=== PATIENT | female | born 1960 | race Caucasian/White ===

== ENCOUNTER 2023-10-07 17:36 | Emergency (ER) | payer MEDICARE, SELFPAY ==
[2023-10-07 17:36] VITALS: BP 169/84; PULSE 98; RESP 20; TEMP 37.1; O2SAT 97; BMI 23.3
--- NOTE | 2023-10-07 17:48 | PC.NURSE ---
DR FIGUEROA AT BEDSIDE
--- NOTE | 2023-10-07 17:54 | ED_ITS ---
Discharge Plan Disposition Patient Disposition: Home, Self-Care Prescriptions Prescriptions: No Action gabapentin 100 mg capsule 100 mg PO TID Qty: 90 2RF Referrals Follow up/Referrals: Declan Chang MD [Physician] - See instructions Activity Restrictions/Add. Instructions Additional Instructions/Restrictions: I spoke with Dr. Chang about your case today we recommend that you stop your Eliquis for at least 48 hours until you have your packing removed and you are advised to restart after this. Please call Dr. Chang's office tomorrow and make an appointment to be seen on Saturday for possible packaging removal. Dr. Chang is expecting to see you on Saturday. Return with any significant worsening of your bleeding. Clinical Impressions Clinical Impression: Perforated nasal septum, Acute anterior epistaxis, Anticoagulated Instructions Patient Instructions: DI for Nosebleed Discharge ED Provider: Rahel Lopez General Adult HPI General Chief complaint: Epistaxis Stated complaint: nose bleed Time Seen by Provider: 10/07/23 17:38 Mode of Arrival: EMS Source of Information: Patient and EMS Limitations: No Limitations Description of Symptoms (Recalled from ER Triage Doc. by RN): patient presents to ED via EMS with a nose bleed. Patient reports this is her third nosebleed today. EMS was called eariler for patient's second nosebleed and got it stopped. Patient is on eliquis. History of Present Illness HPI narrative: Patient is a 63-year-old female who is a [facility] resident presents today with bilateral epistaxis. States she is on Eliquis because I had a pacemaker that was placed. No old records but I presume that she had atrial fibrillation. She states has been compliant with her anticoagulation. Patient also states that she had surgery years past on her septum for a deviated septum denies any history of any chronic perforation or communication of bilateral naris. Has been spitting up some blood no bleeding elsewhere or other concerns. Does not feel lightheaded or any other symptoms. Related Data Previous Rx's Medication Instructions Recorded gabapentin 100 mg capsule 100 mg PO TID #90 caps 02/11/23 Allergies Allergy/AdvReac Type Severity Reaction Status Date / Time methadone Allergy Verified 10/07/23 17:59 morphine Allergy Verified 10/07/23 17:59 Sulfa (Sulfonamide Allergy Verified 10/07/23 17:59 Antibiotics) [facility] Disclaimer: The information contained in this section may have been updated after the patient was seen, as this information can be updated by other users. Social History Smoking Status: Never smoker alcohol intake: never current occupational status: other Travel in the last 8 weeks: None ROS Obtained: Yes All systems reviewed & no additional complaints except as documented Physical Exam General General appearance: alert and in no apparent distress ENT ENT exam: Present other (Septum is anatomically absent and bilateral nares are communicating with 1 another there is a significant amount of blood in bilateral naris no obvious source of the hemorrhage there is some blood down the posterior oropharynx but nothing significant) Respiratory Respiratory exam: Present normal lung sounds bilaterally Cardiovascular Cardiovascular exam: Present regular rate and normal rhythm Neurological Exam Neurological exam: Present alert and oriented X3 Medical Decision Making Schuyler Inquiry Pt receiving controlled substance: No Vital Signs: 10/07/23 17:36 Temperature 98.8 F Temperature Source Axillary Pulse Rate [Right Radial] 98 H Respiratory Rate 20 Blood Pressure [Right Arm] 169/84 H Blood Pressure Mean [Right Arm] 112 Blood Pressure Source [Right Arm] Automatic Cuff Blood Pressure Position [Right Arm] Sitting 02 Sat by Pulse Oximetry 97 Oxygen Delivery Method Room Air Orders (Tests/Meds): ED MEDICATIONS Discontinued Medications Generic Name Dose Route Start Last Admin Trade Name Freq PRN Reason Stop Dose Admin Tranexamic Acid 1,000 mg/ 260 mls @ 32.5 mls/hr 10/07/23 17:57 10/07/23 18:00 Sodium Chloride IV 10/07/23 17:58 32.5 mls/hr ONCE ONE Administration Medical Decision Narrative: Patient is a 63-year-old female with anatomically absent septum with significant bleeding in bilateral anterior naris. Given the fact that she does not have a septum for tamponade purposes we will have to place bilateral packing. Packing was placed anterior nares after soaking and TXA. 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 Reassessment 6:30 PM bilateral packing are soaked in blood but bleeding seems to have significantly slowed down. No active bleeding around the packing itself. No ongoing bleeding down the posterior oropharynx she has not had to spit up blood. I may give her 30 more minutes on reassessment. I was able to speak with Dr. Chang with ENT and he advised that we stop her Eliquis for 48 hours and he will see her in clinic on Saturday for trial of packing removal. I will reassess in 30 minutes and see if she is still hemostatic. Reassessment 7:10 PM bleeding has stopped patient stable she will stop her Eliquis and will follow-up with Dr. Chang on Saturday and return with any worsening bleeding. Procedures Epistaxis Control Time Out Performed: Yes Nostril: bilateral Direct Inspection: yes and anterior source identified Clots Removed by: blowing nose Cautery Used: none Device Inserted: hemostatic balloon (bilaterally ) Patient Tolerated Procedure: well Critical Care Critical Care Time Critical Care Time: No
--- NOTE | 2023-10-07 17:56 | PC.NURSE ---
Rhino rockets inserted bilaterally dipped in TXA by .
[2023-10-07] MEDS: TRANEXAMIC ACID 1,000 MG in 0.9 % SODIUM CHLORIDE 250 ML 32.5 MG IV (18:00)
--- NOTE | 2023-10-07 18:03 | PC.NURSE ---
[facility]ed [facility] for ENT consult. 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
[2023-10-07 19:19] VITALS: BP 140/76; PULSE 74; RESP 20; TEMP 36.7; O2SAT 98
--- NOTE | 2023-10-07 19:23 | PC.NURSE ---
pt is being discharged from ER and a resident form [facility], BLACKSMITH HAMMER OPERATOR called [facility] however no one answered the phone and BLACKSMITH HAMMER OPERATOR called juan malone. juan malone personnel stated they will call [facility] and let them know patient is ready to go and needs a ride
--- NOTE | 2023-10-07 19:40 | PC.NURSE ---
juan malone is sending someone to [facility] patient
== END 2023-10-07 19:59 | disposition home or self-care (01) ==
PROVIDERS: Emergency Provider Student in an Organized Health Care Education/Training Program; PCP Nurse Practitioner Acute Care
DX: R04.0 Epistaxis (principal); J34.89 Other specified disorders of nose and nasal sinuses; Z79.01 Long term (current) use of anticoagulants
CPT/HCPCS: 30903; 96374; 99284

== ENCOUNTER 2023-10-08 10:02 | Emergency (ER) | payer MEDICARE, SELFPAY ==
[2023-10-08] VITALS (7 sets, daily range): BP systolic 117–161; BP diastolic 64–84; PULSE 69–95; RESP 16–18; TEMP 36.6; O2SAT 95–99; BMI 23.3
--- NOTE | 2023-10-08 10:00 | PC.NURSE ---
Dr. Schwartz at bedside
--- NOTE | 2023-10-08 10:04 | PC.NURSE ---
DR CAMACHO SPEAKING WITH JOSE [facility]ON [place] [facility] NURSE PRACTITIONER AT ENT
--- NOTE | 2023-10-08 10:05 | PC.NURSE ---
Dr. Schwartz s/w ENT- [facility] JOSE
[2023-10-08] MEDS: ONDANSETRON 4MG ODT 4 MG SL (10:10)
--- NOTE | 2023-10-08 10:26 | ED_ITS ---
Discharge Plan Disposition Patient Disposition: Home, Self-Care Condition: Good Prescriptions Prescriptions: No Action gabapentin 100 mg capsule 100 mg PO TID Qty: 90 2RF atorvastatin 40 mg tablet 40 mg PO DAILY acetaminophen [Tylenol] 325 mg Tablet 650 mg PO QID PRN (Reason: pain or fever) levothyroxine 75 mcg tablet 75 mcg PO DAILY amlodipine 10 mg tablet 10 mg PO DAILY omeprazole 20 mg capsule,delayed release(DR/EC) 20 mg PO DAILY albuterol sulfate 90 mcg/actuation HFA aerosol inhaler 2 puff INHALATION Q4HP PRN (Reason: Shortness Of Breath Or Wheezing) duloxetine 20 mg capsule,delayed release(DR/EC) 20 mg PO DAILY Eliquis 5 mg tablet 5 mg PO DAILY melatonin 3 mg Capsule 6 mg PO HS PRN (Reason: Sleep) Referrals Follow up/Referrals: Provider,Referral, MD [Primary Care Provider] - See instructions Activity Restrictions/Add. Instructions Additional Instructions/Restrictions: You were evaluated in the emergency department today. Please keep your ENT follow-up that scheduled tomorrow. Return to the emergency department for new or worsening symptoms. Use the Afrin as needed for nosebleeding. Do not blow your nose. Clinical Impressions Clinical Impression: Perforated nasal septum, Acute anterior epistaxis Instructions Patient Instructions: What to Do When Your Child Has a Nosebleed, DI for Noseb leed Discharge ED Provider: Amberly Schwartz General Adult HPI General Chief complaint: Epistaxis Stated complaint: Epistaxis Time Seen by Provider: 10/08/23 10:04 Mode of Arrival: EMS Source of Information: Patient Limitations: No Limitations Description of Symptoms (Recalled from ER Triage Doc. by RN): Patient reports nose bleed. Was seen in this ER yesterday for the same thing and was discharged with Rhino Rockets in place. States that it did stop bleeding but began bleeding again this morning. History of Present Illness HPI narrative: This patient is a 63-year-old female with a history of atrial fibrillation on Eliquis, hypertension, hyperlipidemia, hypothyroidism, and GERD presenting to the emergency department for evaluation with concern for nosebleed. Patient has a history of an anatomically absent nasal septum. She was evaluated here in the emergency department yesterday on medical record review and was found to have acute anterior epistaxis, for which bilateral Rhino Rocket's were placed. Hemostasis was achieved, and the patient was discharged home. She notes that this morning, the bleeding started again. Patient arrives by EMS from [facility], and EMS noted the patient was stable en route. She was supposed to be holding her Eliquis at this time. Patient reports that she last took yesterday morning. Related Data Home Medications Medication Instructions Recorded Confirmed acetaminophen 325 mg tablet 650 mg PO QID PRN pain or fever 10/08/23 10/08/23 (Tylenol) albuterol sulfate 90 mcg/actuation 2 puff inhalation Q4HP PRN 10/08/23 10/08/23 aerosol inhaler Shortness Of Breath Or Wheezing amlodipine 10 mg tablet 10 mg PO DAILY 10/08/23 10/08/23 apixaban 5 mg tablet (Eliquis) 5 mg PO DAILY 10/08/23 10/08/23 atorvastatin 40 mg tablet 40 mg PO DAILY 10/08/23 10/08/23 duloxetine 20 mg capsule,delayed 20 mg PO DAILY 10/08/23 10/08/23 release levothyroxine 75 mcg tablet 75 mcg PO DAILY 10/08/23 10/08/23 melatonin 3 mg capsule 6 mg PO HS PRN Sleep 10/08/23 10/08/23 omeprazole 20 mg capsule,delayed 20 mg PO DAILY 10/08/23 10/08/23 release Previous Rx's Medication Instructions Recorded gabapentin 100 mg capsule 100 mg PO TID #90 caps 02/11/23 Allergies Allergy/AdvReac Type Severity Reaction Status Date / Time methadone Allergy Verified 10/07/23 17:59 morphine Allergy Verified 10/07/23 17:59 Sulfa (Sulfonamide Allergy Verified 10/07/23 17:59 Antibiotics) [facility] Disclaimer: The information contained in this section may have been updated after the patient was seen, as this information can be updated by other users. Social History Smoking Status: Unknown if ever smoked alcohol intake: never current occupational status: other Travel in the last 8 weeks: None ROS Obtained: Yes All systems reviewed & no additional complaints except as documented Physical Exam General General appearance: alert and in no apparent distress Head Head exam: atraumatic and normocephalic Eye Eye exam: Present normal appearance, PERRL and EOMI ENT ENT exam: Present normal oropharynx, mucous membranes moist, normal external ear exam and other (bilateral rhino rockets in place. Small amount of blood oozing down posterior oropharynx) Neck Neck exam: Present normal inspection, full ROM and trachea midline; Absent tenderness Chest Chest inspection: Present normal inspection and symmetric chest wall rise; Absent tenderness Respiratory Respiratory exam: Present normal lung sounds bilaterally; Absent respiratory distress, wheezes, stridor or accessory muscle use Cardiovascular Cardiovascular exam: Present regular rate and normal rhythm Abdominal Exam Abdominal exam: Present soft; Absent distention, tenderness or guarding Extremities Exam Extremities exam: Present normal inspection, full ROM and normal capillary refill; Absent tenderness or edema Back Exam Back exam: Present normal inspection and full ROM; Absent tenderness Neurological Exam Neurological exam: Present alert, oriented X3, CN II-XII intact and normal gait; Absent motor sensory deficit Psychiatric Psychiatric exam: Present normal affect and normal mood Skin Skin exam: Present warm and dry Medical Decision Making Medical Records Medical records reviewed: Yes I reviewed the patient's medical records. Schuyler Inquiry Pt receiving controlled substance: No Vital Signs: 10/08/23 10:02 10/08/23 10:31 10/08/23 11:01 Temperature 97.9 F Temperature Source Oral Pulse Rate 70 70 Pulse Rate [Radial] 95 H Respiratory Rate 16 Blood Pressure 161/81 H 147/80 H Blood Pressure [Right Arm] 157/84 H Blood Pressure Mean Blood Pressure Mean [Right Arm] 108 Blood Pressure Source [Right Arm] Automatic Cuff Blood Pressure Position [Right Arm] Sitting 02 Sat by Pulse Oximetry 98 95 95 Oxygen Delivery Method Room Air Room Air 10/08/23 11:31 10/08/23 12:01 10/08/23 12:31 Temperature Temperature Source Pulse Rate 70 71 Pulse Rate [Radial] Respiratory Rate Blood Pressure 128/64 124/66 117/64 Blood Pressure [Right Arm] Blood Pressure Mean 85 89 Blood Pressure Mean [Right Arm] Blood Pressure Source [Right Arm] Blood Pressure Position [Right Arm] 02 Sat by Pulse Oximetry 97 96 Oxygen Delivery Method Room Air 10/08/23 12:54 Temperature 98 F Temperature Source Oral Pulse Rate 69 Pulse Rate [Radial] Respiratory Rate 18 Blood Pressure 117/64 Blood Pressure [Right Arm] Blood Pressure Mean Blood Pressure Mean [Right Arm] Blood Pressure Source [Right Arm] Blood Pressure Position [Right Arm] 02 Sat by Pulse Oximetry Oxygen Delivery Method Room Air Lab Data Lab results reviewed: Yes I reviewed the patient's lab results. Orders (Tests/Meds): ED MEDICATIONS Discontinued Medications Generic Name Dose Route Start Last Admin Trade Name Flor PRN Reason Stop Dose Admin Acetaminophen 1,000 mg 10/08/23 10:25 10/08/23 10:36 Acetaminophen 500mg Tab PO 10/08/23 10:26 1,000 mg ONCE ONE Administration Miscellaneous 1 each 10/08/23 10:45 10/08/23 10:50 Miscellaneous Topical TP 10/08/23 10:46 1 each ONCE ONE Administration Ondansetron HCl 4 mg 10/08/23 10:07 10/08/23 10:10 Ondansetron 4mg Odt SL 10/08/23 10:08 4 mg ONCE ONE Administration Oxymetazoline HCl 15 ml 10/08/23 10:24 10/08/23 10:36 Oxymetazoline Nasal Butner 0.05% 15ml NS 10/08/23 10:25 15 ml ONCE ONE Administration Medical Decision Narrative: In summary, this patient is a 63-year-old female presenting to the Emergency Department for evaluation of epistaxis. Differential diagnoses considered include but are not limited to anterior nosebleed, posterior nosebleed. Ruling out the most morbid conditions drove assessment. It should be noted patient's history includes atrial fibrillation on Eliquis which may or may not be at goal therapy. This complicates all aspects of care by increasing patient's risk for morbidity. I reviewed patient's past medical records and noted evaluation yesterday for similar issue with nasal packing placed and discharged home as per HPI. On exam, the patient is in no acute distress. She has a very small amount of blood draining down the back of her throat, which is causing her to have some mild hemoptysis. Vitals are reassuring. Upon arrival, I called and had an interactive discussion with KEN in ENT clinic who advised we should remove the Rhino Rocket's, administer TXA nebulizer treatment, and see if we can achieve hemostasis. If not, they advised that they would come down and assessed the patient. Rhino Rocket's were removed without difficulty. Patient tolerated this well. No large amount of bleeding upon removal. TXA neb was then administered. Patient was given oral Tylenol and Zofran for symptomatic improvement. Patient's Rhino Rocket's were removed and she was given TXA neb. After this, she had no recurrence of bleeding. She was observed in the emergency department for over an hour with no recurrence of bleeding. ENT came down and evaluated her in the ED and after interactive discussion with Dr. Chang, he advised that he felt she could continue with plan for follow-up outpatient tomorrow. He advised continue to hold Eliquis. Patient was given instructions for this as well as Afrin to take home. Patient was discharged with strict return precautions and instructions for close follow-up. Critical Care Critical Care Time Critical Care Time: No
[2023-10-08] MEDS: ACETAMINOPHEN 500MG TAB 1000 MG PO (10:36)
[2023-10-08] MEDS: OXYMETAZOLINE NASAL SPRAY 0.05% 15ML 15 ML NS (10:36)
[2023-10-08] MEDS: [UNRECOGNIZED DRUG - OTHER] 1 EACH TP (10:50)
--- NOTE | 2023-10-08 11:10 | PC.NURSE ---
Rounded on patient, Warm blanket provided to patient at this time.
--- NOTE | 2023-10-08 12:35 | PC.NURSE ---
ENT- Dr. Chang at bedside
--- NOTE | 2023-10-08 12:38 | PC.NURSE ---
Dr. Chang s/w Dr. Schwartz
== END 2023-10-08 13:01 | disposition home or self-care (01) ==
PROVIDERS: Emergency Provider Emergency Medicine
DX: R04.0 Epistaxis (principal); J34.89 Other specified disorders of nose and nasal sinuses; I48.0 Paroxysmal atrial fibrillation; I10 Essential (primary) hypertension; E03.9 Hypothyroidism, unspecified; E78.5 Hyperlipidemia, unspecified; K21.9 Gastro-esophageal reflux disease without esophagitis; Z79.01 Long term (current) use of anticoagulants
CPT/HCPCS: 99283

== ENCOUNTER 2023-10-10 14:56 | Emergency (ER) | payer MEDICARE, SELFPAY ==
[2023-10-10] VITALS (8 sets, daily range): BP systolic 130–155; BP diastolic 65–74; PULSE 70–91; RESP 16–20; TEMP 36.8–36.9; O2SAT 93–100; BMI 29.0
[2023-10-10] MEDS: OXYMETAZOLINE NASAL SPRAY 0.05% 15ML 4 ML NS (15:16)
[2023-10-10] MEDS: TRANEXAMIC ACID 1,000 MG/10 ML VIAL 1000 MG TP ×2 (15:17→17:08)
--- NOTE | 2023-10-10 15:30 | HMH.EDGENADL ---
Discharge Plan Disposition Patient Disposition: Home, Self-Care Prescriptions Prescriptions: New cephalexin 500 mg capsule 1,000 mg PO BID 5 Days Qty: 20 0RF No Action cefdinir 300 mg capsule 300 mg PO BID 7 Days Qty: 14 0RF Saline Nasal Mist 0.65 % aerosol,spray 2 spray intranasal QID Qty: 44 0RF gabapentin 100 mg capsule 100 mg PO TID Qty: 90 2RF atorvastatin 40 mg tablet 40 mg PO DAILY acetaminophen [Tylenol] 325 mg Tablet 650 mg PO QID PRN (Reason: pain or fever) levothyroxine 75 mcg tablet 75 mcg PO DAILY amlodipine 10 mg tablet 10 mg PO DAILY omeprazole 20 mg capsule,delayed release(DR/EC) 20 mg PO DAILY albuterol sulfate 90 mcg/actuation HFA aerosol inhaler 2 puff INHALATION Q4HP PRN (Reason: Shortness Of Breath Or Wheezing) duloxetine 20 mg capsule,delayed release(DR/EC) 20 mg PO DAILY Eliquis 5 mg tablet 5 mg PO DAILY melatonin 3 mg Capsule 6 mg PO HS PRN (Reason: Sleep) Referrals Follow up/Referrals: Provider,Referral, MD [Referring] - See instructions Activity Restrictions/Add. Instructions Additional Instructions/Restrictions: Follow up with ENT on Saturday, 10/13 for further evaluation. Take Keflex until that time. Call your family doctor to establish care for this visit to the emergency department and schedule follow-up within 48 hours to ensure improvement. If you have any worsening of your condition or any other concerning signs or symptoms, return to the emergency department or your primary care doctor for further evaluation. Clinical Impressions Clinical Impression: Acute anterior epistaxis Instructions Patient Instructions: DI for Nosebleed Discharge ED Provider: Amberly Schwartz General Adult HPI General Chief complaint: Epistaxis Stated complaint: nose bleed Time Seen by Provider: 10/10/23 15:03 Mode of Arrival: EMS Source of Information: Patient and EMS Limitations: No Limitations Description of Symptoms (Recalled from ER Triage Doc. by RN): nose bleed History of Present Illness HPI narrative: Please note that above description of symptoms, in this electronic medical record under categorization of recalled from ER triage doctor by RN are reflective of an initial nursing assessment, however, is not reflective of my full history and physical exam that was personally taken and clarified. Consequentially, this preceding description of symptoms, which may include the patient's categorized chief complaint in the EMR, do not reflect my personal clinical impression, and the ultimate description of history of present illness and patient stated complaints should be deferred to this section of the note. Unless stated otherwise or congruent with this section of the note, additional signs, symptoms, or incongruence should be interpreted as inaccurate with my clinical impression. Related Data Home Medications Medication Instructions Recorded Confirmed acetaminophen 325 mg tablet 650 mg PO QID PRN pain or fever 10/08/23 10/09/23 (Tylenol) albuterol sulfate 90 mcg/actuation 2 puff inhalation Q4HP PRN 10/08/23 10/09/23 aerosol inhaler Shortness Of Breath Or Wheezing amlodipine 10 mg tablet 10 mg PO DAILY 10/08/23 10/09/23 apixaban 5 mg tablet (Eliquis) 5 mg PO DAILY 10/08/23 10/09/23 atorvastatin 40 mg tablet 40 mg PO DAILY 10/08/23 10/09/23 duloxetine 20 mg capsule,delayed 20 mg PO DAILY 10/08/23 10/09/23 release levothyroxine 75 mcg tablet 75 mcg PO DAILY 10/08/23 10/09/23 melatonin 3 mg capsule 6 mg PO HS PRN Sleep 10/08/23 10/09/23 omeprazole 20 mg capsule,delayed 20 mg PO DAILY 10/08/23 10/09/23 release Previous Rx's Medication Instructions Recorded gabapentin 100 mg capsule 100 mg PO TID #90 caps 02/11/23 cefdinir 300 mg capsule 300 mg PO BID 7 days #14 caps 10/09/23 sodium chloride 0.65 % nasal spray 2 spray intranasal QID #44 mL 10/09/23 aerosol (Saline Nasal Mist) cephalexin 500 mg capsule 1,000 mg (2 x 500 mg) PO BID 5 10/10/23 days #20 caps Allergies Allergy/AdvReac Type Severity Reaction Status Date / Time methadone Allergy Verified 10/09/23 11:07 morphine Allergy Verified 10/09/23 11:07 Sulfa (Sulfonamide Allergy Verified 10/09/23 11:07 Antibiotics) [facility] Disclaimer: The information contained in this section may have been updated after the patient was seen, as this information can be updated by other users. Social History Smoking Status: Current every day smoker alcohol intake: never current occupational status: other Travel in the last 8 weeks: None ROS Obtained: Yes All systems reviewed & no additional complaints except as documented Physical Exam General General appearance: alert and in no apparent distress Head Head exam: atraumatic and normocephalic Eye Eye exam: Present normal appearance, PERRL and EOMI ENT ENT exam: Present mucous membranes moist and other (Right-sided slow epistaxis, anterior. Small trickle down the back of oropharynx on the right side. Nasal septum with visible perforation) Neck Neck exam: Present normal inspection, full ROM and trachea midline Respiratory Respiratory exam: Present normal lung sounds bilaterally; Absent respiratory distress, wheezes, stridor, accessory muscle use or prolonged expiratory phase Cardiovascular Cardiovascular exam: Present normal rhythm Abdominal Exam Abdominal exam: Present soft; Absent distention, tenderness, guarding, rebound or rigidity Extremities Exam Extremities exam: Absent edema Neurological Exam Neurological exam: Present alert, oriented X3, CN II-XII intact and normal gait; Absent motor sensory deficit Skin Skin exam: Present warm and dry; Absent diaphoresis or erythema Medical Decision Making Medical Records Medical records reviewed: Yes I reviewed the patient's medical records. [place] Inquiry Pt receiving controlled substance: No [place] was queried for this patient: No Vital Signs: 10/10/23 14:56 10/10/23 14:58 10/10/23 15:45 Temperature 98.4 F Temperature Source Oral Pulse Rate 73 77 Pulse Rate [Right] 91 H Respiratory Rate 18 18 16 Blood Pressure 146/65 H 146/70 H Blood Pressure [Right Arm] 146/65 H Blood Pressure Mean 92 Blood Pressure Mean [Right Arm] 92 02 Sat by Pulse Oximetry 100 100 93 L Oxygen Delivery Method Room Air 10/10/23 16:15 10/10/23 16:24 10/10/23 16:30 Temperature Temperature Source Pulse Rate 70 72 78 Pulse Rate [Right] Respiratory Rate 16 18 18 Blood Pressure 139/72 134/74 130/72 Blood Pressure [Right Arm] Blood Pressure Mean 94 Blood Pressure Mean [Right Arm] 02 Sat by Pulse Oximetry 93 L 93 L 97 Oxygen Delivery Method Orders (Tests/Meds): ED MEDICATIONS Discontinued Medications Generic Name Dose Route Start Last Admin Trade Name Freq PRN Reason Stop Dose Admin Bacitracin 1 gm 10/10/23 17:04 10/10/23 17:08 Bacitracin Zinc Oint 30gm Tube TP 10/10/23 17:05 1 gm ONCE ONE Administration Miscellaneous 1 each 10/10/23 15:30 10/10/23 15:34 Miscellaneous Topical TP 10/10/23 15:31 1 each ONCE ONE Administration Oxymetazoline HCl 4 ml 10/10/23 15:06 10/10/23 15:16 Oxymetazoline Nasal Bellamy 0.05% 15ml NS 10/10/23 15:07 4 ml ONCE ONE Administration Tranexamic Acid 1,000 mg 10/10/23 15:06 10/10/23 15:17 Tranexamic Acid 1,000 Mg/10 Ml Vial TP 10/10/23 15:07 1,000 mg ONCE ONE Administration Tranexamic Acid 1,000 mg 10/10/23 17:03 10/10/23 17:08 Tranexamic Acid 1,000 Mg/10 Ml Vial TP 10/10/23 17:04 1,000 mg ONCE ONE Administration Medical Decision Narrative: 63-year-old female history of ischemic cardiomyopathy with pacemaker in place, Eliquis for presumed A-fib, hypertension, hypothyroidism, surgically absent anterior nasal septum presenting with epistaxis. Patient states that her nasal septum has been surgically absent since she had a deviated septum repaired years ago. Broke down over time. Started having nosebleed 4 days prior to this visit. Every day this week up until today. Emergency department on and , seen by ENT on the and presents today, 10/09 for further evaluation. States that the bleeding has not stopped. Had bilateral nasal packing in from the until the , removed by ED physician. Followed up on the with otolaryngology, they did not see any bleeding at the time. Patient presents today stating that it never actually stopped, as stated previously. No lightheadedness, shortness of breath, nausea or vomiting, chest pain, or any other concerning symptoms. Not currently taking her Eliquis. Patient states that it has continued to bleed, never actually fully stopped. History was obtained via conversation with patient and chart review. On arrival, patient hemodynamically stable, alert, oriented x4, appropriate, GCS 15, moving all extremities spontaneously, pupils equal and reactive to light. Full physical exam performed and significant for chronically ill-appearing woman in no acute distress. She does have bleeding in right nare as well as right-sided posterior oropharynx. Visible septal defect. Differential includes anterior epistaxis, digital trauma, surgical complication, medical noncompliance, among others. Patient was given oxymetazoline, TXA, nose clip for symptomatic management and correction of underlying abnormalities. Patient was placed in observation beginning at 3:20 PM in order to monitor for continued bleeding after topical medications and clamping and determine need for admission versus home-going. The patient was provided serial exams while awaiting results. On reevaluation 4 PM, patient still continuing to bleed, given another dose of topical oxymetazoline, topical TXA, clamping for 45-minute trial. Reevaluation 5 PM, patient still continuing to bleed, wiping her nose intermittently, I feel this is probably contributing. On nasal exam, patient bleeding from posterior aspect of use of our plexus on the right just superior to the nasal septal defect and now also bleeding on the left. Given nearly 2 hours of failure topical medications, nasal tampon packing bilaterally was placed. Bacitracin used for lubrication, nasal tampons were placed and saturated with TXA until complete occlusion. No continued bleeding thereafter. At this time, I feel patient is appropriate for discharge. Total observation time 3 hours. 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 Electronic leasing coordinator of the spoken language may permit errors. Although I have reviewed the note, some errors may still exist. Critical Care Critical Care Time Critical Care Time: No
[2023-10-10] MEDS: [UNRECOGNIZED DRUG - OTHER] 1 EACH TP (15:34)
[2023-10-10] MEDS: BACITRACIN ZINC OINT 30GM TUBE TP (17:08)
--- NOTE | 2023-10-10 18:13 | PC.NURSE ---
called [facility] to let them know pt is up for discharge
== END 2023-10-10 18:29 | disposition home or self-care (01) ==
PROVIDERS: Emergency Provider Emergency Medicine; PCP Nurse Practitioner Acute Care
DX: R04.0 Epistaxis (principal); I48.0 Paroxysmal atrial fibrillation; F17.210 Nicotine dependence, cigarettes, uncomplicated; E03.9 Hypothyroidism, unspecified; I10 Essential (primary) hypertension; Z79.01 Long term (current) use of anticoagulants; Z86.79 Personal history of other diseases of the circulatory system; Z95.0 Presence of cardiac pacemaker
CPT/HCPCS: 30903; 99283

== ENCOUNTER 2023-10-21 09:34 | Emergency (ER) | payer MEDICARE, SELFPAY ==
--- NOTE | 2023-10-21 09:40 | CT_ITS ---
FINAL REPORT TECHNIQUE: Thin section axial CT with IV contrast supplemented with multiplanar reconstruction under CT angiogram protocol. 3-D reconstructions were performed. This study was performed with techniques to keep radiation doses as low as reasonably achievable (ALARA). Individualized dose reduction techniques using automated exposure control or adjustment of mA and/or kV according to the patient''s size were employed. CLINICAL HISTORY: LLE weakness/numbness LKN yest evening stroke protocol FINDINGS: Exam is suboptimal due to contrast bolus timing with dense venous contrast which obscures some detail. The distal vertebral, basilar and distal internal carotid arteries have an unremarkable appearance. No aneurysm is seen. Major intracranial vessels are patent without significant stenosis. IMPRESSION: Unremarkable exam. Reviewed, Interpreted and Dictated by Cornelius Tatum III, MD Transcribed by Shayna Marino Authenticated and . [facility]
--- NOTE | 2023-10-21 09:40 | CT_ITS ---
FINAL REPORT CLINICAL HISTORY: LLE weakness/numbness LKN yest evening stroke protocol FINDINGS: Axial images of the head were obtained without contrast. Coronal reformatted images were also obtained.This study was performed with techniques to keep radiation doses as low as reasonably achievable (ALARA). Individualized dose reduction techniques using automated exposure control or adjustment of mA and/or kV according to the patient's size were employed. There are moderate, chronic ischemic/gliotic changes. There are multifocal areas of encephalomalacia, the largest seen in the right occipital lobe consistent with multifocal prior infarcts. There is no evidence of intracranial hemorrhage or mass. The ventricular size is within normal limits. There is no evidence of shift of the midline structures. No abnormal extra axial fluid collection is identified. No skull abnormality is seen on the bone window images. There is moderate mucosal thickening of multiple sinuses IMPRESSION: Chronic findings without acute intracranial abnormality. Reviewed, Interpreted and Dictated by Cornelius Tatum III, MD Transcribed by Shayna Marino Authenticated and . [facility]
--- NOTE | 2023-10-21 09:40 | CT_ITS ---
FINAL REPORT CLINICAL HISTORY: LLE weakness/numbness LKN yest evening FINDINGS: CTA NECK Thin section axial CT with contrast with multiplanar reconstruction NASCET criteria and technique was utilized during interpretation. Aortic arch: Arch shows no significant narrowing. Great vessel origins are widely patent . Right carotid: There is poor filling of the right posterior cerebral artery but with chronic infarct seen in the right [employer]ATL[employer] P[employer] territory, this is felt to be chronic. No significant stenosis is seen of the cervical common or internal carotid artery . Left carotid: No significant stenosis is seen of the cervical common or internal carotid artery . Vertebrals: Vertebral arteries are codominant. No significant stenosis is present . IMPRESSION: Unremarkable exam. Reviewed, Interpreted and Dictated by Cornelius Tatum III, MD Transcribed by Shayna Marino Authenticated and [facility]
--- NOTE | 2023-10-21 09:41 | XR_ITS ---
FINAL REPORT CLINICAL HISTORY: dyspnea FINDINGS: A single portable view of the chest was obtained. The heart size is normal. There is mild pulmonary vascular congestion. A right subclavian pacemaker is noted. There is no active pulmonary disease. The bony thorax is intact. IMPRESSION: Mild pulmonary vascular congestion. Reviewed, Interpreted and Dictated by Cornelius Tatum III, MD Transcribed by Zeynep Bower Authenticated and [facility]
--- NOTE | 2023-10-21 09:44 | PC.NURSE ---
blood work sent to lab in stroke alert bag for stat completion
[2023-10-21 09:47] VITALS: BP 166/92; PULSE 85; RESP 20; TEMP 36.8; O2SAT 100; BMI 24.2
--- NOTE | 2023-10-21 09:47 | PC.NURSE ---
pt to ct
--- NOTE | 2023-10-21 09:48 | ED_ITS ---
Discharge Plan Disposition Patient Disposition: Xfer Other Chief Complaint: Neuro Symptoms/Deficit Prescriptions Prescriptions: No Action cefdinir 300 mg capsule 300 mg PO BID 7 Days Qty: 14 0RF Saline Nasal Mist 0.65 % aerosol,spray 2 spray intranasal QID Qty: 44 0RF gabapentin 100 mg capsule 100 mg PO TID Qty: 90 2RF atorvastatin 40 mg tablet 40 mg PO DAILY acetaminophen [Tylenol] 325 mg Tablet 650 mg PO QID PRN (Reason: pain or fever) levothyroxine 75 mcg tablet 75 mcg PO DAILY amlodipine 10 mg tablet 10 mg PO DAILY omeprazole 20 mg capsule,delayed release(DR/EC) 20 mg PO DAILY albuterol sulfate 90 mcg/actuation HFA aerosol inhaler 2 puff INHALATION Q4HP PRN (Reason: Shortness Of Breath Or Wheezing) duloxetine 20 mg capsule,delayed release(DR/EC) 20 mg PO DAILY Eliquis 5 mg tablet 5 mg PO DAILY melatonin 3 mg Capsule 6 mg PO HS PRN (Reason: Sleep) cephalexin 500 mg capsule 1,000 mg PO BID 5 Days Qty: 20 0RF Referrals Follow up/Referrals: Provider,Referral, MD [Primary Care Provider] - See instructions Clinical Impressions Clinical Impression: Acute CVA (cerebrovascular accident), Left leg weakness Discharge ED Provider: Rahel Lopez General Adult HPI General Chief complaint: Neuro Symptoms/Deficit Stated complaint: weakness Time Seen by Provider: 10/21/23 09:40 History of Present Illness HPI narrative: Patient is a 63-year-old female presenting today with left lower extremity weakness. Last known normal yesterday evening. Of note the patient has been on Eliquis she has a history of ischemic cardiomyopathy she is status post BiV ICD [place] [address] Smallwood has atrial fibrillation and has been on Eliquis but she has had 4 ED visits in the last few weeks first being on 527 for epistaxis. She has a large septal defect and had nasal packing that was placed on multiple occasions she also saw our ear nose and throat doctor in clinic. Intermittently the bleeding had stopped that she has been off of her Eliquis since October 06. Most recently she was seen in our emergency department for recurrent bleeding was actually transferred [facility] had a 4-day hospitalization she was discharged on October 15 and she was advised to continue to hold her anticoagulation. Upon being discharged from [facility] on the fifth her anticoagulation was being held and she was advised to resume after following up with her primary care doctor. According to the patient she continues to not have taken any medications. Her bleeding has been controlled for many days at this point. Related Data Home Medications Medication Instructions Recorded Confirmed acetaminophen 325 mg tablet 650 mg PO QID PRN pain or fever 10/08/23 10/09/23 (Tylenol) albuterol sulfate 90 mcg/actuation 2 puff inhalation Q4HP PRN 10/08/23 10/09/23 aerosol inhaler Shortness Of Breath Or Wheezing amlodipine 10 mg tablet 10 mg PO DAILY 10/08/23 10/09/23 apixaban 5 mg tablet (Eliquis) 5 mg PO DAILY 10/08/23 10/09/23 atorvastatin 40 mg tablet 40 mg PO DAILY 10/08/23 10/09/23 duloxetine 20 mg capsule,delayed 20 mg PO DAILY 10/08/23 10/09/23 release levothyroxine 75 mcg tablet 75 mcg PO DAILY 10/08/23 10/09/23 melatonin 3 mg capsule 6 mg PO HS PRN Sleep 10/08/23 10/09/23 omeprazole 20 mg capsule,delayed 20 mg PO DAILY 10/08/23 10/09/23 release Previous Rx's Medication Instructions Recorded gabapentin 100 mg capsule 100 mg PO TID #90 caps 02/11/23 cefdinir 300 mg capsule 300 mg PO BID 7 days #14 caps 10/09/23 sodium chloride 0.65 % nasal spray 2 spray intranasal QID #44 mL 10/09/23 aerosol (Saline Nasal Mist) cephalexin 500 mg capsule 1,000 mg (2 x 500 mg) PO BID 5 10/10/23 days #20 caps Allergies Allergy/AdvReac Type Severity Reaction Status Date / Time methadone Allergy Verified 10/09/23 11:07 morphine Allergy Verified 10/09/23 11:07 Sulfa (Sulfonamide Allergy Verified 10/09/23 11:07 Antibiotics) [facility] Disclaimer: The information contained in this section may have been updated after the patient was seen, as this information can be updated by other users. Social History Smoking Status: Never smoker alcohol intake: never current occupational status: other Travel in the last 8 weeks: None ROS Obtained: Yes All systems reviewed & no additional complaints except as documented Physical Exam General General appearance: alert and in no apparent distress Head Head exam: atraumatic and normocephalic ENT ENT exam: Present other (Bilateral nares hemostatic no active bleeding) Respiratory Respiratory exam: Present normal lung sounds bilaterally Cardiovascular Cardiovascular exam: Present regular rate and normal rhythm Neurological Exam Neurological exam: Present alert, oriented X3, CN II-XII intact and motor sensory deficit (Patient has diminished strength in the left lower extremity proximally and distally 3/4 out of 5 also has diminished sensation left lower extremity NIH stroke scale of 3) Medical Decision Making [place] Inquiry Pt receiving controlled substance: No Vital Signs: 10/21/23 09:47 10/21/23 10:30 10/21/23 11:00 Temperature 98.2 F Temperature Source Oral Pulse Rate 77 68 Pulse Rate [Left Radial] 85 Respiratory Rate 20 16 Blood Pressure 137/81 150/103 H Blood Pressure [Right Arm] 166/92 H Blood Pressure Mean 106 Blood Pressure Mean [Right Arm] 116 02 Sat by Pulse Oximetry 100 100 92 L Oxygen Delivery Method Room Air Room Air Lab Data Lab results reviewed: Yes I reviewed the patient's lab results. Lab Results 10/21/23 08:45: WBC 8.6, RBC 3.63 L, Hgb 10.3 L, Hct 33.0 L, MCV 91.1, MCH 28.5, MCHC 31.3 L, RDW 15.4, Plt Count 266, MPV 7.9, Neut % (Auto) 68.6, Lymph % (Auto) 23.2, Edwards % (Auto) 5.8, Eos % (Auto) 1.8, Baso % (Auto) 0.6, Neut # (Auto) 5.9, Lymph # (Auto) 2.0, Edwards # (Auto) 0.5, Eos # (Auto) 0.2, Baso # (Auto) 0.1, PT 10.4, INR 0.96, APTT 26.0, Sodium 138, Potassium 4.1, Chloride 105, Carbon Dioxide 27, Anion Gap 10.1, BUN 15, Creatinine 1.00, Estimated Creat Clear 63, Estimated GFR 56 L, Est GFR ( Amer) 68, Glucose 106 H, Calcium 9.2, Total Bilirubin 0.2, AST 34, ALT 21, Alkaline Phosphatase 106, Troponin I < 0.01, Total Protein 7.0, Albumin 4.0, Globulin 3.0, Albumin/Globulin Ratio 1.3 10/21/23 08:45 10/21/23 08:45 Orders (Tests/Meds): ED MEDICATIONS Generic Name Dose Route Start Last Admin Trade Name Freq PRN Reason Stop Dose Admin Sodium Chloride 10 ml 10/21/23 09:57 10/21/23 10:07 Sodium Chloride 0.9% 10ml Syr (Rad Only) IV 11/20/23 09:56 10 ml NEEDED PRN Administration Maintain IV Site Sodium Chloride 10 ml 10/21/23 10:08 10/21/23 10:22 Sodium Chloride 0.9% 10ml Syr (Rad Only) IV 11/20/23 10:07 10 ml NEEDED PRN Administration Maintain IV Site Discontinued Medications Generic Name Dose Route Start Last Admin Trade Name Freq PRN Reason Stop Dose Admin Lactated Ringer's 1,000 mls @ 999 mls/hr 10/21/23 09:45 10/21/23 10:19 Lactated Ringer's 1000 Ml Bag IV 10/21/23 10:45 999 mls/hr .Q1H1M MYRIAM Administration Iopamidol 100 ml 10/21/23 09:57 10/21/23 10:07 Iopamidol-370 (76%);100ml Bottle IV 10/21/23 09:58 100 ml ONCE ONE Administration Iopamidol 10 ml 10/21/23 09:57 10/21/23 10:07 Iopamidol-200 (41%);10ml Vial IV 10/21/23 09:58 10 ml ONCE ONE Administration Iopamidol 100 ml 10/21/23 10:08 10/21/23 10:22 Iopamidol-370 (76%);100ml Bottle IV 10/21/23 10:09 100 ml ONCE ONE Administration Sodium Chloride 50 ml 10/21/23 10:08 10/21/23 10:22 0.9 % Sodium Chloride 50 Ml Vial IV 10/21/23 10:09 50 ml ONCE ONE Administration ORDERS Category Date Time Status CT angio head Stat Cat Scan 10/21/23 09:[address] angio neck Stat Cat Scan 10/21/23 09:[address] head/brain wo con Stat Cat Scan 10/21/23 09:40 Completed CXR --portable [XR chest portable] Stat Exams 10/21/23 09:41 Taken POCUS Point of Care (ER Only) Stat Exams 10/21/23 10:07 Completed CBC w/Auto Diff [Complete Blood Count Auto Diff] Stat Lab 10/21/23 08:45 Completed CMP [Comprehensive Metabolic Panel] Stat Lab 10/21/23 08:45 Completed PT/PTT Stat Lab 10/21/23 08:45 Completed Trop I [Troponin I] Stat Lab 10/21/23 08:45 Completed Medical Decision Narrative: 63-year-old with above history and physical most likely with an acute ischemic stroke after being off of her anticoagulants due to recent and ongoing epistaxis that she has been dealing with. She is currently hemostatic from an epistaxis standpoint. She is outside of any window at the moment for tPA. CT and CTA are being performed. Given her complexity and the difficult decision to restart anticoagulation with her recent history she will need to be managed where there is ENT coverage as well as stroke. After her CT scans were performed will reassess. Reassessment 11:[address] scan was performed initially treatment technician was having difficult time getting the systemic circulation to light up with contrast make me concerned about significant decrease in her ejection fraction or an LV thrombus bedside ultrasound was done without any significant abnormality regarding that see procedure note. No obvious hemorrhagic stroke no definitive LVO at the moment. I was able to speak with the stroke service at [facility]. Given the fact that she has had the recent significant bleeds and has been off her anticoagulation and restarting her anticoagulation possible hemorrhaging would be a concern and the fact that she needs stroke/inpatient neurology evaluation will need an MRI etc. she needed a higher level of care. Patient is agreeable to this plan. She was transferred to [facility] under the accepting attending Dr. Ronit Hernandez. Procedures Miscellaneous Procedure Procedure Performed: Limited cardiac ultrasound Indication: Stroke like symptoms Identified structures: The heart was visualized in the parasternal long axis, parastenal short axis, apical four chamber and subxyphiod views. The IVC was visualized in the short axis and long axis at its entry into the right atrium. Findings: LVEF not moderately or severely diminished no pericardial effusion bilateral atria are dilated without obvious thrombus in the atria or LV IVC less than 2 cm with normal respirophasic variation Impression: Unremarkable limited ultrasound of the heart Images were saved to permanent archive The study was technically adequate CPT: 89102-58 This study was performed by me, and I personally interpreted all images/videos. Based on my clinical judgement, these images were adequate and did not necessitate further imaging. Critical Care Critical Care Time Critical Care Time: Yes Attestation: On 10/21/23, the high probability of a clinically significant, sudden or life threatening deterioration of the following system(s) required my full and direct attention, intervention and personal management. The time I documented below is in addition to time spent performing reported procedures but includes the following listed in this critical care notation. Total Time Total Critical Care Time: 35
--- NOTE | 2023-10-21 09:57 | HMH.ITSTN ---
GFR completion/results were overrode for the use of contrast media by the Physician on a risk vs. benefit situation with this patient.
[2023-10-21 09:58] LABS: Basophils # 0.1 K/mm3 (0-0.2); Basophils % 0.6 % (0.1-2.0); Eosinophils # 0.2 K/mm3 (0.0-0.4); Eosinophils % 1.8 % (0.1-12.0); Hemoglobin 10.3 g/dL (12.2-16.2); Lymphocytes % 23.2 % (10-50); Mean Corpuscular HGB Conc 31.3 g/dL (31.8-35.4); Mean Corpuscular Hemoglobin 28.5 pg (27.0-31.2); Mean Corpuscular Volume 91.1 fl (81-99); Mean Platelet Volume 7.9 fl (7.4-10.4); Monocytes # 0.5 K/mm3 (0.1-1.0); Monocytes % 5.8 % (1.7-9.3); Neutrophils # 5.9 K/mm3 (1.8-7.8); Neutrophils % 68.6 % (37.0-80.0); Platelet Count 266 K/mm3 (142-424); Red Blood Count 3.63 M/mm3 (4.20-5.40); Red Cell Distribution Width 15.4 % (11.5-17.5); White Blood Count 8.6 K/mm3 (4.8-10.8)
[2023-10-21 10:05] LABS: Chloride 105 mmol/L (98-107); INR 0.96 (0.9-1.1); Potassium 4.1 mmoL/L (3.5-5.1); Prothrombin Time 10.4 seconds (10.1-12.5); Sodium 138 mmol/L (136-145)
[2023-10-21 10:07] LABS: Blood Urea Nitrogen 15 mg/dl (7-17); Creatinine Clearance Estimated 63 mL/min (50-200); Estimated Glomerular Filt Rate 56 ml/min (>60); GFR (African American) 68 ML/MIN (>60)
[2023-10-21] MEDS: IOPAMIDOL-200 (41%);10ML VIAL 10 ML IV (10:07)
[2023-10-21] MEDS: SODIUM CHLORIDE 0.9% 10ML SYR (RAD ONLY) 10 ML IV ×2 (10:07→10:22)
[2023-10-21] MEDS: IOPAMIDOL-370 (76%);100ML BOTTLE 100 ML IV ×2 (10:07→10:22)
[2023-10-21 10:08] LABS: Alanine Aminotransferase 21 U/L (12-78); Albumin/Globulin Ratio 1.3 (1.1-1.8); Alkaline Phosphatase 106 U/L (38-126); Anion Gap 10.1 mEq/L (5-15); Aspartate Amino Transferase 34 U/L (14-36); Bilirubin,Total 0.2 mg/dl (0.2-1.3); Carbon Dioxide 27 mmol/L (22.0-30.0)
[2023-10-21 10:09] LABS: Calcium 9.2 mg/dl (8.4-10.2); Glucose 106 mg/dl (74-100)
[2023-10-21] MEDS: LACTATED RINGERS 1000ML 1,000 ML 999 ML IV (10:19)
[2023-10-21] MEDS: 0.9 % SODIUM CHLORIDE 50 ML VIAL IV (10:22)
[2023-10-21 10:23] LABS: Troponin I < 0.01 ng/ml (0.00-0.034)
[2023-10-21 10:30] VITALS: BP 137/81; PULSE 77; O2SAT 100
--- NOTE | 2023-10-21 10:59 | ECG_ITS ---
APPROVED REPORT Exam: Resting ECG HR:72 bpm ECG Measurements Heart Rate 72 AXES QRSd 126 QRS 228 QT 429 T 63 QTc 453 Conclusion ELECTRONIC VENTRICULAR PACEMAKER ABNORMAL RHYTHM ECG UNCONFIRMED REPORT Electronically signed by : Maycol Lopez, 10/21/2023 15:20:03
[2023-10-21 11:00] VITALS: BP 150/103; PULSE 68; RESP 16; O2SAT 92
--- NOTE | 2023-10-21 11:09 | PC.NURSE ---
called [facility] per Dr Lopez to speak with the health coordinator about ths pt. while on the line [facility] stroke spoke with Dr Lopez
--- NOTE | 2023-10-21 11:15 | PC.NURSE ---
Fred accepted Dr Hernandez
[2023-10-21 11:31] VITALS: BP 127/80; PULSE 71; O2SAT 92
--- NOTE | 2023-10-21 11:45 | PC.NURSE ---
attempted to call report to [facility]. states they will call back
--- NOTE | 2023-10-21 11:47 | PC.NURSE ---
[facility] NOTIFIED OF TRANSFER TO [facility]
[2023-10-21 12:15] VITALS: BP 147/85; PULSE 70; RESP 18; TEMP 36.6; O2SAT 98
== END 2023-10-21 12:24 | disposition other institution (70) ==
PROVIDERS: Emergency Provider Student in an Organized Health Care Education/Training Program
DX: I63.9 Cerebral infarction, unspecified (principal); M62.81 Muscle weakness (generalized); I48.0 Paroxysmal atrial fibrillation; Z79.01 Long term (current) use of anticoagulants; I10 Essential (primary) hypertension; R29.703 NIHSS score 3
CPT/HCPCS: 70450; 70496; 70498; 71045; 80053; 84484; 85025; 85610; 85730; 93005; 96360; 99291; J7120; Q9966; Q9967

== ENCOUNTER 2023-12-04 10:15 | Outpatient (CLI) | payer MEDICARE, SELFPAY ==
--- NOTE | 2023-12-04 10:27 | ECG_ITS ---
APPROVED REPORT Exam: Resting ECG HR:84 bpm ECG Measurements Heart Rate 84 AXES QRSd 130 QRS -64 QT 418 T 121 QTc 459 Conclusion ELECTRONIC VENTRICULAR PACEMAKER ABNORMAL RHYTHM ECG UNCONFIRMED REPORT Electronically signed by : Janak Carney MD 12/04/2023 15:59:09
== END 2023-12-04 23:59 | disposition home or self-care (01) ==
LOC: RT 10:16
PROVIDERS: PCP Family Medicine; Visit Provider Family Medicine
DX: I48.91 Unspecified atrial fibrillation (principal); Z79.899 Other long term (current) drug therapy
CPT/HCPCS: 93005

== ENCOUNTER 2024-04-01 14:19 | Outpatient (CLI) | payer MEDICARE, MEDICAID, SELFPAY ==
--- NOTE | 2024-04-01 14:23 | CT_ITS ---
FINAL REPORT TECHNIQUE: Thin section axial images were obtained from the lung apices to the upper abdomen by computed tomography. Reformatted images were obtained and reviewed. This study was performed with techniques to keep radiation doses al low as reasonably achievable (ALARA). Individualized dose reduction techniques using automated exposure control or adjustment of mA and/or kV according to the patient's size were employed. CLINICAL HISTORY: lung cancer screening current smoker for 3 years 8 cigarettes per day COMPARISON: None FINDINGS: CHEST CT LOW DOSE 64-year-old female, current smoker, 2-pack-year history. CTDI vol (mGy): 2.9 DLP (mGy-cm): 94.03 There is an implanted right upper chest wall pacemaker which causes streak artifact in the lung apices. There is no axillary adenopathy. There is no mediastinal or hilar mass or adenopathy. The heart is normal in size. There is no pericardial or pleural effusion. A moderate-sized hiatal hernia is present. Lung window images demonstrate no suspicious infiltrate or nodule. Limited images of the upper abdomen demonstrate a prior cholecystectomy. IMPRESSION: Lung-RADS category 1. Recommend 12 month follow up low dose chest CT. Reviewed, Interpreted and Dictated by Seven Sol MD Transcribed by Guerita Bradshaw Authenticated and [facility]
--- NOTE | 2024-04-01 14:27 | CA_ITS ---
APPROVED REPORT EXAM: Comprehensive 2D, Doppler, and color-flow Echocardiogram Data Deliverables Manager: DOMINIC Coleman, RVS Ht: 5 ft 6 in Wt: 225lbs BSA: 2.10 BP: 138/84 mmHg Indications: Pacer, Afib, Wheelchair bound, jail resident Echo Enhancing Agent Comments: Technically limited exam due to body habitus. 2D Dimensions Left Atrium 5.29 cm F: 2.7 - 3.8 LA Volume 193.90 mL LA Volume Index 92.33 mL/m2 (M/F) 16-34 M-Mode Dimensions RVDd 2.74 cm (0.9-2.6) LA Diam 5.74 cm (1.9-4.0) LVDd 4.44 cm (3.5-5.7) LVDs 3.22 cm (3.5-5.7) IVSd 1.21 cm (0.6-1.1) PWd 1.33 cm (0.6-1.1) EF (Teich) 51.00% EPSs 0.85 cm FS 25.80% EDV (Teich) 84.90 mL TAPSE 1.23 (<1.7) ESV (Teich) 41.60 mL LV Diastology E Decel Time 143 (160-240 msec) E/A Ratio 8.78 MED A' 5.20 cm/s LAT A' 3.60 cm/s Aortic Valve BON Index 0.53 cm2/m2 AoV Peak Gato. 117.0 (50-130 cm/s) AO Peak GR. 5.50 mmHg AO Mean GR. 2.70 (<5 mmHg) AO VTI 20.9 (18-25 cm) BON (VTI) 1.14 (2.5-4.5 cm2) Mitral Valve MV A Velocity 10.0 (40-130 cm/s) E/A Ratio 8.78 Pulmonary Valve PV Peak Velocity 73.0 (50-150 cm/s) Tricuspid Valve TR P. Velocity 243.00 cm/s RAP Estimate 10.00 mmHg RVSP 33.60 mmHg Left Ventricle The left ventricle is normal size. The left ventricular systolic function is normal. The left ventricular ejection fraction is within the normal range. There is increased LV wall thickness. There is normal LV segmental wall motion. Diastolic function is indeterminate. LVEF is 55%. Right Ventricle Right ventricle is moderately dilated. Right ventricle is mildly hypokinetic. There is a device lead in the right ventricle. Atria The left atrium is severely dilated. The right atrium is severely dilated. There is no Doppler evidence of interatrial shunt. Aortic Valve The aortic valve is mildly thickened. Trace aortic regurgitation. There is no aortic valvular stenosis. Mitral Valve The mitral valve leaflets are mildly thickened. No evidence of mitral valve stenosis. Trace mitral regurgitation. Tricuspid Valve Tricuspid valve is grossly normal in structure and function. Moderate tricuspid regurgitation. RVSP is 20-25 mmHg. Pulmonic Valve The pulmonary valve is normal in structure. Mild pulmonic regurgitation. Great Vessels The aortic root is normal in size. The ascending aorta is not well-visualized. IVC is normal in size and collapses >50% with inspiration. Pericardium Trivial, posterior pericardial effusion is present. The largest pocket measures 0.3 cm in diastole. No echo indications of tamponade. Other Information Study Quality: Fair Conclusion Normal LV systolic function. Moderate RV dilation with mild reduction in RV function. Moderate TR. Mild PI. Trivial, posterior pericardial effusion is present. The largest pocket measures 0.3 cm in diastole. No echo indications of tamponade. Electronically signed by : Madalyn Meléndez MD 04/12/2024 22:35:19
== END 2024-04-01 23:59 | disposition home or self-care (01) ==
LOC: RAD 14:21
PROVIDERS: PCP Family Medicine; Visit Provider Nurse Practitioner Family
DX: R94.31 Abnormal electrocardiogram [ECG] [EKG] (principal); Z72.0 Tobacco use; I48.20 Chronic atrial fibrillation, unspecified
CPT/HCPCS: 71271; 93306

== ENCOUNTER 2024-06-04 13:15 | Outpatient (CLI) | payer MEDICARE, MEDICAID, SELFPAY | END 2024-06-04 23:59 | disposition home or self-care (01) | PROVIDERS: PCP Nurse Practitioner Family; Visit Provider Nurse Practitioner Family | DX: Z12.31 Encounter for screening mammogram for malignant neoplasm of breast (principal) ==

== ENCOUNTER 2024-09-03 09:52 | Day surgery (SDC) | payer MEDICARE, MEDICAID, SELFPAY ==
[2024-08-31 10:57] VITALS: BMI 22.6
[2024-09-03 10:30] VITALS: BMI 22.6
[2024-09-03 10:31] VITALS: BP 145/91; PULSE 84; RESP 17; TEMP 36.9; O2SAT 94
[2024-09-03] MEDS: LIDOCAINE 1% 20ML MDV 20 ML (12:30)
[2024-09-03 12:55] VITALS: BP 115/71; PULSE 68; RESP 16; TEMP 36.7; O2SAT 97
--- NOTE | 2024-09-03 13:04 | EXP.OP.NOTE ---
Date of procedure: 09/03/24 Pre-op Diagnosis:: Left upper extremity skin neoplasm (2 cm) Post-op Diagnosis:: Same Procedure performed:: Excision of left upper extremity skin neoplasm (2 cm) Surgeon:: Shlomo Galindo MD Anesthesia: local Estimated blood loss (mL): 5 Operative findings:: Lesion excised in toto Operative note:: After informed consent was obtained the patient was taken to the procedure room. Her left upper arm was prepped and draped in a sterile fashion. After infiltration with local anesthetic an elliptical incision was made around the lesion. The lesion was sharply excised into the deep subcutaneous tissue. The lesion was marked for margin with nylon suture (short proximal/long lateral). The lesion was then excised in toto and passed off for pathologic evaluation. Thermal cautery was utilized to achieve hemostasis. Skin was reapproximated with interrupted 4-0 nylon in a mattress fashion. Dressings were applied and the patient was discharged home in stable condition. Condition: stable Disposition: no change Specimens:: Left upper extremity skin neoplasm Complications:: No immediate
[2024-09-03 13:30] VITALS: BP 124/71; PULSE 69; RESP 16; TEMP 36.7; O2SAT 99
== END 2024-09-03 13:30 | disposition home or self-care (01) ==
PROVIDERS: PCP Family Medicine; Visit Provider Surgery
PROC: (CPT 11602; principal; 2024-09-03 11:15)
DX: D03.62 Melanoma in situ of left upper limb, including shoulder
CPT/HCPCS: 11602

== ENCOUNTER 2024-10-02 07:13 | Day surgery (SDC) | payer MEDICARE, MEDICAID, SELFPAY ==
[2024-10-01 14:28] VITALS: BMI 35.6
[2024-10-02 07:30] VITALS: BP 155/96; PULSE 86; RESP 16; TEMP 36.2; O2SAT 98
--- NOTE | 2024-10-02 08:29 | EXP.OP.NOTE ---
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 Her upper left arm was prepped and draped in sterile fashion. After infiltration local anesthetic an elliptical incision was made around the lesion. The lesion was dissected with a combination of sharp dissection and electrocautery into the deep subcutaneous tissue. A 1 cm margin was obtained. The lesion was excised in toto and passed off for pathologic evaluation. Electrocautery was utilized to achieve hemostasis. Skin was reapproximated with interrupted 4-0 nylon. Dressings were applied and the patient was discharged home in stable condition. Condition: stable Disposition: no change Specimens:: Re-excision left upper extremity melanoma in situ Complications:: No immediate
[2024-10-02] MEDS: LIDOCAINE 1% 20ML MDV 20 ML ×2 (08:40)
[2024-10-02 09:25] VITALS: BP 131/84; PULSE 68; RESP 18; TEMP 36.2; O2SAT 99
== END 2024-10-02 09:43 | disposition home or self-care (01) ==
PROVIDERS: PCP Family Medicine; Visit Provider Surgery
DX: D03.61 Melanoma in situ of right upper limb, including shoulder (principal); I10 Essential (primary) hypertension; G81.14 Spastic hemiplegia affecting left nondominant side; E03.9 Hypothyroidism, unspecified; E78.5 Hyperlipidemia, unspecified; F17.210 Nicotine dependence, cigarettes, uncomplicated; Z88.2 Allergy status to sulfonamides; Z88.5 Allergy status to narcotic agent; Z88.8 Allergy status to other drugs, medicaments and biological substances; Z79.899 Other long term (current) drug therapy; Z79.82 Long term (current) use of aspirin; Z79.890 Hormone replacement therapy; Z95.0 Presence of cardiac pacemaker; Z96.652 Presence of left artificial knee joint; Z90.49 Acquired absence of other specified parts of digestive tract; Z59.00 Homelessness unspecified
CPT/HCPCS: 11601; 88305; 88341; 88342

== ENCOUNTER 2024-10-09 08:04 | Outpatient (CLI) | payer MEDICARE, MEDICAID, SELFPAY ==
[2024-10-09 09:51] LABS: Thyroid Stimulating Hormone 6.79 uIU/mL (0.465-4.68)
[2024-10-09 09:54] LABS: Free T4 (Free Thyroxine) 1.04 ng/dl (0.78-2.19)
== END 2024-10-09 23:59 | disposition home or self-care (01) ==
PROVIDERS: PCP Family Medicine; Visit Provider Nurse Practitioner Family
DX: E03.9 Hypothyroidism, unspecified (principal)
CPT/HCPCS: 36415; 84439; 84443

== ENCOUNTER 2024-10-10 15:08 | Outpatient (CLI) | payer MEDICARE, MEDICAID, SELFPAY ==
[2024-10-10 15:28] LABS: Microscopic, Urine URINE MICROSCOPIC (MICROSCOPIC)
[2024-10-10 15:34] LABS: Appearance,Urine SL CLOUDY (Clear); Bilirubin,Urine Negative (Negative); Blood, Urine Negative (Negative); Color,Urine YELLOW (Yellow); Glucose,Urine (UA) Negative (Negative); Ketones,Urine Negative (Negative); Leukocyte Esterase,Urine 2+ (Negative); Nitrate,Urine POSITIVE (Negative); Protein,Urine Negative (Negative); Urobilinogen,Urine 0.2 EU/dl (0.2)
[2024-10-10 15:37] LABS: Basophils % 0.4 % (0.1-2.0); Eosinophils # 0.2 Kmm3 (0.0-0.4); Eosinophils % 3.2 % (0.1-12.0); Hematocrit 42.4 % (37.0-47.0); Hemoglobin 13.5 g/dL (12.2-16.2); Immature Granulocytes # 0.02 10^3uL; Immature Granulocytes % 0.3 %; Lymphocytes # 2.2 K/mm3 (0.7-4.5); Lymphocytes % 31.3 % (10-50); Mean Corpuscular HGB Conc 31.8 g/dL (31.8-35.4); Mean Platelet Volume 10.6 fl (7.4-10.4); Monocytes # 0.6 K/mm3 (0.1-1.0); Monocytes % 8.8 % (1.7-9.3); Neutrophils # 3.9 K/mm3 (1.8-7.8); Nucleated Red Blood Cells # 0 10^3/uL; Nucleated Red Blood Cells % 0 %; Platelet Count 131 K/mm3 (142-424); Red Blood Count 4.66 M/mm3 (4.20-5.40); Red Cell Distribution Width 14.2 % (11.5-17.5); White Blood Count 6.9 K/mm3 (4.8-10.8)
[2024-10-10 15:41] LABS: Bacteria,Urine 3+ /lpf; WBC,Urine 20-50 #/hpf (0-3)
[2024-10-10 15:46] LABS: Albumin Level 3.2 g/dl (3.5-5.0); Chloride 110 mmol/L (98-107); Potassium 4.2 mmoL/L (3.5-5.1); Sodium 143 mmol/L (136-145)
[2024-10-10 15:49] LABS: Alanine Aminotransferase 17 U/L (12-78); Albumin/Globulin Ratio 1.3 (1.1-1.8); Alkaline Phosphatase 101 U/L (38-126); Anion Gap 7.2 mEq/L (5-15); Aspartate Amino Transferase 22 U/L (14-36); Bilirubin,Total 0.5 mg/dl (0.2-1.3); Blood Urea Nitrogen 25 mg/dl (7-17); Carbon Dioxide 30 mmol/L (22.0-30.0); Estimated Glomerular Filt Rate 63 ml/min (>60); GFR (African American) 77 ML/MIN (>60); Globulin 2.5 g/dL (1.3-3.2); Total Protein,Serum 5.7 g/dl (6.3-8.2)
[2024-10-10 15:50] LABS: Glucose 88 mg/dl (74-100)
== END 2024-10-10 23:59 | disposition home or self-care (01) ==
LOC: LAB.DROPOF 15:12
PROVIDERS: PCP Family Medicine; Visit Provider Family Medicine
DX: R53.1 Weakness (principal); R53.83 Other fatigue
CPT/HCPCS: 80053; 81001; 85025; 87086; 87088; 87186

== ENCOUNTER 2024-11-20 06:57 | Outpatient (CLI) | payer MEDICARE, MEDICAID, SELFPAY ==
--- OUTSIDE RECORDS SUMMARY | 2024-11-20 06:59 | XMS_ITS | Clinical Summary ---
Author Organization [facility] Address [address] [place] [address] Phone Care Team Providers Care Roaster Helper Name Role Phone Lyudmila Castro MD Primary Care Physician [phone] Conditions or Problems Problem Name Problem Code Onset Date Status Entry Date Provider Comment Standard Description Annotate Atrial Fibrillatio n I48.91 (ICD-10-CM) 05/26 Active 05/28 Bri Hunt APRN Unspecified atrial fibrillation Tobacco abuse 61325438 (SNOMED CT) 08/13 Active 05/28 Bri Hunt APRN Tobacco dependence syndrome GERD (gastroesop hageal reflux disease) 280250752 (SNOMED CT) 09/17 Active 05/28 Bri Hunt APRN Gastroesophage al reflux disease Hyperlipide rosalia 50842559 (SNOMED CT) 09/05 Active Bri Hunt APRN Hyperlipidemia Insomnia 130005115 (SNOMED CT) Active 05/27 Bri Hunt APRN Insomnia Fibromyalgi a 87620053 (SNOMED CT) 01/01 Active Bri Hunt APRN Fibromyositis Obstructive sleep apnea 35971817 (SNOMED CT) 01/08 Active 05/28 Bri Hunt APRN Obstructive sleep apnea syndrome Leukemia, in remission 77354767 (SNOMED CT) 05/31 Active 05/28 Bri Hunt APRN Leukemia in remission Thrombocyto penia 407791011 (SNOMED CT) 11/25 Active 05/28 Bri Hunt PC MAINTENANCE TECHNICIAN Thrombocytopen ic disorder Patent foramen ovale 313519611 (SNOMED CT) 11/27 Active 05/28 Bri Hunt PC MAINTENANCE TECHNICIAN Patent foramen ovale Panic disorder without agoraphobia 18991706 (SNOMED CT) 12/16 Active 05/28 Bri Hunt PC MAINTENANCE TECHNICIAN Panic disorder without agoraphobia Recurrent right pleural effusion 95739407 (SNOMED CT) 01/03 Active 05/28 Bri Hunt PC MAINTENANCE TECHNICIAN Pleural effusion Biventricul ar cardiac pacemaker present [id number] 105 (SNOMED CT) 01/07 Active 05/28 Bri Hunt PC MAINTENANCE TECHNICIAN Biventricular cardiac pacemaker present Hypothyroid ism 59315869 (SNOMED CT) 01/22 Active 05/27 Bri Hunt PC MAINTENANCE TECHNICIAN Hypothyroidism Complete heart block 00463062 (SNOMED CT) 01/10 Active 05/28 Bri Hunt PC MAINTENANCE TECHNICIAN Complete atrioventricul ar block Dilated cardiomyopa thy 040574637 (SNOMED CT) 01/10 Active 05/28 Bri Hunt PC MAINTENANCE TECHNICIAN Dilated cardiomyopathy CAD (coronary artery disease) 40216395 (SNOMED CT) 01/14 Active 05/28 Bri Hunt PC MAINTENANCE TECHNICIAN Coronary arterioscleros is Systolic heart failure, acute on chronic 408535258 (SNOMED CT) 10/14 Active 05/28 Bri Hunt PC MAINTENANCE TECHNICIAN Acute on chronic systolic heart failure Chronic obstructive pulmonary disease 000671110 (SNOMED CT) Active 05/28 Bri Hunt PC MAINTENANCE TECHNICIAN Severe chronic obstructive pulmonary disease Left acute thrombosis of subclavian vein 571196094 (SNOMED CT) 08/18 Active 05/28 Bri Hunt PC MAINTENANCE TECHNICIAN Thrombosis of subclavian vein Hypertensiv e urgency 071905652 (SNOMED CT) 08/18 Active 05/28 Bri Hunt PC MAINTENANCE TECHNICIAN Hypertensive urgency Permanent atrial fibrillatio n 799094016 (SNOMED CT) 09/18 Active 05/28 Bri Hunt APRN Permanent atrial fibrillation Chronic back pain 696697804 (SNOMED CT) 09/19 Active 05/28 Bri Hunt PC MAINTENANCE TECHNICIAN Chronic back pain Tricuspid regurgitati on, severe 030161757 (SNOMED CT) 09/20 Active 05/28 Bri Hunt PC MAINTENANCE TECHNICIAN Tricuspid valve regurgitation LV dysfunction 411772263 (SNOMED CT) 09/19 Active 05/28 Bri Hunt PC MAINTENANCE TECHNICIAN Left ventricular cardiac dysfunction History of ACUTE MYELOID LEUKEMIA IN REMISSION 81179687 (SNOMED CT) 05/18 Inactive 05/18 Bri Hunt APRN Acute myeloid leukemia in remission Problem excluded fro m report: DEPRESSION 42915372 (SNOMED CT) Resolved Bri Hunt APRN Depressive disorder GERD 724938200 (SNOMED CT) Resolved Bri Hunt APRN Gastroesophage al reflux disease ALLERGY, ENVIRONMENT AL 959772148 (SNOMED CT) Resolved Bri Hunt APRN Environmental allergy ASTHMA 152595268 (SNOMED CT) Resolved Bri Hunt PC MAINTENANCE TECHNICIAN Asthma KNEE PAIN LEFT 16568358 (SNOMED CT) Resolved Bri Hunt APRN Knee pain Hypothyroid ism 13710374 (SNOMED CT) 05/26 Inactive 05/27 Bri Hunt PC MAINTENANCE TECHNICIAN Hypothyroidism Insomnia 178552507 (SNOMED CT) 05/26 Inactive 05/27 Bri Hunt PC MAINTENANCE TECHNICIAN Insomnia Body mass index (BMI) 25.0-25.9; adult Z68.25 (ICD-10-CM) 05/26 Active 05/26 Bri Hunt APRN Body mass index [BMI] 25.0-25.9, adult Body mass index (BMI) 26.0-26.9; adult Z68.26 (ICD-10-CM) 05/19 Correction 05/19 Bri Hunt APRN Body mass index [BMI] 26.0-26.9, adult Preoperativ e examination 579378816 (SNOMED CT) 05/26 Inactive 05/26 Bri Hunt APRN Special examination - general Body mass index (BMI) 26.0-26.9; adult Z68.26 (ICD-10-CM) 05/19 Removed 05/19 Bri Hunt APRN Body mass index [BMI] 26.0-26.9, adult BRONCHITIS ACUTE 89525573 (SNOMED CT) 06/26 Inactive 06/26 Lyudmila Castro MD Acute bronchitis BRUISE 933500703 (SNOMED CT) Resolved Lyudmila Castro MD Contusion BRUISE 454456115 (SNOMED CT) Removed Lyudmila Castro MD Contusion KNEE PAIN LEFT 77237820 (SNOMED CT) Removed Lyudmila Castro MD Knee pain HYPERTENSIO N 10066634 (SNOMED CT) Active Lyudmila Castro MD Hypertensive disorder BRONCHITIS ACUTE 92801488 (SNOMED CT) 05/19 Resolved 05/19 Lyudmila Castro MD Acute bronchitis EDEMA 127764234 (SNOMED CT) Resolved Lyudmila Castro MD Edema History of ACUTE MYELOID LEUKEMIA IN REMISSION 85530733 (SNOMED CT) 05/18 Removed 05/18 Yumiko Gaston MD Acute myeloid leukemia in remission BRONCHITIS ACUTE 12959112 (SNOMED CT) 05/19 Removed 05/19 Yumiko [place] MD Acute bronchitis ASTHMA 743314477 (SNOMED CT) Removed Kimberley Block RMA Asthma DYSLIPIDEMI A 459681762 (SNOMED CT) Inactive Kimberley Block RMA Dyslipidemia EDEMA 985683610 (SNOMED CT) Removed Kimberley Block RMA Edema ALLERGY, ENVIRONMENT AL 209951301 (SNOMED CT) Removed Kimberley Block RMA Environmental allergy GERD 676243084 (SNOMED CT) Removed Kimberley Block RMA Gastroesophage al reflux disease FIBROMYALGI A 39323472 (SNOMED CT) Inactive Kimberley Block RMA Fibromyositis DEPRESSION 78093264 (SNOMED CT) Removed Kimberley Block RMA Depressive disorder Medications Medication Instructions Start Date Stop Date Generic Name [facility] Provider ATORVASTATIN CALCIUM 40 MG TABS TAKE 1 TABLET BY MOUTH AT BEDTIME ATORVASTATIN CALCIUM [id number] Bri Hunt APRN CARVEDILOL 12.5 MG TABS TAKE 1 TABLET BY MOUTH 2 TIMES A DAY CARVEDILOL 53668942580 Bri Hunt APRN ELIQUIS 5 MG TABS TAKE 1 TABLET BY MOUTH TWICE A DAY APIXABAN 84573848395 Bri Hunt APRN ASPIR-LOW 81 MG ORAL TABLET DELAYED RELEASE TAKE 1 TABLET BY MOUTH 1 TIME A DAY ASPIRIN 02936170746 Bri Hunt APRN MELOXICAM 15 MG TABS TAKE 1 TABLET BY MOUTH ONCE A DAY MELOXICAM 10191805485 Bri Hunt APRN SPIRONOLACTONE 25 MG TABS TAKE 1 TABLET BY MOUTH 1 TIME A DAY SPIRONOLACTONE 26952140214 Bri Hunt APRN TRAMADOL HCL 50 MG TABS TAKE EVERY 8 HOURS NEEDED TRAMADOL HCL 72086722041 Bri Hunt APRN LEVOTHYROXINE SODIUM 50 MCG TABS TAKE 1 TABLET BY MOUTH ONCE A DAY LEVOTHYROXINE SODIUM 81654629895 Bri Hunt APRN ADVAIR DISKUS 250-50 MCG/DOSE INHALATION AEROSOL POWDER BREATH ACTIVATED 1 INH BID 05/26 FLUTICASONE-SALM ETEROL 32313443672 Bri Hunt APRN FUROSEMIDE 40 MG TABS TAKE 1 TABLET BY MOUTH 1 TIME A DAY FUROSEMIDE 88679248343 Bri Hunt PC MAINTENANCE TECHNICIAN CYMBALTA 60 MG CPEP 1 PO BID 05/26 DULOXETINE HCL 62023567922 Bri Guerrerosalma GARCIA PROVENTIL HFA AEROSOL SOLUTION 2 PUFFS Q4H PRN 05/26 ALBUTEROL SULFATE AERS 79309528870 Bri Gilbert GARCIA PRILOSEC 20 MG ORAL CAPSULE DELAYED RELEASE 2 PO QD 05/26 OMEPRAZOLE 02985734206 Bri Gilbert COVINGTONN ZITHROMAX 250 MG TABS 2po day1 1pox4d 05/26 AZITHROMYCIN 15927854809 Bri Gilbert GARCIA TRAZODONE HCL 100 MG TABS TAKE 2 TABLET BY MOUTH EVERY NIGHT AT BEDTIME 05/26 TRAZODONE HCL 45912796973 Bri Gilbert GARCIA LORATADINE 10 MG TABS TAKE 1 TABLET BY MOUTH 1 TIME A DAY 05/26 LORATADINE 97795277297 Bri Guerrerosalma GARCIA MELATONIN 3 MG TABS TAKE 1-3 TABLETS EACH NIGHT AT BEDTIME NEEDED FOR SLEEP MELATONIN 73960873145 Bri Guerrerosalma COVINGTONN MUCINEX D 60-600 MG [id number] 1po bib 05/26 PSEUDOEPHEDRINE- GUAIFENESIN 20266555562 Bri Guerrerosalma GARCIA MUCINEX 600 MG [id number] TAKE 1 TABLET BY MOUTH 2 TIMES A DAY 05/26 GUAIFENESIN 73318402781 Bri Gilbert GARCIA BENGAY COLD THERAPY 5 % EXTERNAL GEL APPLY TOPICALLY TO KNEE BID 05/26 MENTHOL (TOPICAL ANALGESIC) 94034167672 Bri Gilbert GARCIA LISINOPRIL 20 MG TABS TAKE 1 TABLET BY MOUTH 1 TIME A DAY LISINOPRIL 80000925201 Bri Gilbert GARCIA POTASSIUM CHLORIDE ER 10 MEQ CR-TABS TAKE 1 BY MOUTH ONCE EVERY DAY 05/26 POTASSIUM CHLORIDE 12561086200 Bri Hunt APRN PERMETHRIN LICE TREATMENT 1 % EXTERNAL LOTION APPLY TO SCALP AND RINSE AFTER 8-12 MINUTES. COMB OUT NITS. REPEAT IN 1 WEEK NEEDED. PERMETHRIN 51204959399 Pamella Miranda MD AZITHROMYCIN 500 MG TABS take 1 tablet by mouth daily for 5 days 07/01 AZITHROMYCIN 86213496515 Lyudmila Castro MD POTASSIUM CHLORIDE ER 10 MEQ CR-TABS TAKE 1 BY MOUTH ONCE EVERY DAY POTASSIUM CHLORIDE 20169769528 Lyudmila Castro MD LISINOPRIL 10 MG TABS TAKE 1 TABLET BY MOUTH 1 TIME A DAY LISINOPRIL 69618796972 Lyudmila Castro MD BENGAY COLD THERAPY 5 % EXTERNAL GEL APPLY TOPICALLY TO KNEE BID MENTHOL (TOPICAL ANALGESIC) 63276634392 Lyudmila Castro MD MUCINEX 600 MG [id number]-RSH TAKE 1 TABLET BY MOUTH 2 TIMES A DAY GUAIFENESIN 55348615372 Yumiko Gaston MD LORATADINE 10 MG TABS TAKE 1 TABLET BY MOUTH 1 TIME A DAY LORATADINE 66579446494 Yumiko G[place] MD LYRICA 75 MG CAPS TAKE 1 CAPSULE 3 TIMES A DAY 05/18 PREGABALIN 68230741371 Yumiko Gaston MD TRAZODONE HCL 100 MG TABS TAKE 2 TABLET BY MOUTH EVERY NIGHT AT BEDTIME TRAZODONE HCL 05125928788 Lyudmila Castro MD TRAZODONE HCL 100 MG TABS 1 PO QHS 05/18 TRAZODONE HCL 86283618705 Yumiko G[place] MD CYMBALTA 60 MG CPEP 1 PO BID DULOXETINE HCL 15927587144 Yumiko G[place] MD LASIX 80 MG TABS 1po qdPRN FUROSEMIDE 55823981137 Yumiko G[place] MD ADVAIR DISKUS 250-50 MCG/DOSE INHALATION AEROSOL POWDER BREATH ACTIVATED 1 INH BID FLUTICASONE-SALM ETEROL 25670747688 Yumiko G[place] MD PRILOSEC 20 MG ORAL CAPSULE DELAYED RELEASE 2 PO QD OMEPRAZOLE 99610005962 Lyudmila Castro MD LYRICA 75 MG CAPS TAKE 1 CAPSULE 3 TIMES A DAY PREGABALIN 43469244480 Yumiko G[place] MD PRILOSEC 20 MG ORAL CAPSULE DELAYED RELEASE 2 PO QD OMEPRAZOLE 24943711811 Yumiko Gaston MD ZOCOR TABLET 05/19 SIMVASTATIN TABS 55327978780 Yumiko G[place] MD LASIX 80 MG TABS 1po qd FUROSEMIDE 75186686720 Yumiko Gaston MD MUCINEX D 60-600 MG [id number] 1po bib PSEUDOEPHEDRINE- GUAIFENESIN 43308469636 Yumiko G[place] MD ZITHROMAX 250 MG TABS 2po day1 1pox4d AZITHROMYCIN 16109275312 Yumiko G[place] MD PRILOSEC 20 MG ORAL CAPSULE DELAYED RELEASE 1 PO QD OMEPRAZOLE 13027017233 Yumiko G[place] MD ZOCOR TABLET SIMVASTATIN TABS 14716327252 Kimberley WAYA PROVENTIL HFA AEROSOL SOLUTION 2 PUFFS Q4H PRN ALBUTEROL SULFATE AERS 92319381867 Yumiko G[place] MD ADVAIR DISKUS 250-50 MCG/DOSE INHALATION AEROSOL POWDER BREATH ACTIVATED 1 INH BID FLUTICASONE-SALM ETEROL 45174385035 Kimberley Block A LASIX 80 MG TABS TID FUROSEMIDE 44304087581 Kimberley WAYA CYMBALTA 60 MG CPEP 1 PO BID DULOXETINE HCL 70214158206 Yumiko G[place] MD TRAZODONE HCL 100 MG TABS 1 PO QHS TRAZODONE HCL 15153816897 Yumiko G[place] MD LYRICA 75 MG CAPS 1 PO TID PREGABALIN 77911130441 Kimberley JOHNSON Medications Administered No information available. Allergies, Adverse Reactions, Alerts Allergy Name Reaction Description Start Date Severity Statu s Provider DILAUDID ITCHING Mild Active Bri marsh PC MAINTENANCE TECHNICIAN METHODONE Critical Active Kimberley Andresrisuzy RMA MORPHINE Critical Active Kimberley Andresrieck RMA SULFA Critical Active Kimberley Andresrieck RMA Results Date Name Value Unit Range Flag Description Lab Report: CBC (INCLUDES DI FF/PLT), COMPREHENSIVE METABOLIC PANEL W/eGF ... SGPT (ALT) 14 U/L 6-40 N Alanine aminotransferase [Enzymatic activity/volume] in Serum or Plasma SGOT (AST) 17 U/L 10-35 N Aspartate aminotransferase [Enzymatic activity/volume] in Serum or Plasma ALK PHOS 90 U/L 33-115 N Alkaline phosphatase [Enzymatic activity/volume] in Blood BILI TOTAL 0.2 mg/dL 0.2-1.2 N Bilirubin. total [Mass/volume] in Serum or Plasma A/G RATIO 1.5 (calc) 1.0-2.1 N Albumin/ Globulin [Mass Ratio] in Serum or Plasma GLOBULIN TOT 2.7 G/DL (CALC) g/dL 2.2-3.9 N Globulin [Mass/volume] in Serum ALBUMIN EOP 4.1 g/dL 3.6-5.1 N Albumin [Mass/volume] in Serum or Plasma by Electrophoresis PROTEIN, TOT 6.8 g/dL 6.2-8.3 N Protein [Mass/volume] in Serum or Plasma Lab Report: BASIC METABOLIC PANEL, CBC (INCLUDES DIFF/PLT), PROTHROMBIN ... BASO % MANU 0.4 % N basophils as percent of blood leukocytes, manual count EOS % MANU 1.9 % N eosinophil s as percent of blood leukocytes, manual count MONOCYTE % 8.3 % N Monocytes/ 100 leukocytes in Blood by Automated count LYMPH% P BLD 41.7 % N lymphocy krissy as percent of blood leukocytes PMN % 47.7 % N Neutrophils/1 00 leukocytes in Blood by Automated count ABS BASOS 30 {Cells}/ uL 0-200 N Basophils [#/volume] in Blood ABS EOS 144 {Cells}/ uL 15-500 N Eosinophils [#/volume] in Blood ABS MONOS 631 {Cells}/ uL 200-950 N Monocytes [#/volume] in Blood ABSLYMPHCT 3169 {Cells}/ uL 850-3900 N Lymphocytes [#/volume] in Blood ABS NEUTROPH 3625 CELLS/UL 10*3/uL 6560-7161 N Neutrophils [#/volume] in Blood PLATELETK/UL 151 THOUSAND/UL 10*3/uL 140-400 N platelet count RDW 17.0 % 11.0-15.0 H Erythrocyte distribution width [Ratio] by Automated count OL-MCHC 32.4 g/dL 32.0-36.0 N mean corpus cular hemoglobin concentration, rbc MCH 27.0 pg 27.0-33.0 N MCH [Entiti c mass] by Automated count MCV 83.4 fL 80.0-100. 0 N MCV [Entitic volume] by Automated count HCT 38.6 % 35.0-45.0 N Hematocrit [Volume Fraction] of Blood by Automated count HGB 12.5 g/dL 11.7-15.5 N Hemoglobin [Mass/volume] in Blood RBC M/UL 4.63 MILLION/UL 10*6/uL 3.80-5.10 N red blood count WBC CT BLOOD 7.6 10*3/uL 3.8-10.8 N leukocy te count, blood CALCIUM 8.8 mg/dL 8.6-10.4 N Calcium [Moles/volume] in Serum or Plasma CO2 28 mmol/L 21-33 N Carbon dioxid e, total [Moles/volume] in Venous blood CHLORIDE BLD 105 mmol/L 98-110 N chloride , blood POTASSIUM 3.6 mmol/L 3.5-5.3 N Potassium [Moles/volume] in Serum or Plasma SODIUM 141 mmol/L 135-146 N Sodium [Moles/volume] in Serum or Plasma BUN/CREAT NOT APPLICABLE (calc) 6-22 Urea nitrogen/Creatinine [Mass Ratio] in Serum or Plasma EGFR 86 mL/min/1 .73m2 >OR = 60 N Glomerular filtration rate/1.73 sq M.predicted [Volume Rate/Area] in Serum, Plasma or Blood by Creatinine-based formula (MDRD) CREATININE 0.80 mg/dL 0.50-1.05 N Creatini ne [Mass/volume] in Serum or Plasma BUN 13 mg/dL 7-25 N Urea nitrogen [Mass/volume] in Serum or Plasma BG RANDOM 95 mg/dL 65-99 N Glucose [Mass/volume] in Blood Append: Acute Adult INR 0.8 INR in Platel et poor plasma by Coagulation assay PT PATIENT 10.4 s Prothrombi n time (PT) Plan of Care Type Date Detail Referral Pain Management Referral [facility], [address] [place], [address] Referral Hematology Oncol ogy Referral Oncology Hematology Care Gomez Lee M.D. [facility], [address] [place] [address] [address], [place], [address] Pending order CBC with diff Pending order BMP Pending order Protime INR Pending order CBC with diff (O utside Lab) Pending order CMP (Outside Lab ) Pending order TSH reflex to fr ee T-4 (Outside Lab) Procedures Code Procedure Name Date Entry Date [facility] 6399 T1 CBC with diff [facility] 35387 T1 CMP [facility] 496 T1 HGBA1c [facility] 12019 T1 Lipid Panel [facility] 37219 T1 TSH reflex to free T4 202 05/13/13 CPT-3077F Most recent systolic blood pressure >=140 mm Hg CPT-3079F Most recent diastoli c blood pressure 80-89 mm Hg [id number] Medication Reconciliation CPT-3077F Most recent systolic blood pressure >=140 mm Hg CPT-3078F Most recent diastoli c blood pressure <80 mm Hg [id number] Medication Reconciliation 6399 [facility] Test # CBC with diff 6 [id number] [facility] Test # BMP 6 [id number] [facility] Test # Protime INR HEM ON CARE Hematology Oncology Referral Oncology Hematology Care [facility] Refe rral [facility] CPT-01242 CBC with diff (Outside Lab) CPT-72687 CMP (Outside Lab) CPT-31459 TSH reflex to free T-4 (Outside Lab) 2010 Vital Signs Date Name Value Unit Description BMI (Body Mass Index) 25.43 kg/m2 Bod y Mass Index (Ratio) Body Temperature 97.2 [degF] temperat ure E&M Body Temperature 36.22 Sariah temperat ure in centigrade E&M BP Diastolic 94 mm[Hg] blood pressu re, diastolic BP Diastolic 88 mm[Hg] blood pressu re, diastolic, second observation BP Systolic 154 mm[Hg] blood pressur e, systolic, second observation BP Systolic 163 mm[Hg] blood pressur e, systolic BSA (Body Surface Area) 1.82 b darrius surface area Heart Rate 84 /min pulse rate 10 Heart Rate 84 pulse rate #2 Heart Rate 86 /min pulse rate Height 66 [in_us] height E&M Height 167.64 cm height in cent imeters E&M Weight Measured 71.36 kg weight in kilograms E&M Weight Measured 157.0 [lb_av] weight E& M Weight Measured 157.0 [lb_av] weight E& M Immunizations No information available. Advance Directives No information available.
[2024-11-20 08:26] LABS: Free T4 (Free Thyroxine) 1.38 ng/dl (0.78-2.19)
[2024-11-20 08:40] LABS: Thyroid Stimulating Hormone 4.55 uIU/mL (0.465-4.68)
== END 2024-11-20 23:59 | disposition home or self-care (01) ==
PROVIDERS: PCP Nurse Practitioner Family; Visit Provider Nurse Practitioner Family
DX: E07.9 Disorder of thyroid, unspecified (principal)
CPT/HCPCS: 36415; 84439; 84443

== ENCOUNTER 2024-12-16 07:04 | Outpatient (CLI) | payer MEDICARE, MEDICAID, SELFPAY ==
[2024-12-16 08:10] LABS: Cholesterol 130 mg/dl (140-200); HDL Cholesterol 40 mg/dl (40-60); Triglycerides 90 mg/dl (30-150)
[2024-12-16 08:57] LABS: Hepatitis C Ab Qual. W/ RFX REACTIVE (Negative)
== END 2024-12-16 23:59 | disposition home or self-care (01) ==
PROVIDERS: PCP Nurse Practitioner Family; Visit Provider Nurse Practitioner Family
DX: E78.5 Hyperlipidemia, unspecified (principal); Z11.59 Encounter for screening for other viral diseases; Z11.4 Encounter for screening for human immunodeficiency virus [HIV]
CPT/HCPCS: 36415; 80061; 86803; 87389; 87522

== ENCOUNTER 2025-01-23 15:53 | Emergency (ER) | payer MEDICARE, MEDICAID, SELFPAY ==
[2025-01-23] VITALS (8 sets, daily range): BP systolic 101–167; BP diastolic 78–132; PULSE 56–67; RESP 12–17; TEMP 36.9–37.1; O2SAT 94–98; BMI 36.8
--- NOTE | 2025-01-23 15:48 | CT_ITS ---
PROCEDURE INFORMATION: Exam: CT Head Without Contrast Exam date and time: 01/23/2025 4:00 PM Age: 65 years old Clinical indication: Stroke-like symptoms; Altered mental status/memory loss; Additional info: Possible stroke TECHNIQUE: Imaging protocol: Computed tomography of the head without contrast. Radiation optimization: All CT scans at this facility use at least one of these dose optimization techniques: automated exposure control; mA and/or kV adjustment per patient size (includes targeted exams where dose is matched to clinical indication); or iterative reconstruction. Other technique: STROKE PROTOCOL was implemented. COMPARISON: CT ANGIO HEAD 10/21/2023 9:56 AM FINDINGS: Limitations: Motion artifact does severely limit the sensitivity of this examination. The study was repeated as series 6 Brain: There are multiple areas of encephalomalacia involving the right occipital lobe and extending superiorly to involve the parasagittal frontal and parietal lobes typical of a watershed infarct. These changes are stable in the occipital lobe but now much more extensive extending into the watershed region superiorly. There is also less extensive parasagittal encephalomalacia of the high left frontal lobe and the watershed region of the left parieto-occipital junction. The left-sided changes are stable from 10/21/2023. There is no evidence of intracranial hemorrhage. Cerebral ventricles: No ventriculomegaly. Paranasal sinuses: Visualized sinuses are unremarkable. No fluid levels. Mastoid air cells: Visualized mastoid air cells are well aerated. Teeth: The patient is edentulous. Bones: Unremarkable. No acute fracture. Soft tissues: Unremarkable. Vasculature: The vasculature demonstrates diffuse moderate atherosclerotic calcification. IMPRESSION: 1. There are multiple areas of encephalomalacia involving the right occipital lobe and extending superiorly to involve the parasagittal frontal and parietal lobes typical of a watershed infarct. These changes are stable in the occipital lobe but now much more extensive extending into the watershed region superiorly. 2. There is also less extensive parasagittal encephalomalacia of the high left frontal lobe and the watershed region of the left parieto-occipital junction. The left-sided changes are stable from 10/21/2023. 3. There is no evidence of intracranial hemorrhage. ASSESSMENT: ASPECTS ([place] Stroke Program Early CT Score) is 10.
--- NOTE | 2025-01-23 15:48 | CT_ITS ---
PROCEDURE INFORMATION: Exam: CTA Neck With Contrast Exam date and time: 01/23/2025 4:03 PM Age: 65 years old Clinical indication: Stroke-like symptoms; Left facial droop; Lt upper extremity and lt lower extremity weakness; Additional info: Possible stroke TECHNIQUE: Imaging protocol: Computed tomographic angiography of the neck with contrast. Exam focused on the cervical segments of the vasculature. 3D rendering (Not supervised by radiologist): MIP and/or 3D reconstructed images were created by the technologist. Radiation optimization: All CT scans at this facility use at least one of these dose optimization techniques: automated exposure control; mA and/or kV adjustment per patient size (includes targeted exams where dose is matched to clinical indication); or iterative reconstruction. Contrast material: ISOUVE 370; Contrast volume: 80 ml; Contrast route: INTRAVENOUS (IV); COMPARISON: CT ANGIO NECK 10/21/2023 9:56 AM FINDINGS: Limitations: Due to the timing issues noted, there is limited opacification of the neck vessels. Tubes, catheters and devices: A pacemaker device is present with generator in the right upper chest, and its leads are in appropriate position. Right common carotid artery: No stenosis. No dissection or occlusion. Right internal carotid artery: No stenosis of the extracranial segment. No dissection or occlusion. Right external carotid artery: No occlusion or stenosis of the origin. Left common carotid artery: No stenosis. No dissection or occlusion. Left internal carotid artery: There is mild calcification of the left internal carotid origin with less than 50% compromise of the lumen. Left external carotid artery: No occlusion or stenosis of the origin. Right vertebral artery: No stenosis. No dissection or occlusion. Left vertebral artery: No stenosis. No dissection or occlusion. Veins: Extensive collateral vascular distribution is seen in the upper chest and neck extending superiorly to the base of the skull. This usually reflects occlusion or high-grade stenosis of the venous system which was injected but it is not clear which side was chosen here. The presumed stenosis affects the timing of the exam and the quality of the bolus and contrast is predominantly seen in the pulmonary circuit. Extensive venous reflux is seen surrounding the vertebral arteries and the possibility a pathology is not readily assessed. There appear to be codominant vessels of the foramen magnum. Soft tissues: Normal. No significant soft tissue swelling. Bones/joints: See Veins finding. Lungs: The visualized portions of the lung apices are normal. Other findings: There is no obvious calcification or stenosis of the right carotid system. IMPRESSION: 1. Extensive collateral vascular distribution is seen in the upper chest and neck extending superiorly to the base of the skull. This usually reflects occlusion or high-grade stenosis of the venous system which was injected but it is not clear which side was chosen here. The presumed stenosis affects the timing of the exam and the quality of the bolus and contrast is predominantly seen in the pulmonary circuit. 2. Due to the timing issues noted, there is limited opacification of the neck vessels. 3. There is no obvious calcification or stenosis of the right carotid system. 4. There is mild calcification of the left internal carotid origin with less than 50% compromise of the lumen. 5. Extensive venous reflux is seen surrounding the vertebral arteries and the possibility a pathology is not readily assessed. There appear to be codominant vessels of the foramen magnum. REFERENCES: NASCET CRITERIA. The degree of stenosis in the cervical segment of the internal carotid artery is based on NASCET criteria. Normal is no stenosis. Mild is less than 50% stenosis. Moderate is 50-69% stenosis. Severe is 70% to 99% stenosis. Total occlusion is no detectable patent lumen.
--- NOTE | 2025-01-23 15:48 | ECG_ITS ---
APPROVED REPORT Exam: Resting ECG HR:65 bpm ECG Measurements Heart Rate 65 AXES QRSd 125 QRS -63 QT 457 T 123 QTc 468 Conclusion ELECTRONIC VENTRICULAR PACEMAKER ABNORMAL RHYTHM ECG No STEMI Electronically signed by : VIANEY HALL, 01/24/2025 00:54:27
--- NOTE | 2025-01-23 15:48 | CT_ITS ---
PROCEDURE INFORMATION: Exam: CTA Head With Contrast, Arteriography Exam date and time: 01/23/2025 4:03 PM Age: 65 years old Clinical indication: Stroke-like symptoms; Left facial droop; Lt upper extremity and lt lower extremity weakness; Additional info: Possible stroke TECHNIQUE: Imaging protocol: Computed tomographic angiography of the head with contrast. Exam focused on the arteries. 3D rendering (Not supervised by radiologist): MIP and/or 3D reconstructed images were created by the technologist. Radiation optimization: All CT scans at this facility use at least one of these dose optimization techniques: automated exposure control; mA and/or kV adjustment per patient size (includes targeted exams where dose is matched to clinical indication); or iterative reconstruction. Contrast material: ISOVUE 370; Contrast volume: 80 ml; Contrast route: INTRAVENOUS (IV); COMPARISON: CT ANGIO HEAD 10/21/2023 9:56 AM FINDINGS: Limitations: Due to obstruction of venous inflow to the chest, there is delay of the contrast bolus through the heart with poor opacification of the arterial system. ANTERIOR CIRCULATION: Right internal carotid artery: Intracranial segment is patent with no significant stenosis. No aneurysm. Right middle cerebral artery: No occlusion or significant stenosis. No aneurysm. Right anterior cerebral artery: No occlusion or significant stenosis. No aneurysm. Left internal carotid artery: Intracranial segment is patent with no significant stenosis. No aneurysm. Left middle cerebral artery: No occlusion or significant stenosis. No aneurysm. Left anterior cerebral artery: No occlusion or significant stenosis. No aneurysm. POSTERIOR CIRCULATION: Right vertebral artery: No occlusion or significant stenosis. No aneurysm. Left vertebral artery: No occlusion or significant stenosis. No aneurysm. Basilar artery: No occlusion or significant stenosis. No aneurysm. Right posterior cerebral artery: No occlusion or significant stenosis. No aneurysm. Left posterior cerebral artery: No occlusion or significant stenosis. No aneurysm. Brain: There is no evidence of intracranial large vessel stenosis or occlusion. Cerebral ventricles: No ventriculomegaly. Bones/joints: Unremarkable. No acute fracture. Soft tissues: Unremarkable. IMPRESSION: 1. Due to obstruction of venous inflow to the chest, there is delay of the contrast bolus through the heart with poor opacification of the arterial system. 2. There is no evidence of intracranial large vessel stenosis or occlusion.
[2025-01-23] MEDS: 0.9 % SODIUM CHLORIDE 50 ML VIAL IV (16:07)
[2025-01-23] MEDS: SODIUM CHLORIDE 0.9% 10ML SYR (RAD ONLY) 10 ML IV (16:08)
[2025-01-23] MEDS: IOPAMIDOL-370 (76%);100ML BOTTLE 80 ML IV (16:08)
--- OUTSIDE RECORDS SUMMARY | 2025-01-23 16:17 | XMS_ITS | Clinical Summary ---
Author Organization [facility] Address [address] [place] [address] Care Team Providers Care Purchaser Name Role Phone Provider, No Known Primary Care Provider Unavail able Allergies Active Allergy Reactions Criticality Noted Date Comments Methadone Itching 10/21/2023 Morphine Itching 10/21/2023 Sulfa Antibiotics Itching,Rash Low 10/21/2023 Medications albuterol sulfate HFA 108 (90 Base) MCG/ACT inhaler Inhale 2 puffs Every 4 (Four) Hours As Needed for Wheezing. Active DULoxetine (CYMBALTA) 20 MG capsule Take 1 capsule by mouth Daily. Active gabapentin (NEURONTIN) 100 MG capsule Take 1 capsule by mouth 3 (Three) Times a Day. Active levothyroxine (SYNTHROID, LEVOTHROID) 75 MCG tablet Take 1 tablet by mouth Daily. Active omeprazole (priLOSEC) 20 MG capsule Take 1 capsule by mouth Daily. Active aspirin 81 MG chewable tablet Chew 1 tablet Daily. 4 Active apixaban (ELIQUIS) 2.5 MG tablet tabletIndications :Atrial Fibrillation - requiring full anticoagulation,R ecent epistaxis so we will start half dose Take 1 tablet by mouth Every 12 (Twelve) Hours. Indications: Atrial Fibrillation, Recent epistaxis so we will start half dose 4 Active atorvastatin (LIPITOR) 80 MG tablet Take 1 tablet by mouth Every Night. Active metoprolol tartrate (LOPRESSOR) 25 MG tablet Take 0.5 tablets by mouth Every 12 (Twelve) Hours. Active amLODIPine (NORVASC) 5 MG tablet Take 1 tablet by mouth Daily. Active Active Problems Problem Noted Date Diagnosed Date Fibromyalgia 10/21/2023 Pacemaker 10/21/2023 Primary hypertension 10/21/2023 Tobacco use 10/21/2023 Ischemic cardiomyopathy 10/21/2023 Resolved Problems Problem Noted Date Diagnosed Date Resolved Date Stroke 10/22/2023 10/25/2023 Left-sided weakness 10/21/2023 10/25/19 24 Social History Tobacco Use Types Packs/Day Years Used Date Smoking Tobacco: Every Day Cigarettes 0.5 4.7 Started: 2020 Smokeless Tobacco: Never Tobacco Cessation:Ready to Q uit: Yes; Counseling Given: Yes Alcohol Use Standard Drinks/Week Comments Never 0 (1 standard drink = 0.6 oz pur e alcohol) AUDIT-C Answer Date Recorded Q1: How often do you have a drink containing alcohol? Never 10/21/2023 Q2: How many drinks containi ng alcohol do you have on a typical day when you are drinking? Patient does not drink Q3: How often do you have si x or more drinks on one occasion? Never 10/21/2023 Abuse Screen Answer Date Recorded Feels Unsafe at Home or Work/School no 10/21/2023 Feels Threatened by Someone no 10/11 Does Anyone Try to Keep You From Having Contact with Others or Doing Things Outside Your Home? no 10/21/2023 Physical Signs of Abuse Present no 10/21/2023 Housing Stability Answer Date Recorded Current Living Arrangements assisted living faci lity 10/21/2023 Potentially Unsafe Housing Conditions Not on vandana e 10/21/2023 Family and Community Support Answer Oliver e Recorded Help with Day-to-Day Activities Not on file 02/17/2023 Lonely or Isolated Not on file 02/17/2023 Employment Answer Date Recorded Do you want help finding or keeping work or a leatha b? Not on file 02/17/2023 Disabilities Answer Date Recorded Difficulty Concentrating, Remembering or Making Decisions no 10/21/2023 Difficulty Managing Errands Independently no 10/21/2023 Education Answer Date Recorded Help with school or training? Not on file Preferred Language Uzbek 10/22/2023 Comments Unknown Sex and Gender Information Value Date Recorded Sex Assigned at Not on file Legal Sex Female 11:00 AM EDT Gender Identity Not on file Sexual Orientation Not on file Last Filed Vital Signs Vital Sign Reading Time Taken Comments Blood Pressure 114/86 10/25/2023 11:04 AM EDT Pulse 73 10/25/2023 3:00 PM EDT Temperature 36.8 C (98.3 F) 10/25/2023 11:04 AM EDT Respiratory Rate 16 10/25/2023 11:04 AM EDT Oxygen Saturation 97% 10/25/2023 3:00 PM EDT Inhaled Oxygen Concentration - - Weight 86 kg (189 lb 9.5 oz) 10/22/2023 12:17 PM EDT Height 167 cm (5' 5.75 ) 10/22/2023 12:17 PM EDT Body Mass Index 30.84 10/22/2023 12:17 PM EDT Plan of Treatment Health Maintenance Due Date Last Done Comments Annual Gynecologic Pelvic an d Breast Exam 1962 MAMMOGRAM 2002 COLOGUARD 2007 COLON CANCER SCREENING 5 YEA R SIGMOIDOSCOPY 2007 COLONOSCOPY 2007 [address] CANCER SCREENING 2007 CT COLONOGRAPHY 2007 FECAL OCCULT BLOOD TEST 2007 FIT Testing (1 year) 2007 ZOSTER VACCINE (1 of 2) 01/14/2012 TDAP/TD VACCINES (3 - Td or Tdap) 08/27/2022 013, 01/02/2010 ANNUAL WELLNESS VISIT 11/21/2023 11/20/2022 COVID-19 Vaccine (2 - 2024-2 6 season) 2025 04/25/2023 INFLUENZA VACCINE 02/10/2025 04/11/2023, , 01/15/2018, Additional history exists Pneumococcal Vaccine 50+ (3 of 3 - PCV20 or PCV21) 12/05/2026 12/05/2021, 01/04/2017, 02/24/2014, Additional history exists HEPATITIS C SCREENING Completed 10/14/2023 , 10/12/2023, 10/12/2023, Additional history exists Insurance [facility] HMO Advance Directives * No CPR (Do Not Attempt to Resuscitate) (Latest Code Status on File) Date Activated Date Inactivated Comments 10/21/2023 3:04 PM 10/25/2023 4:43 PM Question Answer Comments Code Status (Patient has no pulse and is not breathing): No CPR (Do Not Attempt to Resuscitate) Medical Interventions (Patie nt has pulse or is breathing): Limited Support Medical Intervention Limits: No intubation (DNI) Level Of Support Discussed With: Patient Care Teams Purchaser Relationship Specialty Start Date End Date Provider, No Known [facility] [place] [address] PCP - General 10/21/23
[2025-01-23 16:24] LABS: POC Glucose,Bedside 118 gm/dL (70-110)
[2025-01-23 16:37] LABS: Microscopic, Urine URINE MICROSCOPIC (MICROSCOPIC)
[2025-01-23 16:39] LABS: Hematocrit 46.2 % (37.0-47.0); Hemoglobin 14.6 g/dL (12.2-16.2); Immature Granulocytes % 0.9 %; Mean Corpuscular HGB Conc 31.6 g/dL (31.8-35.4); Mean Corpuscular Hemoglobin 28.6 pg (27.0-31.2); Mean Corpuscular Volume 90.4 fl (81-99); Nucleated Red Blood Cells % 0 %; Platelet Count 191 K/mm3 (142-424); Red Blood Count 5.11 M/mm3 (4.20-5.40); Red Cell Distribution Width-SD 45.8 fL; White Blood Count 10.4 K/mm3 (4.8-10.8)
[2025-01-23 16:40] LABS: Bilirubin,Urine Negative (Negative); Color,Urine YELLOW (Yellow); Glucose,Urine (UA) Negative (Negative); Ketones,Urine Negative (Negative); Leukocyte Esterase,Urine 1+ (Negative); PH,Urine 7.0 (5.0-8.5); Protein,Urine Negative (Negative); Specific Gravity, Urine <= 1.005 (1.005-1.030); Urobilinogen,Urine 0.2 EU/dl (0.2)
[2025-01-23 16:42] LABS: Albumin Level 4.4 g/dl (3.5-5.0); Chloride 102 mmol/L (98-107); Potassium 4.2 mmoL/L (3.5-5.1); Sodium 140 mmol/L (136-145)
[2025-01-23 16:45] LABS: Alanine Aminotransferase 25 U/L (12-78); Albumin/Globulin Ratio 1.4 (1.1-1.8); Alkaline Phosphatase 102 U/L (38-126); Anion Gap 19.2 mEq/L (5-15); Aspartate Amino Transferase 40 U/L (14-36); Bilirubin,Total 1.0 mg/dl (0.2-1.3); Blood Urea Nitrogen 18 mg/dl (7-17); Calcium 9.6 mg/dl (8.4-10.2); Carbon Dioxide 23 mmol/L (22.0-30.0); Cholesterol 148 mg/dl (140-200); Creatinine Clearance Estimated 89 mL/min (50-200); Creatinine,Serum 0.90 mg/dl (0.52-1.04); Estimated Glomerular Filt Rate 63 ml/min (>60); GFR (African American) 77 ML/MIN (>60); Globulin 3.2 g/dL (1.3-3.2); Glucose 106 mg/dl (74-100); Total Protein,Serum 7.6 g/dl (6.3-8.2); Triglycerides 106 mg/dl (30-150)
--- NOTE | 2025-01-23 16:45 | PC.NURSE ---
[facility] called about possible pt transfer for stroke care.
[2025-01-23 16:46] LABS: HDL Cholesterol 41 mg/dl (40-60)
[2025-01-23 16:47] LABS: Activated Partial Thrombo Time 26.5 seconds (22.8-30.6); INR 1.03 (0.9-1.1); Prothrombin Time 11.4 seconds (10.1-12.5)
--- NOTE | 2025-01-23 16:47 | PC.NURSE ---
md on phone with stroke navigator at [facility]
--- NOTE | 2025-01-23 16:51 | PC.NURSE ---
i spoke with senthil about pts scan, information relayed to provider
[2025-01-23 17:06] LABS: Barbiturates Screen,Urine Negative ng/ml (<200)
[2025-01-23 17:07] LABS: Benzodiazepines Screen,Urine Negative ng/ml (<200)
[2025-01-23 17:09] LABS: Methadone Screen,Urine Negative ng/ml (<300); Opiate Screen,Urine Negative ng/ml (<300)
[2025-01-23 17:10] LABS: Phencyclidine Screen,Urine Negative ng/ml (<25)
[2025-01-23 17:10] LABS: Bacteria,Urine Trace /lpf
--- NOTE | 2025-01-23 17:16 | PC.NURSE ---
called for a weather check
[2025-01-23 17:34] LABS: Troponin I < 0.01 ng/ml (0.00-0.034)
--- NOTE | 2025-01-23 17:34 | HMH.EDGENADL ---
Discharge Plan Disposition Patient Disposition: Xfer Other Condition: Good Prescriptions Prescriptions: No Action apixaban 2.5 mg tablet 2.5 mg PO BID atorvastatin 80 mg tablet 80 mg PO HS amlodipine 2.5 mg tablet 2.5 mg PO DAILY aspirin 81 mg tablet,chewable 81 mg PO DAILY ondansetron HCl 4 mg tablet 4 mg PO Q6H PRN (Reason: Nausea And Vomiting) escitalopram oxalate 10 mg tablet 10 mg PO DAILY duloxetine 30 mg capsule,delayed release(DR/EC) 30 mg PO BID baclofen 5 mg tablet 5 mg PO TID Qty: 90 3RF metoprolol tartrate 25 mg tablet 12.5 mg PO BID acetaminophen 500 mg capsule 500 mg PO Q6H PRN (Reason: Mild Pain (Scale Score 1-4)) Senna Plus 8.6-50 mg capsule 1 tab-cap PO DAILY PRN (Reason: Constipation) ferrous sulfate 325 mg (65 mg iron) tablet 325 mg PO DAILY Qty: 90 3RF levothyroxine [Synthroid] 88 mcg tablet 88 mcg PO QAM Qty: 90 3RF gabapentin 400 mg tablet 400 mg PO TID Qty: 90 3RF omeprazole 20 mg Capsule,Delayed Release(Dr/Ec) 20 mg PO DAILY Referrals Follow up/Referrals: Provider,Referral, MD [Primary Care Provider, Medical] - See instructions Clinical Impressions Clinical Impression: Acute left-sided weakness, Weakness on left side of face, Dysarthria, Urinary tract infection Stand Alone Forms Stand Alone Forms: Transfer Record - ED Print Language Print Language: Nepalese Discharge ED Provider: Timothy Dominguez Adult HPI General Chief complaint: Neuro Symptoms/Deficit Stated complaint: stroke alert Time Seen by Provider: 01/23/25 15:55 Mode of Arrival: EMS Source of Information: EMS Description of Symptoms (Recalled from ER Triage Doc. by RN): ems states they [facility] jail for a patient with altered mental status. staff reported left sided facial droop and left sided arm/leg weakness. last known well approx. 1 hour ago History of Present Illness HPI narrative: This is a 65-year-old female patient, with past medical history of hypertension, hyperlipidemia, atrial fibrillation, ventricular pacemaker, ischemic heart disease, and prior stroke with residual left-sided weakness, who is presenting to the emergency department today for evaluation of strokelike symptoms. I have discussed this case directly with the patient's nurse at her jail facility who provided collateral history. She tells me the patient has complete paralysis of her left lower extremity at baseline. 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 She states that she was checking on the patient this afternoon at 3:30 PM and during the conversation the patient began experiencing flexor posturing of the left upper extremity and wrist with marked left-sided facial droop and dysarthria. There was no tonic-clonic shaking during this episode, no alteration of consciousness, the patient was able to follow commands. She had no eye deviation. Her last known normal time was 3:30 PM this afternoon. Records also tells me that the patient did receive her Eliquis and aspirin this morning. Related Data Home Medications ?Medication ?Instructions ?Recorded ?Confirmed apixaban 2.5 mg tablet 2.5 mg PO BID 11/27/23 01/20/25 amlodipine 2.5 mg tablet 2.5 mg PO DAILY 03/16/24 01/20/25 aspirin 81 mg chewable tablet 81 mg PO DAILY 03/16/24 01/20/25 atorvastatin 80 mg tablet 80 mg PO HS 03/16/24 01/20/25 escitalopram oxalate 10 mg tablet 10 mg PO DAILY 03/16/24 01/20/25 ondansetron HCl 4 mg tablet 4 mg PO Q6H PRN Nausea And Vomiting 03/16/24 01/20/25 metoprolol tartrate 25 mg tablet 12.5 mg PO BID 05/19/24 01/20/25 acetaminophen 500 mg capsule 500 mg PO Q6H PRN Mild Pain (Scale 07/28/24 01/20/25 Score 1-4) sennosides 8.6 mg-docusate sodium 1 tab-cap PO DAILY PRN Constipation 07/28/24 01/20/25 50 mg capsule (Senna Plus) omeprazole 20 mg capsule,delayed 20 mg PO DAILY 09/03/24 01/20/25 release duloxetine 30 mg capsule,delayed 30 mg PO BID 12/15/24 01/20/25 release Previous Rx's ?Medication ?Instructions ?Recorded ferrous sulfate 325 mg (65 mg 325 mg PO DAILY #90 tabs 11/26/23 iron) tablet baclofen 5 mg tablet 5 mg PO TID #90 tabs 04/15/24 levothyroxine 88 mcg tablet 88 mcg PO QAM #90 tabs 10/09/24 (Synthroid) gabapentin 400 mg tablet 400 mg PO TID #90 tabs 01/22/25 Allergies Allergy/AdvReac Type Severity Reaction Status Date / Time methadone Allergy Mild Hives Verified 01/20/25 08:49 morphine Allergy Mild Hives Verified 01/20/25 08:49 Sulfa (Sulfonamide Allergy Mild Hives Verified 01/20/25 08:49 Antibiotics) [facility] Disclaimer: The information contained in this section may have been updated after the patient was seen, as this information can be updated by other users. Medical History (Updated 01/23/25 @ 20:20 by Timothy Dominguez DO) Melanoma in situ of left upper extremity Acute anterior epistaxis Melanoma in situ Left spastic hemiparesis History of CVA (cerebrovascular accident) Hypertension Anticoagulated Gastroesophageal reflux Hyperlipidemia Anemia Tobacco use Hypothyroid Fibromyalgia Atrial fibrillation Pacemaker Left leg weakness Left-sided weakness Surgical History (Updated 01/20/25 @ 21:03 by Janak Ramirez MD) H/O melanoma excision History of left knee replacement History of cholecystectomy Family History Other No significant family history Social History (Updated 01/20/25 @ 20:58 by Janak Ramirez MD) Smoking Status: Former smoker alcohol intake: never current occupational status: unemployed, disabled and other Travel in the last 8 weeks?: None household members: none housing: jail marital status: number of children: 2 Other Medical History Have you received the Pneumonia Vaccine: Yes (08/17/24) ROS Obtained: Yes Systems reviewed as appropriate & no additional complaints except as documented Physical Exam General General appearance: other (See MDM) Respiratory Respiratory exam: Present other (See MDM) Cardiovascular Cardiovascular exam: Present other (See MDM) Neurological Exam Neurological exam: Present other (See MDM) Medical Decision Making Medical Records Medical records reviewed: Yes I reviewed the patient's medical records. Screening: Per USPSTF and CDC recommendations, given the prevalence of disease in our region, it is our hospital?s policy to screen for HIV and viral Hepatitis for all patients aged 18 and over and those with ongoing risk factors. Schuyler Inquiry Pt receiving controlled substance: No Schuyler was queried for this patient: No Vital Signs: 01/23/25 16:03 01/23/25 16:30 01/23/25 17:00 Temperature 98.8 F Temperature Source Oral Pulse Rate 64 65 Pulse Rate [Right Radial] 65 Respiratory Rate 17 Blood Pressure 141/88 H 158/92 H Blood Pressure [Right Arm] 149/92 H Blood Pressure Mean 107 114 Blood Pressure Mean [Right Arm] 111 Blood Pressure Source Blood Pressure Source [Right Arm] Automatic Cuff Blood Pressure Position Blood Pressure Position [Right Arm] Supine 02 Sat by Pulse Oximetry 96 94 L 97 Oxygen Delivery Method Room Air Oxygen Flow Rate (LPM) 01/23/25 17:30 01/23/25 18:00 01/23/25 18:19 Temperature Temperature Source Pulse Rate 64 65 67 Pulse Rate [Right Radial] Respiratory Rate Blood Pressure 167/91 H 150/132 H 101/78 L Blood Pressure [Right Arm] Blood Pressure Mean 116 Blood Pressure Mean [Right Arm] Blood Pressure Source Blood Pressure Source [Right Arm] Blood Pressure Position Blood Pressure Position [Right Arm] 02 Sat by Pulse Oximetry 97 96 96 Oxygen Delivery Method Nasal Cannula Nasal Cannula Oxygen Flow Rate (LPM) 4 4 01/23/25 18:31 01/23/25 20:06 Temperature 98.5 F Temperature Source Oral Pulse Rate 56 L 65 Pulse Rate [Right Radial] Respiratory Rate 12 Blood Pressure 159/99 H 162/102 H Blood Pressure [Right Arm] Blood Pressure Mean Blood Pressure Mean [Right Arm] Blood Pressure Source Automatic Cuff Blood Pressure Source [Right Arm] Blood Pressure Position Supine Blood Pressure Position [Right Arm] 02 Sat by Pulse Oximetry 96 Oxygen Delivery Method Nasal Cannula Room Air Oxygen Flow Rate (LPM) 4 Lab Data Lab Results 01/23/25 15:48: Urine Opiates Screen Negative, Urine Methadone Screen Negative, Ur Barbituates Screen Negative, Ur Phencyclidine Scrn Negative, Ur Amphetamines Screen Negative, U Benzodiazepines Scrn Negative, Urine Cocaine Screen Negative, U Marijuana (THC) Screen Negative 01/23/25 15:54: WBC 10.4, RBC 5.11, Hgb 14.6, Hct 46.2, MCV 90.4, MCH 28.6, MCHC 31.6 L, RDW 13.7, Plt Count 191, MPV 10.8 H, Neut % (Auto) 58.9, Lymph % (Auto) 31.7, [place] % (Auto) 6.7, Eos % (Auto) 1.4, Baso % (Auto) 0.4, Neut # (Auto) 6.1, Lymph # (Auto) 3.3, [place] # (Auto) 0.7, Eos # (Auto) 0.2, Baso # (Auto) 0.0, PT 11.4, INR 1.03, APTT 26.5, Sodium 140, Potassium 4.2, Chloride 102, Carbon Dioxide 23, Anion Gap 19.2 H, BUN 18 H, Creatinine 0.90, Estimated Creat Clear 89, Estimated GFR 63, Est GFR ( Amer) 77, Glucose 106 H, Calcium 9.6, Total Bilirubin 1.0, AST 40 H, ALT 25, Alkaline Phosphatase 102, Troponin I < 0.01, Total Protein 7.6 D, Albumin 4.4, Globulin 3.2, Albumin/Globulin Ratio 1.4, Triglycerides 106, Cholesterol 148, LDL Cholesterol Direct 65.91 L, VLDL Cholesterol 21, HDL Cholesterol 41, Cholesterol/HDL Ratio 3.6 H, Plasma/Serum Alcohol < 10 01/23/25 16:12: POC Glucose 118 H 01/23/25 16:27: Urine Color Yellow, Urine Appearance Clear, Urine pH 7.0, Ur Specific [place] <= 1.005, Urine Protein Negative, Urine Glucose (UA) Negative, Urine Ketones Negative, Urine Blood 1+ A, Urine Nitrate Negative, Urine Bilirubin Negative, Urine Urobilinogen 0.2, Ur Leukocyte Esterase 1+ A, Urine RBC None, Urine WBC 10-20, Ur Squamous Epith Cells 3-5, Urine Bacteria Trace 01/23/25 16:54: HCV Ab TETO w/Rflx PCR Qn Reactive, HIV Ag/Ab Combo Qual Negative 01/23/25 15:54 01/23/25 15:54 Orders (Tests/Meds): ED MEDICATIONS Generic Name Dose Route Start Last Admin Trade Name Freq PRN Reason Stop Dose Admin Ceftriaxone Sodium 2 gm/ 100 mls @ 200 mls/hr 01/23/25 19:30 01/23/25 20:15 Sodium Chloride IV 02/02/25 19:29 Infused Q24H MYRIAM Infusion Sodium Chloride 10 ml 01/23/25 15:48 Sodium Chloride 0.9% 10ml Flush Syringe IV 02/22/25 15:47 NEEDED PRN Maintain IV Site Sodium Chloride 10 ml 01/23/25 16:06 01/23/25 16:08 Sodium Chloride 0.9% 10ml Syr (Rad Only) IV 02/22/25 16:05 10 ml NEEDED PRN Administration Maintain IV Site Discontinued Medications Generic Name Dose Route Start Last Admin Trade Name Flor PRN Reason Stop Dose Admin Acetaminophen 1,000 mg 01/23/25 18:30 01/23/25 18:37 Acetaminophen 1,000mg/100ml Vial IV 01/23/25 18:31 1,000 mg ONCE ONE Administration Iopamidol 80 ml 01/23/25 16:06 01/23/25 16:08 Iopamidol-370 (76%);100ml Bottle IV 01/23/25 16:07 80 ml ONCE ONE Administration Sodium Chloride 50 ml 01/23/25 16:06 01/23/25 16:07 0.9 % Sodium Chloride 50 Ml Vial IV 01/23/25 16:07 50 ml ONCE ONE Administration ORDERS Category Date Time Status CT angio head Stat Cat Scan 01/23/25 15:[address] angio neck Stat Cat Scan 01/23/25 15:[address] head/brain wo con Stat Cat Scan 01/23/25 15:48 Completed Activated Partial Thrombo Time Stat Lab 01/23/25 15:54 Completed Complete Blood Count Auto Diff Stat Lab 01/23/25 15:54 Completed Comprehensive Metabolic Panel Stat Lab 01/23/25 15:54 Completed Drug Screen,Urine Stat Lab 01/23/25 15:48 Completed Ethyl Alcohol Stat Lab 01/23/25 15:54 Completed HCV RNA PCR, Quant Stat Lab 01/23/25 16:54 Received HIV Combo Stat Lab 01/23/25 16:54 Completed Hepatitis C Ab Qual. W/ RFX Stat Lab 01/23/25 16:54 Completed Lipid Panel Stat Lab 01/23/25 15:54 Completed POC Glucose,Bedside Routine Lab 01/23/25 16:12 Completed Prothrombin Time INR Stat Lab 01/23/25 15:54 Completed Troponin I Q3H Lab 01/23/25 19:30 Received Troponin I Q3H Lab 01/23/25 22:00 Ordered Troponin I Stat Lab 01/23/25 15:54 Completed Urinalysis and Microscopic Stat Lab 01/23/25 16:27 Completed Urine Culture Stat Micro 01/23/25 16:27 Received ECG Request Stat Y 01/23/25 15:48 Ordered ECG Data Tracing #1: I reviewed this ECG and interpreted as documented below: EKG personally interpreted by me demonstrates ventricular paced rhythm at 65 bpm, left axis, wide QRS, no QTc prolongation. No ST elevation. no overt signs of ischemia. Medical Decision Narrative: In summary, this is a 65-year-old female patient who is presenting to the emergency room today as a stroke code after experiencing sudden onset left-sided facial drooping, dysarthria, and flexor posturing of the left upper extremity. 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 The patient is currently anticoagulated on Eliquis and takes a daily baby aspirin. On initial evaluation the patient she was resting comfortably and was in no acute distress and was nontoxic in appearance. She has hemodynamically stable and saturating well on room air. The patient is on the month and the year. She does know her name and her age. She has paralysis of the left lower extremity with no resistance against gravity. Her left upper extremity also does not resist gravity. She has an obvious left-sided facial droop with complete paralysis of the left lower hemiface. The upper face is not involved. She has dysarthria but is able to form complete sentences. The NIH at this time is 12. Differential diagnosis includes ischemic stroke, large vascular occlusion, intracranial hemorrhage, stroke recrudescence, urinary tract infection, ACS/HI, among others. Workup was initiated with hematologic labs as well as a stroke protocol CT scan with CT of the head without contrast and CTA of the head and neck. EKG personally interpreted by me demonstrates no ischemic changes. Please see interpretation above. Labs personally interpreted by me demonstrates no actionable abnormality. Troponin is less than 0.01. No leukocytosis. No anemia. No electrolyte derangement or evidence of acute kidney injury. Urinalysis does show 10-20 white cells with leukocyte esterase present. There is trace bacteria. I do feel this is consistent with urinary tract infection so we have treated with 2 g Rocephin CTA of the head and neck as well as CT head without contrast was interpreted by radiology and demonstrates chronic infarcts with no acute changes. There is significant motion artifact on the CTA of the head that limits the overall interpretation. I did discuss this case directly with the stroke navigator at [facility] who requested that we transfer the patient to [facility] for further workup and management. Dr. Kothari will be accepting physician at that facility. Patient transferred in stable condition. Critical Care Critical Care Time Critical Care Time: No
[2025-01-23 17:52] LABS: Amphetamine/Metha Screen,Urine Negative ng/ml (<1000)
--- NOTE | 2025-01-23 17:56 | PC.NURSE ---
[facility] just called and asked if we could fax a face sheet over to them.
--- NOTE | 2025-01-23 18:33 | PC.NURSE ---
Called jessie for an update on her transfer and they are cleaning a bed for her and will call back with her room number.
[2025-01-23] MEDS: ACETAMINOPHEN 1,000MG/100ML VIAL 1000 MG IV (18:37)
[2025-01-23 19:21] LABS: Hepatitis C Ab Qual. W/ RFX REACTIVE (Negative)
--- NOTE | 2025-01-23 19:38 | PC.NURSE ---
Spoke to Hattie at [facility] on bed assignment.
--- NOTE | 2025-01-23 19:47 | PC.NURSE ---
Report given to JANIS Edwards at [facility]
[2025-01-23 20:41] LABS: Troponin I < 0.01 ng/ml (0.00-0.034)
--- NOTE | 2025-01-29 09:09 | PC.NURSE ---
Urine culture results faxed to [facility]
== END 2025-01-23 20:20 | disposition other institution (70) ==
PROVIDERS: Emergency Provider Student in an Organized Health Care Education/Training Program
DX: R53.1 Weakness (principal); R29.810 Facial weakness; R47.1 Dysarthria and anarthria; N39.0 Urinary tract infection, site not specified; I10 Essential (primary) hypertension; E78.5 Hyperlipidemia, unspecified; I48.91 Unspecified atrial fibrillation
CPT/HCPCS: 70450; 70496; 70498; 80053; 80061; 80307; 80320; 81001; 82962; 84484; 85025; 85610; 85730; 86803; 87086; 87088; 87186; 87389; 87522; 93005; 96365; 96367; 99285; J0131; J0696; Q9967

== ENCOUNTER 2025-03-17 11:44 | Outpatient (CLI) | payer MEDICARE, MEDICAID, SELFPAY ==
--- OUTSIDE RECORDS SUMMARY | 2025-01-23 20:40 | XMS_ITS | Encounter Summary ---
Author Organization [facility] Address [address] [place] [address] Care Team Providers Care Sole Conditioner Name Role Phone Provider, No Known Primary Care Provider Unavail able Reason for Referral * Consultation (Routine) - Pending Review Specialty Diagnoses / Procedures Referred By Amanda knox Referred To Contact Neurology Diagnoses H/O: CVA (cerebrovascular accident) Procedures LA OFFICE/OUTPATIENT NEW MODERATE MDM 45 MINUTES Alma Rodriguez APRN [address] [facility] [address] [place] [address] Phone: tel: fax: Joan Vick APRN 17[address] [facility] [address] [address] Phone: tel: fax: Referral ID Status Reason Start Date Expiration Date Visits Requested Visits Authorized [id number] Pending Review Specialty Services Required 01/26/2025 04/27/2026 1 1 Scheduling Instructions 8-12 weeks * Invasive Procedures (Routine) - Pending Review Specialty Diagnoses / Procedures Referred By Contjimi t Referred To Contact Procedures EP/CRM Study Sarkis Manning MD [address] [place] [address] Phone: tel: fax: Referral ID Status Reason Start Date Expiration Date V isits Requested Visits Authorized [id number] Pending Review 01/25/2025 04/26/2026 1 1 Reason for Visit * Auth/Cert Specialty Diagnoses / Procedures Referred By Amanda t Referred To Contact Diagnoses Other CVA Referral ID Status Reason Start Date Expiration Date Visits Re quested Visits Authorized [id number] 1 1 Encounter Details Date Type Department Care Team (Late st Contact Info) Description 01/23/2025 9:40 PM EDT - 01/27/2025 2:45 PM EDT Hospital Encounter [facility] 3F [address] [place] [id number] Pam Kothari MD [address] [facility] [address] [place] [address] Akash Tan DO [address] [facility] [address] [place] [address] Cognitive communication deficit (Primary Dx); Dysphagia, unspecified type; H/O: CVA (cerebrovascular accident) Discharge Disposition: [facility] (DC - External) Social History Tobacco Use Types Packs/Day Years Used Date Smoking Tobacco: Former Cigarettes 0.5 4.8 S tarted: 2020 Smokeless Tobacco: Never Tobacco Cessation:Counseling Given: Not Answered Alcohol Use Standard Drinks/Week Comments Never 0 (1 standard drink = 0.6 oz pur e alcohol) [facility] Utilities Answer Date Recorded In the past 12 months has [employer], oil, or water [employer] threatened to shut off services in your home? No 01/25/2025 AUDIT-C Answer Date Recorded Q1: How often do you have a drink containing alcohol? Never 01/23/2025 Q2: How many drinks containi ng alcohol do you have on a typical day when you are drinking? Patient does not drink Q3: How often do you have si x or more drinks on one occasion? Never 01/23/2025 Exercise Vital Sign Answer Date Recorde d On average, how many days pe r week do you engage in moderate to strenuous exercise (like a brisk walk)? 0 days 01/25/2025 On average, how many minutes do you engage in exercise at this level? 0 min 01/25/2025 Hunger Vital Sign Answer Date Recorded Within the past 12 months, y ou worried that your food would run out before you got the money to buy more. Never true 01/26/20 25 Within the past 12 months, t he food you bought just didn't last and you didn't have money to get more. Never true 01/25/2025 PRAPARE - Transportation Answer Date Re corded In the past 12 months, has l ack of transportation kept you from medical appointments or from getting medications? No 01/11 In the past 12 months, has l ack of transportation kept you from meetings, work, or from getting things needed for daily living? No 01/25/2025 Abuse Screen Answer Date Recorded Feels Unsafe at Home or Work/School no 01/23/2025 Feels Threatened by Someone no 01/11 Does Anyone Try to Keep You From Having Contact with Others or Doing Things Outside Your Home? no 01/23/2025 Physical Signs of Abuse Present no 01/23/2025 Housing Stability Answer Date Recorded Current Living Arrangements assisted living faci lity 01/25/2025 Potentially Unsafe Housing Conditions none 01/25/2025 Family and Community Support Answer Oliver e Recorded If for any reason you need h elp with day-to-day activities such as bathing, preparing meals, shopping, managing finances, etc., do you get the help you need? I get all the help I need 01/25/2025 Lonely or Isolated Not on file 01/25/2025 Employment Answer Date Recorded Do you want help finding or keeping work or a job? I do not need or want help 01/25/2025 Disabilities Answer Date Recorded Difficulty Concentrating, Remembering or Making Decisions yes 01/23/2025 Difficulty Managing Errands Independently yes 01/23/2025 Education Answer Date Recorded Do you want help with school or training? For example, starting or completing job training or getting a high school diploma, GED or equivalent Yes 01/25/2025 Preferred Language Micronesian 01/25/2025 Comments Unknown Sex and Gender Information Value Date Recorded Sex Assigned at Not on file Legal Sex Female 11:00 AM EDT Gender Identity Not on file Sexual Orientation Not on file documented as of this encounter Last Filed Vital Signs Vital Sign Reading Time Taken Comments Blood Pressure 138/82 01/27/2025 10:59 AM EDT Pulse 55 01/27/2025 10:59 AM EDT Temperature 36.7 C (98.1 F) 01/27/2025 10:59 AM EDT Respiratory Rate 18 01/27/2025 10:59 AM EDT Oxygen Saturation 97% 01/27/2025 10:59 AM EDT Inhaled Oxygen Concentration - - Weight 86 kg (189 lb 9.5 oz) 01/24/2025 10:12 AM EDT Height 167 cm (5' 5.75 ) 01/24/2025 10:12 AM EDT Body Mass Index 30.84 01/24/2025 10:12 AM EDT documented in this encounter Functional Status * Question Answer Date of Assessment Author 1. Wish to be (Past 1 Month) No 3:24 AM EDT Oanh Torre RN 2. Non-Specific Active Suici cha Thoughts (Past 1 Month) No 01/24/2025 3:24 AM EDT Ronit Torre RN * Calculated C-SSRS Risk Score (Lifetime/Recent) Answer Date of Assessment Author No Risk Indicated 01/24/2025 3:24 AM EDT Oanh Amaya RN * [place] Suicide Severity Rating Scale (Screener/Recent Self-Report) Question Answer Date of Assessment Author 6. Suicidal Behavior (Lifetime) No 3:24 AM EDT Oanh Torre RN documented as of this encounter Discharge Summaries * Amberly Wallace RN - 01/27/2025 12:09 PM EDT Images from the original note were not included. Rimma Ridley (65 y.o. Female) Amberly ESCALANTE [phone] Date of 1960 Social Security Number [id number] [place] [address] Latter-Day Unknown Marital Status Admission Date 01/23/2025 Admission Type Urgent Admitting Provider Pam Kothari MD Attending Provider Pam Kothari MD Department, Room/Bed [facility] 3F, S322/1 Discharge Date Discharge Disposition Home or Self Care Discharge Destination Attending Provider: Pam Kothari MD Allergies: Methadone, Morphine, Sulfa Antibiotics Isolation: None Infection: None Code Status: No CPR Ht: 167 cm (65.75 ) Wt: 86 kg (189 lb 9.5 oz) Admission Cmt: None Principal Problem: Aphasia [R47.01] Active Insurance as of 01/23/2025 Primary Coverage Payor Plan Insurance Group Employer/Plan Group MEDICARE MEDICARE A & B Payor Plan Address Payor Plan Phone Number Payor Plan Fax Number Effective Dates [address] 11/10/2001 - None Entered [facility] [address] Subscriber Name Subscriber Date Member ID RIMMA RIDLEY 1960 [id number] Secondary Coverage Payor Plan Insurance Group Employer/Plan Group HUMANA MEDICARE REPLACEMENT HUMANA MEDICARE ADVANTAGE [facility] HMO [id number] Payor Plan Address Payor Plan Phone Number Payor Plan Fax Number Effective Dates [address] [address] 10/12/2023 - 01/26/2025 [facility] [phone] Subscriber Name Subscriber Date Member ID RIMMA RIDLEY 1960 [id number] Tertiary Coverage Payor Plan Insurance Group Employer/Plan Group [place] Payor Plan Address Payor Plan Phone Number Payor Plan Fax Number Effective Dates [address] 01/23/2025 - None Entered [facility] [address] Subscriber Name Subscriber Date Member ID RIMMA RIDLEY 1960 [id number] Emergency Contacts 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.) Home Phone Work Phone Mobile Phone Tara Ferrari (Sister) [phone] -- [phone] David Georges (Son) [phone] -- -- Discharge Summary Shanika Olson PA-C at 01/27/25 0944 [facility] Medicine Services DISCHARGE SUMMARY Patient Name: Rimma Ridley : 1960 Date of Admission: 01/23/2025 9:40 PM Date of Discharge: 01/27/2025 Primary Care Physician: Provider, No Known Consults Date and Time Order Name Status Description 01/25/2025 12:54 PM Inpatient Cardiology Consult Completed 01/23/2025 9:40 PM Inpatient Cardiology Consult Completed Hospital Course Active Hospital Problems Diagnosis POA Aphasia [R47.01] Yes H/O: CVA (cerebrovascular accident) [Z86.73] Not Applicable Pacemaker [Z95.0] Yes Primary hypertension [I10] Yes Resolved Hospital Problems No resolved problems to display. Hospital Course: Rimma Ridley is a 65 y.o. 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 Weakness resolved on arrival here, favored to be TIA v FND. Unable to obtain MRI 2/2 patient's pacemaker on back-up battery. 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 Manning in 3 months for device check LUE weakness + aphasia/dysarthria, resolved on arrival. Suspected TIA v FND H/o CVA w residual LLE paralysis + LUE weakness (10/2023) - Discharged from stroke admission in 10/2023 on ASA and Eliquis 2.5mg BID (dose reduced 2/2 epistaxis) - CT head reassuring. MRI unable to be performed due to PPM battery near depletion. Generator was replaced this admission however stroke neurology opted to defer MRI as patient is already on maximum therapy and MRI would not change treatment - Eliquis dose increased to 5mg BID this admission - monitor for epistaxis. 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 Plan to return to LTC at [place] Day of Discharge HPI: In bed. Tells me she is shitty and when I asked her why, she said her butt hurts. Discussed need for wound check in 7-10 days and device interrogation. Review of Systems Gen- No fevers, chills CV- No chest pain, palpitations Resp- No cough, dyspnea GI- No N/V/D, abd pain Vital Signs: Temp: [98 ??F (36.7 ??C)-98.7 ??F (37.1 ??C)] 98 ??F (36.7 ??C) Heart Rate: [55-73] 55 Resp: [18-25] 18 BP: (116-203)/(63-99) 125/63 Physical Exam: Constitutional: No acute distress, awake, alert and conversant. Laying in bed, eating breakfast HENT: NCAT, mucous membranes moist Respiratory: Clear to auscultation bilaterally, normal respiratory effort Cardiovascular: RRR Gastrointestinal: Positive bowel sounds, soft, nontender, nondistended Musculoskeletal: No bilateral ankle edema Psychiatric: Appropriate affect, cooperative with exam Neurologic: Formal orientation questions deferred, chronic left-sided weakness, speech clear and appropriate Pertinent and/or Most Recent Results LAB RESULTS: Lab 01/25/25182201/24/25 0100 WBC 12.07* 15.93* HEMOGLOBIN 14.3 15.4 HEMATOCRIT 44.6 49.5* PLATELETS 150 159 MCV 89.9 91.0 PROTIME -- 15.0 Lab 01/25/25 1823 01/24/25 0727 01/24/25 0100 SODIUM 136 -- 137 POTASSIUM 3.9 -- 4.4 CHLORIDE 99 -- 101 CO2 24.4 -- 21.5* ANION GAP 12.6 -- 14.5 BUN 17.4 -- 19.8 CREATININE 0.95 -- 0.94 EGFR 67.5 -- 68.3 GLUCOSE 109* -- 137* CALCIUM 8.8 -- 9.0 HEMOGLOBIN A1C -- 6.20* -- Lab 01/24/25 0100 TOTAL PROTEIN 7.1 ALBUMIN 3.9 GLOBULIN 3.2 ALT (SGPT) 20 AST (SGOT) 31 BILIRUBIN 0.5 ALK PHOS 116 Lab 01/24/25 0100 PROTIME 15.0 INR 1.11 Lab 01/24/25 0727 CHOLESTEROL 138 LDL CHOL 81 HDL CHOL 43 TRIGLYCERIDES 69 Brief Urine Lab Results None Microbiology Results (last 10 days) No results found for the last 240 hours. EP/CRM Study Result Date: 01/26/2025 FINAL IMPRESSIONS: Successful Bi-Ventricular Permanent Pacemaker generator removal. Successful insertion of a new Bi-Ventricular Permanent Pacemaker generator. RECOMMENDATION(S): The patient will be monitored on telemetry. If stable, the patient will be discharged home later today. Sarkis Manning MD Cardiac Manager [employer]ostatistics [facility] 01/26/25 18:[address] Head Without Contrast Result Date: 01/24/2025 CT HEAD WO CONTRAST Date of Exam: 01/24/2025 6:09 PM EDT Indication: Stroke evluation. Comparison: Outside CT head 01/23/2025 Technique: Axial CT images were obtained of the head without contrast administration. Automated exposure control and iterative construction methods were used. Findings: There is no evidence of acute territorial infarction. There is no acute intracranial hemorrhage. There areno extra-axial collections. Ventricles and CSF spaces are symmetric. No mass effect nor hydrocephalus. Brain parenchyma appears unchanged with advanced white matter hypoattenuation and previous rightanterior cerebral and posterior cerebral artery territory infarctions. Correlate with history. Paranasal sinuses and mastoid air cells are adequately aerated. Osseous structures and orbits appear intact. Impression: No significant interval change. Electronically Signed: Hugo Finnegan MD 01/24/2025 7:39 PM EDT Workstation ID: [id number] Dx[address] Outside Head Result Date: 01/23/2025 This procedure was auto-finalized with no dictation required. CT Outside Head Result Date: 01/23/2025 This procedure was auto-finalized with no dictation required. Results for orders placed during the hospital encounter of 10/21/23 Duplex Carotid Ultrasound CAR 10/23/2023 6:37 PM Interpretation Summary Right internal carotid artery demonstrates a less than 50% stenosis. Left internal carotid artery demonstrates a less than 50% stenosis. Antegrade flow in the vertebral arteries bilaterally. Results for orders placed during the hospital encounter of 01/23/25 Adult Transthoracic Echo Complete W/ Cont if Necessary Per Protocol (With Agitated Saline) 01/24/2025 10:35 AM Interpretation Summary Left ventricular systolic function is normal. Calculated left ventricular EF = 62.6% Left ventricular ejection fraction appears to be 61 - 65%. Left ventricular wall thickness is consistent with mild concentric hypertrophy. Left ventricular diastolic function was indeterminate. The right ventricular cavity is mildly dilated. The left atrial cavity is moderately dilated. Left atrial volume is moderately increased. The right atrial cavity is moderately dilated. Moderate to severe tricuspid valve regurgitation is present. Estimated right ventricular systolic pressure from tricuspid regurgitation is moderately elevated (45-55 mmHg). Calculated right ventricular systolic pressure from tricuspid regurgitation is 48 mmHg. Discharge Details Discharge Medications Changes to Medications Instructions Start Date acetaminophen 500 MG tablet Commonly known as: TYLENOL What changed: when to take this reasons to take this 500 mg, Oral, Every 4 Hours PRN apixaban 5 MG tablet tablet Commonly known as: ELIQUIS What changed: medication strength how much to take 5 mg, Oral, Every 12 Hours Scheduled gabapentin 400 MG capsule Commonly known as: NEURONTIN What changed: medication strength 400 mg, Oral, 3 Times Daily levothyroxine 75 MCG tablet Commonly known as: SYNTHROID, LEVOTHROID What changed: how much to take when to take this 75 mcg, Oral, Daily omeprazole 20 MG capsule Commonly known as: priLOSEC What changed: when to take this 20 mg, Oral, Every Morning Before Breakfast Continue These Medications Instructions Start Date amLODIPine 5 MG tablet Commonly known as: NORVASC 2.5 mg, Oral, Daily aspirin 81 MG chewable tablet 81 mg, Oral, Daily atorvastatin 80 MG tablet Commonly known as: LIPITOR 80 mg, Oral, Nightly Baclofen 5 MG tablet Commonly known as: LIORESAL 5 mg, 3 Times Daily DULoxetine 30 MG capsule Commonly known as: CYMBALTA 30 mg, 2 Times Daily escitalopram 10 MG tablet Commonly known as: LEXAPRO 10 mg, Every Morning ferrous sulfate 325 (65 FE) MG tablet 325 mg, Daily With Breakfast metoprolol tartrate 25 MG tablet Commonly known as: LOPRESSOR 12.5 mg, Oral, Every 12 Hours Scheduled ondansetron 4 MG tablet Commonly known as: ZOFRAN 4 mg, Every 6 Hours PRN Allergies Allergen Reactions Methadone Itching Morphine Itching Sulfa Antibiotics Itching and Rash Discharge Disposition:Home or Self Care Diet: Diet Instructions Diet: Regular/House Diet, Cardiac Diets; Healthy Heart (2-3 Na+); Regular (IDDSI 7); Thin (IDDSI 0) Discharge Diet: Regular/House Diet Cardiac Diets Cardiac Diet: Healthy Heart (2-3 Na+) Texture: Regular (IDDSI 7) Fluid Consistency: Thin (IDDSI 0) Activity: Activity Instructions Activity as Tolerated Up WIth Assist Additional Activity Instructions: DR. MANNING DEVICE GENERATOR CHANGE Pressure Dressing from device site will be removed the morning after procedure or prior to discharge if the patient goes home the same day. Patient will have an Aquacel dressing underneath. Typically, no steri-strips or glue is used. The Aquacel Dressing will be removed at the wound check appointment in 7-10 days. Please do not lift more than 10 pounds or raise the affected arm above the shoulder for 2 weeks after the device was implanted (this does not apply to subcutaneous ICDs). Avoid activities that involve heavy lifting or rough contact that could result in blows to your implant site. This allows the incision time to heal. You may shower the day after your procedure. Do not apply creams, lotions or powders to the incision. Please avoid allowing a bra strap or suspenders to lay over the incision until it is completely healed. No baths, hot tubs or swimming for 4 weeks. Call your doctor if you have any swelling, redness or discharge around your incision, notice anything unusual or unexpected or you develop a fever that does not go away in two to three days. Call your doctor if you hear any beeping sounds/vibratory alerts from your device as this indicates your device needs to be checked immediately. You will be scheduled for a 7-10 day wound check appointment and a 3 month follow up to check your device. Carry your medical screener ID card with you at all times. Please call our office at with any questions about the device or incision. CODE STATUS: Code Status and Medical Interventions: No CPR (Do Not Attempt to Resuscitate); Limited Support; No intubation (DNI); per prior Ordered at: 01/24/25 4865 Code Status (Patient has no pulse and is not breathing): No CPR (Do Not Attempt to Resuscitate) Medical Interventions (Patient has pulse or is breathing): Limited Support Medical Intervention Limits: No intubation (DNI) Comments: per prior Future Appointments Date Time Provider Department Center 04/16/2025 1:30 PM Joan Vick APRN [facility] Additional Instructions for the Follow-ups that You Need to Schedule Ambulatory Referral to Neurology As directed 8-12 weeks Discharge Follow-up with Specified Provider: EP Dr. Manning. Needs wound check in 7- 10 days and follow up in 3 months for device interrogation As directed To: EP Dr. Manning. Needs wound check in 7-10 days and follow up in 3 months for device interrogation Shanika Olson PA-C 01/27/25 Time Spent on Discharge: I spent 35 minutes on this discharge activity which included: [id number] with the patient, reviewing the data in the system, coordination of the care with the nursing staff as well as consultants, documentation, and entering orders. [id number] * Shanika Olson PA-C - 01/27/2025 9:44 AM EDT Images from the original note were not included. [facility] Medicine Services DISCHARGE SUMMARY Patient Name: Rimma Ridley : 1960 Date of Admission: 01/23/2025 9:40 PM Date of Discharge: 01/27/2025 Primary Care Physician: Provider, No Known Consults Date and Time Order Name Status Description 01/25/2025 12:54 PM Inpatient Cardiology Consult Completed 01/23/2025 9:40 PM Inpatient Cardiology Consult Completed Hospital Course Active Hospital Problems Diagnosis POA Aphasia [R47.01] Yes H/O: CVA (cerebrovascular accident) [Z86.73] Not Applicable Pacemaker [Z95.0] Yes Primary hypertension [I10] Yes Resolved Hospital Problems No resolved problems to display. Hospital Course: Rimma Ridley is a 65 y.o. 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 Weakness resolved on arrival here, favored to be TIA v FND. Unable to obtain MRI 2/2 patient's pacemaker on back-up battery. 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 Manning in 3 months for device check LUE weakness + aphasia/dysarthria, resolved on arrival. Suspected TIA v FND H/o CVA w residual LLE paralysis + LUE weakness (10/2023) - Discharged from stroke admission in 10/2023 on ASA and Eliquis 2.5mg BID (dose reduced 2/2 epistaxis) - CT head reassuring. MRI unable to be performed due to PPM battery near depletion. Generator was replaced this admission however stroke neurology opted to defer MRI as patient is already on maximum therapy and MRI would not change treatment - Eliquis dose increased to 5mg BID this admission - monitor for epistaxis. 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 Plan to return to LTC at [place] Day of Discharge HPI: In bed. Tells me she is shitty and when I asked her why, she said her butt hurts. Discussed need for wound check in 7-10 days and device interrogation. Review of Systems Gen- No fevers, chills CV- No chest pain, palpitations Resp- No cough, dyspnea GI- No N/V/D, abd pain Vital Signs: Temp: [98 ??F (36.7 ??C)-98.7 ??F (37.1 ??C)] 98 ??F (36.7 ??C) Heart Rate: [55-73] 55 Resp: [18-25] 18 BP: (116-203)/(63-99) 125/63 Physical Exam: Constitutional: No acute distress, awake, alert and conversant. Laying in bed, eating breakfast HENT: NCAT, mucous membranes moist Respiratory: Clear to auscultation bilaterally, normal respiratory effort Cardiovascular: RRR Gastrointestinal: Positive bowel sounds, soft, nontender, nondistended Musculoskeletal: No bilateral ankle edema Psychiatric: Appropriate affect, cooperative with exam Neurologic: Formal orientation questions deferred, chronic left-sided weakness, speech clear and appropriate Pertinent and/or Most Recent Results LAB RESULTS: Lab 01/25/25182201/24/2599 WBC 12.07* 15.93* HEMOGLOBIN 14.3 15.4 HEMATOCRIT 44.6 49.5* PLATELETS 150 159 MCV 89.9 91.0 PROTIME -- 15.0 Lab 01/25/25182201/24/2572601/24/25 010 SODIUM 136 -- 137 POTASSIUM 3.9 -- 4.4 CHLORIDE 99 -- 101 CO2 24.4 -- 21.5* ANION GAP 12.6 -- 14.5 BUN 17.4 -- 19.8 CREATININE 0.95 -- 0.94 EGFR 67.5 -- 68.3 GLUCOSE 109* -- 137* CALCIUM 8.8 -- 9.0 HEMOGLOBIN A1C -- 6.20* -- Lab 01/24/25 010 TOTAL PROTEIN 7.1 ALBUMIN 3.9 GLOBULIN 3.2 ALT (SGPT) 20 AST (SGOT) 31 BILIRUBIN 0.5 ALK PHOS 116 Lab 01/24/250 PROTIME 15.0 INR 1.11 Lab 01/24/25726 CHOLESTEROL 138 LDL CHOL 81 HDL CHOL 43 TRIGLYCERIDES 69 Brief Urine Lab Results None Microbiology Results (last 10 days) No results found for the last 240 hours. EP/CRM Study Result Date: 01/26/2025 FINAL IMPRESSIONS: Successful Bi-Ventricular Permanent Pacemaker generator removal. Successful insertion of a new Bi-Ventricular Permanent Pacemaker generator. RECOMMENDATION(S): The patient will be monitored on telemetry. If stable, the patient will be discharged home later today. Sarkis Manning MD Cardiac Manager Biostatistics [facility] 01/26/25 18:[address] Head Without Contrast Result Date: 01/24/2025 CT HEAD WO CONTRAST Date of Exam: 01/24/2025 6:09 PM EDT Indication: Stroke evluation. Comparison: Outside CT head 01/23/2025 Technique: Axial CT images were obtained of the head without contrast administration. Automated exposure control and iterative construction methods were used. Findings: There is no evidence of acute territorial infarction. There is no acute intracranial hemorrhage. There areno extra-axial collections. Ventricles and CSF spaces are symmetric. No mass effect nor hydrocephalus. Brain parenchyma appears unchanged with advanced white matter hypoattenuation and previous rightanterior cerebral and posterior cerebral artery territory infarctions. Correlate with history. Paranasal sinuses and mastoid air cells are adequately aerated. Osseous structures and orbits appear intact. Impression: No significant interval change. Electronically Signed: Hugo Finnegan MD 01/24/2025 7:39 PM EDT Workstation ID: [id number] DxDesc CT Outside Head Result Date: 01/23/2025 This procedure was auto-finalized with no dictation required. CT Outside Head Result Date: 01/23/2025 This procedure was auto-finalized with no dictation required. Results for orders placed during the hospital encounter of 10/21/23 Duplex Carotid Ultrasound CAR 10/23/2023 6:37 PM Interpretation Summary Right internal carotid artery demonstrates a less than 50% stenosis. Left internal carotid artery demonstrates a less than 50% stenosis. Antegrade flow in the vertebral arteries bilaterally. Results for orders placed during the hospital encounter of 01/23/25 Adult Transthoracic Echo Complete W/ Cont if Necessary Per Protocol (With Agitated Saline) 01/24/2025 10:35 AM Interpretation Summary Left ventricular systolic function is normal. Calculated left ventricular EF = 62.6% Left ventricular ejection fraction appears to be 61 - 65%. Left ventricular wall thickness is consistent with mild concentric hypertrophy. Left ventricular diastolic function was indeterminate. The right ventricular cavity is mildly dilated. The left atrial cavity is moderately dilated. Left atrial volume is moderately increased. The right atrial cavity is moderately dilated. Moderate to severe tricuspid valve regurgitation is present. Estimated right ventricular systolic pressure from tricuspid regurgitation is moderately elevated (45-55 mmHg). Calculated right ventricular systolic pressure from tricuspid regurgitation is 48 mmHg. Discharge Details Discharge Medications Changes to Medications Instructions Start Date acetaminophen 500 MG tablet Commonly known as: TYLENOL What changed: when to take this reasons to take this 500 mg, Oral, Every 4 Hours PRN apixaban 5 MG tablet tablet Commonly known as: ELIQUIS What changed: medication strength how much to take 5 mg, Oral, Every 12 Hours Scheduled gabapentin 400 MG capsule Commonly known as: NEURONTIN What changed: medication strength 400 mg, Oral, 3 Times Daily levothyroxine 75 MCG tablet Commonly known as: SYNTHROID, LEVOTHROID What changed: how much to take when to take this 75 mcg, Oral, Daily omeprazole 20 MG capsule Commonly known as: priLOSEC What changed: when to take this 20 mg, Oral, Every Morning Before Breakfast Continue These Medications Instructions Start Date amLODIPine 5 MG tablet Commonly known as: NORVASC 2.5 mg, Oral, Daily aspirin 81 MG chewable tablet 81 mg, Oral, Daily atorvastatin 80 MG tablet Commonly known as: LIPITOR 80 mg, Oral, Nightly Baclofen 5 MG tablet Commonly known as: LIORESAL 5 mg, 3 Times Daily DULoxetine 30 MG capsule Commonly known as: CYMBALTA 30 mg, 2 Times Daily escitalopram 10 MG tablet Commonly known as: LEXAPRO 10 mg, Every Morning ferrous sulfate 325 (65 FE) MG tablet 325 mg, Daily With Breakfast metoprolol tartrate 25 MG tablet Commonly known as: LOPRESSOR 12.5 mg, Oral, Every 12 Hours Scheduled ondansetron 4 MG tablet Commonly known as: ZOFRAN 4 mg, Every 6 Hours PRN Allergies Allergen Reactions Methadone Itching Morphine Itching Sulfa Antibiotics Itching and Rash Discharge Disposition:Home or Self Care Diet: Diet Instructions Diet: Regular/House Diet, Cardiac Diets; Healthy Heart (2-3 Na+); Regular (IDDSI 7); Thin (IDDSI 0) Discharge Diet: Regular/House Diet Cardiac Diets Cardiac Diet: Healthy Heart (2-3 Na+) Texture: Regular (IDDSI 7) Fluid Consistency: Thin (IDDSI 0) Activity: Activity Instructions Activity as Tolerated Up WIth Assist Additional Activity Instructions: DR. MANNING DEVICE GENERATOR CHANGE Pressure Dressing from device site will be removed the morning after procedure or prior to discharge if the patient goes home the same day. Patient will have an Aquacel dressing underneath. Typically, no steri-strips or glue is used. The Aquacel Dressing will be removed at the wound check appointment in 7-10 days. Please do not lift more than 10 pounds or raise the affected arm above the shoulder for 2 weeks after the device was implanted (this does not apply to subcutaneous ICDs). Avoid activities that involve heavy lifting or rough contact that could result in blows to your implant site. This allows the incision time to heal. You may shower the day after your procedure. Do not apply creams, lotions or powders to the incision. Please avoid allowing a bra strap or suspenders to lay over the incision until it is completely healed. No baths, hot tubs or swimming for 4 weeks. Call your doctor if you have any swelling, redness or discharge around your incision, notice anything unusual or unexpected or you develop a fever that does not go away in two to three days. Call your doctor if you hear any beeping sounds/vibratory alerts from your device as this indicates your device needs to be checked immediately. You will be scheduled for a 7-10 day wound check appointment and a 3 month follow up to check your device. Carry your medical screener ID card with you at all times. Please call our office at with any questions about the device or incision. CODE STATUS: Code Status and Medical Interventions: No CPR (Do Not Attempt to Resuscitate); Limited Support; No intubation (DNI); per prior Ordered at: 01/24/25 0753 Code Status (Patient has no pulse and is not breathing): No CPR (Do Not Attempt to Resuscitate) Medical Interventions (Patient has pulse or is breathing): Limited Support Medical Intervention Limits: No intubation (DNI) Comments: per prior Future Appointments Date Time Provider Department Center 04/16/2025 1:30 PM Joan Vick APRN [facility] Additional Instructions for the Follow-ups that You Need to Schedule Ambulatory Referral to Neurology As directed 8-12 weeks Discharge Follow-up with Specified Provider: MARIELY Manning. Needs wound check in 7- 10 days and follow up in 3 months for device interrogation As directed To: MARIELY Manning. Needs wound check in 7-10 days and follow up in 3 months for device interrogation Shanika Olson PA-C 01/27/25 Time Spent on Discharge: I spent 35 minutes on this discharge activity which included: [id number] with the patient, reviewing the data in the system, coordination of the care with the nursing staff as well as consultants, documentation, and entering orders. Cosigned by Pam Kothari MD at 01/27/2025 6:14 PM EDT Associated attestation - Pam Kothari MD - 01/27/2025 6:14 PM EDT All neurologic symptoms had resolved on admission here. Step up in eliquis therapy as outlined here Incidental finding of pacemaker on back-up battery. This was luckily able to be fixed with generator change while here I was available to answer questions as needed by this APC on this date * Amberly Wallace RN - 01/26/2025 1:46 PM EDT Images from the original note were not included. Rimma Ridley (65 y.o. Female) Amberly ESCALANTE [phone] Date of 1960 Social Security Number [id number] [place], [place] [id number] L[employer] Unknown Marital Status Admission Date 01/23/2025 Admission Type Urgent Admitting Provider Pam Kothari MD Attending Provider Pam Kothari MD Department, Room/Bed [address], S[address]/1 Discharge Date Discharge Disposition Discharge Destination Attending Provider: Pam Kothari MD Allergies: Methadone, Morphine, Sulfa Antibiotics Isolation: None Infection: None Code Status: No CPR Ht: 167 cm (65.75 ) Wt: 86 kg (189 lb 9.5 oz) Admission Cmt: None Principal Problem: Aphasia [R47.01] Active Insurance as of 01/23/2025 Primary Coverage Payor Plan Insurance Group Employer/Plan Group MEDICARE MEDICARE A & B Payor Plan Address Payor Plan Phone Number Payor Plan Fax Number Effective Dates [address] 11/10/2001 - None Entered [facility] [id number] Subscriber Name Subscriber Date Member ID RIMMA RIDLEY 1960 [id number] Secondary Coverage Payor Plan Insurance Group Employer/[place] Payor Plan Address Payor Plan Phone Number Payor Plan Fax Number Effective Dates [address] 01/23/2025 - None Entered [facility] [address] Subscriber Name Subscriber Date Member ID RIMMA RIDLEY 1960 [id number] Emergency Contacts 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.) Home Phone Work Phone Mobile Phone Tara Ferrari (Sister) [phone] -- [phone] José ManuelDavid (Son) [phone] -- -- Current Facility-Administered Medications Medication Dose Route Frequency Provider Last Rate Last Admin albuterol (PROVENTIL) nebulizer solution 0.083% 2.5 mg/3mL 2.5 mg Nebulization Q6H PRN Pam Kothari MD aluminum-magnesium hydroxide-simethicone (MAALOX MAX) 400-400-40 MG/5ML suspension 15 mL 15 mL [id number] PRN Pam Kothari MD [Held by provider] amLODIPine (NORVASC) tablet 2.5 mg 2.5 mg Oral Daily Akash Tan DO [Held by provider] apixaban (ELIQUIS) tablet 5 mg 5 mg Oral Q12H Akash Tan DO 5 mg at 01/25/25 0952 aspirin chewable tablet 81 mg 81 mg Oral Daily Akash Tan DO 81 mg at 01/26/25 0940 Or aspirin suppository 300 mg 300 mg Rectal Daily Akash Tan DO atorvastatin (LIPITOR) tablet 40 mg 40 mg Oral Nightly Akash Tan DO 40 mg at 01/25/25 2101 baclofen (LIORESAL) tablet 5 mg 5 mg Oral TID Akash Tan DO 5 mg at 01/26/25 0940 ceFAZolin 2000 mg IVPB in 100 mL NS (MBP) 2,000 mg Intravenous Once Chioma Noble APRN DULoxetine (CYMBALTA) DR capsule 30 mg 30 mg Oral Q12H Pam Kothari MD 30 mg at 01/26/25 0940 escitalopram (LEXAPRO) tablet 10 mg 10 mg Oral Daily Aksah Tan DO 10 mg at 01/26/25 0940 gabapentin (NEURONTIN) capsule 200 mg 200 mg Oral TID Pam Kothari MD 200 mg at 01/26/25 0940 HYDROcodone-acetaminophen (NORCO) 5-325 MG per tablet 1 tablet 1 tablet Oral Q6H PRN Akash Tan DO 1 tablet at 01/25/25 2101 levothyroxine (SYNTHROID, LEVOTHROID) tablet 88 mcg 88 mcg Oral Daily Akash Tan DO 88 mcg at 01/26/25 0940 Lidocaine 4 % 1 patch 1 patch Transdermal Q24H Pam Kothari MD 1 patch at 01/26/25 0940 [Held by provider] metoprolol tartrate (LOPRESSOR) tablet 12.5 mg 12.5 mg Oral Q12H Danielle Tan DO ondansetron ODT (ZOFRAN-ODT) disintegrating tablet 4 mg 4 mg Translingual Q6H PRN Pam Kothari MD4 mg at 01/24/25 0041 pantoprazole (PROTONIX) EC tablet 40 mg 40 mg Oral Q AM Akash Tan DO 40 mg at 01/25/25 0517 sodium chloride 0.9 % flush 10 mL 10 mL Intravenous Q12H Akash Tan DO 10 mL at 941 sodium chloride 0.9 % flush 10 mL 10 mL Intravenous PRN Akash Tan DO sodium chloride 0.9 % infusion 40 mL 40 mL Intravenous PRN Akash Tan DO Physician Progress Notes (most recent note) Chioma Noble APRN at 01/26/25 1034 For MDT BiV permanent pacemaker generator change today. Procedure, risks, and alternatives have been discussed with the patient and she/family is agreeable to proceed. Patient is not able to sign herconsent. Verbal consent taken from her son over the phone. 2 g Ancef ordered for surgical prophylaxis. Further recommendations to follow. Electronically signed by Chioma Noble APRN, 01/26/25, 10:35 AM EDT. 1035 Consult Notes (most recent note) Chioma Noble APRN at 01/25/25 1422 Consult Orders 1. Inpatient Cardiology Consult [[id number]] ordered by Pam Kothari MD at 01/25/25 1254 Attestation signed by Sarkis Manning MD at 01/25/25 1722 I have reviewed this documentation and agree. [facility] ELECTROPHYSIOLOGY CARDIOLOGY CONSULTATION NOTE Rimma Ridley [id number] 1960 LOS: 2 days Patient Care Team: Provider, No Known as PCP - General Reason for Consultation: Device JASMIN Problem list: Patient Active Problem List Diagnosis Date Noted *Aphasia 01/23/2025 H/O: CVA (cerebrovascular accident) 01/23/2025 Fibromyalgia 10/21/2023 Pacemaker 10/21/2023 Primary hypertension 10/21/2023 Tobacco use 10/21/2023 Ischemic cardiomyopathy 10/21/2023 History of Present Illness: Rimma Ridley is a 65 y.o. female past medical history listed above presented [facility] with complaints of aphasia. Cardiology was consulted for MRI clearance. During clearance device was found to be JASMIN. EP cardiology has been consulted for generator change. Patient has a Medtronic BiV pacemaker. Device to [facility] on 09/03/2024. Cardiac risk factors: hypertension. Allergies Allergen Reactions Methadone Itching Morphine Itching Sulfa Antibiotics Itching and Rash History reviewed. No pertinent past medical history. History reviewed. No pertinent surgical history. Social History Socioeconomic History Marital status: Tobacco Use Smoking status: Former Current packs/day: 0.50 Average packs/day: 0.5 packs/day for 4.7 years (2.4 ttl pk-yrs) Types: Cigarettes Start date: 2020 Smokeless tobacco: Never Vaping Use Vaping status: Never Used Substance and Sexual Activity Alcohol use: Never Drug use: Not Currently Types: Amphetamines Sexual activity: Defer History reviewed. No pertinent family history. Medications Prior to Admission Medication Sig Dispense Refill Last Dose/Taking acetaminophen (TYLENOL) 500 MG tablet Take 1 tablet by mouth Every 6 (Six) Hours As Needed for MildPain, Headache or Fever. Past Week amLODIPine (NORVASC) 5 MG tablet Take 1 tablet by mouth Daily. (Patient taking differently: Take 0.5 tablets by mouth Daily.) Past Week apixaban (ELIQUIS) 2.5 MG tablet tablet Take 1 tablet by mouth Every 12 (Twelve) Hours. Indications: Atrial Fibrillation, Recent epistaxis so we will start half dose Past Week aspirin 81 MG chewable tablet Chew 1 tablet Daily. Past Week Morning atorvastatin (LIPITOR) 80 MG tablet Take 1 tablet by mouth Every Night. Past Week Bedtime Baclofen (LIORESAL) 5 MG tablet Take 1 tablet by mouth 3 (Three) Times a Day. Past Week DULoxetine (CYMBALTA) 30 MG capsule Take 1 capsule by mouth 2 (Two) Times a Day. Past Week escitalopram (LEXAPRO) 10 MG tablet Take 1 tablet by mouth Every Morning. Past Week Morning ferrous sulfate 325 (65 FE) MG tablet Take 1 tablet by mouth Daily With Breakfast. Past Week gabapentin (NEURONTIN) 100 MG capsule Take 1 capsule by mouth 3 (Three) Times a Day. (Patient taking differently: Take 4 capsules by mouth 3 (Three) Times a Day.) Past Week levothyroxine (SYNTHROID, LEVOTHROID) 75 MCG tablet Take 1 tablet by mouth Daily. (Patient taking differently: Take 1 tablet by mouth Every Morning.) Past Week metoprolol tartrate (LOPRESSOR) 25 MG tablet Take 0.5 tablets by mouth Every 12 (Twelve) Hours. Past Week omeprazole (priLOSEC) 20 MG capsule Take 1 capsule by mouth Daily. Past Week ondansetron (ZOFRAN) 4 MG tablet Take 1 tablet by mouth Every 6 (Six) Hours As Needed for Nausea orVomiting. Past Month Scheduled Meds:[Held by provider] amLODIPine, 2.5 mg, Oral, Daily [Held by provider] apixaban, 5 mg, Oral, Q12H aspirin, 81 mg, Oral, Daily Or aspirin, 300 mg, Rectal, Daily atorvastatin, 40 mg, Oral, Nightly baclofen, 5 mg, Oral, TID DULoxetine, 20 mg, Oral, Daily escitalopram, 10 mg, Oral, Daily gabapentin, 100 mg, Oral, TID levothyroxine, 88 mcg, Oral, Daily Lidocaine, 1 patch, Transdermal, Q24H [Held by provider] metoprolol tartrate, 12.5 mg, Oral, Q12H pantoprazole, 40 mg, Oral, Q AM sodium chloride, 10 mL, Intravenous, Q12H Continuous Infusions: PRN Meds:. albuterol aluminum-magnesium hydroxide-simethicone HYDROcodone-acetaminophen HYDROmorphone ondansetron ODT sodium chloride sodium chloride Review of Systems All systems have been reviewed and are negative with the exception of those mentioned in the HPI and problem list above. Objective: Objective Physical Exam BP (!) 157/101 (BP Location: Right arm, Patient Position: Lying) Pulse 55 Temp 98.1 ??F (36.7 ??C) (Oral) Resp 18 Ht 167 cm (65.75 ) Wt 86 kg (189 lb 9.5 oz) SpO2 94% BMI 30.84 kg/m?? 01/24/25 1012 Weight: 86 kg (189 lb 9.5 oz) Body mass index is 30.84 kg/m??. Intake/Output Summary (Last 24 hours) at 01/25/2025 1422 Last data filed at 01/25/2025 0500 Gross per 24 hour Intake -- Output 650 ml Net -650 ml Physical Exam General Appearance: Alert, cooperative, no distress, appears stated age Neck: Supple, symmetrical, trachea midline, no carotid bruit or JVD Lungs: Clear to auscultation bilaterally, respirations unlabored Heart: Regular rate and rhythm, S1, S2 normal, no murmur, rub or gallop Extremities: No edema, normal range of motion Pulses: 2+ and symmetric Skin: Skin color, texture, turgor normal, no rashes or lesions Neurologic: Normal Cardiographics EKG: paced ECHO: Results for orders placed during the hospital encounter of 01/23/25 Adult Transthoracic Echo Complete W/ Cont if Necessary Per Protocol (With Agitated Saline) 01/24/2025 10:35 AM Interpretation Summary Left ventricular systolic function is normal. Calculated left ventricular EF = 62.6% Left ventricular ejection fraction appears to be 61 - 65%. Left ventricular wall thickness is consistent with mild concentric hypertrophy. Left ventricular diastolic function was indeterminate. The right ventricular cavity is mildly dilated. The left atrial cavity is moderately dilated. Left atrial volume is moderately increased. The right atrial cavity is moderately dilated. Moderate to severe tricuspid valve regurgitation is present. Estimated right ventricular systolic pressure from tricuspid regurgitation is moderately elevated (45-55 mmHg). Calculated right ventricular systolic pressure from tricuspid regurgitation is 48 mmHg. Imaging Chest x-ray: CT Head Without Contrast Result Date: 01/24/2025 Impression: No significant interval change. Electronically Signed: Hugo Finnegan MD 01/24/2025 7:39 PM EDT Workstation ID: [id number] DxDesc Lab Review Results from last 7 days Lab Units 01/24/25 0100 SODIUM mmol/L 137 POTASSIUM mmol/L 4.4 CHLORIDE mmol/L 101 CO2 mmol/L 21.5* BUN mg/dL 19.8 CREATININE mg/dL 0.94 GLUCOSE mg/dL 137* CALCIUM mg/dL 9.0 Results from last 7 days Lab Units 01/24/25 0100 WBC 10*3/mm3 15.93* HEMOGLOBIN g/dL 15.4 HEMATOCRIT % 49.5* PLATELETS 10*3/mm3 159 Results from last 7 days Lab Units 01/24/25 0727 CHOLESTEROL mg/dL 138 TRIGLYCERIDES mg/dL 69 HDL CHOL mg/dL 43 LDL CHOL mg/dL 81 Results from last 7 days Lab Units 01/24/25 0727 HEMOGLOBIN A1C % 6.20* Aphasia Pacemaker Primary hypertension H/O: CVA (cerebrovascular accident) Assessment: Complete heart block s/p MDT BiV pacemaker Upgraded to BIV pacemaker 2017 after AVN ablation At [facility] 09/03/2024 Chronic AF s/p AVN ablation Plan: Plan for MDT BiV PPM GEN change tomorrow with Dr. Manning. Hold Eliquis N.p.o. after midnight Ancef 2g for surgical prophylaxis We will continue to follow. Electronically signed by Chioma Noble APRN, 01/25/25, 2:22 PM EDT. Please note that portions of this note were dictated utilizing Dragon dictation. 5512 Physical Therapy Notes (most recent note) Carmella Joseph PT at 01/24/25 1505 Version 1 of 1 Patient Name: Rimma Ridley : 1960 Today's Date: 01/24/2025 Admit Date: 01/23/2025 Visit Dx: ICD-10-CM ICD-9-CM 1. Cognitive communication deficit R41.841 799.52 2. Dysphagia, unspecified type R13.10 787.20 Patient Active Problem List Diagnosis Fibromyalgia Pacemaker Primary hypertension Tobacco use Ischemic cardiomyopathy Aphasia H/O: CVA (cerebrovascular accident) History reviewed. No pertinent past medical history. History reviewed. No pertinent surgical history. General Information Row Name 01/24/25 1544 Physical Therapy Time and Intention Document Type evaluation -CD Mode of Treatment physical therapy -CD Row Name 01/24/25 1544 General Information Patient Profile Reviewed yes -CD Prior Level of Function max assist:;bed mobility;w/c or scooter;transfer;dependent:;ADL's;min assist:;feeding PER NSG, PT WAS MAX ASSIST OF 2 AT [facility] FOR UP TO W/C AND DEPENDENT WITH ADL'S. NEED TO CLARIFY PLOF FURTHER WELL IF SEVERE L HIP/LBP IS BASELINE. -CD Existing Precautions/Restrictions fall L SIDED WEAKNESS, LE>UE. LLE CONTRACTURE, HIP PAIN. -CD Barriers to Rehab medically complex;previous functional deficit;cognitive status;contractures -CD Row Name 01/24/25 1544 Living Environment Current Living Arrangements extended care facility -CD People in Home facility resident -CD Row Name 01/24/25 1544 Cognition Orientation Status (Cognition) oriented to;person;time;verbal cues/prompts needed for orientation;place [facility]. -CD Row Name 01/24/25 1544 Safety Issues/Impairments Affecting Functional Mobility Safety Issues Affecting Function (Mobility) insight into deficits/self- awareness;awareness of need for assistance;positioning of assistive device;safety precaution awareness;safety precautions follow- through/compliance;sequencing abilities;ability to follow commands;problem- solving -CD Impairments Affecting Function (Mobility) balance;cognition;endurance/activity tolerance;motor control;motor planning;muscle tone abnormal;pain;postural/trunk control;range of motion (ROM);sensation/sensory awareness;strength -CD Cognitive Impairments, Mobility Safety/Performance insight into deficits/self- awareness;safety precaution awareness;safety precaution follow- through;sequencing abilities;problem-solving/reasoning;awareness, need for assistance -CD Comment, Safety Issues/Impairments (Mobility) PT LIMITED PRIMARILY BY L HIP/LOWBACK. PT HAVING DIFFICULTY TIME ISOLATING LOCATION OF PAIN, BUT CRIES OUT WITH ROM OF L LE AND WHEN ROLLING IN BED. -CD User Story (r) = Recorded By, (t) = Taken By, (c) = Cosigned By Initials Name Provider Type Carmella Lawton, PT Physical Therapist Mobility Row Name 01/24/25 9272 Bed Mobility Bed Mobility rolling left;rolling right;sidelying-sit;sit-supine -CD Rolling Left [place] (Bed Mobility) maximum assist (25% patient effort);2 person assist -CD Rolling Right [place] (Bed Mobility) maximum assist (25% patient effort);2 person assist -CD Sit-Supine [place] (Bed Mobility) dependent (less than 25% patient effort);2 person assist -CD Sidelying-Sit [place] (Bed Mobility) maximum assist (25% patient effort);2 person assist -CD Comment, (Bed Mobility) BED MOBILITY ELICITS L HIP/LOWBACK PAIN. PT ABLE TO ASSIST WITH ROLLING VIABED RAILS WITH CUES. -CD Row Name 01/24/25 8418 Transfers Comment, (Transfers) DEFERRED. PT GIVING INCONSISTENT INFORMATION RE: TRANSFERS AT [facility]. INITALLY STATED STAFF USED A LIFT SYSTEM THEN SAID SHE PIVOTED WITH ASSIST OF 2. PT UNABLE TO MAINTAIN STATIC SITTING BALANCE AT EOB. -CD Row Name 01/24/25 8419 Gait/Stairs (Locomotion) [place] Level (Gait) other (see comments) -CD Patient was able to Ambulate no, other medical factors prevent ambulation -CD Reason Patient was unable to Ambulate Non-Ambulatory at Baseline PER CHART IS W/C BOUND SINCE CVA. -CD User Story (r) = Recorded By, (t) = Taken By, (c) = Cosigned By Initials Name Provider Type Carmella Lawton PT Physical Therapist Obj/Interventions Row Name 01/24/25 7498 Range of Motion Comprehensive General Range of Motion lower extremity range of motion deficits identified -CD Comment, General Range of Motion L LE PROM LIMITED APPROX 50%. PAIN ELICITED AT L HIP. UNABLE TO FULLY EXTEND L KNEE. R LE WFL;'S -CD Row Name 01/24/25 8063 Strength Comprehensive (MMT) Comment, General Manual Muscle Testing (MMT) Assessment L LE GROSSLY 0/5. R LE GROSSLY 3/5. ABLE TOPERFORM BRIEF SLR ON R. -CD Row Name 01/24/25 9902 Motor Skills Motor Skills coordination;functional endurance;muscle tone -CD Coordination gross motor deficit;left;lower extremity;severe impairment -CD Functional Endurance O2 SATS STABLE ON RA. -CD Muscle Tone left;lower extremity(s);hypertonia -CD Row Name 01/24/25 155 Balance Balance Interventions sitting;supported;static;dynamic;weight shifting activity -CD Comment, Balance PT DEMONSTRATED HEAVY POSTERIOR AND L LEAN, SITTING EOB. UNABLE TO MAINTAIN MIDLINE ORIENTATION. C/O L HIP PAIN. WORKED ON ANTERIOR ROCKING AND MIDLINE ORIENTATION. -CD Row Name 01/24/25 155 Sensory Assessment (Somatosensory) Sensory Assessment (Somatosensory) left LE -CD Left LE Sensory Assessment light touch awareness;impaired -CD User Story (r) = Recorded By, (t) = Taken By, (c) = Cosigned By Initials Name Provider Type CD Carmella Joseph, PT Physical Therapist Goals/Plan Row Name 01/24/25 160 Bed Mobility Goal 1 (PT) Activity/Assistive Device (Bed Mobility Goal 1, PT) sit to supine/supine to sit -CD Whitley Level/Cues Needed (Bed Mobility Goal 1, PT) moderate assist (50-74% patient effort) -CD Time Frame (Bed Mobility Goal 1, PT) short term goal (STG);1 week -CD Row Name 01/24/25 160 Transfer Goal 1 (PT) Activity/Assistive Device (Transfer Goal 1, PT) [id number] -CD Whitley Level/Cues Needed (Transfer Goal 1, PT) maximum assist (25-49% patient effort) -CD Time Frame (Transfer Goal 1, PT) termite exterminator goal (LTG);2 weeks -CD Row Name 01/24/25 160 Therapy Assessment/Plan (PT) Planned Therapy Interventions (PT) balance training;bed mobility training;transfer training;postural re-education;ROM (range of motion);strengthening -CD User Story (r) = Recorded By, (t) = Taken By, (c) = Cosigned By Initials Name Provider Type CD Carmella Joseph, PT Physical Therapist Clinical Impression Row Name 01/24/25 1558 Pain Pretreatment Pain Rating 10/10 -CD Posttreatment Pain Rating 9/10 -CD Pain Location hip;back -CD Pain Side/Orientation left -CD Pain Management Interventions exercise or physical activity utilized;positioning techniques utilized;movement retraining implemented -CD Response to Pain Interventions activity participation with decreased pain -CD Row Name 01/24/25 8041 Plan of Care Review Plan of Care Reviewed With patient -CD Outcome Evaluation PT PRESENTS WITH EVOLVING SYMPTOMS TO INCLUDE IMPAIRED BALANCE, GENERALIZED WEAKNESS L >R, L HIP/LOWBACK PAIN, INCREASED TONE L LE AND DECLINE IN FUNCTIONAL MOBILITY. PER CHART,PT IS W/C BOUND. PT IS LIMITED PRIMARILY BY L HIP/LOWBACK. PT HAVING DIFFICULTY ISOLATING LOCATION OF PAIN, BUT CRIES OUT WITH ROM OF L LE AND WHEN ROLLING IN BED. CURRENTLY PT REQUIRES MAX ASSIST OF2 FOR FOR BED MOBILITY AND IS UNABLE TO MAINTAIN STATIC SITTING BALANCE WITHOUT MAX ASSIST OF 2. NEED TO CONFIRM PLOF AT [facility]. RECOMMEND LIFT SYSTEM FOR UP TO CHAIR NEXT SESSION. CONSIDER D/C P.T. IF DETERMINED PT IS DEPENDENT VIA LIFT SYSTEM AT FACILITY. -CD Row Name 01/24/25 3032 Therapy Assessment/Plan (PT) Patient/Family Therapy Goals Statement (PT) DID NOT STATE. -CD Rehab Potential (PT) limited -CD Criteria for Skilled Interventions Met (PT) yes;skilled treatment is necessary;other (see comments)TBD FURTHER. -CD Therapy Frequency (PT) daily -CD Row Name 01/24/25 9646 Vital Signs Pre Systolic BP Rehab 148 -CD Pre Treatment Diastolic BP 83 -CD Post Systolic BP Rehab 125 -CD Post Treatment Diastolic BP 80 -CD Posttreatment Heart Rate (beats/min) 65 -CD Pre SpO2 (%) 95 -CD O2 Delivery Pre Treatment nasal cannula -CD Intra SpO2 (%) 96 -CD O2 Delivery Intra Treatment nasal cannula -CD Post SpO2 (%) 96 -CD O2 Delivery Post Treatment nasal cannula -CD Pre Patient Position Supine -CD Intra Patient Position Sitting -CD Post Patient Position Supine -CD User Story (r) = Recorded By, (t) = Taken By, (c) = Cosigned By Initials Name Provider Type CD Carmella Joseph, PT Physical Therapist Outcome Measures Row Name 01/24/25 6186 How much help from another person do you currently need... Turning from your back to your side while in flat bed without using bedrails? 2 -CD Moving from lying on back to sitting on the side of a flat bed without bedrails? 2 -CD Moving to and from a bed to a chair (including a wheelchair)? 1 -CD Standing up from a chair using your arms (e.g., wheelchair, bedside chair)? 1 -CD Climbing 3-5 steps with a railing? 1 -CD To walk in hospital room? 1 -CD AM-PAC 6 Clicks Score (PT) 8 -CD Row Name 01/24/25 1604 Modified Mobile Scale Modified Mobile Scale 5 - Severe disability. Bedridden, incontinent, and requiring constant nursingcare and attention. -CD Row Name 01/24/25 1604 Functional Assessment Outcome Measure Options Modified Mobile - User Story (r) = Recorded By, (t) = Taken By, (c) = Cosigned By Initials Name Provider Type CD Carmella Joseph PT Physical Therapist Physical Therapy Education Title: PT OT CREATIVE DEVELOPER Therapies (In Progress) Topic: Physical Therapy (Done) Point: Mobility training (Done) Learning Progress Summary Patient Acceptance, E, VU,NR by CD at 01/24/2025 1604 Comment: BENEFITS OF OOB ACTIVITY, SAFETY WITH MOBILITY, PROGRESSION OF POC, D/C PLANNING, Point: Home exercise program (Done) Learning Progress Summary Patient Acceptance, E, VU,NR by CD at 01/24/2025 1604 Comment: BENEFITS OF OOB ACTIVITY, SAFETY WITH MOBILITY, PROGRESSION OF POC, D/C PLANNING, Point: Body mechanics (Done) Learning Progress Summary Patient Acceptance, E, VU,NR by CD at 01/24/2025 1604 Comment: BENEFITS OF OOB ACTIVITY, SAFETY WITH MOBILITY, PROGRESSION OF POC, D/C PLANNING, Point: Precautions (Done) Learning Progress Summary Patient Acceptance, E, VU,NR by CD at 01/24/2025 1604 Comment: BENEFITS OF OOB ACTIVITY, SAFETY WITH MOBILITY, PROGRESSION OF POC, D/C PLANNING, User Story Initials Effective Dates Name Provider Type Discipline CD 06/15/22 - Carmella Joseph PT Physical Therapist PT PT Recommendation and Plan Recommended discharge disposition is based on the functional assessment performed by PT/OT/Speech therapy (as applicable) and may not reflect the medical necessity determined by your provider or services covered by an individual patient's insurance plan or patient resource. Planned Therapy Interventions (PT): balance training, bed mobility training, transfer training, postural re-education, ROM (range of motion), strengthening Therapy Frequency (PT): daily Outcome Evaluation: PT PRESENTS WITH EVOLVING SYMPTOMS TO INCLUDE IMPAIRED BALANCE, GENERALIZED WEAKNESS L >R, L HIP/LOWBACK PAIN, INCREASED TONE L LE AND DECLINE IN FUNCTIONAL MOBILITY. PER CHART, PT IS W/C BOUND. PT IS LIMITED PRIMARILY BY L HIP/LOWBACK. PT HAVING DIFFICULTY ISOLATING LOCATIONOF PAIN, BUT CRIES OUT WITH ROM OF L LE AND WHEN ROLLING IN BED. CURRENTLY PT REQUIRES MAX ASSIST OF 2 FOR FOR BED MOBILITY AND IS UNABLE TO MAINTAIN STATIC SITTING BALANCE WITHOUT MAX ASSIST OF 2. NEED TO CONFIRM PLOF AT ECF. RECOMMEND LIFT SYSTEM FOR UP TO CHAIR NEXT SESSION. CONSIDER D/C P.T. IFDETERMINED PT IS DEPENDENT VIA LIFT SYSTEM AT FACILITY. Time Calculation: PT Evaluation Complexity History, PT Evaluation Complexity: 3 or more personal factors and/or comorbidities Examination of Body Systems (PT Eval Complexity): total of 4 or more elements Clinical Presentation (PT Evaluation Complexity): evolving Clinical Decision Making (PT Evaluation Complexity): moderate complexity Overall Complexity (PT Evaluation Complexity): moderate complexity PT Charges Row Name 01/24/25 1607 Time Calculation Start Time 1505 -CD PT Received On 01/24/25 -CD PT Goal Re-Cert Due Date 02/03/25 -CD Time Calculation- PT Total Timed Code Minutes- PT 11 minute(s) -CD Timed Charges 33630 - PT Therapeutic Activity Minutes 11 -CD Untimed Charges PT Eval/Re-eval Minutes 60 -CD Total Minutes Timed Charges Total Minutes 11 -CD Untimed Charges Total Minutes 60 -CD Total Minutes 71 -CD User Story (r) = Recorded By, (t) = Taken By, (c) = Cosigned By Initials Name Provider Type CD Carmella Joseph, PT Physical Therapist Therapy Charges for Today Code Description Service Date Service Provider Modifiers Qty [id number] PT THERAPEUTIC ACT EA 15 MIN 01/24/2025 Carmella Joseph, PT GP 1 [id number] HC PT EVAL MOD COMPLEXITY 4 01/24/2025 Carmella Joseph, PT GP 1 PT G-Codes Outcome Measure Options: Modified Mobile AM-PAC 6 Clicks Score (PT): 8 Modified Mobile Scale: 5 - Severe disability. Bedridden, incontinent, and requiring constant nursing care and attention. PT Discharge Summary Anticipated Discharge Disposition (PT): extended care facility Carmella Joseph, [place] 01/24/2025 1608 Occupational Therapy Notes (most recent note) Talia Delgado, OT at 01/25/25 1011 Acute Care - Occupational Therapy Discharge [facility] Patient Name: Rimma Ridley : 1960 Today's Date: 01/25/2025 Admit Date: 01/23/2025 Visit Dx: ICD-10-CM ICD-9-CM 1. Cognitive communication deficit R41.841 799.52 2. Dysphagia, unspecified type R13.10 787.20 Patient Active Problem List Diagnosis Fibromyalgia Pacemaker Primary hypertension Tobacco use Ischemic cardiomyopathy Aphasia H/O: CVA (cerebrovascular accident) History reviewed. No pertinent past medical history. History reviewed. No pertinent surgical history. General Information Row Name 01/25/25 1123 OT Time and Intention Document Type discharge evaluation/summary - Mode of Treatment occupational therapy - Row Name 01/25/25 112 General Information Patient Profile Reviewed yes - Prior Level of Function max assist:;bed mobility;w/c or scooter;transfer;min assist:;feeding;grooming Pt. reports she uses a lift at baseline to W/C - Existing Precautions/Restrictions fall;other (see comments) L sided weakness, L LE contractures, Blind L eye - Barriers to Rehab medically complex;previous functional deficit;cognitive status;contractures - Row Name 01/25/25 1123 Living Environment Current Living Arrangements extended care facility - People in Home facility resident - Row Name 01/25/25 1123 Home Main Entrance Number of Stairs, Main Entrance none - Row Name 01/25/25 1123 Stairs Within Home, Primary Number of Stairs, Within Home, Primary none - Row Name 01/25/25 1123 Cognition Orientation Status (Cognition) oriented to;person;time;other (see comments);place;verbal cues/prompts needed for orientation Pt. able to state correct year, did not know the current month. Aware she is in hospital, did not know which. - Row Name 01/25/25 1123 Safety Issues/Impairments Affecting Functional Mobility Safety Issues Affecting Function (Mobility) awareness of need for assistance;insight into deficits/self-awareness;judgment;positioning of assistive device;problem-solving;safety precaution awareness;safety precautions follow-through/compliance;sequencing abilities - Impairments Affecting Function (Mobility) balance;cognition;coordination;endurance/activity tolerance;motor control;motor planning;muscle tone abnormal;postural/trunk control;range of motion (ROM);str ength;visual/perceptual;pain - Cognitive Impairments, Mobility Safety/Performance awareness, need for assistance;insight into defic its/self-awareness;judgment;problem-solving/reasoning;safety precaution awareness;safety precautionfollow-through;sequencing abilities - User Story (r) = Recorded By, (t) = Taken By, (c) = Cosigned By Initials Name Provider Type Talia Delgado, OT Occupational Therapist Mobility/ADL's Row Name 01/25/25 1131 Bed Mobility Bed Mobility rolling left;rolling right;scooting/bridging;supine-sit;sit-supine - Rolling Left Whitley (Bed Mobility) verbal cues;moderate assist (50% patient effort);2 person assist - Rolling Right Whitley (Bed Mobility) moderate assist (50% patient effort);2 person assist;verbal cues - Scooting/Bridging Whitley (Bed Mobility) maximum assist (25% patient effort);2 person assist;verbal cues - Supine-Sit Whitley (Bed Mobility) verbal cues;maximum assist (25% patient effort);2 person assist - Assistive Device (Bed Mobility) bed rails;head of bed elevated;repositioning sheet - Comment, (Bed Mobility) Pt. able to assist with bed rails. Completed rolling L and R to fix linen. Denied dizziness sitting EOB. Demonstrates posterior lean, improved with time and cues. - Row Name 01/25/25 1131 Transfers Transfers bed-chair transfer - Comment, (Transfers) Deferred, Recliner in room broken. Notified RN and requested recliner be replaced. - Row Name 01/25/25 1131 Activities of Daily Living BADL Assessment/Intervention grooming;lower body dressing - Row Name 01/25/25 1131 Grooming Assessment/Training Whitley Level (Grooming) wash face, hands;minimum assist (75% patient effort) - Position (Grooming) edge of bed sitting - Row Name 01/25/25 1131 Lower Body Dressing Assessment/Training Whitley Level (Lower Body Dressing) don;socks;dependent (less than 25% patient effort) - Position (Lower Body Dressing) sitting up in bed - User Story (r) = Recorded By, (t) = Taken By, (c) = Cosigned By Initials Name Provider Type Talia Wang OT Occupational Therapist Obj/Interventions Row Name 01/25/25 1133 Sensory Assessment (Somatosensory) Sensory Assessment (Somatosensory) unable/difficult to assess Giving inconsistent answers - Row Name 01/25/25 1133 Vision Assessment/Intervention Visual Impairment/Limitations legally blind L eye - Row Name 01/25/25 1133 Range of Motion Comprehensive Comment, General Range of Motion Difficult to assess, PROM WFL - Row Name 01/25/25 1133 Strength Comprehensive (MMT) Comment, General Manual Muscle Testing (MMT) Assessment R UE 3/5, L UE grossly 2/5 -[facility] Name 01/25/25 1133 Motor Skills Motor Skills functional endurance - Functional Endurance Impaired activity tolerance -[facility] Name 01/25/25 1133 Balance Balance Assessment sitting static balance;sitting dynamic balance - Static Sitting Balance verbal cues;minimal assist;2-person assist - Dynamic Sitting Balance verbal cues;maximum assist;2-person assist - Position, Sitting Balance sitting edge of bed;supported - Balance Interventions sitting;supported;static;dynamic;occupation based/functional task;weight shifting activity - Comment, Balance Pt. demonstrates left posterior lean sitting EOB. Improved with cues and assist toorient to midline. Initially Max A x 2 and improved to Min A x 2 - User Story (r) = Recorded By, (t) = Taken By, (c) = Cosigned By Initials Name Provider Type Talia Delgado OT Occupational Therapist Goals/Plan No documentation. Clinical Impression Row Name 01/25/25 1139 Pain Assessment Pretreatment Pain Rating 9/10 - Posttreatment Pain Rating 7/10 - Pain Location hip - Pain Side/Orientation right - Pain Management Interventions activity modification encouraged;positioning techniques utilized - Response to Pain Interventions activity participation with decreased pain - Row Name 01/25/25 1139 Plan of Care Review Plan of Care Reviewed With patient - Progress no change - Outcome Evaluation Pt. presents at baseline with ADLs and functional mobility. No further skilled OT services warranted at this time. Recommend return to LTC at discharge. - Row Name 01/25/25 1139 Therapy Assessment/Plan (OT) Therapy Frequency (OT) evaluation only - Row Name 01/25/25 1139 Therapy Plan Review/Discharge Plan (OT) Anticipated Discharge Disposition (OT) [facility] - Row Name 01/25/25 1139 Vital Signs Pre Systolic BP Rehab 166 -LC Pre Treatment Diastolic BP 104 -LC Post Systolic BP Rehab 157 -LC Post Treatment Diastolic BP 101 -LC Pre Patient Position Supine -LC Post Patient Position Supine - Row Name 01/25/25 1139 Positioning and Restraints Pre-Treatment Position in bed -LC Post Treatment Position bed -LC In Bed notified nsg;call light within reach;encouraged to call for assist;exit alarm on;fowlers;side lying left;SCD pump applied;heels elevated - User Story (r) = Recorded By, (t) = Taken By, (c) = Cosigned By Initials Name Provider Type Talia Wang OT Occupational Therapist Outcome Measures Row Name 01/25/25 1141 How much help from another is currently needed... Putting on and taking off regular lower body clothing? 1 - Bathing (including washing, rinsing, and drying) 1 - Toileting (which includes using toilet bed howe or urinal) 1 - Putting on and taking off regular upper body clothing 2 - Taking care of personal grooming (such as brushing teeth) 3 -LC Eating meals 3 - AM-PAC 6 Clicks Score (OT) 11 - Row Name 01/25/25 1141 Functional Assessment Outcome Measure Options AM-PAC 6 Clicks Daily Activity (OT) - User Story (r) = Recorded By, (t) = Taken By, (c) = Cosigned By Initials Name Provider Type Talia Wang OT Occupational Therapist Occupational Therapy Education Title: PT OT CREATIVE DEVELOPER Therapies (In Progress) Topic: Occupational Therapy (In Progress) Point: ADL training (In Progress) Learning Progress Summary Patient Acceptance, E, NR by at 01/25/2025 1011 Point: Precautions (In Progress) Learning Progress Summary Patient Acceptance, E, NR by at 01/25/2025 1011 Point: Body mechanics (In Progress) Learning Progress Summary Patient Acceptance, E, NR by at 01/25/2025 1011 User Story Initials Effective Dates Name Provider Type [facility] 10/26/20 - Talia Delgado OT Occupational Therapist OT OT Recommendation and Plan Recommended discharge disposition is based on the functional assessment performed by PT/OT/Speech therapy (as applicable) and may not reflect the medical necessity determined by your provider or services covered by an individual patient's insurance plan or patient resource. Therapy Frequency (OT): evaluation only Plan of Care Review Plan of Care Reviewed With: patient Progress: no change Outcome Evaluation: Pt. presents at baseline with ADLs and functional mobility. No further skilled OT services warranted at this time. Recommend return to LTC at discharge. Plan of Care Reviewed With: patient Outcome Evaluation: Pt. presents at baseline with ADLs and functional mobility. No further skilled OT services warranted at this time. Recommend return to LTC at discharge. Time Calculation: Evaluation Complexity (OT) Review Occupational Profile/Medical/Therapy History Complexity: brief/low complexity Assessment, Occupational Performance/Identification of Deficit Complexity: 1-3 performance deficits Clinical Decision Making Complexity (OT): problem focused assessment/low complexity Overall Complexity of Evaluation (OT): low complexity Time Calculation- OT Row Name 01/25/25 1143 Time Calculation- OT OT Start Time 1011 -LC OT Received On 01/25/25 - Untimed Charges OT Eval/Re-eval Minutes 61 -LC Total Minutes Untimed Charges Total Minutes 61 -LC Total Minutes 61 -LC User Story (r) = Recorded By, (t) = Taken By, (c) = Cosigned By Initials Name Provider Type Talia Delgado OT Occupational Therapist Therapy Charges for Today Code Description Service Date Service Provider Modifiers Qty [id number] -OT EVAL LOW COMPLEXITY 5 01/25/2025 Talia Delgado OT 1 [id number] OT THER SUPP EA 15 MIN 01/25/2025 Talia Delgado OT GO 3 OT Discharge Summary Anticipated Discharge Disposition (OT): extended care facility Reason for Discharge: At baseline function Discharge Destination: Extended care facility - LTC Talia Delgado OT 01/25/2025 1144 * Talia Delgado OT - 01/25/2025 10:11 AM EDT Images from the original note were not included. Acute Care - Occupational Therapy Discharge [facility] Patient Name: Rimma Ridley : 1960 Today's Date: 01/25/2025 Admit Date: 01/23/2025 Visit Dx: ICD-10-CM ICD-9-CM 1. Cognitive communication deficit R41.841 799.52 2. Dysphagia, unspecified type R13.10 787.20 Patient Active Problem List Diagnosis Fibromyalgia Pacemaker Primary hypertension Tobacco use Ischemic cardiomyopathy Aphasia H/O: CVA (cerebrovascular accident) History reviewed. No pertinent past medical history. History reviewed. No pertinent surgical history. General Information Row Name 01/25/25 1123 OT Time and Intention Document Type discharge evaluation/summary - Mode of Treatment occupational therapy - Row Name 01/25/25 [facility] General Information Patient Profile Reviewed yes - Prior Level of Function max assist:;bed mobility;w/c or scooter;transfer;min assist:;feeding;grooming Pt. reports she uses a lift at baseline to W/C - Existing Precautions/Restrictions fall;other (see comments) L sided weakness, L LE contractures, Blind L eye - Barriers to Rehab medically complex;previous functional deficit;cognitive status;contractures - Row Name 01/25/25 1123 Living Environment Current Living Arrangements extended care facility - People in Home facility resident - Row Name 01/25/25 1123 Home Main Entrance Number of Stairs, Main Entrance none - Row Name 01/25/25 1123 Stairs Within Home, Primary Number of Stairs, Within Home, Primary none - Row Name 01/25/25 1123 Cognition Orientation Status (Cognition) oriented to;person;time;other (see comments);place;verbal cues/prompts needed for orientation Pt. able to state correct year, did not know the current month. Aware she is in hospital, did not know which. - Row Name 01/25/25 1123 Safety Issues/Impairments Affecting Functional Mobility Safety Issues Affecting Function (Mobility) awareness of need for assistance;insight into deficits/self-awareness;judgment;positioning of assistive device;problem-solving;safety precaution awareness;safety precautions follow-through/compliance;sequencing abilities - Impairments Affecting Function (Mobility) balance;cognition;coordination;endurance/activity tolerance;motor control;motor planning;muscle tone abnormal;postural/trunk control;range of motion (ROM);str ength;visual/perceptual;pain - Cognitive Impairments, Mobility Safety/Performance awareness, need for assistance;insight into defic its/self-awareness;judgment;problem-solving/reasoning;safety precaution awareness;safety precautionfollow-through;sequencing abilities - User Story (r) = Recorded By, (t) = Taken By, (c) = Cosigned By Initials Name Provider Type Talia Delgado OT Occupational Therapist Mobility/ADL's Row Name 01/25/25 1131 Bed Mobility Bed Mobility rolling left;rolling right;scooting/bridging;supine-sit;sit-supine - Rolling Left Whitley (Bed Mobility) verbal cues;moderate assist (50% patient effort);2 person assist - Rolling Right Whitley (Bed Mobility) moderate assist (50% patient effort);2 person assist;verbal cues - Scooting/Bridging Whitley (Bed Mobility) maximum assist (25% patient effort);2 person assist;verbal cues - Supine-Sit Whitley (Bed Mobility) verbal cues;maximum assist (25% patient effort);2 person assist - Assistive Device (Bed Mobility) bed rails;head of bed elevated;repositioning sheet - Comment, (Bed Mobility) Pt. able to assist with bed rails. Completed rolling L and R to fix linen. Denied dizziness sitting EOB. Demonstrates posterior lean, improved with time and cues. - Row Name 01/25/25 1131 Transfers Transfers bed-chair transfer - Comment, (Transfers) Deferred, Recliner in room broken. Notified RN and requested recliner be replaced. - Row Name 01/25/25 1131 Activities of Daily Living BADL Assessment/Intervention grooming;lower body dressing - Row Name 01/25/25 1131 Grooming Assessment/Training Whitley Level (Grooming) wash face, hands;minimum assist (75% patient effort) - Position (Grooming) edge of bed sitting - Row Name 01/25/25 1131 Lower Body Dressing Assessment/Training Whitley Level (Lower Body Dressing) don;socks;dependent (less than 25% patient effort) - Position (Lower Body Dressing) sitting up in bed - User Story (r) = Recorded By, (t) = Taken By, (c) = Cosigned By Initials Name Provider Type Talia Delgado OT Occupational Therapist Obj/Interventions Row Name 01/25/25 113 Sensory Assessment (Somatosensory) Sensory Assessment (Somatosensory) unable/difficult to assess Giving inconsistent answers -[facility] Name 01/25/25 113 Vision Assessment/Intervention Visual Impairment/Limitations legally blind L eye -[facility] Name 01/25/25 113 Range of Motion Comprehensive Comment, General Range of Motion Difficult to assess, PROM WFL -[facility] Name 01/25/25 113 Strength Comprehensive (MMT) Comment, General Manual Muscle Testing (MMT) Assessment R UE 3/5, L UE grossly 2/5 -[facility] Name 01/25/25 113 Motor Skills Motor Skills functional endurance - Functional Endurance Impaired activity tolerance -[facility] Name 01/25/25 113 Balance Balance Assessment sitting static balance;sitting dynamic balance - Static Sitting Balance verbal cues;minimal assist;2-person assist - Dynamic Sitting Balance verbal cues;maximum assist;2-person assist - Position, Sitting Balance sitting edge of bed;supported - Balance Interventions sitting;supported;static;dynamic;occupation based/functional task;weight shifting activity - Comment, Balance Pt. demonstrates left posterior lean sitting EOB. Improved with cues and assist toorient to midline. Initially Max A x 2 and improved to Min A x 2 - User Story (r) = Recorded By, (t) = Taken By, (c) = Cosigned By Initials Name Provider Type Talia Delgado OT Occupational Therapist Goals/Plan No documentation. Clinical Impression [facility] 01/25/25 1139 Pain Assessment Pretreatment Pain Rating 9/10 - Posttreatment Pain Rating 7/10 - Pain Location hip - Pain Side/Orientation right - Pain Management Interventions activity modification encouraged;positioning techniques utilized - Response to Pain Interventions activity participation with decreased pain - Row Name 01/25/25 113 Plan of Care Review Plan of Care Reviewed With patient - Progress no change - Outcome Evaluation Pt. presents at baseline with ADLs and functional mobility. No further skilled OT services warranted at this time. Recommend return to LTC at discharge. - Row Name 01/25/25 1139 Therapy Assessment/Plan (OT) Therapy Frequency (OT) evaluation only - Row Name 01/25/25 1139 Therapy Plan Review/Discharge Plan (OT) Anticipated Discharge Disposition (OT) [facility] - Row Name 01/25/25 1139 Vital Signs Pre Systolic BP Rehab 166 -LC Pre Treatment Diastolic BP 104 -LC Post Systolic BP Rehab 157 -LC Post Treatment Diastolic BP 101 -LC Pre Patient Position Supine -LC Post Patient Position Supine - Row Name 01/25/25 1139 Positioning and Restraints Pre-Treatment Position in bed - Post Treatment Position bed -LC In Bed notified nsg;call light within reach;encouraged to call for assist;exit alarm on;fowlers;side lying left;SCD pump applied;heels elevated - User Story (r) = Recorded By, (t) = Taken By, (c) = Cosigned By Initials Name Provider Type Talia Delgado OT Occupational Therapist Outcome Measures Row Name 01/25/25 1141 How much help from another is currently needed... Putting on and taking off regular lower body clothing? 1 - Bathing (including washing, rinsing, and drying) 1 - Toileting (which includes using toilet bed howe or urinal) 1 - Putting on and taking off regular upper body clothing 2 - Taking care of personal grooming (such as brushing teeth) 3 - Eating meals 3 - AM-PAC 6 Clicks Score (OT) 11 - Row Name 01/25/25 1141 Functional Assessment Outcome Measure Options AM-PAC 6 Clicks Daily Activity (OT) - User Story (r) = Recorded By, (t) = Taken By, (c) = Cosigned By Initials Name Provider Type Talia Delgado OT Occupational Therapist Occupational Therapy Education Title: PT OT CREATIVE DEVELOPER Therapies (In Progress) Topic: Occupational Therapy (In Progress) Point: ADL training (In Progress) Learning Progress Summary Patient Acceptance, E, NR by at 01/25/2025 1011 Point: Precautions (In Progress) Learning Progress Summary Patient Acceptance, E, NR by at 01/25/2025 1011 Point: Body mechanics (In Progress) Learning Progress Summary Patient Acceptance, E, NR by at 01/25/2025 1011 User Story Initials Effective Dates Name Provider Type [facility] 10/26/20 - Talia Delgado OT Occupational Therapist OT OT Recommendation and Plan Recommended discharge disposition is based on the functional assessment performed by PT/OT/Speech therapy (as applicable) and may not reflect the medical necessity determined by your provider or services covered by an individual patient's insurance plan or patient resource. Therapy Frequency (OT): evaluation only Plan of Care Review Plan of Care Reviewed With: patient Progress: no change Outcome Evaluation: Pt. presents at baseline with ADLs and functional mobility. No further skilled OT services warranted at this time. Recommend return to LTC at discharge. Plan of Care Reviewed With: patient Outcome Evaluation: Pt. presents at baseline with ADLs and functional mobility. No further skilled OT services warranted at this time. Recommend return to LTC at discharge. Time Calculation: Evaluation Complexity (OT) Review Occupational Profile/Medical/Therapy History Complexity: brief/low complexity Assessment, Occupational Performance/Identification of Deficit Complexity: 1-3 performance deficits Clinical Decision Making Complexity (OT): problem focused assessment/low complexity Overall Complexity of Evaluation (OT): low complexity Time Calculation- OT Row Name 01/25/25 1143 Time Calculation- OT OT Start Time 1011 -LC OT Received On 01/25/25 -LC Untimed Charges OT Eval/Re-eval Minutes 61 -LC Total Minutes Untimed Charges Total Minutes 61 -LC Total Minutes 61 -LC User Story (r) = Recorded By, (t) = Taken By, (c) = Cosigned By Initials Name Provider Type LC Talia Delgado OT Occupational Therapist Therapy Charges for Today Code Description Service Date Service Provider Modifiers Qty [id number] -OT EVAL LOW COMPLEXITY 5 01/25/2025 Talia Delgado OT 1 [id number] OT THER SUPP EA 15 MIN 01/25/2025 Talia Delgado OT GO 3 OT Discharge Summary Anticipated Discharge Disposition (OT): extended care facility Reason for Discharge: At baseline function Discharge Destination: Extended care facility - LTC Talia Delgado OT 01/25/2025 documented in this encounter Discharge Instructions * Discharge Instructions* Alma Rodriguez APRN - 01/26/2025 12:27 PM EDT -Continue the following medications: Aspirin 81mg daily, Atorvastatin 40mg nightly, and Eliquis 5mgtwice daily -Monitor blood pressure; goal <130/80 -Increase physical activity as tolerated; goal exercise 30 minutes/day 3-5 times weekly if able -Call 911 for stroke symptoms (unilateral weakness, unilateral numbness, vision loss/double vision,speech difficulty, trouble walking, sudden severe headache or headache with nausea/vomiting/confusion/or decreased level of consciousness) -Schedule follow-up with your primary care physician * Discharge Instr - Activity* Kandice Laguna RN - 01/26/2025 8:[address] MANNING DEVICE GENERATOR CHANGE Pressure Dressing from device site will be removed the morning after procedure or prior to discharge if the patient goes home the same day. Patient will have an Aquacel dressing underneath. Typically, no steri-strips or glue is used. The Aquacel Dressing will be removed at the wound check appointment in 7-10 days. Please do not lift more than 10 pounds or raise the affected arm above the shoulder for 2 weeks after the device was implanted (this does not apply to subcutaneous ICDs). Avoid activities that involve heavy lifting or rough contact that could result in blows to your implant site. This allows the incision time to heal. You may shower the day after your procedure. Do not apply creams, lotions or powders to the incision. Please avoid allowing a bra strap or suspenders to lay over the incision until it is completely healed. No baths, hot tubs or swimming for 4 weeks. Call your doctor if you have any swelling, redness or discharge around your incision, notice anything unusual or unexpected or you develop a fever that does not go away in two to three days. Call your doctor if you hear any beeping sounds/vibratory alerts from your device as this indicates your device needs to be checked immediately. You will be scheduled for a 7-10 day wound check appointment and a 3 month follow up to check your device. Carry your medical screener ID card with you at all times. Please call our office at with any questions about the device or incision. documented in this encounter Medications at Time of Discharge acetaminophen (TYLENOL) 500 MG tablet Take 1 tablet by mouth Every 4 (Four) Hours As Needed for Mild Pain, Headache, Fever or Moderate Pain. 5 amLODIPine (NORVASC) 5 MG tablet Take 0.5 tablets by mouth Daily. 5 apixaban (ELIQUIS) 5 MG tablet tabletIndications:At ria Fibrillation - requiring full anticoagulation Take 1 tablet by mouth Every 12 (Twelve) Hours. Indications: Atrial Fibrillation 5 aspirin 81 MG chewable tablet Chew 1 tablet Daily. 4 atorvastatin (LIPITOR) 80 MG tablet Take 1 tablet by mouth Every Night. 4 Baclofen (LIORESAL) 5 MG tablet Take 1 tablet by mouth 3 (Three) Times a Day. DULoxetine (CYMBALTA) 30 MG capsule Take 1 capsule by mouth 2 (Two) Times a Day. escitalopram (LEXAPRO) 10 MG tablet Take 1 tablet by mouth Every Morning. ferrous sulfate 325 (65 FE) MG tablet Take 1 tablet by mouth Daily With Breakfast. gabapentin (NEURONTIN) 400 MG capsuleIndications:H /O: CVA (cerebrovascular accident) Take 1 capsule by mouth 3 (Three) Times a Day. 9 capsule 5 levothyroxine (SYNTHROID, LEVOTHROID) 75 MCG tablet Take 1 tablet by mouth Daily. 5 metoprolol tartrate (LOPRESSOR) 25 MG tablet Take 0.5 tablets by mouth Every 12 (Twelve) Hours. 4 omeprazole (priLOSEC) 20 MG capsule Take 1 capsule by mouth Every Morning Before Breakfast. 5 ondansetron (ZOFRAN) 4 MG tablet Take 1 tablet by mouth Every 6 (Six) Hours As Needed for Nausea or Vomiting. documented as of this encounter Progress Notes * Chioma Noble APRN - 01/27/2025 7:33 AM EDT [facility] PROGRESS NOTE Rimma Ridley [id number] 1960 LOS: 4 days . Date of Admission: 01/23/2025 Date of Service: 09/17/25 Primary Care Physician: Provider, No Known Chief Complaint: Device JASMIN Problem List: Aphasia Pacemaker Primary hypertension H/O: CVA (cerebrovascular accident) Subjective Patient has no complaints this morning. Device site covered with Aquacel dressing. Clean dry and intact. ROS All systems have been reviewed and are negative with the exception of those mentioned in the HPI and problem list above. Objective Vital Sign Min/Max for last 24 hours Temp Min: 98 ??F (36.7 ??C) Max: 98.7 ??F (37.1 ??C) BP Min: 116/76 Max: 203/93 Pulse Min: 55 Max: 73 Resp Min: 18 Max: 25 SpO2 Min: 93 % Max: 100 % No data recorded No data recorded Physical Exam: GENERAL: Alert, cooperative, in no acute distress. HEENT: Normocephalic, no jugular venous distention HEART: Regular rhythm, normal rate, and no murmurs, gallops, or rubs. LUNGS: Clear to auscultation bilaterally. No wheezing, rales or rhonchi. RA NEUROLOGIC: No focal abnormalities involving strength or sensation are noted. EXTREMITIES: No clubbing, cyanosis, or edema noted. Results: Results from last 7 days Lab Units 01/25/25 1823 01/24/25 0100 WBC 10*3/mm3 12.07* 15.93* HEMOGLOBIN g/dL 14.3 15.4 HEMATOCRIT % 44.6 49.5* PLATELETS 10*3/mm3 150 159 Results from last 7 days Lab Units 01/25/25 1823 01/24/25 0100 SODIUM mmol/L 136 137 POTASSIUM mmol/L 3.9 4.4 CHLORIDE mmol/L 99 101 CO2 mmol/L 24.4 21.5* BUN mg/dL 17.4 19.8 CREATININE mg/dL 0.95 0.94 GLUCOSE mg/dL 109* 137* Lab Results Component Value Date CHOL 138 01/24/2025 TRIG 69 01/24/2025 HDL 43 01/24/2025 LDL 81 01/24/2025 AST 31 01/24/2025 ALT 20 01/24/2025 Results from last 7 days Lab Units 01/24/25 0727 HEMOGLOBIN A1C % 6.20* Results from last 7 days Lab Units 01/24/25 0727 CHOLESTEROL mg/dL 138 TRIGLYCERIDES mg/dL 69 HDL CHOL mg/dL 43 LDL CHOL mg/dL 81 Results from last 7 days Lab Units 01/24/25 0100 PROTIME Seconds 15.0 INR 1.11 Intake/Output Summary (Last 24 hours) at 01/27/2025 0734 Last data filed at 01/26/2025 1843 Gross per 24 hour Intake 400 ml Output 350 ml Net 50 ml EKG/TELE: pace Radiology Data: No radiology results for the last day Results for orders placed during the hospital encounter of 01/23/25 Adult Transthoracic Echo Complete W/ Cont if Necessary Per Protocol (With Agitated Saline) 01/24/2025 10:35 AM Interpretation Summary Left ventricular systolic function is normal. Calculated left ventricular EF = 62.6% Left ventricular ejection fraction appears to be 61 - 65%. Left ventricular wall thickness is consistent with mild concentric hypertrophy. Left ventricular diastolic function was indeterminate. The right ventricular cavity is mildly dilated. The left atrial cavity is moderately dilated. Left atrial volume is moderately increased. The right atrial cavity is moderately dilated. Moderate to severe tricuspid valve regurgitation is present. Estimated right ventricular systolic pressure from tricuspid regurgitation is moderately elevated (45-55 mmHg). Calculated right ventricular systolic pressure from tricuspid regurgitation is 48 mmHg. Current Medications: amLODIPine, 2.5 mg, Oral, Daily [Held by provider] apixaban, 5 mg, Oral, Q12H aspirin, 81 mg, Oral, Daily Or aspirin, 300 mg, Rectal, Daily atorvastatin, 40 mg, Oral, Nightly baclofen, 5 mg, Oral, TID ceFAZolin, 2,000 mg, Intravenous, Once DULoxetine, 30 mg, Oral, Q12H escitalopram, 10 mg, Oral, Daily gabapentin, 400 mg, Oral, TID levothyroxine, 75 mcg, Oral, Q AM Lidocaine, 1 patch, Transdermal, Q24H metoprolol tartrate, 12.5 mg, Oral, Q12H pantoprazole, 40 mg, Oral, Q AM sodium chloride, 10 mL, Intravenous, Q12H sodium chloride, 10 mL, Intravenous, Q12H Assessment and Plan: Complete heart block s/p MDT BiV pacemaker Upgraded to BIV pacemaker 2016 after AVN ablation At [facility] 09/03/2024 Chronic AF s/p AVN ablation Anticoagulated with eliquis -s/p MDT BiV gen change -Device/arm restrictions discussed with patient -Okay to resume eliquis today. -Wound check in 7-10 days. Keep aquacel dressing in place until appt. -Follow up with Dr. Manning in 3 months with MDT device check -Okay to discharge from EP Cardiology standpoint when medically ready. Electronically signed by Chioma Noble APRN, 01/27/25, 7:34 AM EDT. Please note that portions of this note were dictated utilizing Dragon dictation. Cosigned by Sarkis Manning MD at 01/27/2025 6:55 PM EDT Associated attestation - Sarkis Manning MD - 01/27/2025 6:55 PM EDT I have reviewed this documentation and agree. * Shanika Olson PA-C - 01/26/2025 3:08 PM EDT Images from the original note were not included. [facility] PROGRESS NOTE Patient Name: Rimma Ridley : 1960 Date of Admission: 01/23/2025 Primary Care Physician: Provider, No Known Subjective CC: stroke rule out HPI: In bed. Says her butt hurts. Per RN, requiring frequent repositioning. No other complaints. Stroke team deferring MRI Objective Vital Signs: Temp: [98.2 ??F (36.8 ??C)-99 ??F (37.2 ??C)] 98.7 ??F (37.1 ??C) Heart Rate: [55] 55 Resp: [18] 18 BP: (126-159)/(72-99) 153/99 Flow (L/min) (Oxygen Therapy): [2] 2 Physical Exam: Constitutional: No acute distress, awake, alert and conversant. Laying in bed. HENT: NCAT, mucous membranes moist Respiratory: Clear to auscultation bilaterally, normal respiratory effort Cardiovascular: RRR Gastrointestinal: Positive bowel sounds, soft, nontender, nondistended Musculoskeletal: No bilateral ankle edema Psychiatric: Appropriate affect, cooperative with exam Neurologic: Formal orientation questions deferred, moves all extremities spontaneously without focal deficits, speech clear and appropriate Results Reviewed: LAB RESULTS: Lab 01/25/253 01/24/25 010 WBC 12.07* 15.93* HEMOGLOBIN 14.3 15.4 HEMATOCRIT 44.6 49.5* PLATELETS 150 159 MCV 89.9 91.0 PROTIME -- 15.0 Lab 01/25/25 1823 01/24/25 0727 01/24/25 0100 SODIUM 136 -- 137 POTASSIUM 3.9 -- 4.4 CHLORIDE 99 -- 101 CO2 24.4 -- 21.5* ANION GAP 12.6 -- 14.5 BUN 17.4 -- 19.8 CREATININE 0.95 -- 0.94 EGFR 67.5 -- 68.3 GLUCOSE 109* -- 137* CALCIUM 8.8 -- 9.0 HEMOGLOBIN A1C -- 6.20* -- Lab 01/24/25 010 TOTAL PROTEIN 7.1 ALBUMIN 3.9 GLOBULIN 3.2 ALT (SGPT) 20 AST (SGOT) 31 BILIRUBIN 0.5 ALK PHOS 116 Lab 01/24/2599 PROTIME 15.0 INR 1.11 Lab 01/24/25726 CHOLESTEROL 138 LDL CHOL 81 HDL CHOL 43 TRIGLYCERIDES 69 Brief Urine Lab Results None Microbiology Results Abnormal None CT Head Without Contrast Result Date: 01/24/2025 CT HEAD WO CONTRAST Date of Exam: 01/24/2025 6:09 PM EDT Indication: Stroke evluation. Comparison: Outside CT head 01/23/2025 Technique: Axial CT images were obtained of the head without contrast administration. Automated exposure control and iterative construction methods were used. Findings: There is no evidence of acute territorial infarction. There is no acute intracranial hemorrhage. There areno extra-axial collections. Ventricles and CSF spaces are symmetric. No mass effect nor hydrocephalus. Brain parenchyma appears unchanged with advanced white matter hypoattenuation and previous rightanterior cerebral and posterior cerebral artery territory infarctions. Correlate with history. Paranasal sinuses and mastoid air cells are adequately aerated. Osseous structures and orbits appear intact. Impression: Impression: No significant interval change. Electronically Signed: Hugo Finnegan MD 01/24/2025 7:39 PM EDT Workstation ID: [id number] [facility] Results for orders placed during the hospital encounter of 01/23/25 Adult Transthoracic Echo Complete W/ Cont if Necessary Per Protocol (With Agitated Saline) 01/24/2025 10:35 AM Interpretation Summary Left ventricular systolic function is normal. Calculated left ventricular EF = 62.6% Left ventricular ejection fraction appears to be 61 - 65%. Left ventricular wall thickness is consistent with mild concentric hypertrophy. Left ventricular diastolic function was indeterminate. The right ventricular cavity is mildly dilated. The left atrial cavity is moderately dilated. Left atrial volume is moderately increased. The right atrial cavity is moderately dilated. Moderate to severe tricuspid valve regurgitation is present. Estimated right ventricular systolic pressure from tricuspid regurgitation is moderately elevated (45-55 mmHg). Calculated right ventricular systolic pressure from tricuspid regurgitation is 48 mmHg. I have personally reviewed the therapy plans: [x] PT/OT/ ST Therapy Plans Current medications: Scheduled Meds:[Held by provider] amLODIPine, 2.5 mg, Oral, Daily [Held by provider] apixaban, 5 mg, Oral, Q12H aspirin, 81 mg, Oral, Daily Or aspirin, 300 mg, Rectal, Daily atorvastatin, 40 mg, Oral, Nightly baclofen, 5 mg, Oral, TID ceFAZolin, 2,000 mg, Intravenous, Once DULoxetine, 30 mg, Oral, Q12H escitalopram, 10 mg, Oral, Daily gabapentin, 200 mg, Oral, TID levothyroxine, 88 mcg, Oral, Daily Lidocaine, 1 patch, Transdermal, Q24H [Held by provider] metoprolol tartrate, 12.5 mg, Oral, Q12H pantoprazole, 40 mg, Oral, Q AM sodium chloride, 10 mL, Intravenous, Q12H Continuous Infusions: PRN Meds:. albuterol aluminum-magnesium hydroxide-simethicone HYDROcodone-acetaminophen ondansetron ODT sodium chloride sodium chloride Assessment & Plan Assessment & Plan Active Hospital Problems Diagnosis POA Aphasia [R47.01] Yes H/O: CVA (cerebrovascular accident) [Z86.73] Not Applicable Pacemaker [Z95.0] Yes Primary hypertension [I10] Yes Resolved Hospital Problems No resolved problems to display. Brief Hospital Course to date: Rimma Ridley is a 65 y.o. 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 Weakness resolved on arrival here, favored to be TIA v FND. Unable to obtain MRI 2/2 patient's pacemaker on back-up battery. Consulted cardiology for generator change while inpatient given this Pacemaker battery near depleted Complete heart block s/p MDT BiV pacemaker -holding eliquis, generator change today Dr Ben BESS weakness + aphasia/dysarthria, resolved on arrival. Suspected TIA v FND H/o CVA w residual LLE paralysis + LUE weakness -discharged 10/2023 on aspirin + eliquis 2.5 mg (reduced dose 2/2 epistaxis) -eliquis increased to 5 mg BID and started on aspirin per neurology stroke -MRI unable to be performed 2/2 battery near depletion above. Stroke neurology has opted to defer MRI as patient is already on maximum dose therapy with ASA / Eliquis and MRI would not change treatment HTN - amlodipine / metoprolol on hold - restart in AM Severe debility - chronically in wheelchair, in LTC CHF w recovered EF 2/2 ICM - appears euvolemic currently Chronic back pain, continue Duloxetine. Can increase Gabapentin back to home dose of 400mg TID - pharmacy has reconciled home med red Expected Discharge Location and Transportation: return to LTC Expected Discharge Expected Discharge Date: 01/27/2025; Expected Discharge Time: VTE Prophylaxis:Pharmacologic & mechanical VTE prophylaxis orders are present. AM-PAC 6 Clicks Score (PT): 8 (01/26/25 0800) CODE STATUS: Code Status and Medical Interventions: No CPR (Do Not Attempt to Resuscitate); Limited Support; No intubation (DNI); per prior Ordered at: 01/24/25 0753 Code Status (Patient has no pulse and is not breathing): No CPR (Do Not Attempt to Resuscitate) Medical Interventions (Patient has pulse or is breathing): Limited Support Medical Intervention Limits: No intubation (DNI) Comments: per prior Shanika Olson PA-C 01/26/25 Cosigned by Pam Kothari MD at 01/26/2025 5:09 PM EDT Associated attestation - Pam Kothari MD - 01/26/2025 5:09 PM EDT I was available to answer questions as needed by this APC on this date I coordinated d/w stroke team on this date - no MRI needed given no change in management * Chioma Noble APRN - 01/26/2025 10:34 AM EDT For MDT BiV permanent pacemaker generator change today. Procedure, risks, and alternatives have been discussed with the patient and she/family is agreeable to proceed. Patient is not able to sign herconsent. Verbal consent taken from her son over the phone. 2 g Ancef ordered for surgical prophylaxis. Further recommendations to follow. Electronically signed by Chioma Noble APRN, 01/26/25, 10:35 AM EDT. Cosigned by Sarkis Manning MD at 01/26/2025 3:38 PM EDT Associated attestation - Sarkis Manning MD - 01/26/2025 3:38 PM EDT I have reviewed this documentation and agree. * Alma Rodriguez APRN - 01/26/2025 9:09 AM EDT Stroke Progress Note Chief Complaint: transient aphasia and worsening of left side residual weakness Subjective Subjective Subjective: Patient examined this morning laying in bed in no apparent distress. No acute events reported overnight. No family at bedside. Complains of chronic back pain. During clearance PPM was found to be JASMIN, EP cardiology was consulted for generator change with Dr. Manning which she will undergo today. She tells me she has some left eye vision loss and left-sided weakness at baseline. She would randomly yell Chris and Terry in conversation. When asked why she was yelling for those people she states that Chris is her and Terry is supposed to be helping her. No further questions or concerns. Review of Systems Constitutional: Negative for diaphoresis and fever. HENT: Negative for nosebleeds and trouble swallowing. Eyes: Negative for photophobia and visual disturbance. Respiratory: Negative for shortness of breath. Cardiovascular: Negative for chest pain. Gastrointestinal: Negative for nausea and vomiting. Musculoskeletal: Positive for back pain and gait problem. Neurological: Positive for weakness and numbness. Negative for dizziness and headaches. Psychiatric/Behavioral: Positive for confusion. Objective Objective Temp: [98.1 ??F (36.7 ??C)-99 ??F (37.2 ??C)] 98.2 ??F (36.8 ??C) Heart Rate: [55] 55 Resp: [18] 18 BP: (126-178)/(72-101) 159/79 Neurological Exam Mental Status Arousable to verbal stimuli and arousable to tactile stimuli. Oriented only to person, place and situation. no dysarthria present. Mixed aphasia present. Fund of knowledge is abnormal. Cranial Nerves CN II: Left homonymous hemianopsia. CN III, IV, : Extraocular movements intact bilaterally. Normal lids and orbits bilaterally. Pupils equal round and reactive to light bilaterally. CN V: Right: Facial sensation is normal. Left: Facial sensation is normal on the left. CN VII: Right: There is no facial weakness. Left: There is central facial weakness. Motor Normal muscle bulk throughout. No fasciculations present. Normal muscle tone. Tremor RUE. 4/5 RUE and RLE 2/5 LLE 3/5 LUE Motor exam is variable with effort dependence. She is reliably able to maintain her bilateral upperextremities against gravity for at least some time. She momentarily lifts each leg against gravity.. Sensory Light touch abnormality: Decreased sensation to touch to left lower extremity. Coordination Right: Exzneq-is-kora normal.Left: Pfpfok-du-cgkc abnormality: No dysmetria out of proportion to strength however patient was unable to complete left finger-nose.Somewhat effort dependent versus confusion instructions. Gait Not observed, patient utilizes wheelchair at baseline. Physical Exam Constitutional: General: She is not in acute distress. HENT: Head: Normocephalic and atraumatic. Mouth/Throat: Pharynx: Oropharynx is clear. Eyes: General: Lids are normal. Extraocular Movements: Extraocular movements intact. Pupils: Pupils are equal, round, and reactive to light. Cardiovascular: Rate and Rhythm: Normal rate. Pulmonary: Effort: No respiratory distress. Musculoskeletal: General: No signs of injury. Right lower leg: No edema. Left lower leg: No edema. Skin: General: Skin is warm. Findings: No bruising. Neurological: Mental Status: She is disoriented. Cranial Nerves: No dysarthria. Sensory: Sensory deficit present. Motor: Weakness present. Results Review: I reviewed the patient's new clinical results. CT Head Without Contrast Result Date: 01/24/2025 Impression: No significant interval change. Electronically Signed: Hugo Finnegan MD 01/24/2025 7:39 PM EDT Workstation ID: [id number] DxDesc Results for orders placed during the hospital encounter of 01/23/25 Adult Transthoracic Echo Complete W/ Cont if Necessary Per Protocol (With Agitated Saline) 01/24/2025 10:35 AM Interpretation Summary Left ventricular systolic function is normal. Calculated left ventricular EF = 62.6% Left ventricular ejection fraction appears to be 61 - 65%. Left ventricular wall thickness is consistent with mild concentric hypertrophy. Left ventricular diastolic function was indeterminate. The right ventricular cavity is mildly dilated. The left atrial cavity is moderately dilated. Left atrial volume is moderately increased. The right atrial cavity is moderately dilated. Moderate to severe tricuspid valve regurgitation is present. Estimated right ventricular systolic pressure from tricuspid regurgitation is moderately elevated (45-55 mmHg). Calculated right ventricular systolic pressure from tricuspid regurgitation is 48 mmHg. WBC Date Value Ref Range Status 01/25/2025 12.07 (H) 3.40 - 10.80 10*3/mm3 Final RBC Date Value Ref Range Status 01/25/2025 4.96 3.77 - 5.28 10*6/mm3 Final Hemoglobin Date Value Ref Range Status 01/25/2025 14.3 12.0 - 15.9 g/dL Final Hematocrit Date Value Ref Range Status 01/25/2025 44.6 34.0 - 46.6 % Final MCV Date Value Ref Range Status 01/25/2025 89.9 79.0 - 97.0 fL Final MCH Date Value Ref Range Status 01/25/2025 28.8 26.6 - 33.0 pg Final MCHC Date Value Ref Range Status 01/25/2025 32.1 31.5 - 35.7 g/dL Final RDW Date Value Ref Range Status 01/25/2025 13.7 12.3 - 15.4 % Final RDW-SD Date Value Ref Range Status 01/25/2025 45.1 37.0 - 54.0 fl Final MPV Date Value Ref Range Status 01/25/2025 10.2 6.0 - 12.0 fL Final Platelets Date Value Ref Range Status 01/25/2025 150 140 - 450 10*3/mm3 Final Lab Results Component Value Date GLUCOSE 109 (H) 01/25/2025 BUN 17.4 01/25/2025 CREATININE 0.95 01/25/2025 NA 136 01/25/2025 K 3.9 01/25/2025 CL 99 01/25/2025 CALCIUM 8.8 01/25/2025 PROTEINTOT 7.1 01/24/2025 ALBUMIN 3.9 01/24/2025 ALT 20 01/24/2025 AST 31 01/24/2025 ALKPHOS 116 01/24/2025 BILITOT 0.5 01/24/2025 GLOB 3.2 01/24/2025 AGRATIO 1.2 01/24/2025 BCR 18.3 01/25/2025 ANIONGAP 12.6 01/25/2025 EGFR 67.5 01/25/2025 Lab 01/24/25 0727 HEMOGLOBIN A1C 6.20* Lipid Panel 01/24/2025 07:27 Lipid Panel Total Cholesterol 138 Triglycerides 69 HDL Cholesterol 43 VLDL Cholesterol 14 LDL Cholesterol 81 LDL/HDL Ratio 1.89 - 01/23/[address] head without evidence of acute abnormality. CTA head and neck also less than optimal, however no obvious LVO or severe stenoses. - Transthoracic echocardiogram with LVEF equal 62.6%, left atrial cavity moderately dilated. Negative bubble study on 10/22/2023. -Repeat CT from 01/24/2025 appears unchanged, no acute intracranial abnormality, evidence of previous anterior cerebral and posterior cerebral artery territory infarctions Assessment/Plan Assessment/Plan: 65-year-old female with PMH of HTN, CHF, complete heart block (PPM in 2017), A- fib (on Eliquis), fibromyalgia, hypothyroidism and chronic back pain. Patient has chronic right hemispheric strokes withresidual left lower extremity paralysis and moderate left upper extremity weakness. On 01/23/25 staff at her SNF reported that she had a flexure response in her left upper extremity followed by complete left upper extremity paralysis, aphasia, dysarthria, and facial droop. NIHSS 14 on admission. Patient is not a candidate for IV thrombolytic therapy due to consistent Eliquis use. Patient is nota candidate for endovascular therapy due to no LVO noted on OSH CT scans. #Transient left-sided FD and Dysarthria # History of right occipital stroke #Atrial fibrillation, on anticoagulation -Possible TIA vs FND with effort dependent exam. Cannot rule out post stroke recrudescence. Recommendations: - Unable to obtain MRI brain 2/2 PPM battery near depletion, discussed with Dr. Carranza, no need to complete MRI after PPM battery change as patient has had two CT Head exams with no acute intracranial findings and is maximally medically managed on Eliquis and Aspirin. - Eliquis held per EP cardiology for pacemaker generator change, continue Eliquis 5 mg twice daily when okay with EP cardiology - Continue aspirin 81 mg daily - PT/OT/CREATIVE DEVELOPER continued evaluation and recommending extended-care facility at discharge -Follow up in the stroke clinic in 8-12 weeks (added to ADT) # Hypertension - May normalize blood pressure with goal less than 130/80 - Avoid hypotension and ensure adequate hydration - Further management per primary medical team # Hyperlipidemia -LDL equal 81 on 01/24/2025, goal less than 70 - Continue atorvastatin 40 mg nightly Discussed the importance of medication compliance Aspirin 81mg daily, Atorvastatin 40mg nightly, and Eliquis 5mg twice daily and lifestyle modifications adequate control of blood pressure, adequate control of cholesterol (goal LDL <70), adequate control of glucose (<140, A1c goal <7), increased physical activity, and implementation of healthy diet to help reduce the risk of future cerebrovascular events. Also discussed the signs symptoms that would warrant the patient return back to the emergency department including unilateral weakness, unilateral numbness, visual disturbances, lossof balance, speech difficulties, and/or a sudden severe headache. Patient verbalized understanding. Stroke neurology stroke will sign off. Plan of care discussed with patient, hospitalist, and Dr. Carranza (vascular neurologist). Please call with any additional questions or concerns Alma Rodriguez APRN Neuro Stroke 01/26/25 12:24 EDT * Pam Kothari MD - 01/25/2025 5:06 PM EDT Images from the original note were not included. [facility] Medicine Services PROGRESS NOTE Patient Name: Rimma Ridley : 1960 Date of Admission: 01/23/2025 Primary Care Physician: Provider, No Known Subjective Subjective CC: stroke rule out HPI: Patient reports tailbone pain. When I word this back to her clarifies no - my butt! Reports chest pain to nurse in afternoon - I arrive bedside promptly and she is eating her lunch tray. I ask about chest pain and then she reports a little burning but continues to eat This chest pain resolved on nurse reasssment as I circled back w her Objective Objective Vital Signs: Temp: [98.1 ??F (36.7 ??C)-98.4 ??F (36.9 ??C)] 98.4 ??F (36.9 ??C) Heart Rate: [18-65] 55 Resp: [16-18] 18 BP: (157-180)/(75-104) 178/77 Flow (L/min) (Oxygen Therapy): [2-3] 2 Physical Exam: Constitutional: No acute distress, awake, alert female sitting up in bed. Well appearing Respiratory: Clear to auscultation bilaterally, respiratory effort normal Cardiovascular: RRR, no murmurs, rubs, or gallops Gastrointestinal: Soft, nontender, nondistended Musculoskeletal: Muscle tone within normal limits, no joint effusions appreciated Psychiatric: Somewhat affect, cooperative Neurologic: Alert and oriented, speech clear and appropriate in simple conversation Skin: No rashes Results Reviewed: LAB RESULTS: Lab 01/24/25 0100 WBC 15.93* HEMOGLOBIN 15.4 HEMATOCRIT 49.5* PLATELETS 159 MCV 91.0 PROTIME 15.0 Lab 01/24/25 0727 01/24/25 0100 SODIUM -- 137 POTASSIUM -- 4.4 CHLORIDE -- 101 CO2 -- 21.5* ANION GAP -- 14.5 BUN -- 19.8 CREATININE -- 0.94 EGFR -- 68.3 GLUCOSE -- 137* CALCIUM -- 9.0 HEMOGLOBIN A1C 6.20* -- Lab 01/24/25 010 TOTAL PROTEIN 7.1 ALBUMIN 3.9 GLOBULIN 3.2 ALT (SGPT) 20 AST (SGOT) 31 BILIRUBIN 0.5 ALK PHOS 116 Lab 01/24/25 010 PROTIME 15.0 INR 1.11 Lab 01/24/25726 CHOLESTEROL 138 LDL CHOL 81 HDL CHOL 43 TRIGLYCERIDES 69 Brief Urine Lab Results None Microbiology Results Abnormal None CT Head Without Contrast Result Date: 01/24/2025 CT HEAD WO CONTRAST Date of Exam: 01/24/2025 6:09 PM EDT Indication: Stroke evluation. Comparison: Outside CT head 01/23/2025 Technique: Axial CT images were obtained of the head without contrast administration. Automated exposure control and iterative construction methods were used. Findings: There is no evidence of acute territorial infarction. There is no acute intracranial hemorrhage. There areno extra-axial collections. Ventricles and CSF spaces are symmetric. No mass effect nor hydrocephalus. Brain parenchyma appears unchanged with advanced white matter hypoattenuation and previous rightanterior cerebral and posterior cerebral artery territory infarctions. Correlate with history. Paranasal sinuses and mastoid air cells are adequately aerated. Osseous structures and orbits appear intact. Impression: Impression: No significant interval change. Electronically Signed: Hugo Finnegan MD 01/24/2025 7:39 PM EDT Workstation ID: [id number] DxDesc CT Outside Head Result Date: 01/23/2025 This procedure was auto-finalized with no dictation required. CT Outside Head Result Date: 01/23/2025 This procedure was auto-finalized with no dictation required. Results for orders placed during the hospital encounter of 01/23/25 Adult Transthoracic Echo Complete W/ Cont if Necessary Per Protocol (With Agitated Saline) 01/24/2025 10:35 AM Interpretation Summary Left ventricular systolic function is normal. Calculated left ventricular EF = 62.6% Left ventricular ejection fraction appears to be 61 - 65%. Left ventricular wall thickness is consistent with mild concentric hypertrophy. Left ventricular diastolic function was indeterminate. The right ventricular cavity is mildly dilated. The left atrial cavity is moderately dilated. Left atrial volume is moderately increased. The right atrial cavity is moderately dilated. Moderate to severe tricuspid valve regurgitation is present. Estimated right ventricular systolic pressure from tricuspid regurgitation is moderately elevated (45-55 mmHg). Calculated right ventricular systolic pressure from tricuspid regurgitation is 48 mmHg. I have personally reviewed the therapy plans: [] PT/OT/ ST Therapy Plans Current medications: Scheduled Meds:[Held by provider] amLODIPine, 2.5 mg, Oral, Daily [Held by provider] apixaban, 5 mg, Oral, Q12H aspirin, 81 mg, Oral, Daily Or aspirin, 300 mg, Rectal, Daily atorvastatin, 40 mg, Oral, Nightly baclofen, 5 mg, Oral, TID [START ON 01/26/2025] ceFAZolin, 2,000 mg, Intravenous, Once DULoxetine, 30 mg, Oral, Q12H escitalopram, 10 mg, Oral, Daily gabapentin, 200 mg, Oral, TID levothyroxine, 88 mcg, Oral, Daily Lidocaine, 1 patch, Transdermal, Q24H [Held by provider] metoprolol tartrate, 12.5 mg, Oral, Q12H pantoprazole, 40 mg, Oral, Q AM sodium chloride, 10 mL, Intravenous, Q12H Continuous Infusions: PRN Meds:. albuterol aluminum-magnesium hydroxide-simethicone HYDROcodone-acetaminophen ondansetron ODT sodium chloride sodium chloride Assessment & Plan Assessment & Plan Active Hospital Problems Diagnosis POA Aphasia [R47.01] Yes H/O: CVA (cerebrovascular accident) [Z86.73] Not Applicable Pacemaker [Z95.0] Yes Primary hypertension [I10] Yes Resolved Hospital Problems No resolved problems to display. Brief Hospital Course to date: Rimma Ridley is a 65 y.o. 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 Weakness resolved on arrival here, favored to be TIA v FND. Unable to obtain MRI 2/2 patient's pacemaker on back-up battery. Consulted cardiology for generator change while inpatient given this Pacemaker battery near depleted Complete heart block s/p MDT BiV pacemaker -hold eliquis, NPO @ 12 for generator change tmrw w Dr Ben BESS weakness + aphasia/dysarthria, resolved on arrival. Suspected TIA v FND H/o CVA w residual LLE paralysis + LUE weakness -discharged 10/2023 on aspirin + eliquis 2.5 mg (reduced dose 2/2 epistaxis) -eliquis 5 mg BID + aspirin per neurology stroke -MRI unable to be performed 2/2 battery near depletion above. Pursue after generator exchange per neurology-stroke team HTN - amlodipine Severe debility - chronically in wheelchair, in LTC CHF w recovered EF 2/2 ICM - appears euvolemic currently Chronic back pain - follow up gabapentin dose tmrw *Follow-up home med rec concerns tmrw (gabapentin) Expected Discharge Location and Transportation: LTC Expected Discharge 01/27 (Discharge date is tentative pending patient's medical condition and is subject to change) Expected Discharge Date: 01/27/2025; Expected Discharge Time: VTE Prophylaxis: Pharmacologic & mechanical VTE prophylaxis orders are present. AM-PAC 6 Clicks Score (PT): 8 (01/24/25 2200) CODE STATUS: Code Status and Medical Interventions: No CPR (Do Not Attempt to Resuscitate); Limited Support; No intubation (DNI); per prior Ordered at: 01/24/25 0753 Code Status (Patient has no pulse and is not breathing): No CPR (Do Not Attempt to Resuscitate) Medical Interventions (Patient has pulse or is breathing): Limited Support Medical Intervention Limits: No intubation (DNI) Comments: per prior Pam Kothari MD 01/25/25 * Jasper Faust PA-C - 01/25/2025 9:17 AM EDT Stroke Progress Note Chief Complaint: transient aphasia and worsening of left side residual weakness Subjective Subjective Subjective: Patient examined this morning laying in bed in no apparent distress. No acute events reported overnight. Patient reported to me that she feels similar to baseline level prior to this admission, however she also has some confusion. For example she did miss her age upon questioning. Stated that she was unable to complete finger-nose testing because she could not see her nose and she was observed attempting to cut gravy with a knife while eating. Discussed with patient ongoing stroke workup including plan for MRI today with pacemaker clearance. Patient was agreeable to ongoing workup. She is looking forward to returning to her living facility. No additional questions or concerns. Review of Systems Constitutional: Negative for diaphoresis and fever. HENT: Negative for nosebleeds and trouble swallowing. Eyes: Negative for photophobia and visual disturbance. Respiratory: Negative for shortness of breath. Cardiovascular: Negative for chest pain. Gastrointestinal: Negative for nausea and vomiting. Musculoskeletal: Positive for back pain and gait problem. Neurological: Positive for weakness and numbness. Negative for dizziness and headaches. Psychiatric/Behavioral: Positive for confusion. Objective Objective Temp: [98 ??F (36.7 ??C)-98.3 ??F (36.8 ??C)] 98.2 ??F (36.8 ??C) Heart Rate: [18-65] 18 Resp: [16-18] 18 BP: (148-180)/(75-104) 166/104 Neurological Exam Mental Status Alert, arousable to verbal stimuli and arousable to tactile stimuli. Oriented only to person. no dysarthria present. Mixed aphasia present. Fund of knowledge is abnormal. Cranial Nerves CN II: Visual guillen full to confrontation. CN III, IV, : Extraocular movements intact bilaterally. Normal lids and orbits bilaterally. Pupils equal round and reactive to light bilaterally. CN V: Right: Facial sensation is normal. Left: Facial sensation is normal on the left. CN VII: Right: There is no facial weakness. Left: There is central facial weakness. Motor Normal muscle bulk throughout. No fasciculations present. Normal muscle tone. 4/5 RUE and RLE 2/5 LLE 3/5 LUE Motor exam is variable with effort dependence. She is reliably able to maintain her bilateral upperextremities against gravity for at least some time. She momentarily lifts each leg against gravity.. Sensory Light touch abnormality: Decreased sensation to touch to left lower extremity. Coordination Right: Nngfkz-mg-fxri normal.Left: Vtcvnq-oa-riac abnormality: No dysmetria out of proportion to strength however patient was unable to complete left finger-nose.Somewhat effort dependent versus confusion instructions. Gait Not observed, patient utilizes wheelchair at baseline. Physical Exam Constitutional: General: She is not in acute distress. HENT: Head: Normocephalic and atraumatic. Mouth/Throat: Pharynx: Oropharynx is clear. Eyes: General: Lids are normal. Extraocular Movements: Extraocular movements intact. Pupils: Pupils are equal, round, and reactive to light. Cardiovascular: Rate and Rhythm: Normal rate. Pulmonary: Effort: No respiratory distress. Musculoskeletal: General: No signs of injury. Right lower leg: No edema. Left lower leg: No edema. Skin: General: Skin is warm. Findings: No bruising. Neurological: Mental Status: She is alert. She is disoriented. Cranial Nerves: No dysarthria. Sensory: Sensory deficit present. Motor: Weakness present. Results Review: I reviewed the patient's new clinical results. CT Head Without Contrast Result Date: 01/24/2025 Impression: No significant interval change. Electronically Signed: Hugo Finnegan MD 01/24/2025 7:39 PM EDT Workstation ID: [id number] DxDesc Results for orders placed during the hospital encounter of 01/23/25 Adult Transthoracic Echo Complete W/ Cont if Necessary Per Protocol (With Agitated Saline) 01/24/2025 10:35 AM Interpretation Summary Left ventricular systolic function is normal. Calculated left ventricular EF = 62.6% Left ventricular ejection fraction appears to be 61 - 65%. Left ventricular wall thickness is consistent with mild concentric hypertrophy. Left ventricular diastolic function was indeterminate. The right ventricular cavity is mildly dilated. The left atrial cavity is moderately dilated. Left atrial volume is moderately increased. The right atrial cavity is moderately dilated. Moderate to severe tricuspid valve regurgitation is present. Estimated right ventricular systolic pressure from tricuspid regurgitation is moderately elevated (45-55 mmHg). Calculated right ventricular systolic pressure from tricuspid regurgitation is 48 mmHg. WBC Date Value Ref Range Status 01/24/2025 15.93 (H) 3.40 - 10.80 10*3/mm3 Final RBC Date Value Ref Range Status 01/24/2025 5.44 (H) 3.77 - 5.28 10*6/mm3 Final Hemoglobin Date Value Ref Range Status 01/24/2025 15.4 12.0 - 15.9 g/dL Final Hematocrit Date Value Ref Range Status 01/24/2025 49.5 (H) 34.0 - 46.6 % Final MCV Date Value Ref Range Status 01/24/2025 91.0 79.0 - 97.0 fL Final MCH Date Value Ref Range Status 01/24/2025 28.3 26.6 - 33.0 pg Final MCHC Date Value Ref Range Status 01/24/2025 31.1 (L) 31.5 - 35.7 g/dL Final RDW Date Value Ref Range Status 01/24/2025 13.8 12.3 - 15.4 % Final RDW-SD Date Value Ref Range Status 01/24/2025 46.3 37.0 - 54.0 fl Final MPV Date Value Ref Range Status 01/24/2025 9.9 6.0 - 12.0 fL Final Platelets Date Value Ref Range Status 01/24/2025 159 140 - 450 10*3/mm3 Final Lab Results Component Value Date GLUCOSE 137 (H) 01/24/2025 BUN 19.8 01/24/2025 CREATININE 0.94 01/24/2025 NA 137 01/24/2025 K 4.4 01/24/2025 CL 101 01/24/2025 CALCIUM 9.0 01/24/2025 PROTEINTOT 7.1 01/24/2025 ALBUMIN 3.9 01/24/2025 ALT 20 01/24/2025 AST 31 01/24/2025 ALKPHOS 116 01/24/2025 BILITOT 0.5 01/24/2025 GLOB 3.2 01/24/2025 AGRATIO 1.2 01/24/2025 BCR 21.1 01/24/2025 ANIONGAP 14.5 01/24/2025 EGFR 68.3 01/24/2025 Lab 01/24/25 0727 HEMOGLOBIN A1C 6.20* Lipid Panel 01/24/2025 07:27 Lipid Panel Total Cholesterol 138 Triglycerides 69 HDL Cholesterol 43 VLDL Cholesterol 14 LDL Cholesterol 81 LDL/HDL Ratio 1.89 Assessment/Plan Assessment/Plan: 65-year-old female with PMH of HTN, CHF (PPM in 2017), A-fib (on Eliquis), fibromyalgia, hypothyroidism and chronic back pain. Patient has chronic right hemispheric strokes with residual left lower extremity paralysis and moderate left upper extremity weakness. On 01/23/25 staff at her SNF reportedthat she had a flexure response in her left upper extremity followed by complete left upper extremity paralysis, aphasia, dysarthria, and facial droop. NIHSS 14 on admission. Patient is not a candidate for IV thrombolytic therapy due to consistent Eliquis use. Patient is not a candidate for endovascular therapy due to no LVO noted on OSH CT scans. #Transient left-sided weakness # History of right occipital stroke #Atrial fibrillation, on anticoagulation -Possible TIA/AIS versus FND with effort dependent exam. Cannot rule out post stroke recrudescence. - CT head without evidence of acute abnormality. CTA head and neck also less than optimal, however no obvious LVO or severe stenoses. - Transthoracic echocardiogram with LVEF equal 62.6%, left atrial cavity moderately dilated. Negative bubble study on 10/22/2023. Recommendations: - MRI brain pending (will require cardiology PPM clearance) - Continue Eliquis 5 mg twice daily (repeat CT head without evidence of acute abnormality) - Continue aspirin 81 mg daily - PT/OT/CREATIVE DEVELOPER continued evaluation and recommending extended-care facility at discharge - Neurology stroke will follow pending MRI results # Hypertension - May normalize blood pressure with goal less than 130/80 - Avoid hypotension and ensure adequate hydration - Further management per primary medical team # Hyperlipidemia -LDL equal 81 on 01/24/2025, goal less than 70 - Continue atorvastatin 40 mg nightly Neurology stroke will continue to follow. Plan of care discussed with patient, nursing staff, and Dr. Pradhan. Please call with any additional questions or concerns Jasper Faust PA-C 01/25/25 09:17 EDT Cosigned by Jhonny Pradhan MD at 01/25/2025 12:08 PM EDT Associated attestation - Jhonny Pradhan MD - 01/25/2025 12:08 PM EDT I have reviewed this documentation and agree. Jhonny Pradhan MD Vascular Neurologist [facility] * Jhonny Pradhan MD - 01/24/2025 9:59 AM EDT Stroke Progress Note Chief Complaint: Left facial droop, left-sided weakness Subjective Subjective Subjective: The patient is lying down in the bed in NAD. Patient reports that she is unable to remember most of what happened yesterday. She remembers having breakfast yesterday morning and states she does not remember anything else until she was in the ambulance. She does not feel like she had any deficits when she arrived at the hospital. She states that she is sore from sitting in the bed. She reports that she lives in [place] and does not know why she is in [place]. No other acute complains at this time Objective Temp: [97.7 ??F (36.5 ??C)-98 ??F (36.7 ??C)] 98 ??F (36.7 ??C) Heart Rate: [65] 65 Resp: [18-20] 18 BP: (145-181)/(96-103) 145/96 Objective GEN: lying in bed; in NAD NEURO: Mental Status: Awake and alert. Oriented to self and year but not place. No evidence of aphasia CN 2-12: II - PERRLA, left hemianopia present III, IV, - EOMI V - Facial sensation intact VII - Brow raise and smile symmetrical VIII - Auditory acuity intact XII - Tongue protrudes midline Motor: Motor exam is variable with effort dependence. She is reliably able to maintain her bilateral upperextremities against gravity for at least some time. She momentarily lifts each leg against gravity. Sensory: intact light touch throughout Coordination: no ataxia with rhkhdu-or-svcg testing ReFlex exam gait deferred Results Review: I reviewed the patient's new clinical results. WBC Date Value Ref Range Status 01/24/2025 15.93 (H) 3.40 - 10.80 10*3/mm3 Final RBC Date Value Ref Range Status 01/24/2025 5.44 (H) 3.77 - 5.28 10*6/mm3 Final Hemoglobin Date Value Ref Range Status 01/24/2025 15.4 12.0 - 15.9 g/dL Final Hematocrit Date Value Ref Range Status 01/24/2025 49.5 (H) 34.0 - 46.6 % Final MCV Date Value Ref Range Status 01/24/2025 91.0 79.0 - 97.0 fL Final MCH Date Value Ref Range Status 01/24/2025 28.3 26.6 - 33.0 pg Final MCHC Date Value Ref Range Status 01/24/2025 31.1 (L) 31.5 - 35.7 g/dL Final RDW Date Value Ref Range Status 01/24/2025 13.8 12.3 - 15.4 % Final RDW-SD Date Value Ref Range Status 01/24/2025 46.3 37.0 - 54.0 fl Final MPV Date Value Ref Range Status 01/24/2025 9.9 6.0 - 12.0 fL Final Platelets Date Value Ref Range Status 01/24/2025 159 140 - 450 10*3/mm3 Final Lab Results Component Value Date GLUCOSE 137 (H) 01/24/2025 BUN 19.8 01/24/2025 CREATININE 0.94 01/24/2025 NA 137 01/24/2025 K 4.4 01/24/2025 CL 101 01/24/2025 CALCIUM 9.0 01/24/2025 PROTEINTOT 7.1 01/24/2025 ALBUMIN 3.9 01/24/2025 ALT 20 01/24/2025 AST 31 01/24/2025 ALKPHOS 116 01/24/2025 BILITOT 0.5 01/24/2025 GLOB 3.2 01/24/2025 AGRATIO 1.2 01/24/2025 BCR 21.1 01/24/2025 ANIONGAP 14.5 01/24/2025 EGFR 68.3 01/24/2025 No radiology results for the last day Results for orders placed during the hospital encounter of 10/21/23 Adult Transthoracic Echo Complete W/ Cont if Necessary Per Protocol (With Agitated Saline) 10/22/2023 5:28 PM Interpretation Summary Left ventricular systolic function is normal. Left ventricular ejection fraction appears to be 61 -65%. The left ventricular cavity is mildly dilated. Left ventricular wall thickness is consistent with mild to moderate concentric hypertrophy. The right ventricular cavity is dilated. Left atrial volume is severely increased. Saline test results are negative. The right atrial cavity is severely dilated. Moderate to severe tricuspid valve regurgitation is present. Assessment/Plan Assessment: #Transient left-sided weakness # History of right occipital stroke #CHF #Atrial fibrillation, on anticoagulation 65-year-old female with PMH of HTN, CHF (PPM in 2017), A-fib (on Eliquis), fibromyalgia, hypothyroidism and chronic back pain. Patient has chronic right hemispheric strokes with residual left lower extremity paralysis and moderate left upper extremity weakness. At approximately 1530 on day of presentation staff at her SNF reported that she had a flexure response in her left upper extremity followed by complete left upper extremity paralysis, aphasia, dysarthria, and facial droop. EMS was notified and patient was brought to [facility] ED. NIHSS was deemed as a 12 for the ED physician. Patient will be transferred to [facility] from [facility] for higher level care and further stroke workup. Patient reports she woke up with presenting symptoms at 8 AM this morning. Patientis not a candidate for IV thrombolytic therapy due to consistent Eliquis use. Patient is not a candidate for endovascular therapy due to no LVO noted on OSH CT scans. LDL 81. A1c pending. Imaging personally reviewed. CT head Motion degraded. CTA head and neck also less than optimal, however no obvious LVO or severe stenoses. MRI still pending. Patient's exam today is inconsistent and effort dependent. She has some intermittent and erratic, tremor-like movements in the bilateral upper extremities that do not appear neurologic. Will need MRI to evaluate for possible stroke, especially given her vascular risk factors and history of stroke. MRI is delayed due to placement of pacemaker. Will obtain repeat CT head, and if thereis no evidence of large territory infarct, will plan to resume anticoagulation. Plan: - MRI brain - TTE -Repeat CT head now -if there is no large territory infarct okay to resume anticoagulation - Continue FOOD TECHNOLOGIST aspirin 81 mg daily - Continue FOOD TECHNOLOGIST atorvastatin 81 mg nightly - Okay to carefully resume home antihypertensive medications, avoiding hypotension -PT/OT/CREATIVE DEVELOPER Patient education for discharge: call 911 or present to emergency department with any stroke symptom, including unilateral face, arm, or leg weakness, numbness, or paresthesias, unilateral facial droop, speech deficits, dizziness with nausea, vomiting, nystagmus, and incoordination, visual deficits, or severe onset headache. Stroke will continue to follow. Please call for any further questions or concerns Jhonny Pradhan MD Vascular Neurologist [facility] * Akash Tan, - 01/24/2025 8:50 AM EDT Images from the original note were not included. [facility] PROGRESS NOTE Patient Name: Rimma Ridley : 1960 Date of Admission: 01/23/2025 Primary Care Physician: Provider, No Known Subjective Subjective CC: F/u aphasia HPI: Main complaint is that her butt hurts. Speech is doing better Objective Objective Vital Signs: Temp: [97.7 ??F (36.5 ??C)-98.3 ??F (36.8 ??C)] 98.3 ??F (36.8 ??C) Heart Rate: [64-65] 64 Resp: [18-20] 18 BP: (145-181)/(96-103) 145/96 Flow (L/min) (Oxygen Therapy): [3] 3 Physical Exam: Constitutional: Awake, alert, laying in bed in NAD Respiratory: Clear to auscultation bilaterally, respiratory effort normal Cardiovascular: RRR, palpable radial pulse Gastrointestinal: Positive bowel sounds, soft, nontender, nondistended Psychiatric: Appropriate affect, cooperative Neurologic: Speech is clear and fluent, LT UE + LE weakness Results Reviewed: LAB RESULTS: Lab 01/24/25 0100 WBC 15.93* HEMOGLOBIN 15.4 HEMATOCRIT 49.5* PLATELETS 159 MCV 91.0 PROTIME 15.0 Lab 01/24/25 0727 01/24/25 0100 SODIUM -- 137 POTASSIUM -- 4.4 CHLORIDE -- 101 CO2 -- 21.5* ANION GAP -- 14.5 BUN -- 19.8 CREATININE -- 0.94 EGFR -- 68.3 GLUCOSE -- 137* CALCIUM -- 9.0 HEMOGLOBIN A1C 6.20* -- Lab 01/24/25 0100 TOTAL PROTEIN 7.1 ALBUMIN 3.9 GLOBULIN 3.2 ALT (SGPT) 20 AST (SGOT) 31 BILIRUBIN 0.5 ALK PHOS 116 Lab 01/24/25 0100 PROTIME 15.0 INR 1.11 Lab 01/24/25 0727 CHOLESTEROL 138 LDL CHOL 81 HDL CHOL 43 TRIGLYCERIDES 69 Brief Urine Lab Results None Microbiology Results Abnormal None CT Outside Head Result Date: 01/23/2025 This procedure was auto-finalized with no dictation required. CT Outside Head Result Date: 01/23/2025 This procedure was auto-finalized with no dictation required. Results for orders placed during the hospital encounter of 01/23/25 Adult Transthoracic Echo Complete W/ Cont if Necessary Per Protocol (With Agitated Saline) 01/24/2025 10:35 AM Interpretation Summary Left ventricular systolic function is normal. Calculated left ventricular EF = 62.6% Left ventricular ejection fraction appears to be 61 - 65%. Left ventricular wall thickness is consistent with mild concentric hypertrophy. Left ventricular diastolic function was indeterminate. The right ventricular cavity is mildly dilated. The left atrial cavity is moderately dilated. Left atrial volume is moderately increased. The right atrial cavity is moderately dilated. Moderate to severe tricuspid valve regurgitation is present. Estimated right ventricular systolic pressure from tricuspid regurgitation is moderately elevated (45-55 mmHg). Calculated right ventricular systolic pressure from tricuspid regurgitation is 48 mmHg. I have personally reviewed the therapy plans: [] PT/OT/ ST Therapy Plans Current medications: Scheduled Meds:apixaban, 5 mg, Oral, Q12H aspirin, 81 mg, Oral, Daily Or aspirin, 300 mg, Rectal, Daily atorvastatin, 40 mg, Oral, Nightly Lidocaine, 1 patch, Transdermal, Q24H sodium chloride, 10 mL, Intravenous, Q12H Continuous Infusions:pharmacy consult - MTM, PRN Meds:. albuterol HYDROmorphone pharmacy consult - MTM ondansetron ODT sodium chloride sodium chloride Assessment & Plan Assessment & Plan Active Hospital Problems Diagnosis POA Aphasia [R47.01] Yes H/O: CVA (cerebrovascular accident) [Z86.73] Not Applicable Pacemaker [Z95.0] Yes Primary hypertension [I10] Yes Resolved Hospital Problems No resolved problems to display. Brief Hospital Course to date: Rimma Ridley is a 65 y.o. 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[facility]) to [facility] foreval of expressive aphasia, dysarthria, and facial droop and was transferred for stroke/neuro eval The following problems are new to me today Assessment/Plan Expressive aphasia w/ dysarthria and facial droop, improved Hx stroke w/ residual LT UE+LE weakness -ASA, statin, eliquis -PT/OT/CREATIVE DEVELOPER -syx significantly improved -MRI-pending (needs cards clearance of device) -TTE pending -stroke neuro to follow HTN - permissive HTN Afib - eliquis Chronic CHF w/ recovered EF - s/p ICD+PPM Chronic debility - WC bound, resides at LTC Chronic back pain Tobacco use Expected Discharge Location and Transportation: back to [facility] when cleared by neuro and CM VTE Prophylaxis: Pharmacologic & mechanical VTE prophylaxis orders are present. AM-PAC 6 Clicks Score (PT): 8 (01/24/25 0000) CODE STATUS: Code Status and Medical Interventions: No CPR (Do Not Attempt to Resuscitate); Limited Support; No intubation (DNI); per prior Ordered at: 01/24/25 0753 Code Status (Patient has no pulse and is not breathing): No CPR (Do Not Attempt to Resuscitate) Medical Interventions (Patient has pulse or is breathing): Limited Support Medical Intervention Limits: No intubation (DNI) Comments: per prior Akash Tan DO 01/24/25 documented in this encounter H&P Notes * Pam Kothari MD - 01/23/2025 9:44 PM EDT Images from the original note were not included. [facility] HISTORY AND PHYSICAL Patient Name: Rimma Ridley : 1960 Primary Care Physician: Provider, No Known Date of admission: 01/23/2025 Subjective Subjective Chief Complaint: aphasia HPI: Rimma Ridley is a 65 y.o. female w HTN, Afib w CVA (10/2023) w residual LLE paralysis + LUE weakness on reduced dose eliquis 2/2 recurr epistaxis, chronic back pain, severe debility (wheelchair bound) who presents from long- term care ([facility]) as transfer from [facility] for left upper extremity paralysis, aphasia/dysarthria, and facial droop. Patient reports waking up this morning with issues with her speech. She reports this was noticeableissue she was having. Still feels she is working hard to express herself. She can tell me her name and the date, but reports she is in [place] even with repeat prompting. Reports wheelchair bound at baseline. She has been in long- term care since her prior stroke here perher report. She reports she still smokes at facility. Reports tremor in right hand is new to her. 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 Currently only complaint is pain in my butt which she then clarifies to be her low back Personal History History reviewed. No pertinent past medical history. History reviewed. No pertinent surgical history. Family History: family history is not on file. Social History: reports that she has quit smoking. Her smoking use included cigarettes. She startedsmoking about 4 years ago. She has a 2.4 pack-year smoking history. She has never used smokeless tobacco. She reports that she does not currently use drugs after having used the following drugs: Amphetamines. She reports that she does not drink alcohol. Social History Social History Narrative Not on file Medications: Available home medication information reviewed. DULoxetine, acetaminophen, albuterol sulfate HFA, amLODIPine, apixaban, aspirin, atorvastatin, baclofen, escitalopram, ferrous sulfate, gabapentin, levothyroxine, metoprolol tartrate, omeprazole, ondansetron, and sennosides-docusate Allergies Allergen Reactions Methadone Itching Morphine Itching Sulfa Antibiotics Itching and Rash Objective Objective Vital Signs: Temp: [97.9 ??F (36.6 ??C)] 97.9 ??F (36.6 ??C) Heart Rate: [65] 65 Resp: [20] 20 BP: (181)/(99) 181/99 Flow (L/min) (Oxygen Therapy): [3] 3 Total (NIH Stroke Scale): 12 Physical Exam Constitutional: Awake, alert female sitting up in bed Neck: Supple, no thyromegaly, no lymphadenopathy, trachea midline Respiratory: Clear to auscultation bilaterally, nonlabored respirations (weaned to room air on my exam and appropriate) Cardiovascular: RRR, +soft systolic murmur Gastrointestinal: Positive bowel sounds, soft, nontender, nondistended Musculoskeletal: No bilateral ankle edema, no clubbing or cyanosis to extremities Psychiatric: Appropriate affect, cooperative Neurologic: Alert, oriented to self and date but not location even on prompting. Right hand tremor noticeable. Cannot lift LLE from bed, LUE with significant weakness. Mild right side weakness. Deferin depth exam to neurology. Speech is easily understandable including sentences Skin: No rashes Result Review: I have personally reviewed the results from the time of this admission to 01/24/2025 00:36 EDT and agree with these findings: [x] Laboratory list / accordion [] Microbiology [] Radiology [x] EKG/Telemetry [] Cardiology/Vascular [] Pathology [x] Old records [] Other: Most notable findings include: OSH records reviewed: poor timing CTA head/neck with no stenosis >50%. Extensive venous reflux of vertebral arteries of unclear significance CT head w multiple areas of encephalomalacia most prominental right occipital LAB RESULTS: Microbiology Results (last 10 days) No results found for the last [address] Outside Head Result Date: 01/23/2025 This procedure was auto-finalized with no dictation required. CT Outside Head Result Date: 01/23/2025 This procedure was auto-finalized with no dictation required. Results for orders placed during the hospital encounter of 10/21/23 Adult Transthoracic Echo Complete W/ Cont if Necessary Per Protocol (With Agitated Saline) 10/22/2023 5:28 PM Interpretation Summary Left ventricular systolic function is normal. Left ventricular ejection fraction appears to be 61 -65%. The left ventricular cavity is mildly dilated. Left ventricular wall thickness is consistent with mild to moderate concentric hypertrophy. The right ventricular cavity is dilated. Left atrial volume is severely increased. Saline test results are negative. The right atrial cavity is severely dilated. Moderate to severe tricuspid valve regurgitation is present. Assessment & Plan Assessment & Plan Aphasia Pacemaker Primary hypertension H/O: CVA (cerebrovascular accident) Rimma Ridley is a 65 y.o. female w HTN, Afib w CVA (10/2023) w residual LLE paralysis + LUE weakness on reduced dose eliquis 2/2 recurr epistaxis, ischemic cardiomyopathy s/p PPM + BiV ICD, chronic back pain, severe debility (wheelchair bound) who presents from long-term care ([facility]) as transfer from [facility] for left upper extremity paralysis, aphasia/dysarthria,and facial droop for stroke team evaluation LUE weakness + aphasia/dysarthria H/o CVA w residual LLE paralysis + LUE weakness -discharged 10/2023 on aspirin + eliquis 2.5 mg (reduced dose 2/2 epistaxis) -eliquis 5 mg BID + aspirin while undergoing work-up -MRI when cleared by cardiology/PPM (Saturday) -failed bedside swallow, NPO pending speech -SBP<220 goal HTN - hold for permissive HTN as above Severe debility - chronically in wheelchair, in LTC CHF w recovered EF 2/2 ICM - s/p ICD + PPM, appears euvolemic currently Chronic back pain BMI >35 (pending weight here) Tobacco use - reports ongoing use at facility, needs further counseling *Pharmacy consult for home med rec from [facility]. Currently only have list from OSH ED of unclear primary source. No fill history, etc. Will hold on home meds given this *Clarify CODE STATUS in AM. DNR/DNI in past. Patient refers me to sister but middle of the night. VTE Prophylaxis: Pharmacologic & mechanical VTE prophylaxis orders are present. CODE STATUS: Patient with mild confusion on my assessment to point I would not trust answer on thisquestion- reports her sister would help with decision making. Please follow-up in AM There are no questions and answers to display. Expected Discharge Expected discharge date/ time has not been documented. Pam Kothari MD 01/24/25 documented in this encounter Consult Notes * Chioma Noble, SURG RN - 01/25/2025 2:22 PM EDTAssociated Order(s): IP CONSULT TO CARDIOLOGY [facility] ELECTROPHYSIOLOGY CARDIOLOGY CONSULTATION NOTE Rimma Ridley [id number] 1960 LOS: 2 days Patient Care Team: Provider, No Known as PCP - General Reason for Consultation: Device JASMIN Problem list: Patient Active Problem List Diagnosis Date Noted *Aphasia 01/23/2025 H/O: CVA (cerebrovascular accident) 01/23/2025 Fibromyalgia 10/21/2023 Pacemaker 10/21/2023 Primary hypertension 10/21/2023 Tobacco use 10/21/2023 Ischemic cardiomyopathy 10/21/2023 History of Present Illness: Rimma Ridley is a 65 y.o. female past medical history listed above presented [facility] with complaints of aphasia. Cardiology was consulted for MRI clearance. During clearance device was found to be JASMIN. EP cardiology has been consulted for generator change. Patient has a Medtronic BiV pacemaker. Device to JASMIN on 09/03/2024. Cardiac risk factors: hypertension. Allergies Allergen Reactions Methadone Itching Morphine Itching Sulfa Antibiotics Itching and Rash History reviewed. No pertinent past medical history. History reviewed. No pertinent surgical history. Social History Socioeconomic History Marital status: Tobacco Use Smoking status: Former Current packs/day: 0.50 Average packs/day: 0.5 packs/day for 4.7 years (2.4 ttl pk-yrs) Types: Cigarettes Start date: 2020 Smokeless tobacco: Never Vaping Use Vaping status: Never Used Substance and Sexual Activity Alcohol use: Never Drug use: Not Currently Types: Amphetamines Sexual activity: Defer History reviewed. No pertinent family history. Medications Prior to Admission Medication Sig Dispense Refill Last Dose/Taking acetaminophen (TYLENOL) 500 MG tablet Take 1 tablet by mouth Every 6 (Six) Hours As Needed for MildPain, Headache or Fever. Past Week amLODIPine (NORVASC) 5 MG tablet Take 1 tablet by mouth Daily. (Patient taking differently: Take 0.5 tablets by mouth Daily.) Past Week apixaban (ELIQUIS) 2.5 MG tablet tablet Take 1 tablet by mouth Every 12 (Twelve) Hours. Indications: Atrial Fibrillation, Recent epistaxis so we will start half dose Past Week aspirin 81 MG chewable tablet Chew 1 tablet Daily. Past Week Morning atorvastatin (LIPITOR) 80 MG tablet Take 1 tablet by mouth Every Night. Past Week Bedtime Baclofen (LIORESAL) 5 MG tablet Take 1 tablet by mouth 3 (Three) Times a Day. Past Week DULoxetine (CYMBALTA) 30 MG capsule Take 1 capsule by mouth 2 (Two) Times a Day. Past Week escitalopram (LEXAPRO) 10 MG tablet Take 1 tablet by mouth Every Morning. Past Week Morning ferrous sulfate 325 (65 FE) MG tablet Take 1 tablet by mouth Daily With Breakfast. Past Week gabapentin (NEURONTIN) 100 MG capsule Take 1 capsule by mouth 3 (Three) Times a Day. (Patient taking differently: Take 4 capsules by mouth 3 (Three) Times a Day.) Past Week levothyroxine (SYNTHROID, LEVOTHROID) 75 MCG tablet Take 1 tablet by mouth Daily. (Patient taking differently: Take 1 tablet by mouth Every Morning.) Past Week metoprolol tartrate (LOPRESSOR) 25 MG tablet Take 0.5 tablets by mouth Every 12 (Twelve) Hours. Past Week omeprazole (priLOSEC) 20 MG capsule Take 1 capsule by mouth Daily. Past Week ondansetron (ZOFRAN) 4 MG tablet Take 1 tablet by mouth Every 6 (Six) Hours As Needed for Nausea orVomiting. Past Month Scheduled Meds:[Held by provider] amLODIPine, 2.5 mg, Oral, Daily [Held by provider] apixaban, 5 mg, Oral, Q12H aspirin, 81 mg, Oral, Daily Or aspirin, 300 mg, Rectal, Daily atorvastatin, 40 mg, Oral, Nightly baclofen, 5 mg, Oral, TID DULoxetine, 20 mg, Oral, Daily escitalopram, 10 mg, Oral, Daily gabapentin, 100 mg, Oral, TID levothyroxine, 88 mcg, Oral, Daily Lidocaine, 1 patch, Transdermal, Q24H [Held by provider] metoprolol tartrate, 12.5 mg, Oral, Q12H pantoprazole, 40 mg, Oral, Q AM sodium chloride, 10 mL, Intravenous, Q12H Continuous Infusions: PRN Meds:. albuterol aluminum-magnesium hydroxide-simethicone HYDROcodone-acetaminophen HYDROmorphone ondansetron ODT sodium chloride sodium chloride Review of Systems All systems have been reviewed and are negative with the exception of those mentioned in the HPI and problem list above. Objective: Physical Exam BP (!) 157/101 (BP Location: Right arm, Patient Position: Lying) Pulse 55 Temp 98.1 ??F (36.7 ??C) (Oral) Resp 18 Ht 167 cm (65.75 ) Wt 86 kg (189 lb 9.5 oz) SpO2 94% BMI 30.84 kg/m?? 01/24/25 1012 Weight: 86 kg (189 lb 9.5 oz) Body mass index is 30.84 kg/m??. Intake/Output Summary (Last 24 hours) at 01/25/2025 1422 Last data filed at 01/25/2025 0500 Gross per 24 hour Intake -- Output 650 ml Net -650 ml Physical Exam General Appearance: Alert, cooperative, no distress, appears stated age Neck: Supple, symmetrical, trachea midline, no carotid bruit or JVD Lungs: Clear to auscultation bilaterally, respirations unlabored Heart: Regular rate and rhythm, S1, S2 normal, no murmur, rub or gallop Extremities: No edema, normal range of motion Pulses: 2+ and symmetric Skin: Skin color, texture, turgor normal, no rashes or lesions Neurologic: Normal Cardiographics EKG: paced ECHO: Results for orders placed during the hospital encounter of 01/23/25 Adult Transthoracic Echo Complete W/ Cont if Necessary Per Protocol (With Agitated Saline) 01/24/2025 10:35 AM Interpretation Summary Left ventricular systolic function is normal. Calculated left ventricular EF = 62.6% Left ventricular ejection fraction appears to be 61 - 65%. Left ventricular wall thickness is consistent with mild concentric hypertrophy. Left ventricular diastolic function was indeterminate. The right ventricular cavity is mildly dilated. The left atrial cavity is moderately dilated. Left atrial volume is moderately increased. The right atrial cavity is moderately dilated. Moderate to severe tricuspid valve regurgitation is present. Estimated right ventricular systolic pressure from tricuspid regurgitation is moderately elevated (45-55 mmHg). Calculated right ventricular systolic pressure from tricuspid regurgitation is 48 mmHg. Imaging Chest x-ray: CT Head Without Contrast Result Date: 01/24/2025 Impression: No significant interval change. Electronically Signed: Hugo Finnegan MD 01/24/2025 7:39 PM EDT Workstation ID: [id number] DxDesc Lab Review Results from last 7 days Lab Units 01/24/25 0100 SODIUM mmol/L 137 POTASSIUM mmol/L 4.4 CHLORIDE mmol/L 101 CO2 mmol/L 21.5* BUN mg/dL 19.8 CREATININE mg/dL 0.94 GLUCOSE mg/dL 137* CALCIUM mg/dL 9.0 Results from last 7 days Lab Units 01/24/25 0100 WBC 10*3/mm3 15.93* HEMOGLOBIN g/dL 15.4 HEMATOCRIT % 49.5* PLATELETS 10*3/mm3 159 Results from last 7 days Lab Units 01/24/25 0727 CHOLESTEROL mg/dL 138 TRIGLYCERIDES mg/dL 69 HDL CHOL mg/dL 43 LDL CHOL mg/dL 81 Results from last 7 days Lab Units 01/24/25 0727 HEMOGLOBIN A1C % 6.20* Aphasia Pacemaker Primary hypertension H/O: CVA (cerebrovascular accident) Assessment: Complete heart block s/p MDT BiV pacemaker Upgraded to BIV pacemaker 2017 after AVN ablation At [facility] 09/03/2024 Chronic AF s/p AVN ablation Plan: Plan for MDT BiV PPM GEN change tomorrow with Dr. Manning. Hold Eliquis N.p.o. after midnight Ancef 2g for surgical prophylaxis We will continue to follow. Electronically signed by Chioma Noble APRN, 01/25/25, 2:22 PM EDT. Please note that portions of this note were dictated utilizing Dragon dictation. Cosigned by Sarkis Manning MD at 01/25/2025 5:22 PM EDT Associated attestation - Sarkis Manning MD - 01/25/2025 5:22 PM EDT I have reviewed this documentation and agree. * Gilma Bradshaw RN - 01/25/2025 8:31 AM EDTAssociated Order(s): IP CONSULT TO VAULT INSTALLER Chart review for museum educator consult. At the time of this review patient A1c is 6.2 , they have no noted history of diabetes and no home medications noted for treatment of diabetes. At this time we do not feel the patient would benefit from diabetes education. Thank you for this consult, should patient needs change please re consult us. * Maycol Vargas MD - 01/24/2025 9:35 AM EDTAssociated Order(s): IP CONSULT TO CARDIOLOGY Images from the original note were not included. [facility] Cardiology Consultation H&P Patient: Rimma Ridley 1960 @[email or web address]@ @[email or web address]@ [address] [place] [address] PCP: Provider, No Known Treatment Team: Attending Provider: Akash Tan DO Consulting Physician: Maycol Vargas MD Admitting Provider: Akash Tan DO 01/23/2025 DATE OF CONSULTATION: 01/24/2025 09:35 EDT IDENTIFICATION: A 65 y.o. female from [facility] REASON FOR CONSULTATION: [facility] PROBLEM LIST: CHF 2016 OSH MDT BI V ICD(Dr Coulter) 2019 OSH report of resolved LVEF 05/04 [facility] OSH nonobst AFIB 2014 OSH LA RFA 2014 OSH AVN ablation/pacer smoker Aphasia Pacemaker Primary hypertension H/O: CVA (cerebrovascular accident) History reviewed. No pertinent past medical history. History reviewed. No pertinent surgical history. Allergies Allergies Allergen Reactions Methadone Itching Morphine Itching Sulfa Antibiotics Itching and Rash Current Medications Current Facility-Administered Medications: albuterol (PROVENTIL) nebulizer solution 0.083% 2.5 mg/3mL, 2.5 mg, Nebulization, Q6H PRN, Pam Kothari MD apixaban (ELIQUIS) tablet 5 mg, 5 mg, Oral, Q12H, Claudia Aponte APRN aspirin chewable tablet 81 mg, 81 mg, Oral, Daily OR aspirin suppository 300 mg, 300 mg, Rectal, Daily, Claudia Aponte APRN atorvastatin (LIPITOR) tablet 40 mg, 40 mg, Oral, Nightly, Claudia Aponte APRN HYDROmorphone (DILAUDID) injection 0.5 mg, 0.5 mg, Intravenous, Q2H PRN, Akash Tan DO HYDROmorphone (DILAUDID) injection 0.5 mg, 0.5 mg, Intravenous, Once, Akash Tan DO Lidocaine 4 % 1 patch, 1 patch, Transdermal, Q24H, Pam Kothari MD, 1 patch at 01/24/25 0041 med rec consult, , Not Applicable, Continuous PRN, aPm Kothari MD ondansetron ODT (ZOFRAN-ODT) disintegrating tablet 4 mg, 4 mg, Translingual, Q6H PRN, Pam Kothari MD, 4 mg at 01/24/25 0041 sodium chloride 0.9 % flush 10 mL, 10 mL, Intravenous, Q12H, Claudia Aponte APRN sodium chloride 0.9 % flush 10 mL, 10 mL, Intravenous, PRN, Claudia Aponte APRN sodium chloride 0.9 % infusion 40 mL, 40 mL, Intravenous, PRN, Claudia Aponte APRN pharmacy consult - [place], History of Present Illness Rimma Ridley is a 65 y.o. year old female with a past medical history significant for HefPef/ chronic afib. Transferred to [facility] due to neurologic change. Pt states she came due to pain in her rear end and chest . ROS Review of Systems Cardiovascular: Positive for chest pain. Not reliable historian SOCIAL HX Social History Socioeconomic History Marital status: Tobacco Use Smoking status: Former Current packs/day: 0.50 Average packs/day: 0.5 packs/day for 4.7 years (2.4 ttl pk-yrs) Types: Cigarettes Start date: 2020 Smokeless tobacco: Never Vaping Use Vaping status: Never Used Substance and Sexual Activity Alcohol use: Never Drug use: Not Currently Types: Amphetamines Sexual activity: Defer FAMILY HX Not obtained OBJECTIVE: Vitals: 01/24/25 0300 01/24/25 0445 01/24/25 0500 01/24/25 0916 BP: (!) 169/103 145/96 BP Location: Right arm Right arm Patient Position: Lying Lying Pulse: 65 65 65 65 Resp: 18 18 Temp: 97.7 ??F (36.5 ??C) 98 ??F (36.7 ??C) TempSrc: Oral Oral SpO2: 97% 98% 95% I/O last 3 completed shifts: In: - Out: 500 [Urine:500] No intake/output data recorded. Intake & Output (last 3 days) 01/21 0701/22 0701/22 0701/23 0701/23 0701/24 0701/24 0701/25 07 Urine 500 Total Output 500 Net -500 Urine Unmeasured Occurrence 1 x PHYSICAL EXAMINATION: Constitutional: Appearance: Healthy appearance. Not in distress. Neck: Vascular: No JVR. JVD normal. Pulmonary: Effort: Pulmonary effort is normal. Breath sounds: Normal breath sounds. No wheezing. No rhonchi. No rales. Chest: Chest wall: Not tender to palpatation. Comments: ICD/CDI Cardiovascular: PMI at left midclavicular line. Normal rate. Regular rhythm. Normal S1. Normal S2. Murmurs: There is a systolic murmur. No gallop. No click. No rub. Pulses: Intact distal pulses. Edema: Peripheral edema absent. Abdominal: General: Bowel sounds are normal. Palpations: Abdomen is soft. Tenderness: There is no abdominal tenderness. Musculoskeletal: Normal range of motion. General: No tenderness. Skin: General: Skin is warm and dry. Neurological: General: No focal deficit present. Mental Status: Alert and oriented to person, place and time. Diagnostic Data: Lab Results (last 24 hours) Procedure Component Value Units Date/Time Lipid Panel [[id number]] Collected: 01/24/25726 Specimen: Blood Updated: 01/24/25899 Total Cholesterol 138 mg/dL Triglycerides 69 mg/dL HDL Cholesterol 43 mg/dL LDL Cholesterol 81 mg/dL VLDL Cholesterol 14 mg/dL LDL/HDL Ratio 1.89 Narrative: Cholesterol Reference Ranges (U.S. Department of Health and Human Services ATP III Classifications) Desirable <200 mg/dL Borderline High 200-239 mg/dL High Risk >240 mg/dL Triglyceride Reference Ranges (U.S. Department of Health and Human Services ATP III Classifications) Normal <150 mg/dL Borderline High 150-199 mg/dL High 200-499 mg/dL Very High >500 mg/dL HDL Reference Ranges (U.S. Department of Health and Human Services ATP III Classifications) Low <40 mg/dl (major risk factor for CHD) High >60 mg/dl ('negative' risk factor for CHD) LDL Reference Ranges (U.S. Department of Health and Human Services ATP III Classifications) Optimal <100 mg/dL Near Optimal 100-129 mg/dL Borderline High 130-159 mg/dL High 160-189 mg/dL Very High >189 mg/dL LDL is calculated using the NIH LDL-C calculation. Hemoglobin A1c [[id number]] Collected: 01/24/25726 Specimen: Blood Updated: 01/24/25 08 POC Glucose Q6H [[id number]] (Abnormal) Collected: 01/24/25613 Specimen: Blood Updated: 01/24/25615 Glucose 137 mg/dL Comment: Serial Number: [id number]: [id number] Protime-INR [[id number]] (Normal) Collected: 01/24/2599 Specimen: Blood Updated: 01/24/25 0157 Protime 15.0 Seconds INR 1.11 Comprehensive Metabolic Panel [[id number]] (Abnormal) Collected: 01/24/2599 Specimen: Blood Updated: 01/24/25 0144 Glucose 137 mg/dL BUN 19.8 mg/dL Creatinine 0.94 mg/dL Sodium 137 mmol/L Potassium 4.4 mmol/L Comment: Specimen hemolyzed. Result may be falsely elevated. Chloride 101 mmol/L CO2 21.5 mmol/L Calcium 9.0 mg/dL Total Protein 7.1 g/dL Albumin 3.9 g/dL ALT (SGPT) 20 U/L AST (SGOT) 31 U/L Alkaline Phosphatase 116 U/L Total Bilirubin 0.5 mg/dL Globulin 3.2 gm/dL Comment: Calculated Result A/G Ratio 1.2 g/dL BUN/Creatinine Ratio 21.1 Anion Gap 14.5 mmol/L eGFR 68.3 mL/min/1.73 Narrative: GFR Categories in Chronic Kidney Disease (CKD) GFR Category GFR (mL/min/1.73) Interpretation G1 90 or greater Normal or high (1) G2 60-89 Mild decrease (1) G3a 45-59 Mild to moderate decrease G3b 30-44 Moderate to severe decrease G4 15-29 Severe decrease G5 14 or less Kidney failure (1)In the absence of evidence of kidney disease, neither GFR category G1 or G2 fulfill the criteriafor CKD. eGFR calculation 2020 CKD-EPI creatinine equation, which does not include race as a factor CBC (No Diff) [[id number]] (Abnormal) Collected: 01/24/25 0100 Specimen: Blood Updated: 01/24/25 0118 WBC 15.93 10*3/mm3 RBC 5.44 10*6/mm3 Hemoglobin 15.4 g/dL Hematocrit 49.5 % MCV 91.0 fL MCH 28.3 pg MCHC 31.1 g/dL RDW 13.8 % RDW-SD 46.3 fl MPV 9.9 fL Platelets 159 10*3/mm3 POC Glucose Once [[id number]] (Abnormal) Collected: 01/23/252147 Specimen: Blood Updated: 01/23/252149 Glucose 150 mg/dL Comment: Serial Number: [id number]: [id number] ECG/EMG Results (last 24 hours) Procedure Component Value Units Date/Time ECG 12 Lead Stroke Evaluation [[id number]] Collected: 01/23/252241 Updated: 01/23/252242 QT Interval 502 ms QTC Interval 522 ms Narrative: Test Reason : Stroke Evaluation Blood Pressure : */* mmHG Vent. Rate : 65 BPM Atrial Rate : 78 BPM P-R Int : * ms QRS Dur : 142 ms QT Int : 502 ms P-R-T Axes : * -58 135 degrees QTcB Int : 522 ms Ventricular-paced rhythm Abnormal ECG No previous ECGs available Referred By: Confirmed By: Aphasia Pacemaker Primary hypertension H/O: CVA (cerebrovascular accident) ASSESSMENT/PLAN: HefPef w OSH reports of prior LV dysfunction that resolved post RX/BI V. Will fu echo when available. Chronic afib post AVN ablation /pacer w subsequent upgrade to BI V device. We will have MDT interrogate device tomorrow to delineate MRI compatibility Maycol Vargas MD 09:35 EDT 01/24/2025 * Anil Flaherty APRN - 01/23/2025 9:40 PM EDT Stroke Consult Note Patient Name: Rimma Ridley Age: 65 y.o. Sex: female : 1960 Primary Care Physician: Provider, No Known Referring Physician: OS ER physician TIME STROKE TEAM CALLED: 1630 EST ARRIVAL TO [facility] 2145 EST TIME PATIENT SEEN: 2150 EST Handedness: Right Race: White Chief Complaint/Reason for Consultation: LFD, left-sided weakness, speech difficulty HPI: Ms. Ridley is a 65-year-old female with PMH of HTN, CHF (PPM in 2017), A-fib (on Eliquis), fibromyalgia, hypothyroidism and chronic back pain. Patient has chronic right hemispheric strokes with residual left lower extremity paralysis and moderate left upper extremity weakness. Today at approximately 1530 staff at her SNF reported that she had a flexure response in her left upper extremity followed by complete left upper extremity paralysis, aphasia, dysarthria, and facial droop. EMS was notified and patient was brought to [facility] ED. NIHSS was deemed as a 12 for the ED physician. Patient will be transferred to [facility] from [facility] for higher level care and further stroke workup. Patient reports she woke up with presenting symptoms at 8 AM this morning. Initial NIH. Blood pressure. On exam patient is able to answer 1 question appropriately and followsone-step commands. Decrease sensitivity to left side of body. No headache, nausea, falls or recent trauma. Left facial droop with expressive/receptive aphasia and mild dysarthria noted during conversation. Strength right upper extremity 4/5. Strength left upper extremity 3/5. Strength right lower extremity 3/5. Strength left lower extremity 1/5. Current everyday smoker and no EtOH use. Takes prescribed medications routinely. Patient is wheelchair bound at baseline and requires Richard lift. Last Known Normal Date/Time: 01/23/2025 at 0800 EST Review of Systems Constitutional: Negative for fever. HENT: Negative for trouble swallowing and voice change. Eyes: Negative for visual disturbance. Respiratory: Negative for shortness of breath. Cardiovascular: Negative for chest pain. Gastrointestinal: Negative for abdominal pain and nausea. Musculoskeletal: Negative for gait problem. Neurological: Positive for tremors, facial asymmetry, speech difficulty, weakness and numbness. Negative for dizziness, light-headedness and headaches. Psychiatric/Behavioral: Positive for confusion. No past medical history on file. No past surgical history on file. No family history on file. Social History Socioeconomic History Marital status: Tobacco Use Smoking status: Every Day Current packs/day: 0.50 Average packs/day: 0.5 packs/day for 4.7 years (2.3 ttl pk-yrs) Types: Cigarettes Start date: 2020 Smokeless tobacco: Never Vaping Use Vaping status: Never Used Substance and Sexual Activity Alcohol use: Never Drug use: Not Currently Types: Amphetamines Allergies Allergen Reactions Methadone Itching Morphine Itching Sulfa Antibiotics Itching and Rash Prior to Admission medications Medication Sig Start Date End Date Taking? Authorizing Provider albuterol sulfate HFA 108 (90 Base) MCG/ACT inhaler Inhale 2 puffs Every 4 (Four) Hours As Needed for Wheezing. Benny Martinez MD amLODIPine (NORVASC) 5 MG tablet Take 1 tablet by mouth Daily. 10/26/23 Kaitlin Adams II, DO apixaban (ELIQUIS) 2.5 MG tablet tablet Take 1 tablet by mouth Every 12 (Twelve) Hours. Indications: Atrial Fibrillation, Recent epistaxis so we will start half dose 10/25/23 Kaitlin Adams II, DO aspirin 81 MG chewable tablet Chew 1 tablet Daily. 10/26/23 Kaitlin Adams II, DO atorvastatin (LIPITOR) 80 MG tablet Take 1 tablet by mouth Every Night. 10/25/23 Kaitlin Adams II, DO DULoxetine (CYMBALTA) 20 MG capsule Take 1 capsule by mouth Daily. Benny Martinez MD gabapentin (NEURONTIN) 100 MG capsule Take 1 capsule by mouth 3 (Three) Times a Day. Benny Martinez MD levothyroxine (SYNTHROID, LEVOTHROID) 75 MCG tablet Take 1 tablet by mouth Daily. Benny Martinez MD metoprolol tartrate (LOPRESSOR) 25 MG tablet Take 0.5 tablets by mouth Every 12 (Twelve) Hours. 10/25/23 Kaitlin Adams II, DO omeprazole (priLOSEC) 20 MG capsule Take 1 capsule by mouth Daily. Benny Martinez MD BP: ()/() Arterial Line BP: ()/() Neurological Exam Mental Status Alert. Oriented only to person. Mild dysarthria present. Expressive aphasia and receptive aphasia present. Cranial Nerves CN II: Right visual acuity: Counts fingers. Left visual acuity: Counts fingers. CN III, IV, : Extraocular movements intact bilaterally. Pupils equal round and reactive to light bilaterally. CN V: Right: Facial sensation is normal. Left: Diminished sensation of the entire left side of the face. CN VII: Left: There is central facial weakness. CN VIII: Hearing intact. Neuroexam limited due to acuity of condition.. Motor Normal muscle bulk throughout. Normal muscle tone. Strength right upper extremity 4/5. Strength left upper extremity 3/5. Strength right lower extremity 3/5. Strength left lower extremity 1/5.. Sensory Light touch abnormality: Sensation: Decrease sensitivity left side of body. Coordination Unable to assess. Gait Unable to assess. Physical Exam Constitutional: General: She is not in acute distress. HENT: Head: Normocephalic and atraumatic. Nose: Nose normal. Mouth/Throat: Mouth: Mucous membranes are dry. Eyes: Extraocular Movements: Extraocular movements intact. Pupils: Pupils are equal, round, and reactive to light. Cardiovascular: Pulses: Normal pulses. Pulmonary: Effort: Pulmonary effort is normal. Abdominal: General: Abdomen is flat. Musculoskeletal: General: Normal range of motion. Cervical back: Normal range of motion. Skin: General: Skin is warm and dry. Neurological: Mental Status: She is alert. She is disoriented. Cranial Nerves: Cranial nerve deficit and dysarthria present. Sensory: Sensory deficit present. Motor: Weakness present. Psychiatric: Attention and Perception: She is inattentive. Cognition and Memory: Cognition is impaired. Acute Stroke Data Thrombolytic Inclusion / Exclusion Criteria Time: 21:43 EDT Person Administering Scale: Anil Flaherty APRN YES NO INCLUSION CRITERIA CLASS I [x] [] Suspected diagnosis of acute ischemic stroke with measureable neurological deficit. Low NIHSS with disabling stroke symptoms. [] [x] Onset of stroke symptoms < 3 hours before beginning treatment >/ 18 years old Stroke symptom onset = time patient was last seen well or without symptoms (LKW) [] [x] Onset of symptoms between 3-4.5 hours: >/= 80 years old (safe Class IIa) with history of both diabetes and prior CVA (reasonable Class IIb) AND NIHSS </= 25 *If not eligible for IV Thrombolytic consider neuro intervention for LKW within 24 hours YES NO EXCLUSION CRITERIA (CONTRAINDICATIONS) CLASS III EVIDENCE HARM [] [] Blood pressure >185/110 medically refractory to IV medications [] [] Active bleeding at a non-compressible site [] [] Active intracranial hemorrhage (ICH) [] [] Symptoms suggestive of subarachnoid hemorrhage (SAH) [] [] GI bleed within 21 days [] [] Ischemic stroke within 3 months [] [] Severe head trauma within 3 months [] [] Intracranial or intraspinal surgery within 3 months [] [] Current GI malignancy [] [] Intracranial neoplasm [] [] Infective endocarditis [] [] Aortic arch dissection [] [] Active coagulopathy with INR >1.7, platelets <100,000, PTT > 40 sec, PT > 15 sec *For warfarin, administration can begin before blood tests resulted. Discontinue for above values. [] [] Treatment dose* of LMWH (Lovenox) in last 24 hours *prophylactic dosages are not a contraindication [] [] Concurrent use of antiplatelet agents' glycoprotein inhibitors IIb/IIIa (Integrilin, etc.) [x] [] Thrombin or factor Xa inhibitors (Eliquis, Xarelto, Arixtra) taken in last 48 hours YES NO CLASS II: AIS WITH THE FOLLOWING CONDITIONS - TREATMENT RISKS SHOULD BE WEIGHED AGAINST POSSIBLE BENEFITS. [] [] Major trauma in last 14 days, recent major surgery in last 14 days, intracranial arterial dissection, giant unruptured and unsecured intracranial aneurysm, pericarditis [] [] The risks, benefits, and alternatives have been discussed with the patient or family related to the administration of IV thrombolytic therapy for stroke symptoms. [] [] I have discussed and reviewed the patient's case and imaging with the attending prior to IV thrombolytic therapy. TIME NA Time IV thrombolytic administered Hospital Meds: Scheduled- apixaban, 5 mg, Oral, Q12H [START ON 01/24/2025] aspirin, 81 mg, Oral, Daily Or [START ON 01/24/2025] aspirin, 300 mg, Rectal, Daily atorvastatin, 40 mg, Oral, Nightly sodium chloride, 10 mL, Intravenous, Q12H Infusions- PRNs- sodium chloride sodium chloride Functional Status Prior to Current Stroke/Mobile Score: MODIFIED BEVERLEY SCALE (to be assessed for each patient having history of stroke) []Stroke history but not assessed []0: No symptoms at all []1: No significant disability despite symptoms []2: Slight disability []3: Moderate disability [x]4: Moderately severe disability []5: Severe disability []6: NIH Stroke Scale Time: 21:43 EDT Person Administering Scale: Anil Flaherty APRN Interval: baseline 1a. Level of Consciousness: 0-->Alert, keenly responsive 1b. LOC Questions: 1-->Answers one question correctly 1c. LOC Commands: 0-->Performs both tasks correctly 2. Best Gaze: 0-->Normal 3. Visual: 1-->Partial hemianopia 4. Facial Palsy: 1-->Minor paralysis (flattened nasolabial fold, asymmetry on smiling) 5a. Motor Arm, Left: 2-->Some effort against gravity, limb cannot get to or maintain (if cued) 90 (or 45) degrees, drifts down to bed, but has some effort against gravity 5b. Motor Arm, Right: 1-->Drift, limb holds 90 (or 45) degrees, but drifts down before full 10 secs, does not hit bed or other support 6a. Motor Leg, Left: 3-->No effort against gravity, leg falls to bed immediately 6b. Motor Leg, Right: 2-->Some effort against gravity, leg falls to bed by 5 secs, but has some effort against gravity 7. Limb Ataxia: 0-->Absent 8. Sensory: 1-->[id number]-[id number] sensory loss, patient feels pinprick is less sharp or is dull on the affected side, or there is a loss of superficial pain with pinprick, but patient is aware of being touched 9. Best Language: 1-->Etle-wl-ngigzplm aphasia, some obvious loss of fluency or facility of comprehension, without significant limitation on ideas expressed or form of expression. Reduction of speech and/or comprehension, however, makes conversation. . . (see row details) 10. Dysarthria: 1-->Iqcc-ul-kywsmavp dysarthria, patient slurs at least some words and, at worst, can be understood with some difficulty 11. Extinction and Inattention (formerly Neglect): 0-->No abnormality Total (NIH Stroke Scale): 14 Results Reviewed: I have personally reviewed current lab, radiology, and data and agree with results. Results for orders placed during the hospital encounter of 10/21/23 Adult Transthoracic Echo Complete W/ Cont if Necessary Per Protocol (With Agitated Saline) 10/22/2023 5:28 PM Interpretation Summary Left ventricular systolic function is normal. Left ventricular ejection fraction appears to be 61 -65%. The left ventricular cavity is mildly dilated. Left ventricular wall thickness is consistent with mild to moderate concentric hypertrophy. The right ventricular cavity is dilated. Left atrial volume is severely increased. Saline test results are negative. The right atrial cavity is severely dilated. Moderate to severe tricuspid valve regurgitation is present. WBC Date Value Ref Range Status 01/24/2025 15.93 (H) 3.40 - 10.80 10*3/mm3 Final RBC Date Value Ref Range Status 01/24/2025 5.44 (H) 3.77 - 5.28 10*6/mm3 Final Hemoglobin Date Value Ref Range Status 01/24/2025 15.4 12.0 - 15.9 g/dL Final Hematocrit Date Value Ref Range Status 01/24/2025 49.5 (H) 34.0 - 46.6 % Final MCV Date Value Ref Range Status 01/24/2025 91.0 79.0 - 97.0 fL Final MCH Date Value Ref Range Status 01/24/2025 28.3 26.6 - 33.0 pg Final MCHC Date Value Ref Range Status 01/24/2025 31.1 (L) 31.5 - 35.7 g/dL Final RDW Date Value Ref Range Status 01/24/2025 13.8 12.3 - 15.4 % Final RDW-SD Date Value Ref Range Status 01/24/2025 46.3 37.0 - 54.0 fl Final MPV Date Value Ref Range Status 01/24/2025 9.9 6.0 - 12.0 fL Final Platelets Date Value Ref Range Status 01/24/2025 159 140 - 450 10*3/mm3 Final Lab Results Component Value Date GLUCOSE 137 (H) 01/24/2025 BUN 19.8 01/24/2025 CREATININE 0.94 01/24/2025 NA 137 01/24/2025 K 4.4 01/24/2025 CL 101 01/24/2025 CALCIUM 9.0 01/24/2025 PROTEINTOT 7.1 01/24/2025 ALBUMIN 3.9 01/24/2025 ALT 20 01/24/2025 AST 31 01/24/2025 ALKPHOS 116 01/24/2025 BILITOT 0.5 01/24/2025 GLOB 3.2 01/24/2025 AGRATIO 1.2 01/24/2025 BCR 21.1 01/24/2025 ANIONGAP 14.5 01/24/2025 EGFR 68.3 01/24/2025 OSH CTA head Impression: There are multiple areas of encephalomalacia involving the right occipital lobe and extending superiorly to involve the parasagittal frontal and parietal lobes typical of a watershed infarct. These changes are stable in the occipital lobe but now much more extensive extending into the watershed region superiorly. There is also less extensive parasagittal encephalomalacia of the high left frontal lobe in the watershed region of the left parietal occipital junction. The left-sided changes are stable from 10/21/2023. There is no evidence of intracranial hemorrhage. OSH CTA neck Impression: Extensive collateral vascular distribution is seen in the upper chest and neck extending superiorly to the base of the skull. This usually reflects occlusion or high-grade stenosis of thevenous system which was injected but is not clear which side was chosen here. The presumed stenosisaffects the timing of the exam and the quality of the bolus and contrast is predominantly seen in the pulmonary circuit. Due to the timing issue noted, there is limited opacification of the neck vessels. There is no obvious calcification or stenosis of the right carotid system. There is mild calcification of the left internal carotid origin with less than 50% compromise of the lumen. Extensive venous reflux is seen surrounding the vertebral arteries and the possibility of pathology is not readily assessed. There appear to be codominant vessels of the anguiano magnum. Assessment/Plan: Ms. Ridley is a 65-year-old female with PMH of HTN, CHF (PPM in 2017), A-fib (on Eliquis), fibromyalgia, hypothyroidism and chronic back pain. Patient has chronic right hemispheric strokes with residual left lower extremity paralysis and moderate left upper extremity weakness. Today at [id number] staff at her SNF reported that she had a flexure response in her left upper extremity followedby complete left upper extremity paralysis, aphasia, dysarthria, and facial droop. EMS was notifiedand patient was brought to [facility] ED. NIHSS was deemed as a 12 for the ED physician. Patient will be transferred to [facility] from [facility] for higher level care and further stroke workup. Patient reports she woke up with presenting symptoms at 8 AM this morning. Patient is not a candidate for IV thrombolytic therapy due to consistent Eliquis use. Patient is not a candidatefor endovascular therapy due to no LVO noted on OSH CT scans. Antiplatelet FOOD TECHNOLOGIST: Aspirin Anticoagulant FOOD TECHNOLOGIST: Eliquis LFD, left-sided weakness Differentials include TIA, CVA, stroke recrudescence Initiate TIA/CVA without IV thrombolytic therapy order set N.p.o. until bedside dysphagia screening complete by RN Activity as tolerated Aspirin 81 mg p.o. daily Eliquis 5 mg p.o. twice daily Atorvastatin 40 mg p.o. nightly MRI brain without contrast routine Cardiology consult for PPM clearance TTE routine A1c, lipid panel routine Neurochecks per unit protocol Blood pressure goals, SBP less than 220 art educator to see if appropriate PT/OT/CREATIVE DEVELOPER eval and treat Case management to follow Plan of care discussed with hospital team, patient and primary RN. Stroke neurology will continue to follow. Thank you for this consult. Call with any questions or concerns. Anil Flaherty APRN January 23, 2025 21:43 EDT documented in this encounter Nursing Notes * Harjit Pierre RN - 01/27/2025 2:40 PM EDT Report called to Brenda at [facility] at 1150. PIV in R wrist removed, drsg. In place. Telemetry removed. Vital signs obtained for EMS. Pt. Incontinent of urine, pads changed prior to discharge. Pts. Belongings sent with her. Pts. Emergency contact (sister Drea) was called for an update regarding discharge, no answer. AVS reviewed w/ pt. Will send necessary paperwork w/ pt. In ambulance. * Harjit Pierre RN - 01/27/2025 11:24 AM EDT Plan is for pt. To d/c today back to her facility, [facility]. Problem: Adult Inpatient Plan of Care Goal: Plan of Care Review Outcome: Adequate for Care Transition Goal: Patient-Specific Goal (Individualized) Outcome: Adequate for Care Transition Goal: Absence of Hospital-Acquired Illness or Injury Outcome: Adequate for Care Transition Intervention: Identify and Manage Fall Risk Recent Flowsheet Documentation Taken 01/27/2025799 by Harjit Pierre RN Safety Promotion/Fall Prevention: activity supervised assistive device/personal items within reach clutter free environment maintained fall prevention program maintained lighting adjusted nonskid shoes/slippers when out of bed room organization consistent safety round/check completed toileting scheduled Intervention: Prevent Skin Injury Recent Flowsheet Documentation Taken 01/27/2025799 by Harjit Pierre RN Body Position: position maintained heels elevated side-lying right upper extremity elevated Skin Protection: incontinence pads utilized silicone border foam - heel silicone border foam - sacrum/coccyx Intervention: Prevent and Manage VTE (Venous Thromboembolism) Risk Recent Flowsheet Documentation Taken 01/27/2025799 by Harjit Pierre RN VTE Prevention/Management: bilateral SCDs (sequential compression devices) off Intervention: Prevent Infection Recent Flowsheet Documentation Taken 01/27/2025799 by Harjit Pierre RN Infection Prevention: single patient room provided Goal: Optimal Comfort and Wellbeing Outcome: Adequate for Care Transition Intervention: Monitor Pain and Promote Comfort Recent Flowsheet Documentation Taken 01/27/2025799 by Harjit Pierre RN Pain Management Interventions: pillow support provided position adjusted Intervention: Provide Person-Centered Care Recent Flowsheet Documentation Taken 01/27/2025799 by Harjit Pierre RN Trust Relationship/Rapport: care explained choices provided emotional support provided empathic listening provided questions answered questions encouraged reassurance provided thoughts/feelings acknowledged Goal: Readiness for Transition of Care Outcome: Adequate for Care Transition Problem: Skin Injury Risk Increased Goal: Skin Health and Integrity Outcome: Adequate for Care Transition Intervention: Optimize Skin Protection Recent Flowsheet Documentation Taken 01/27/2025799 by Harjit Pierre RN Activity Management: activity encouraged Pressure Reduction Techniques: heels elevated off bed pressure points protected weight shift assistance provided Head of Bed (HOB) Positioning: HOB elevated Pressure Reduction Devices: heel offloading device utilized positioning supports utilized pressure-redistributing mattress utilized Skin Protection: incontinence pads utilized silicone border foam - heel silicone border foam - sacrum/coccyx Problem: Fall Injury Risk Goal: Absence of Fall and Fall-Related Injury Outcome: Adequate for Care Transition Intervention: Identify and Manage Contributors Recent Flowsheet Documentation Taken 01/27/2025 0900 by Harjit Pierre RN Medication Review/Management: medications reviewed Intervention: Promote Injury-Free Environment Recent Flowsheet Documentation Taken 01/27/2025 0800 by Harjit Pierre RN Safety Promotion/Fall Prevention: activity supervised assistive device/personal items within reach clutter free environment maintained fall prevention program maintained lighting adjusted nonskid shoes/slippers when out of bed room organization consistent safety round/check completed toileting scheduled Goal Outcome Evaluation: * Harjit Pierre RN - 01/26/2025 6:08 PM EDT Problem: Adult Inpatient Plan of Care Goal: Absence of Hospital-Acquired Illness or Injury Outcome: Progressing Intervention: Identify and Manage Fall Risk Recent Flowsheet Documentation Taken 01/26/2025 0800 by Harjit Pierre RN Safety Promotion/Fall Prevention: activity supervised assistive device/personal items within reach clutter free environment maintained fall prevention program maintained lighting adjusted nonskid shoes/slippers when out of bed room organization consistent safety round/check completed toileting scheduled Intervention: Prevent Skin Injury Recent Flowsheet Documentation Taken 01/26/2025 1300 by Harjit Pierer RN Body Position: turned right foot of bed elevated heels elevated upper extremity elevated Taken 01/26/2025 1045 by Harjit Pierre RN Body Position: turned left foot of bed elevated heels elevated Taken 01/26/2025 0800 by Harjit Pierre RN Body Position: position maintained foot of bed elevated heels elevated Skin Protection: incontinence pads utilized silicone border foam - heel silicone border foam - sacrum/coccyx Intervention: Prevent and Manage VTE (Venous Thromboembolism) Risk Recent Flowsheet Documentation Taken 01/26/2025 0800 by Harjit Pierre RN VTE Prevention/Management: bilateral SCDs (sequential compression devices) on Intervention: Prevent Infection Recent Flowsheet Documentation Taken 01/26/2025 0800 by Harjit Pierre RN Infection Prevention: single patient room provided Goal: Optimal Comfort and Wellbeing Outcome: Progressing Intervention: Monitor Pain and Promote Comfort Recent Flowsheet Documentation Taken 01/26/2025 0940 by Harjit Pierre RN Pain Management Interventions: (Scheduled baclofen and gabapentin given per MAR.) pillow support provided position adjusted other (see comments) Intervention: Provide Person-Centered Care Recent Flowsheet Documentation Taken 01/26/2025 0940 by Harjit Pierre RN Trust Relationship/Rapport: care explained choices provided emotional support provided empathic listening provided questions answered questions encouraged reassurance provided Taken 01/26/2025 0800 by Harjit Pierre RN Trust Relationship/Rapport: care explained choices provided emotional support provided empathic listening provided questions answered questions encouraged reassurance provided thoughts/feelings acknowledged Goal: Readiness for Transition of Care Outcome: Progressing Problem: Skin Injury Risk Increased Goal: Skin Health and Integrity Outcome: Progressing Intervention: Optimize Skin Protection Recent Flowsheet Documentation Taken 01/26/2025 1300 by Harjit Pierre RN Activity Management: activity encouraged Head of Bed (HOB) Positioning: HOB elevated Taken 01/26/2025 1045 by Harjit Pierre RN Activity Management: activity encouraged Head of Bed (HOB) Positioning: HOB elevated Taken 01/26/2025 0800 by Harjit Pierre RN Activity Management: activity encouraged Pressure Reduction Techniques: frequent weight shift encouraged heels elevated off bed positioned off wounds pressure points protected weight shift assistance provided Head of Bed (HOB) Positioning: HOB elevated Pressure Reduction Devices: foam padding utilized heel offloading device utilized positioning supports utilized pressure-redistributing mattress utilized Skin Protection: incontinence pads utilized silicone border foam - heel silicone border foam - sacrum/coccyx Problem: Fall Injury Risk Goal: Absence of Fall and Fall-Related Injury Outcome: Progressing Intervention: Identify and Manage Contributors Recent Flowsheet Documentation Taken 01/26/2025 0940 by Harjit Pierre RN Medication Review/Management: medications reviewed Intervention: Promote Injury-Free Environment Recent Flowsheet Documentation Taken 01/26/2025 0800 by Harjit Pierre RN Safety Promotion/Fall Prevention: activity supervised assistive device/personal items within reach clutter free environment maintained fall prevention program maintained lighting adjusted nonskid shoes/slippers when out of bed room organization consistent safety round/check completed toileting scheduled Goal Outcome Evaluation: * Consuelo Martin, CCC-CREATIVE DEVELOPER - 01/26/2025 1:48 PM EDT Goal Outcome Evaluation: Plan of Care Reviewed With: patient Progress: no change Anticipated Discharge Disposition (CREATIVE DEVELOPER): senior living facility Treatment Assessment (CREATIVE DEVELOPER): continued, mild-moderate, cognitive-linguistic disorder (01/26/25 1300) Plan for Continued Treatment (CREATIVE DEVELOPER): continue treatment per plan of care (01/26/25 1300) * Talia Delgado, OT - 01/25/2025 10:11 AM EDT Goal Outcome Evaluation: Plan of Care Reviewed With: patient Progress: no change Outcome Evaluation: Pt. presents at baseline with ADLs and functional mobility. No further skilled OT services warranted at this time. Recommend return to LTC at discharge. Anticipated Discharge Disposition (OT): [facility] * Carmella Joseph, PT - 01/24/2025 3:05 PM EDT Goal Outcome Evaluation: Plan of Care Reviewed With: patient Outcome Evaluation: PT PRESENTS WITH EVOLVING SYMPTOMS TO INCLUDE IMPAIRED BALANCE, GENERALIZED WEAKNESS L >R, L HIP/LOWBACK PAIN, INCREASED TONE L LE AND DECLINE IN FUNCTIONAL MOBILITY. PER CHART, PT IS W/C BOUND. PT IS LIMITED PRIMARILY BY L HIP/LOWBACK. PT HAVING DIFFICULTY ISOLATING LOCATIONOF PAIN, BUT CRIES OUT WITH ROM OF L LE AND WHEN ROLLING IN BED. CURRENTLY PT REQUIRES MAX ASSIST OF 2 FOR FOR BED MOBILITY AND IS UNABLE TO MAINTAIN STATIC SITTING BALANCE WITHOUT MAX ASSIST OF 2. NEED TO CONFIRM PLOF AT ECF. RECOMMEND LIFT SYSTEM FOR UP TO CHAIR NEXT SESSION. CONSIDER D/C P.T. IFDETERMINED PT IS DEPENDENT VIA LIFT SYSTEM AT FACILITY. Anticipated Discharge Disposition (PT): extended care facility * Suzanne Castaneda MS CCC-CREATIVE DEVELOPER - 01/24/2025 1:59 PM EDT Goal Outcome Evaluation: Plan of Care Reviewed With: patient Anticipated Discharge Disposition (CREATIVE DEVELOPER): senior living facility CREATIVE DEVELOPER Diagnosis: mild, cognitive-linguistic disorder (01/24/25 1030) CREATIVE DEVELOPER Swallowing Diagnosis: mild, oral dysphagia, R/O pharyngeal dysphagia, other (see comments) (no suspected pharyngeal dysphagia) (01/24/25 1030) documented in this encounter Miscellaneous Notes * Case Management/Social Work - Amberly Wallace, RN - 01/26/2025 2:57 PM EDT Case Management Discharge Note Final Note: Pt to discharge back to [facility] 01/27/2025. Nurse to call report to [phone] askfor pts nurse. Discharge summary to be faxed to [phone]. Nurse to notify CM at [phone] when pt isready EMS dispatch. PCS on chartlet. No one at bedside for EMS DNR. Spoke to son to notivy of pending discharge and IMM EXPLAINED Selected Continued Care - Admitted Since 01/23/2025 Destination Coordination complete. Service Provider Services Address Phone Fax Patient Preferred [facility] [address] [id number] -- Durable Medical Equipment No services have been selected for the patient. Dialysis/Infusion No services have been selected for the patient. Home Medical Care No services have been selected for the patient. Therapy No services have been selected for the patient. Community Resources No services have been selected for the patient. Community & DME No services have been selected for the patient. Transportation Services Transportation: Ambulance Ambulance: [facility] Ambulance Status: Accepted Final Discharge Disposition Code: 04 - [facility] * Case Management/Social Work - Amberly Wallace RN - 01/26/2025 1:53 PM EDT Continued Stay Note Corinne Patient Name: Rimma Ridley Today's Date: 01/26/2025 Admit Date: 01/23/2025 Plan: Facility Discharge Plan Row Name 01/26/25 1351 Plan Plan Facility Plan Comments Message left with admissions department about medical readiness to return to facilitytomorrow and request numbers for report. Will update when obtained will need EMS for transport. CM will cont to follow Final Discharge Disposition Code 04 - intermediate care facility Discharge Codes No documentation. Expected Discharge Date and Time Expected Discharge Date Expected Discharge Time Jan 27, 2025 Amberly Wallace RN * Therapy Treatment Note - Consuelo Martin MS [facility]-CREATIVE DEVELOPER - 01/26/2025 1:50 PM EDT Acute Care - Speech Language Pathology Treatment Note Corinne Patient Name: Rimma Ridley : 1960 Today's Date: 01/26/2025 Admit Date: 01/23/2025 Visit Dx: ICD-10-CM ICD-9-CM 1. Cognitive communication deficit R41.841 799.52 2. Dysphagia, unspecified type R13.10 787.20 3. H/O: CVA (cerebrovascular accident) Z86.73 V12.54 Patient Active Problem List Diagnosis Fibromyalgia Pacemaker Primary hypertension Tobacco use Ischemic cardiomyopathy Aphasia H/O: CVA (cerebrovascular accident) History reviewed. No pertinent past medical history. History reviewed. No pertinent surgical history. CREATIVE DEVELOPER Recommendation and Plan Recommended discharge disposition is based on the functional assessment performed by PT/OT/Speech therapy (as applicable) and may not reflect the medical necessity determined by your provider or services covered by an individual patient's insurance plan or patient resource. CREATIVE DEVELOPER Diagnosis: mild, cognitive-linguistic disorder (01/26/25 1300) SLC Criteria for Skilled Therapy Interventions Met: yes (01/26/25 1300) Anticipated Discharge Disposition (CREATIVE DEVELOPER): senior living facility (01/26/25 1300) Therapy Frequency (CREATIVE DEVELOPER SLC): 5 days per week (01/26/25 1300) Predicted Duration Therapy Intervention (Days): 2 weeks (01/26/25 1300) Daily Summary of Progress (CREATIVE DEVELOPER): progress toward functional goals as expected (01/26/25 1300) Treatment Assessment (CREATIVE DEVELOPER): continued, mild-moderate, cognitive-linguistic disorder (01/26/25 1300) Plan for Continued Treatment (CREATIVE DEVELOPER): continue treatment per plan of care (01/26/25 1300) Progress: no change (01/26/25 1348) CREATIVE DEVELOPER EVALUATION (Last 72 Hours) CREATIVE DEVELOPER SLC Evaluation Row Name 01/26/25 1300 01/24/25 1030 Communication Assessment/Intervention Document Type therapy note (daily note) - evaluation - Subjective Information complains of;pain - no complaints - Patient Observations alert;cooperative;agree to therapy - alert;cooperative;agree to therapy - Patient/Family/Caregiver Comments/Observations None at bedside -SH none present - Patient Effort good -SH good - Symptoms Noted During/After Treatment none -SH none - General Information Patient Profile Reviewed yes -SH yes -CH Pertinent History Of Current Problem See previous CREATIVE DEVELOPER note -SH Admitted from SNF with LLE paralysisand mod LUE weakness, facial droop. Hx chronic R hemisphere CVAs - Precautions/Limitations, Vision -- WFL;for purposes of eval -CH Precautions/Limitations, Hearing -- WFL;for purposes of eval - Prior Level of Function-Communication -- unknown - Plans/Goals Discussed with -- patient;agreed upon - Barriers to Rehab -- none identified - Patient's Goals for Discharge -- patient did not state - Pain Pain Location buttock - -- Pain Side/Orientation generalized - -- Pain Management Interventions positioning techniques utilized - -- Response to Pain Interventions no change per patient report - -- Additional Documentation Pain Scale: FACES Pre/Post-Treatment (Group) - Pain Scale: FACES Pre/Post-Treatment (Group) - Pain Scale: FACES Pre/Post-Treatment Pain: FACES Scale, Pretreatment 4-->hurts little more -SH 2-->hurts little bit - Posttreatment Pain Rating 4-->hurts little more -SH 2-->hurts little bit - Pre/Posttreatment Pain Comment repositioned. -SH repositioned - Comprehension Assessment/Intervention Comprehension Assessment/Intervention -- Auditory Comprehension - Auditory Comprehension Assessment/Intervention Auditory Comprehension (Communication) -- [facility] Able to Identify Objects/Pictures (Communication) -- familiar objects;L - Answers Questions (Communication) -- yes/no;wh questions;personal;simple;WFL;complex;abstract;mild impairment - Able to Follow Commands (Communication) -- 2-step;[facility] - Narrative Discourse -- conversational level;[facility] - Successful Auditory Strategies (Communication) -- repetition - Expression Assessment/Intervention Expression Assessment/Intervention -- verbal expression - Verbal Expression Assessment/Intervention Verbal Expression -- mild impairment - Repetition -- phrases;[facility] - Phrase Completion -- unpredictable;[facility] Responsive Naming -- simple;[facility] Confrontational Naming -- low frequency;[facility] - Sentence Formulation -- complex;[facility] - Conversational Discourse/Fluency -- [facility] - Oral Motor Structure and Function Oral Motor Structure and Function -- mild impairment - Dentition Assessment -- edentulous, dentures not available - Mucosal Quality -- dry - Oral Musculature and Cranial Nerve Assessment Oral Motor General Assessment -- generalized oral motor weakness - Oral Labial or Buccal Impairment, Detail, Cranial Nerve VII (Facial): -- left labial droop - Lingual Impairment, Detail. Cranial Nerves IX, XII (Glossopharyngeal and Hypoglossal) -- reduced strength left - Motor Speech Assessment/Intervention Motor Speech Function -- WFL - Cursory Voice Assessment/Intervention Quality and Resonance (Voice) -- WN - Cognitive Assessment Intervention- CREATIVE DEVELOPER Cognitive Function (Cognition) -- mild impairment - Orientation Status (Cognition) -- awareness of basic personal information;person;WFL;place;time;situation;mild impairment - Memory (Cognitive) -- simple;immediate;long-term;WFL;short-term;delayed;mild impairment - Attention (Cognitive) -- selective;sustained;attention to detail;mild impairment - Thought Organization (Cognitive) -- concrete divergent;abstract divergent;concrete convergent;abstract convergent;mental manipulation;mild impairment - Reasoning (Cognitive) -- simple;deductive;WFL - Problem Solving (Cognitive) -- simple;temporal;mild impairment - Functional Math (Cognitive) -- simple;word problems;mild impairment - Pragmatics (Communication) -- WFL - CREATIVE DEVELOPER Evaluation Clinical Impressions CREATIVE DEVELOPER Diagnosis mild;cognitive-linguistic disorder - mild;cognitive-linguistic disorder - Rehab Potential/Prognosis good -SH good - SLC Criteria for Skilled Therapy Interventions Met yes - yes - Functional Impact functional impact in social situations;need frequent supervision;difficulty in expressing complex messages;difficulty completing home management task - functional impact in socialsituations;need frequent supervision;difficulty in expressing complex messages;difficulty completing home management task - CREATIVE DEVELOPER Treatment Clinical Impressions Treatment Assessment (CREATIVE DEVELOPER) continued;mild-moderate;cognitive-linguistic disorder - -- Daily Summary of Progress (CREATIVE DEVELOPER) progress toward functional goals as expected - -- Plan for Continued Treatment (CREATIVE DEVELOPER) continue treatment per plan of care - -- Care Plan Review care plan/treatment goals reviewed;patient/other agree to care plan - -- Recommendations Therapy Frequency (CREATIVE DEVELOPER SLC) 5 days per week - 5 days per week - Predicted Duration Therapy Intervention (Days) 2 weeks - 2 weeks - Anticipated Discharge Disposition (CREATIVE DEVELOPER) senior living facility - senior living facility - User Story (r) = Recorded By, (t) = Taken By, (c) = Cosigned By Initials Name Effective Dates Suzanne Castaneda MS CCC-CREATIVE DEVELOPER 06/01/24 - Consuelo Martin MS CCC-CREATIVE DEVELOPER 12/25/24 - EDUCATION The patient has been educated in the following areas: Cognitive Impairment Communication Impairment. CREATIVE DEVELOPER GOALS Row Name 01/26/25 1300 01/24/25 1030 (LTG) Patient will demonstrate functional swallow for Diet Texture (Demonstrate functional swallow) -- soft to chew (chopped) textures - Liquid viscosity (Demonstrate functional swallow) -- thin liquids - [place] (Demonstrate functional swallow) -- independently (over 90% accuracy) - Time Frame (Demonstrate functional swallow) -- 2 weeks - ([facility]) Patient will tolerate trials of Consistencies Trialed (Tolerate trials) -- mechanical ground textures;thin liquids - Desired Outcome (Tolerate trials) -- without signs/symptoms of aspiration;with adequate oral prep/transit/clearance -CH [place] (Tolerate trials) -- with minimal cues (75-90% accuracy) - Time Frame (Tolerate trials) -- 1 week - Patient will demonstrate functional cognitive-linguistic skills for return to discharge environment [place] with minimal cues - with minimal cues - Time frame 2 weeks -SH 2 weeks -CH Follow Directions Goal 2 (CREATIVE DEVELOPER) Improve Ability to Follow Directions Goal 1 ([facility]) 2 step commands;3 step commands;80%;with minimal cues (75-90%) - 2 step commands;3 step commands;80%;with minimal cues (75-90%) - Time Frame (Follow Directions Goal 1, CREATIVE DEVELOPER) 1 week - 1 week - Progress (Ability to Follow Directions Goal 1, CREATIVE DEVELOPER) with minimal cues (75- 90%);60% - -- Progress/Outcomes (Follow Directions Goal 1, CREATIVE DEVELOPER) continuing progress toward goal - -- Attention Goal 1 ([facility]) Improve Attention by Goal 1 (CREATIVE DEVELOPER) complete sustained attention task;80%;with minimal cues (75-90%) - complete sustained attention task;80%;with minimal cues (75-90%) - Time Frame (Attention Goal 1, CREATIVE DEVELOPER) 1 week - 1 week - Progress (Attention Goal 1, CREATIVE DEVELOPER) 60%;with minimal cues (75-90%) - -- Progress/Outcomes (Attention Goal 1, CREATIVE DEVELOPER) continuing progress toward goal - -- Orientation Goal 1 ([facility]) Improve Orientation Through Goal 1 ([facility]) demonstrating orientation to day;demonstrating orientationto month;demonstrating orientation to year;demonstrating orientation to place;demonstrating orientation to disease/impairment;90%;with minimal cues (75-90%) - demonstrating orientation to day;demonstrating orientation to month;demonstrating orientation to year;demonstrating orientation to place;demonstrating orientation to disease/impairment;90%;with minimal cues (75-90%) - Time Frame (Orientation Goal 1, CREATIVE DEVELOPER) 1 week - 1 week - Progress (Orientation Goal 1, CREATIVE DEVELOPER) with moderate cues (50-74%);50% - -- Progress/Outcomes (Orientation Goal 1, CREATIVE DEVELOPER) goal ongoing;continuing progress toward goal - -- Memory Skills Goal 1 (CREATIVE DEVELOPER) Improve Memory Skills Through Goal 1 (CREATIVE DEVELOPER) recalling related word lists with an imposed delay;listen to a paragraph and answer questions;80%;with minimal cues (75-90%) - recalling related word lists with an imposed delay;listen to a paragraph and answer questions;80%;with minimal cues (75-90%) - Time Frame (Memory Skills Goal 1, CREATIVE DEVELOPER) 1 week -SH 1 week -CH Progress (Memory Skills Goal 1, CREATIVE DEVELOPER) 70%;with minimal cues (75-90%) - -- Progress/Outcomes (Memory Skills Goal 1, CREATIVE DEVELOPER) continuing progress toward goal - SH -- Organizational Skills Goal 1 (CREATIVE DEVELOPER) Improve Thought Organization Through Goal 1 (CREATIVE DEVELOPER) completing a divergent naming task;naming similarities and differences;90%;with minimal cues (75-90%) - completing a divergent naming task;naming similarities and differences;90%;with minimal cues (75-90%) - Time Frame (Thought Organization Skills Goal 1, CREATIVE DEVELOPER) 1 week -SH 1 week -CH Progress/Outcomes (Thought Organization Skills Goal 1, CREATIVE DEVELOPER) goal ongoing -SH -- Functional Math Skills Goal 1 (CREATIVE DEVELOPER) Improve Functional Math Skills Through Goal 1 ([facility]) complete simple math problems;complete word problems involving time;complete word problems involving money;90%;with minimal cues (75-90%) - complete simple math problems;complete word problems involving time;complete word problems involving money;90%;with minimal cues (75-90%) - Time Frame (Functional Math Skills Goal 1, CREATIVE DEVELOPER) 1 week -SH 1 week - Progress/Outcomes (Functional Math Skills Goal 1, CREATIVE DEVELOPER) goal ongoing -SH -- User Story (r) = Recorded By, (t) = Taken By, (c) = Cosigned By Initials Name Provider Type Suzanne Castaneda MS [facility]-CREATIVE DEVELOPER Speech and Language Pathologist Consuelo Martin MS [facility]-CREATIVE DEVELOPER Speech and Language Pathologist Time Calculation: Time Calculation- CREATIVE DEVELOPER Row Name 01/26/25 1349 Time Calculation- CREATIVE DEVELOPER CREATIVE DEVELOPER Start Time 1300 -SH CREATIVE DEVELOPER Received On 01/26/25 - Untimed Charges 89506-[id number] Treatment/ST Modification Prosth Aug Alter 50 -SH Total Minutes Untimed Charges Total Minutes 50 -SH Total Minutes 50 -SH User Story (r) = Recorded By, (t) = Taken By, (c) = Cosigned By Initials Name Provider Type Consuelo Martin MS [facility]-CREATIVE DEVELOPER Speech and Language Pathologist Therapy Charges for Today Code Description Service Date Service Provider Modifiers Qty [id number] ST TREATMENT SPEECH 3 01/26/2025 Consuelo Martin MS CCC-CREATIVE DEVELOPER GN 1 Consuelo Martin MS CCC-NARESH 01/26/2025 * Case Management/Social Work - Amberly Wallace RN - 01/25/2025 12:18 PM EDT Images from the original note were not included. Discharge Planning Assessment [facility] Patient Name: Rimma Ridley Today's Date: 01/25/2025 Admit Date: 01/23/2025 Plan: IDP Discharge Needs Assessment Row Name 01/25/25 1213 Living Environment People in Home facility resident Current Living Arrangements assisted living facility Potentially Unsafe Housing Conditions none In the past 12 months has the electric, gas, oil, or water company threatened to shut off services in your home? No Primary Care Provided by other (see comments) Provides Primary Care For no one;no one, unable/limited ability to care for self Family Caregiver if Needed other (see comments) facility Quality of Family Relationships unable to assess Able to Return to Prior Arrangements yes Resource/Environmental Concerns Resource/Environmental Concerns none Transportation Concerns none Transportation Needs In the past 12 months, has lack of transportation kept you from medical appointments or from getting medications? no In the past 12 months, has lack of transportation kept you from meetings, work, or from getting things needed for daily living? No Food Insecurity Within the past 12 months, you worried that your food would run out before you got the money to buymore. Never true Within the past 12 months, the food you bought just didn't last and you didn't have money to get more. Never true Transition Planning Patient/Family Anticipates Transition to home with family Patient/Family Anticipated Services at Transition none Transportation Anticipated family or friend will provide Discharge Needs Assessment Readmission Within the Last 30 Days no previous admission in last 30 days Equipment Currently Used at Home wheelchair lift Concerns to be Addressed no discharge needs identified;denies needs/concerns at this time Do you want help finding or keeping work or a job? I do not need or want help Do you want help with school or training? For example, starting or completing job training or getting a high school diploma, GED or equivalent Yes Anticipated Changes Related to Illness none Equipment Needed After Discharge none Discharge Plan Row Name 01/25/25 1215 Plan Plan IDP Patient/Family in Agreement with Plan yes Plan Comments Spoke to administration at [facility] where pt resides. Pt able to return when medically ready. She requires a lift to Jennyfer chair at facility[facility] will [facility] at discharge. CM will cont to follow. Final Discharge Disposition Code 04 - intermediate care facility Continued Care and Services - Admitted Since 01/23/2025 Destination Service Provider Request Status Services Address Phone Fax Patient Preferred [facility] Accepted -- [place] [address] [phone] -- Demographic Summary Row Name 01/25/25 1212 General Information Admission Type inpatient [facility] Referral Source admission list Reason for Consult decision-making Preferred Language Micronesian Functional Status Row Name 01/25/25 1212 Functional Status Usual Activity Tolerance moderate Physical Activity On average, how many days per week do you engage in moderate to strenuous exercise (like a brisk walk)? 0 days On average, how many minutes do you engage in exercise at this level? 0 min Number of minutes of exercise per week 0 Functional Status, IADL Medications assistive person Meal Preparation assistive person Housekeeping assistive person Laundry assistive person Shopping assistive person If for any reason you need help with day-to-day activities such as bathing, preparing meals, shopping, managing finances, etc., do you get the help you need? I get all the help I need Psychosocial No documentation. Abuse/Neglect No documentation. Legal No documentation. Substance Abuse No documentation. Patient Forms No documentation. Amberly Wallace RN * Therapy Evaluation - Carmella Joseph PT - 01/24/2025 3:05 PM EDT Images from the original note were not included. Patient Name: Rimma Ridley : 1960 Today's Date: 01/24/2025 Admit Date: 01/23/2025 Visit Dx: ICD-10-CM ICD-9-CM 1. Cognitive communication deficit R41.841 799.52 2. Dysphagia, unspecified type R13.10 787.20 Patient Active Problem List Diagnosis Fibromyalgia Pacemaker Primary hypertension Tobacco use Ischemic cardiomyopathy Aphasia H/O: CVA (cerebrovascular accident) History reviewed. No pertinent past medical history. History reviewed. No pertinent surgical history. General Information Row Name 01/24/25 1544 Physical Therapy Time and Intention Document Type evaluation -CD Mode of Treatment physical therapy -CD Row Name 01/24/25 1544 General Information Patient Profile Reviewed yes -CD Prior Level of Function max assist:;bed mobility;w/c or scooter;transfer;dependent:;ADL's;min assist:;feeding PER NSG, PT WAS MAX ASSIST OF 2 AT ECF FOR UP TO W/C AND DEPENDENT WITH ADL'S. NEED TO CLARIFY PLOF FURTHER WELL IF SEVERE L HIP/LBP IS BASELINE. -CD Existing Precautions/Restrictions fall L SIDED WEAKNESS, LE>UE. LLE CONTRACTURE, HIP PAIN. -CD Barriers to Rehab medically complex;previous functional deficit;cognitive status;contractures -CD Row Name 01/24/25 1544 Living Environment Current Living Arrangements extended care facility -CD People in Home facility resident -CD Row Name 01/24/25 1544 Cognition Orientation Status (Cognition) oriented to;person;time;verbal cues/prompts needed for orientation;place THOUGHT SHE WAS [place]. -CD Row Name 01/24/25 1544 Safety Issues/Impairments Affecting Functional Mobility Safety Issues Affecting Function (Mobility) insight into deficits/self- awareness;awareness of need for assistance;positioning of assistive device;safety precaution awareness;safety precautions follow- through/compliance;sequencing abilities;ability to follow commands;problem- solving -CD Impairments Affecting Function (Mobility) balance;cognition;endurance/activity tolerance;motor control;motor planning;muscle tone abnormal;pain;postural/trunk control;range of motion (ROM);sensation/sensory awareness;strength -CD Cognitive Impairments, Mobility Safety/Performance insight into deficits/self- awareness;safety precaution awareness;safety precaution follow- through;sequencing abilities;problem-solving/reasoning;awareness, need for assistance -CD Comment, Safety Issues/Impairments (Mobility) PT LIMITED PRIMARILY BY L HIP/LOWBACK. PT HAVING DIFFICULTY TIME ISOLATING LOCATION OF PAIN, BUT CRIES OUT WITH ROM OF L LE AND WHEN ROLLING IN BED. -CD User Story (r) = Recorded By, (t) = Taken By, (c) = Cosigned By Initials Name Provider Type Carmella Lawton PT Physical Therapist Mobility Row Name 01/24/25 1090 Bed Mobility Bed Mobility rolling left;rolling right;sidelying-sit;sit-supine -CD Rolling Left Whitley (Bed Mobility) maximum assist (25% patient effort);2 person assist -CD Rolling Right Whitley (Bed Mobility) maximum assist (25% patient effort);2 person assist -CD Sit-Supine Whitley (Bed Mobility) dependent (less than 25% patient effort);2 person assist -CD Sidelying-Sit Whitley (Bed Mobility) maximum assist (25% patient effort);2 person assist -CD Comment, (Bed Mobility) BED MOBILITY ELICITS L HIP/LOWBACK PAIN. PT ABLE TO ASSIST WITH ROLLING VIABED RAILS WITH CUES. -CD Row Name 01/24/25 3275 Transfers Comment, (Transfers) DEFERRED. PT GIVING INCONSISTENT INFORMATION RE: TRANSFERS AT ECF. INITALLY STATED STAFF USED A LIFT SYSTEM THEN SAID SHE PIVOTED WITH ASSIST OF 2. PT UNABLE TO MAINTAIN STATIC SITTING BALANCE AT EOB. -CD Row Name 01/24/25 2808 Gait/Stairs (Locomotion) Whitley Level (Gait) other (see comments) -CD Patient was able to Ambulate no, other medical factors prevent ambulation -CD Reason Patient was unable to Ambulate Non-Ambulatory at Baseline PER CHART IS W/C BOUND SINCE CVA. -CD User Story (r) = Recorded By, (t) = Taken By, (c) = Cosigned By Initials Name Provider Type CD Carmella Joseph PT Physical Therapist Obj/Interventions Row Name 01/24/25 0839 Range of Motion Comprehensive General Range of Motion lower extremity range of motion deficits identified -CD Comment, General Range of Motion L LE PROM LIMITED APPROX 50%. PAIN ELICITED AT L HIP. UNABLE TO FULLY EXTEND L KNEE. R LE WFL;'S -CD Row Name 01/24/25 5775 Strength Comprehensive (MMT) Comment, General Manual Muscle Testing (MMT) Assessment L LE GROSSLY 0/5. R LE GROSSLY 3/5. ABLE TOPERFORM BRIEF SLR ON R. -CD Row Name 01/24/25 1340 Motor Skills Motor Skills coordination;functional endurance;muscle tone -CD Coordination gross motor deficit;left;lower extremity;severe impairment -CD Functional Endurance O2 SATS STABLE ON RA. -CD Muscle Tone left;lower extremity(s);hypertonia -CD Row Name 01/24/25 155 Balance Balance Interventions sitting;supported;static;dynamic;weight shifting activity -CD Comment, Balance PT DEMONSTRATED HEAVY POSTERIOR AND L LEAN, SITTING EOB. UNABLE TO MAINTAIN MIDLINE ORIENTATION. C/O L HIP PAIN. WORKED ON ANTERIOR ROCKING AND MIDLINE ORIENTATION. -CD Row Name 01/24/25 155 Sensory Assessment (Somatosensory) Sensory Assessment (Somatosensory) left LE -CD Left LE Sensory Assessment light touch awareness;impaired -CD User Story (r) = Recorded By, (t) = Taken By, (c) = Cosigned By Initials Name Provider Type CD Carmella Joseph, PT Physical Therapist Goals/Plan Row Name 01/24/25 1607 Bed Mobility Goal 1 (PT) Activity/Assistive Device (Bed Mobility Goal 1, PT) sit to supine/supine to sit -CD Whitley Level/Cues Needed (Bed Mobility Goal 1, PT) moderate assist (50-74% patient effort) -CD Time Frame (Bed Mobility Goal 1, PT) short term goal (STG);1 week -CD Row Name 01/24/25 167 Transfer Goal 1 (PT) Activity/Assistive Device (Transfer Goal 1, PT) [id number] -CD Whitley Level/Cues Needed (Transfer Goal 1, PT) maximum assist (25-49% patient effort) -CD Time Frame (Transfer Goal 1, PT) termite exterminator goal (LTG);2 weeks -CD Row Name 01/24/25 1608 Therapy Assessment/Plan (PT) Planned Therapy Interventions (PT) balance training;bed mobility training;transfer training;postural re-education;ROM (range of motion);strengthening -CD User Story (r) = Recorded By, (t) = Taken By, (c) = Cosigned By Initials Name Provider Type CD Carmella Joseph, PT Physical Therapist Clinical Impression Row Name 01/24/25 1400 Pain Pretreatment Pain Rating 10/10 -CD Posttreatment Pain Rating 9/10 -CD Pain Location hip;back -CD Pain Side/Orientation left -CD Pain Management Interventions exercise or physical activity utilized;positioning techniques utilized;movement retraining implemented -CD Response to Pain Interventions activity participation with decreased pain -CD Row Name 01/24/25 6769 Plan of Care Review Plan of Care Reviewed With patient -CD Outcome Evaluation PT PRESENTS WITH EVOLVING SYMPTOMS TO INCLUDE IMPAIRED BALANCE, GENERALIZED WEAKNESS L >R, L HIP/LOWBACK PAIN, INCREASED TONE L LE AND DECLINE IN FUNCTIONAL MOBILITY. PER CHART,PT IS W/C BOUND. PT IS LIMITED PRIMARILY BY L HIP/LOWBACK. PT HAVING DIFFICULTY ISOLATING LOCATION OF PAIN, BUT CRIES OUT WITH ROM OF L LE AND WHEN ROLLING IN BED. CURRENTLY PT REQUIRES MAX ASSIST OF2 FOR FOR BED MOBILITY AND IS UNABLE TO MAINTAIN STATIC SITTING BALANCE WITHOUT MAX ASSIST OF 2. NEED TO CONFIRM PLOF AT [facility]. RECOMMEND LIFT SYSTEM FOR UP TO CHAIR NEXT SESSION. CONSIDER D/C P.T. IF DETERMINED PT IS DEPENDENT VIA LIFT SYSTEM AT FACILITY. -CD Row Name 01/24/25 3337 Therapy Assessment/Plan (PT) Patient/Family Therapy Goals Statement (PT) DID NOT STATE. -CD Rehab Potential (PT) limited -CD Criteria for Skilled Interventions Met (PT) yes;skilled treatment is necessary;other (see comments)TBD FURTHER. -CD Therapy Frequency (PT) daily -CD Row Name 01/24/25 2541 Vital Signs Pre Systolic BP Rehab 148 -CD Pre Treatment Diastolic BP 83 -CD Post Systolic BP Rehab 125 -CD Post Treatment Diastolic BP 80 -CD Posttreatment Heart Rate (beats/min) 65 -CD Pre SpO2 (%) 95 -CD O2 Delivery Pre Treatment nasal cannula -CD Intra SpO2 (%) 96 -CD O2 Delivery Intra Treatment nasal cannula -CD Post SpO2 (%) 96 -CD O2 Delivery Post Treatment nasal cannula -CD Pre Patient Position Supine -CD Intra Patient Position Sitting -CD Post Patient Position Supine -CD User Story (r) = Recorded By, (t) = Taken By, (c) = Cosigned By Initials Name Provider Type CD Carmella Joseph, PT Physical Therapist Outcome Measures Row Name 01/24/25 1578 How much help from another person do you currently need... Turning from your back to your side while in flat bed without using bedrails? 2 -CD Moving from lying on back to sitting on the side of a flat bed without bedrails? 2 -CD Moving to and from a bed to a chair (including a wheelchair)? 1 -CD Standing up from a chair using your arms (e.g., wheelchair, bedside chair)? 1 -CD Climbing 3-5 steps with a railing? 1 -CD To walk in hospital room? 1 -CD AM-PAC 6 Clicks Score (PT) 8 -CD Row Name 01/24/25 1604 Modified Beverley Scale Modified Mobile Scale 5 - Severe disability. Bedridden, incontinent, and requiring constant nursingcare and attention. -CD Row Name 01/24/25 1604 Functional Assessment Outcome Measure Options Modified Mobile -CD User Story (r) = Recorded By, (t) = Taken By, (c) = Cosigned By Initials Name Provider Type CD Carmella Joseph PT Physical Therapist Physical Therapy Education Title: PT OT CREATIVE DEVELOPER Therapies (In Progress) Topic: Physical Therapy (Done) Point: Mobility training (Done) Learning Progress Summary Patient Acceptance, E, VU,NR by CD at 01/24/2025 1604 Comment: BENEFITS OF OOB ACTIVITY, SAFETY WITH MOBILITY, PROGRESSION OF POC, D/C PLANNING, Point: Home exercise program (Done) Learning Progress Summary Patient Acceptance, E, VU,NR by CD at 01/24/2025 1604 Comment: BENEFITS OF OOB ACTIVITY, SAFETY WITH MOBILITY, PROGRESSION OF POC, D/C PLANNING, Point: Body mechanics (Done) Learning Progress Summary Patient Acceptance, E, VU,NR by CD at 01/24/2025 1604 Comment: BENEFITS OF OOB ACTIVITY, SAFETY WITH MOBILITY, PROGRESSION OF POC, D/C PLANNING, Point: Precautions (Done) Learning Progress Summary Patient Acceptance, E, VU,NR by CD at 01/24/2025 1604 Comment: BENEFITS OF OOB ACTIVITY, SAFETY WITH MOBILITY, PROGRESSION OF POC, D/C PLANNING, User Story Initials Effective Dates Name Provider Type Discipline 06/15/22 - Carmella Joseph PT Physical Therapist PT PT Recommendation and Plan Recommended discharge disposition is based on the functional assessment performed by PT/OT/Speech therapy (as applicable) and may not reflect the medical necessity determined by your provider or services covered by an individual patient's insurance plan or patient resource. Planned Therapy Interventions (PT): balance training, bed mobility training, transfer training, postural re-education, ROM (range of motion), strengthening Therapy Frequency (PT): daily Outcome Evaluation: PT PRESENTS WITH EVOLVING SYMPTOMS TO INCLUDE IMPAIRED BALANCE, GENERALIZED WEAKNESS L >R, L HIP/LOWBACK PAIN, INCREASED TONE L LE AND DECLINE IN FUNCTIONAL MOBILITY. PER CHART, PT IS W/C BOUND. PT IS LIMITED PRIMARILY BY L HIP/LOWBACK. PT HAVING DIFFICULTY ISOLATING LOCATIONOF PAIN, BUT CRIES OUT WITH ROM OF L LE AND WHEN ROLLING IN BED. CURRENTLY PT REQUIRES MAX ASSIST OF 2 FOR FOR BED MOBILITY AND IS UNABLE TO MAINTAIN STATIC SITTING BALANCE WITHOUT MAX ASSIST OF 2. NEED TO CONFIRM PLOF AT ECF. RECOMMEND LIFT SYSTEM FOR UP TO CHAIR NEXT SESSION. CONSIDER D/C P.T. IFDETERMINED PT IS DEPENDENT VIA LIFT SYSTEM AT FACILITY. Time Calculation: PT Evaluation Complexity History, PT Evaluation Complexity: 3 or more personal factors and/or comorbidities Examination of Body Systems (PT Eval Complexity): total of 4 or more elements Clinical Presentation (PT Evaluation Complexity): evolving Clinical Decision Making (PT Evaluation Complexity): moderate complexity Overall Complexity (PT Evaluation Complexity): moderate complexity PT Charges Row Name 01/24/25 1607 Time Calculation Start Time 1505 -CD PT Received On 01/24/25 -CD PT Goal Re-Cert Due Date 02/03/25 -CD Time Calculation- PT Total Timed Code Minutes- PT 11 minute(s) -CD Timed Charges 46075 - PT Therapeutic Activity Minutes 11 -CD Untimed Charges PT Eval/Re-eval Minutes 60 -CD Total Minutes Timed Charges Total Minutes 11 -CD Untimed Charges Total Minutes 60 -CD Total Minutes 71 -CD User Story (r) = Recorded By, (t) = Taken By, (c) = Cosigned By Initials Name Provider Type CD Carmella Joseph, PT Physical Therapist Therapy Charges for Today Code Description Service Date Service Provider Modifiers Qty [id number] HC PT THERAPEUTIC ACT EA 15 MIN 01/24/2025 Carmella Joseph, PT GP 1 [id number] HC PT EVAL MOD COMPLEXITY 4 01/24/2025 Carmella Joseph, PT GP 1 PT G-Codes Outcome Measure Options: Modified Mobile AM-PAC 6 Clicks Score (PT): 8 Modified Mobile Scale: 5 - Severe disability. Bedridden, incontinent, and requiring constant nursing care and attention. PT Discharge Summary Anticipated Discharge Disposition (PT): extended care facility Carmella Joseph PT 01/24/2025 * Therapy Evaluation - Suzanne Castaneda, [facility]-CREATIVE DEVELOPER - 01/24/2025 1:57 PM EDT Images from the original note were not included. Acute Care - Speech Language Pathology Swallow Initial Evaluation [facility] Clinical Swallow Evaluation Patient Name: Rimma Ridley : 1960 Today's Date: 01/24/2025 Admit Date: 01/23/2025 Visit Dx: ICD-10-CM ICD-9-CM 1. Cognitive communication deficit R41.841 799.52 2. Dysphagia, unspecified type R13.10 787.20 Patient Active Problem List Diagnosis Fibromyalgia Pacemaker Primary hypertension Tobacco use Ischemic cardiomyopathy Aphasia H/O: CVA (cerebrovascular accident) History reviewed. No pertinent past medical history. History reviewed. No pertinent surgical history. CREATIVE DEVELOPER Recommendation and Plan Recommended discharge disposition is based on the functional assessment performed by PT/OT/Speech therapy (as applicable) and may not reflect the medical necessity determined by your provider or services covered by an individual patient's insurance plan or patient resource. CREATIVE DEVELOPER Swallowing Diagnosis: mild, oral dysphagia, R/O pharyngeal dysphagia, other (see comments) (no suspected pharyngeal dysphagia) (01/24/251029) CREATIVE DEVELOPER Diet Recommendation: mechanical ground textures, thin liquids (01/24/251029) Recommended Precautions and Strategies: small bites of food and sips of liquid, general aspiration precautions (01/24/251029) CREATIVE DEVELOPER Rec. for Method of Medication Administration: meds whole, with thin liquids, with puree, as tolerated (01/24/251029) Monitor for Signs of Aspiration: yes, notify CREATIVE DEVELOPER if any concerns (01/24/251029) Recommended Diagnostics: other (see comments) (diet tolerance) (01/24/251029) Swallow Criteria for Skilled Therapeutic Interventions Met: demonstrates skilled criteria () Anticipated Discharge Disposition (CREATIVE DEVELOPER): senior living facility (01/24/251029) Rehab Potential/Prognosis, Swallowing: good, to achieve stated therapy goals (01/24/251029) Therapy Frequency (Swallow): PRN, 5 days per week (01/24/251029) Predicted Duration Therapy Intervention (Days): 2 weeks (01/24/25 1030) Oral Care Recommendations: Oral Care BID/PRN, Toothbrush (01/24/25 1030) SWALLOW EVALUATION (Last 72 Hours) CREATIVE DEVELOPER Adult Swallow Evaluation Row Name 01/24/25 1030 General Information Current Method of Nutrition NPO - Prior Level of Function-Communication unknown;other (see comments) hx prior R CVAs -CH Prior Level of Function-Swallowing no diet consistency restrictions - Patient's Goals for Discharge patient did not state - Oral Motor Structure and Function Secretion Management WNL/WFL -CH General Eating/Swallowing Observations Respiratory Support Currently in Use room air - Eating/Swallowing Skills self-fed;appropriate self-feeding skills observed - Positioning During Eating upright 90 degree;upright in bed - Utensils Used spoon;cup;straw - Consistencies Trialed ice chips;thin liquids;pureed;regular textures - Pre SpO2 (%) 94 -CH Post SpO2 (%) 95 -CH Clinical Swallow Eval Oral Prep Phase impaired - Oral Transit WFL -CH Oral Residue WFL -CH Pharyngeal Phase no overt signs/symptoms of pharyngeal impairment - Esophageal Phase unremarkable - Oral Prep Concerns Oral Prep Concerns prolonged mastication;other (see comments) d/t missing dentures (left at SNF) - Prolonged Mastication regular consistencies - Swallowing Quality of Life Assessment Education and counseling provided Signs of aspiration;Risks of aspiration;Safest diet options;Oral care recommendations and rationale;Aspiration precautions - CREATIVE DEVELOPER Evaluation Clinical Impression CREATIVE DEVELOPER Swallowing Diagnosis mild;oral dysphagia;R/O pharyngeal dysphagia;other (see comments) no suspected pharyngeal dysphagia - Functional Impact risk of aspiration/pneumonia - Rehab Potential/Prognosis, Swallowing good, to achieve stated therapy goals - Swallow Criteria for Skilled Therapeutic Interventions Met demonstrates skilled criteria - Recommendations Therapy Frequency (Swallow) PRN;5 days per week - CREATIVE DEVELOPER Diet Recommendation mechanical ground textures;thin liquids - Recommended Diagnostics other (see comments) diet tolerance - Recommended Precautions and Strategies small bites of food and sips of liquid;general aspiration precautions - Oral Care Recommendations Oral Care BID/PRN;Toothbrush - CREATIVE DEVELOPER Rec. for Method of Medication Administration meds whole;with thin liquids;with puree;as tolerated - Monitor for Signs of Aspiration yes;notify CREATIVE DEVELOPER if any concerns - User Story (r) = Recorded By, (t) = Taken By, (c) = Cosigned By Initials Name Effective Dates CH Suzanne Castaneda MS [facility]-CREATIVE DEVELOPER 06/01/24 - EDUCATION The patient has been educated in the following areas: Dysphagia (Swallowing Impairment) Oral Care/Hydration Modified Diet Instruction. CREATIVE DEVELOPER GOALS Row Name 01/24/25 1030 (LTG) Patient will demonstrate functional swallow for Diet Texture (Demonstrate functional swallow) soft to chew (chopped) textures -CH Liquid viscosity (Demonstrate functional swallow) thin liquids -CH Whitley (Demonstrate functional swallow) independently (over 90% accuracy) -CH Time Frame (Demonstrate functional swallow) 2 weeks -CH (STG) Patient will tolerate trials of Consistencies Trialed (Tolerate trials) mechanical ground textures;thin liquids -CH Desired Outcome (Tolerate trials) without signs/symptoms of aspiration;with adequate oral prep/transit/clearance -CH Whitley (Tolerate trials) with minimal cues (75-90% accuracy) - Time Frame (Tolerate trials) 1 week -CH Patient will demonstrate functional cognitive-linguistic skills for return to discharge environment Whitley with minimal cues -CH Time frame 2 weeks -CH Follow Directions Goal 2 (CREATIVE DEVELOPER) Improve Ability to Follow Directions Goal 1 (CREATIVE DEVELOPER) 2 step commands;3 step commands;80%;with minimal cues (75-90%) -CH Time Frame (Follow Directions Goal 1, CREATIVE DEVELOPER) 1 week -CH Attention Goal 1 (CREATIVE DEVELOPER) Improve Attention by Goal 1 (CREATIVE DEVELOPER) complete sustained attention task;80%;with minimal cues (75-90%) - Time Frame (Attention Goal 1, CREATIVE DEVELOPER) 1 week -CH Orientation Goal 1 (CREATIVE DEVELOPER) Improve Orientation Through Goal 1 (CREATIVE DEVELOPER) demonstrating orientation to day;demonstrating orientationto month;demonstrating orientation to year;demonstrating orientation to place;demonstrating orientation to disease/impairment;90%;with minimal cues (75-90%) - Time Frame (Orientation Goal 1, CREATIVE DEVELOPER) 1 week -CH Memory Skills Goal 1 (CREATIVE DEVELOPER) Improve Memory Skills Through Goal 1 (CREATIVE DEVELOPER) recalling related word lists with an imposed delay;listen to a paragraph and answer questions;80%;with minimal cues (75-90%) -CH Time Frame (Memory Skills Goal 1, CREATIVE DEVELOPER) 1 week -CH Organizational Skills Goal 1 (CREATIVE DEVELOPER) Improve Thought Organization Through Goal 1 (CREATIVE DEVELOPER) completing a divergent naming task;naming similarities and differences;90%;with minimal cues (75-90%) - Time Frame (Thought Organization Skills Goal 1, CREATIVE DEVELOPER) 1 week - Functional Math Skills Goal 1 (CREATIVE DEVELOPER) Improve Functional Math Skills Through Goal 1 (CREATIVE DEVELOPER) complete simple math problems;complete word problems involving time;complete word problems involving money;90%;with minimal cues (75-90%) - Time Frame (Functional Math Skills Goal 1, CREATIVE DEVELOPER) 1 week - User Story (r) = Recorded By, (t) = Taken By, (c) = Cosigned By Initials Name Provider Type Suzanne Pena MS CCC-CREATIVE DEVELOPER Speech and Language Pathologist Time Calculation: Time Calculation- CREATIVE DEVELOPER Row Name 01/24/25 1357 Time Calculation- CREATIVE DEVELOPER CREATIVE DEVELOPER Start Time 1030 -CH CREATIVE DEVELOPER Received On 01/24/25 - Untimed Charges CREATIVE DEVELOPER Eval/Re-eval ST Eval Speech and Production w/ Language - 81040;ST Eval Oral Pharyng Swallow - 76224 -CH 35342-ZW Eval Speech and Production w/ Language Minutes 38 -CH 94076-BS Eval Oral Pharyng Swallow Minutes 41 -CH Total Minutes Untimed Charges Total Minutes 79 -CH Total Minutes 79 -CH User Story (r) = Recorded By, (t) = Taken By, (c) = Cosigned By Initials Name Provider Type Suzanne Pena MS CCC-CREATIVE DEVELOPER Speech and Language Pathologist Therapy Charges for Today Code Description Service Date Service Provider Modifiers Qty 06953463167 HC ST EVAL ORAL PHARYNG SWALLOW 3 01/24/2025 Suzanne Castaneda MS CCC-CREATIVE DEVELOPER GN [address] EVAL SPEECH AND PROD W LANG 3 01/24/2025 Suzanne Castaneda MS CCC-CREATIVE DEVELOPER GN 1 Suzanne Castaneda MS CCC-NARESH 01/24/2025 and Acute Care - Speech Language Pathology Initial Evaluation [facility] Cognitive-Communication Evaluation Patient Name: Rimma Ridley : 1960 Today's Date: 01/24/2025 Admit Date: 01/23/2025 Visit Dx: ICD-10-CM ICD-9-CM 1. Cognitive communication deficit R41.841 799.52 2. Dysphagia, unspecified type R13.10 787.20 Patient Active Problem List Diagnosis Fibromyalgia Pacemaker Primary hypertension Tobacco use Ischemic cardiomyopathy Aphasia H/O: CVA (cerebrovascular accident) History reviewed. No pertinent past medical history. History reviewed. No pertinent surgical history. CREATIVE DEVELOPER Recommendation and Plan Recommended discharge disposition is based on the functional assessment performed by PT/OT/Speech therapy (as applicable) and may not reflect the medical necessity determined by your provider or services covered by an individual patient's insurance plan or patient resource. CREATIVE DEVELOPER Diagnosis: mild, cognitive-linguistic disorder (01/24/251029) Monitor for Signs of Aspiration: yes, notify CREATIVE DEVELOPER if any concerns (01/24/251029) Swallow Criteria for Skilled Therapeutic Interventions Met: demonstrates skilled criteria () SLC Criteria for Skilled Therapy Interventions Met: yes (01/24/251029) Anticipated Discharge Disposition (CREATIVE DEVELOPER): senior living facility (01/24/251029) Therapy Frequency (Swallow): PRN, 5 days per week (01/24/251029) Therapy Frequency (CREATIVE DEVELOPER SLC): 5 days per week (01/24/251029) Predicted Duration Therapy Intervention (Days): 2 weeks (01/24/251029) Oral Care Recommendations: Oral Care BID/PRN, Toothbrush (01/24/251029) CREATIVE DEVELOPER EVALUATION (Last 72 Hours) CREATIVE DEVELOPER SLC Evaluation Row Name 01/24/251029 Communication Assessment/Intervention Document Type evaluation - Subjective Information no complaints - Patient Observations alert;cooperative;agree to therapy - Patient/Family/Caregiver Comments/Observations none present -CH Patient Effort good -CH Symptoms Noted During/After Treatment none -CH General Information Patient Profile Reviewed yes -CH Pertinent History Of Current Problem Admitted from SNF with LLE paralysis and mod LUE weakness, facial droop. Hx chronic R hemisphere CVAs -CH Precautions/Limitations, Vision WFL;for purposes of eval -CH Precautions/Limitations, Hearing WFL;for purposes of eval -CH Prior Level of Function-Communication unknown - Plans/Goals Discussed with patient;agreed upon - Barriers to Rehab none identified - Patient's Goals for Discharge patient did not state - Pain Additional Documentation Pain Scale: FACES Pre/Post-Treatment (Group) - Pain Scale: FACES Pre/Post-Treatment Pain: FACES Scale, Pretreatment 2-->hurts little bit -CH Posttreatment Pain Rating 2-->hurts little bit - Pre/Posttreatment Pain Comment repositioned - Comprehension Assessment/Intervention Comprehension Assessment/Intervention Auditory Comprehension - Auditory Comprehension Assessment/Intervention Auditory Comprehension (Communication) WFL - Able to Identify Objects/Pictures (Communication) familiar objects;WNL - Answers Questions (Communication) yes/no;wh questions;personal;simple;WFL;complex;abstract;mild impairment -CH Able to Follow Commands (Communication) 2-step;WFL - Narrative Discourse conversational level;WFL - Successful Auditory Strategies (Communication) repetition -CH Expression Assessment/Intervention Expression Assessment/Intervention verbal expression - Verbal Expression Assessment/Intervention Verbal Expression mild impairment -CH Repetition phrases;WFL -CH Phrase Completion unpredictable;WFL - Responsive Naming simple;WFL - Confrontational Naming low frequency;L - Sentence Formulation complex;WFL -CH Conversational Discourse/Fluency WFL - Oral Motor Structure and Function Oral Motor Structure and Function mild impairment -CH Dentition Assessment edentulous, dentures not available - Mucosal Quality dry - Oral Musculature and Cranial Nerve Assessment Oral Motor General Assessment generalized oral motor weakness - Oral Labial or Buccal Impairment, Detail, Cranial Nerve VII (Facial): left labial droop - Lingual Impairment, Detail. Cranial Nerves IX, XII (Glossopharyngeal and Hypoglossal) reduced strength left - Motor Speech Assessment/Intervention Motor Speech Function WFL - Cursory Voice Assessment/Intervention Quality and Resonance (Voice) WNL - Cognitive Assessment Intervention- CREATIVE DEVELOPER Cognitive Function (Cognition) mild impairment -CH Orientation Status (Cognition) awareness of basic personal information;person;WFL;place;time;situation;mild impairment -CH Memory (Cognitive) simple;immediate;long-term;WFL;short-term;delayed;mild impairment -CH Attention (Cognitive) selective;sustained;attention to detail;mild impairment -CH Thought Organization (Cognitive) concrete divergent;abstract divergent;concrete convergent;abstractconvergent;mental manipulation;mild impairment -CH Reasoning (Cognitive) simple;deductive;WFL - Problem Solving (Cognitive) simple;temporal;mild impairment -CH Functional Math (Cognitive) simple;word problems;mild impairment -CH Pragmatics (Communication) WFL - CREATIVE DEVELOPER Evaluation Clinical Impressions CREATIVE DEVELOPER Diagnosis mild;cognitive-linguistic disorder - Rehab Potential/Prognosis good - SLC Criteria for Skilled Therapy Interventions Met yes -CH Functional Impact functional impact in social situations;need frequent supervision;difficulty in expressing complex messages;difficulty completing home management task - Recommendations Therapy Frequency (CREATIVE DEVELOPER SLC) 5 days per week -CH Predicted Duration Therapy Intervention (Days) 2 weeks -CH Anticipated Discharge Disposition (CREATIVE DEVELOPER) senior living facility - User Story (r) = Recorded By, (t) = Taken By, (c) = Cosigned By Initials Name Effective Dates Suzanne Castaneda MS [facility]-CREATIVE DEVELOPER 06/01/24 - EDUCATION The patient has been educated in the following areas: Cognitive Impairment Communication Impairment. CREATIVE DEVELOPER GOALS Row Name 01/24/25 1030 (LTG) Patient will demonstrate functional swallow for Diet Texture (Demonstrate functional swallow) soft to chew (chopped) textures - Liquid viscosity (Demonstrate functional swallow) thin liquids - Whitley (Demonstrate functional swallow) independently (over 90% accuracy) - Time Frame (Demonstrate functional swallow) 2 weeks -CH (STG) Patient will tolerate trials of Consistencies Trialed (Tolerate trials) mechanical ground textures;thin liquids - Desired Outcome (Tolerate trials) without signs/symptoms of aspiration;with adequate oral prep/transit/clearance -CH Whitley (Tolerate trials) with minimal cues (75-90% accuracy) - Time Frame (Tolerate trials) 1 week -CH Patient will demonstrate functional cognitive-linguistic skills for return to discharge environment Whitley with minimal cues - Time frame 2 weeks -CH Follow Directions Goal 2 (CREATIVE DEVELOPER) Improve Ability to Follow Directions Goal 1 (CREATIVE DEVELOPER) 2 step commands;3 step commands;80%;with minimal cues (75-90%) - Time Frame (Follow Directions Goal 1, CREATIVE DEVELOPER) 1 week -CH Attention Goal 1 (CREATIVE DEVELOPER) Improve Attention by Goal 1 (CREATIVE DEVELOPER) complete sustained attention task;80%;with minimal cues (75-90%) - Time Frame (Attention Goal 1, CREATIVE DEVELOPER) 1 week -CH Orientation Goal 1 (CREATIVE DEVELOPER) Improve Orientation Through Goal 1 (CREATIVE DEVELOPER) demonstrating orientation to day;demonstrating orientationto month;demonstrating orientation to year;demonstrating orientation to place;demonstrating orientation to disease/impairment;90%;with minimal cues (75-90%) - Time Frame (Orientation Goal 1, CREATIVE DEVELOPER) 1 week -CH Memory Skills Goal 1 (CREATIVE DEVELOPER) Improve Memory Skills Through Goal 1 (CREATIVE DEVELOPER) recalling related word lists with an imposed delay;listen to a paragraph and answer questions;80%;with minimal cues (75-90%) -CH Time Frame (Memory Skills Goal 1, CREATIVE DEVELOPER) 1 week -CH Organizational Skills Goal 1 (CREATIVE DEVELOPER) Improve Thought Organization Through Goal 1 (CREATIVE DEVELOPER) completing a divergent naming task;naming similarities and differences;90%;with minimal cues (75-90%) -CH Time Frame (Thought Organization Skills Goal 1, CREATIVE DEVELOPER) 1 week -CH Functional Math Skills Goal 1 (CREATIVE DEVELOPER) Improve Functional Math Skills Through Goal 1 (CREATIVE DEVELOPER) complete simple math problems;complete word problems involving time;complete word problems involving money;90%;with minimal cues (75-90%) -CH Time Frame (Functional Math Skills Goal 1, CREATIVE DEVELOPER) 1 week -CH User Story (r) = Recorded By, (t) = Taken By, (c) = Cosigned By Initials Name Provider Type Suzanne Pena MS CCC-NARESH Speech and Language Pathologist Time Calculation: Time Calculation- CREATIVE DEVELOPER Row Name 01/24/25 1357 Time Calculation- CREATIVE DEVELOPER CREATIVE DEVELOPER Start Time 1030 -CH CREATIVE DEVELOPER Received On 01/24/25 -CH Untimed Charges CREATIVE DEVELOPER Eval/Re-eval ST Eval Speech and Production w/ Language - 31643;ST Eval Oral Pharyng Swallow - 71028 -CH 07792-OY Eval Speech and Production w/ Language Minutes 38 -CH 44841-MX Eval Oral Pharyng Swallow Minutes 41 -CH Total Minutes Untimed Charges Total Minutes 79 -CH Total Minutes 79 -CH User Story (r) = Recorded By, (t) = Taken By, (c) = Cosigned By Initials Name Provider Type Suzanne Pena MS CCC-NARESH Speech and Language Pathologist Therapy Charges for Today Code Description Service Date Service Provider Modifiers Qty [id number] HC ST EVAL ORAL PHARYNG SWALLOW 3 01/24/2025 Suzanne Castaneda MS CCC-SLP GN [id number] EVAL SPEECH AND PROD W LANG 3 01/24/2025 Suzanne Castaneda MS CCC-SLP GN 1 MS CHILO Bhatia 01/24/2025 documented in this encounter Plan of Treatment Upcoming Encounters Date Type Department Care Team (Late st Contact Info) Description 04/16/2025 1:30 PM EST Office Visit [facility] NEUROLOGY [address] [facility] [address] [place], [place] [phone] Joan Vick APRN [address] [facility] [address] [place] [address] 05/20/2025 9:45 AM EST Office Visit [facility] CARDIOLOGY [address] [facility] [address] [place] [id number] Sarkis Manning MD [address] [facility] [address] [place], [place] [id number] Scheduled Orders Name Type Priority Associated Diagnoses Orde r Schedule Cardiology Scan Cardiac Services Onc e for 1 Occurrences starting 01/29/2025 until 01/29/2025 Scheduled Referrals Name Type Priority Associated Diagnoses Order Schedule Ambulatory Referral to Neurology Outpatient Referral Routine H/O: CVA (cerebrovascular accident) Ordered: 01/26/2025 documented as of this encounter Procedures Procedure Name Priority Date/Time Associated Diagnosis Comments EP STUDY Routine 01/26/2025 6:37 PM EDT CBC (NO DIFF) Routine 01/25/2025 6:23 PM EDT BASIC METABOLIC PANEL Routine 01/25/2025 6:23 PM EDT ECG 12-LEAD Routine 01/25/2025 12:[address] HEAD WO CONTRAST Routine 01/24/2025 6 :26 PM EDT POCT GLUCOSE FINGERSTICK Routine 01/24/2025 12:41 PM EDT ECHO COMPLETE W/ DOPPLER AND COLOR FLOW Routine 01/24/2025 10:13 AM EDT HEMOGLOBIN A1C Routine 01/24/2025 7:27 AM EDT LIPID PANEL Routine 01/24/2025 7:27 AM EDT POCT GLUCOSE FINGERSTICK Routine 01/24/2025 6:14 AM EDT PROTIME-INR STAT 01/24/2025 1:00 AM EDT CBC (NO DIFF) STAT 01/24/2025 1:00 AM EDT COMPREHENSIVE METABOLIC PANEL STAT 01/24/2025 1:00 AM EDT ECG 12-LEAD Routine 01/23/2025 10:42 PM EDT POCT GLUCOSE FINGERSTICK Routine 01/23/2025 9:48 PM EDT documented in this encounter Results * PPM GENERATOR CHANGE BI-V (01/26/2025 6:37 PM EDT) Anatomical Region Laterality Modality X-Ray Angiograph y Narrative 01/26/2025 6:50 PM EDT FINAL IMPRESSIONS: Successful Bi-Ventricular Permanent Pacemaker generator removal. Successful insertion of a new Bi-Ventricular Permanent Pacemaker generator. RECOMMENDATION(S): The patient will be monitored on telemetry. If stable, the patient will be discharged home later today. Sarkis Manning MD Cardiac Manager Biostatistics [facility] 01/26/25 18:37 EDT Procedure Narrative Date of Procedure: 01/26/25 MILLING PLANER OPERATOR/SALVAGER: Sarkis Manning MD PROCEDURE(S) PERFORMED: 1. Removal of a Bi-Ventricular Permanent Pacemaker generator. 2. Insertion of a Bi-Ventricular Permanent Pacemaker generator. INDICATIONS FOR PROCDEDURE: Device at JASMIN MEDICATION(S) GIVEN TO PATIENT DURING THIS PROCEDURE: Moderate sedation was given during this procedure. I supervised and directed Juan R Shaver RN to administer this sedation. This staff member also monitored the patient's hemodynamic and respiratory status and response to these medications. Please see the full detailed procedure report generated by the electrophysiology laboratory staff. The patient tolerated moderate sedation well. There were no complications regarding sedation. The total dose of fentanyl was 200 mcg and the total dose of midazolam was 3 mg. The total dose of Brevital was -. First sedation was administered at 1803 and continued through 1836. DESCRIPTION(S) OF THE PROCEDURE: The patient was brought to the cardiovascular laboratory in a non-sedated state. The risks and benefits of conscious sedation and revision of her system were explained to the patient and written, informed consent was obtained. The patient was then prepped and draped in the usual sterile fashion. The left infraclavicular fossa was anesthetized with 1% Lidocaine and the skin was incised using a scalpel. The old pocket was then entered, and the floor of the capsule was partially debrided. The old Bi-Ventricular Pacemaker generator was subsequently removed. The right ventricular lead pacing threshold was measured at 0.75 volts at 0.5 milliseconds with an R wave measured at 14.1 millivolts and a lead impedance measured at 532 ohms. The left ventricular lead pacing threshold was measured at 2.25 volts at 0.8 milliseconds with an R wave measured at 14.1 millivolts and a lead impedance measured at 817 ohms. The right atrial lead pacing threshold was measured at AF volts at 0.5 milliseconds with a P wave measured at 0.5 millivolts and a lead impedance measured at 418 ohms. The leads were attached to the new pacemaker generator, which was then placed in the pocket after the pocket was irrigated. The pocket was closed with 2-0 Vicryl for the deep and medium layers, and the skin was closed with 3-0 Stratafix. An Aquacel dressing and a pressure dressing were then applied. Estimated blood loss was minimal. Hemostasis was adequate. The Bi-Ventricular Pacemaker was then programmed to its final setting. The patient tolerated the procedure without difficulty and was transferred to their room in stable condition. Complications: None ESTIMATED BLOOD LOSS: less than 20 cc FINAL PROGRAM PARAMETERS: The device was set at VVI with a lower rate of 50 beats per minute and upper rate of 130 beats per minute with prolonged A-V delay. us Sarkis Manning MD CV ELECTROPHYSIOLOGY ORDERABLES Final Result * (ABNORMAL) CBC (No Diff) (01/25/2025 6:23 PM EDT) WBC 12.07(H) 3.40 - 10.80 10*3/mm3 01/25/2025 6:51 PM EDT [facility] RBC 4.96 3.77 - 5.28 10*6/mm3 01/25/2025 6:51 PM EDT [facility] Hemoglobin 14.3 12.0 - 15.9 g/dL 01/25/2025 6:51 PM EDT [facility] Hematocrit 44.6 34.0 - 46.6 % 01/25/2025 6:51 PM EDT [facility] MCV 89.9 79.0 - 97.0 fL 01/25/2025 6:51 PM EDT [facility] MCH 28.8 26.6 - 33.0 pg 01/25/2025 6:51 PM EDT [facility] MCHC 32.1 31.5 - 35.7 g/dL 01/25/2025 6:51 PM EDT [facility] RDW 13.7 12.3 - 15.4 % 01/25/2025 6:51 PM EDT [facility] RDW-SD 45.1 37.0 - 54.0 fl 01/25/2025 6:51 PM EDT [facility] MPV 10.2 6.0 - 12.0 fL 01/25/2025 6:51 PM EDT [facility] Platelets 150 140 - 450 10*3/mm3 01/25/2025 6:51 PM EDT [facility] Blood Venipuncture / Unknown 01/25/2025 6:23 PM EDT 01/25/2025 6:48 PM EDT us Akash Tan DO LAB BLOOD ORDERABLES Romana schaeffer Result [facility]
[address] [place] [address], * (ABNORMAL) Basic Metabolic Panel (01/25/2025 6:23 PM EDT) [facility] Glucose 109(H) 65 - 99 mg/dL 01/25/2025 7:21 PM T [facility] BUN 17.4 8.0 - 23.0 mg/dL 01/25/2025 7:21 PM T [facility] Creatinine 0.95 0.57 - 1.00 mg/dL 01/25/2025 7:21 PM EDT [facility] Sodium 136 136 - 145 mmol/L 01/25/2025 7:21 PM T [facility] Potassium 3.9 3.5 - 5.2 mmol/L 01/25/2025 7:21 PM EDT [facility] Chloride 99 98 - 107 mmol/L 01/25/2025 7:21 PM [facility] CO2 24.4 22.0 - 29.0 mmol/L 01/25/2025 7:21 PM EDT [facility] Calcium 8.8 8.6 - 10.5 mg/dL 01/25/2025 7:21 PM T [facility] BUN/Creatinine Ratio 18.3 7.0 - 25.0 01/25/2025 7:21 PM T [facility] Anion Gap 12.6 5.0 - 15.0 mmol/L 01/25/2025 7:21 PM [facility] eGFR 67.5 >60.0 mL/min/1.7 3 01/25/2025 7:21 PM T [facility] Blood Venipuncture / Unknown 01/25/2025 6:23 PM EDT 01/25/2025 6:48 PM EDT [facility] - 01/25/2025 7:21 PM EDT GFR Categories in Chronic Kidney Disease (CKD) GFR Category GFR (mL/min/1.73) Interpretation G1 90 or greater Normal or high (1) G2 60-89 Mild decrease (1) G3a 45-59 Mild to moderate decrease G3b 30-44 Moderate to severe decrease G4 15-29 Severe decrease G5 14 or less Kidney failure (1)In the absence of evidence of kidney disease, neither GFR category G1 or G2 fulfill the criteria for CKD. eGFR calculation 2020 CKD-EPI creatinine equation, which does not include race as a factor Akash Tan DO LAB BLOOD ORDERABLES Romana schaeffer Result Performing Organization Address City/State/[facility] Co de Phone Number [facility]
[address] [place] [address], * ECG 12 Lead Chest Pain (01/25/2025 12:57 PM EDT) QT Interval 510 ms ECG QTC Interval 500 ms ECG 01/25/2025 12:5 7 PM EDT 01/25/2025 3:51 PM EDT Narrative ECG - 01/25/2025 3:51 PM EDT Test Reason : Chest Pain Blood Pressure : */* mmHG Vent. Rate : 58 BPM Atrial Rate : 48 BPM P-R Int : * ms QRS Dur : 140 ms QT Int : 510 ms P-R-T Axes : * -59 156 degrees QTcB Int : 500 ms Ventricular-paced rhythm Abnormal ECG When compared with ECG of 23-Jan-2025 22:42, Vent. rate has decreased by 7 bpm Confirmed by Sarkis Manning ([id number]) on 01/25/2025 3:51:07 PM Referred By: PONCHO Confirmed By: Sarkis Manning Procedure Note Sarkis Manning MD - 01/25/2025 Test Reason : Chest Pain Blood Pressure : */* mmHG Vent. Rate : 58 BPM Atrial Rate : 48 BPM P-R Int : * ms QRS Dur : 140 ms QT Int : 510 ms P-R-T Axes : * -59 156 degrees QTcB Int : 500 ms Ventricular-paced rhythm Abnormal ECG When compared with ECG of 23-Jan-2025 22:42, Vent. rate has decreased by 7 bpm Confirmed by Sarkis Manning ([id number]) on 01/25/2025 3:51:07 PM Referred By: PONCHO Confirmed By: Sarkis Manning Pam Kothari MD ECG ORDERABLES Final Result BH ECG * CT Head Without Contrast (01/24/2025 6:26 PM EDT) Anatomical Region Laterality Modality Head N/A Computed Tomogra phy 01/24/2025 7:37 PM EDT Impressions 01/24/2025 7:39 PM EDT Impression: No significant interval change. Electronically Signed: Hugo Finnegan MD 01/24/2025 7:39 PM EDT Workstation ID: [id number] DxDesc Narrative 01/24/2025 7:[address] HEAD WO CONTRAST Date of Exam: 01/24/2025 6:09 PM EDT Indication: Stroke evluation. Comparison: Outside CT head 01/23/2025 Technique: Axial CT images were obtained of the head without contrast administration. Automated exposure control and iterative construction methods were used. Findings: There is no evidence of acute territorial infarction. There is no acute intracranial hemorrhage. There are no extra-axial collections. Ventricles and CSF spaces are symmetric. No mass effect nor hydrocephalus. Brain parenchyma appears unchanged with advanced white matter hypoattenuation and previous right anterior cerebral and posterior cerebral artery territory infarctions. Correlate with history. Paranasal sinuses and mastoid air cells are adequately aerated. Osseous structures and orbits appear intact. Procedure Note Hugo Finnegan MD - 01/24/2025 CT HEAD WO CONTRAST Date of Exam: 01/24/2025 6:09 PM EDT Indication: Stroke evluation. Comparison: Outside CT head 01/23/2025 Technique: Axial CT images were obtained of the head without contrastadministration. Automated exposure control and iterative constructionmethods were used. Findings: There is no evidence of acute territorial infarction. There is no acute intracranial hemorrhage. There are no extra-axialcollections. Ventricles and CSF spaces are symmetric. No mass effect norhydrocephalus. Brain parenchyma appears unchanged with advanced white matterhypoattenuation and previous right anterior cerebral and posteriorcerebral artery territory infarctions. Correlate with history. Paranasal sinuses and mastoid air cells are adequately aerated. Osseous structures and orbits appear intact. IMPRESSION: Impression: No significant interval change. Electronically Signed: Hugo Finnegan MD 01/24/2025 7:39 PM EDT Workstation ID: [id number] DxDesc us Jhonny Pradhan MD IMG CT ORDERABLES Final R esult * (ABNORMAL) POC Glucose Once (01/24/2025 12:41 PM EDT) Pathologist [facility] Glucose 138(H) 70 - 130 mg/dL 01/24/2025 12:43 PM EDT [facility] Comment:Serial Number: [id number]: [id number] Blood 01/24/2025 12:4 1 PM EDT 01/24/2025 12:43 PM EDT us Akash Tan DO POINT OF CARE TEST ORDERA BLES Final Result [facility]
[address] [place] [address], * ECHO COMPLETE W/ DOPPLER AND COLOR FLOW (01/24/2025 10:13 AM EDT) Pathologist [facility] EF(MOD-bp) 62.6 % LVIDd 4.4 cm LVIDs 3.2 cm IVSd 1.00 cm LVPWd 1.00 cm FS 27.3 % IVS/LVPW 1.00 cm ESV(cubed) 32.8 ml LV Sys Vol (BSA corrected) 10.9 cm2 EDV(cubed) 85.2 ml LV Bhatia Vol (BSA corrected) 29.3 cm2 LV mass(C)d 147.8 grams LVOT area 3.1 cm2 LVOT diam 2.00 cm EDV(MOD-sp2) 56.2 ml EDV(MOD-sp4) 57.2 ml ESV(MOD-sp2) 20.7 ml ESV(MOD-sp4) 21.2 ml SV(MOD-sp2) 35.5 ml SV(MOD-sp4) 36.0 ml SVi(MOD-SP2) 18.2 ml/m2 SVi(MOD-SP4) 18.4 ml/m2 SVi (LVOT) 23.6 ml/m2 EF(MOD-sp2) 63.2 % EF(MOD-sp4) 62.9 % MV E max gato 106.0 cm/sec MV A max gato 36.2 cm/sec MV dec time 0.14 sec MV E/A 2.9 IVRT 109.0 ms LA ESV Index (BP) 48.5 ml/m2 Med Peak E' Gato 9.7 cm/sec Lat Peak E' Gato 11.1 cm/sec TR max gato 334.3 cm/sec Avg E/e' ratio 10.19 SV(LVOT) 46.0 ml RV Base 4.4 cm RV Mid 3.4 cm RV Length 6.7 cm TAPSE (>1.6) 1.94 cm RV S' 8.4 cm/sec LA dimension (2D) 5.2 cm LV V1 max 76.3 cm/sec LV V1 max PG 2.38 mmHg LV V1 mean PG 1.50 mmHg LV V1 VTI 14.7 cm Ao pk gato 123.0 cm/sec Ao max PG 6.1 mmHg Ao mean PG 3.0 mmHg Ao V2 VTI 24.2 cm BON(I,D) 1.90 cm2 Dimensionless Index 0.61 (DI) MV max PG 4.8 mmHg MV mean PG 1.00 mmHg MV V2 VTI 24.0 cm MV P1/2t 47.6 msec MVA(P1/2t) 4.6 cm2 MVA(VTI) 1.92 cm2 MV dec slope 664.0 cm/sec2 TR max PG 44.7 mmHg PA acc time 0.11 sec Ao root diam 2.9 cm RVSP(TR) 48 mmHg RAP systole 3 mmHg BH CV VAS BP RIGHT ARM 145/96 mmHg Anatomical Region Laterality Modality Ultrasound Narrative 01/24/2025 10:35 AM EDT Left ventricular systolic function is normal. Calculated left ventricular EF = 62.6% Left ventricular ejection fraction appears to be 61 - 65%. Left ventricular wall thickness is consistent with mild concentric hypertrophy. Left ventricular diastolic function was indeterminate. The right ventricular cavity is mildly dilated. The left atrial cavity is moderately dilated. Left atrial volume is moderately increased. The right atrial cavity is moderately dilated. Moderate to severe tricuspid valve regurgitation is present. Estimated right ventricular systolic pressure from tricuspid regurgitation is moderately elevated (45-55 mmHg). Calculated right ventricular systolic pressure from tricuspid regurgitation is 48 mmHg. Left Ventricle Left ventricular systolic function is normal. Calculated left ventricular EF = 62.6% Left ventricular ejection fraction appears to be 61 - 65%. Normal left ventricular cavity size noted. Left ventricular wall thickness is consistent with mild concentric hypertrophy. Left ventricular diastolic function was indeterminate. Right Ventricle The right ventricular cavity is mildly dilated. Normal right ventricular systolic function noted. Electronic lead present in the ventricle. Left Atrium The left atrial cavity is moderately dilated. Left atrial volume is moderately increased. Right Atrium The right atrial cavity is moderately dilated. The inferior vena cava is normally sized. Normal IVC inspiratory collapse of greater than 50% noted. An electronic lead is present in the right atrium. Mitral Valve The mitral valve is structurally normal with no significant stenosis present. Trace mitral valve regurgitation is present. Tricuspid Valve The tricuspid valve is structurally normal with no stenosis present. Moderate to severe tricuspid valve regurgitation is present. Estimated right ventricular systolic pressure from tricuspid regurgitation is moderately elevated (45-55 mmHg). Calculated right ventricular systolic pressure from tricuspid regurgitation is 48 mmHg. Aortic Valve The aortic valve is structurally normal with no stenosis present. The aortic valve appears trileaflet. No significant aortic valve regurgitation is present. Pulmonic Valve The pulmonic valve is structurally normal with no significant stenosis present. There is no significant pulmonic valve regurgitation present. Pericardium The pericardium is normal. There is no evidence of pericardial effusion. . Greater Vessels No dilation of the aortic root is present. No dilation of the sinuses of Valsalva is present. Study Quality The study is technically difficult for diagnosis. The quality of the study is limited due to patient positioning . Patient had negative bubble study performed on 10/22/2023 us Claudia Aponte SURG RN CV ECHO ORDERABLES Final Result * Lipid Panel (01/24/2025 7:27 AM EDT) Total Cholesterol 138 0 - 200 mg/dL 01/24/2025 9:00 AM EDT [facility] Triglycerides 69 0 - 150 mg/dL 01/24/2025 9:00 AM EDT [facility] HDL Cholesterol 43 40 - 60 mg/dL 01/24/2025 9:00 AM EDT [facility] LDL Cholesterol 81 0 - 100 mg/dL 01/24/2025 9:00 AM EDT [facility] VLDL Cholesterol 14 5 - 40 mg/dL 01/24/2025 9:00 AM EDT [facility] LDL/HDL Ratio 1.89 01/24/2025 9:00 AM EDT [facility] Blood Venipuncture / Unknown 01/24/2025 7:27 AM EDT 01/24/2025 8:31 AM EDT Narrative [facility] - 01/24/2025 9:00 AM EDT Cholesterol Reference Ranges (U.S. Department of Health and Human Services ATP III Classifications) Desirable <200 mg/dL Borderline High 200-239 mg/dL High Risk >240 mg/dL Triglyceride Reference Ranges (U.S. Department of Health and Human Services ATP III Classifications) Normal <150 mg/dL Borderline High 150-199 mg/dL High 200-499 mg/dL Very High >500 mg/dL HDL Reference Ranges (U.S. Department of Health and Human Services ATP III Classifications) Low <40 mg/dl (major risk factor for CHD) High >60 mg/dl ('negative' risk factor for CHD) LDL Reference Ranges (U.S. Department of Health and Human Services ATP III Classifications) Optimal <100 mg/dL Near Optimal 100-129 mg/dL Borderline High 130-159 mg/dL High 160-189 mg/dL Very High >189 mg/dL LDL is calculated using the NIH LDL-C calculation. Claudia Aponte SURG RN LAB BLOOD ORDERABLE S Final Result [facility]
[address] [place] [address], * (ABNORMAL) Hemoglobin A1c (01/24/2025 7:27 AM EDT) Hemoglobin A1C 6.20(H) 4.80 - 5.60 % 01/24/2025 10:22 AM EDT [facility] Blood Venipuncture / Unknown 01/24/2025 7:27 AM EDT 01/24/2025 8:31 AM EDT Narrative [facility] - 01/24/2025 10:22 AM EDT Hemoglobin A1C Ranges: Increased Risk for Diabetes 5.7% to 6.4% Diabetes >= 6.5% Diabetic Goal < 7.0% Claudia Aponte APRN LAB BLOOD ORDERABLE S Final Result [facility]
[address] [place] [address], * (ABNORMAL) POC Glucose Q6H (01/24/2025 6:14 AM EDT) Glucose 137(H) 70 - 130 mg/dL 01/24/2025 6:16 AM EDT [facility] Comment:Serial Number: [id number] Blood 01/24/2025 6:14 AM EDT 01/24/2025 6:16 AM EDT Akash Tan DO POINT OF CARE TEST ORDERA BLES Final Result Performing Organization Address [facility] Co de Phone Number [facility]
[address] [place] [address], * Protime-INR (01/24/2025 1:00 AM EDT) Protime 15.0 12.2 - 15.3 Seconds 01/24/2025 1:57 AM EDT [facility] INR 1.11 0.89 - 1.12 01/24/2025 1:57 AM EDT [facility] Blood Venipuncture / Unknown 01/24/2025 1:00 AM EDT 01/24/2025 1:16 AM EDT Pam Kothari MD LAB BLOOD ORDERABLES Final Resul t [facility]
[address] [place] [address], * (ABNORMAL) Comprehensive Metabolic Panel (01/24/2025 1:00 AM EDT) Glucose 137(H) 65 - 99 mg/dL 01/24/2025 1:44 AM EDT [facility] BUN 19.8 8.0 - 23.0 mg/dL 01/24/2025 1:44 AM EDT [facility] Creatinine 0.94 0.57 - 1.00 mg/dL 01/24/2025 1:44 AM EDT [facility] Sodium 137 136 - 145 mmol/L 01/24/2025 1:44 AM EDT [facility] Potassium 4.4 3.5 - 5.2 mmol/L 01/24/2025 1:44 AM EDT [facility] Comment:Specimen hemolyzed. Result may be falsely elevated. Chloride 101 98 - 107 mmol/L 01/24/2025 1:44 AM EDT [facility] CO2 21.5(L) 22.0 - 29.0 mmol/L 01/24/2025 1:44 AM EDT [facility] Calcium 9.0 8.6 - 10.5 mg/dL 01/24/2025 1:44 AM EDT [facility] Total Protein 7.1 6.0 - 8.5 g/dL 01/24/2025 1:44 AM EDT [facility] Albumin 3.9 3.5 - 5.2 g/dL 01/24/2025 1:44 AM EDT [facility] ALT (SGPT) 20 1 - 33 U/L 01/24/2025 1:44 AM EDT [facility] AST (SGOT) 31 1 - 32 U/L 01/24/2025 1:44 AM EDT [facility] Alkaline Phosphatase 116 39 - 117 U/L 01/24/2025 1:44 AM EDT [facility] Total Bilirubin 0.5 0.0 - 1.2 mg/dL 01/24/2025 1:44 AM EDT [facility] Globulin 3.2 gm/dL 01/24/2025 1:44 AM EDT [facility] Comment:Calculated Result A/G Ratio 1.2 g/dL 01/24/2025 1:44 AM EDT [facility] BUN/Creatinine Ratio 21.1 7.0 - 25.0 01/24/2025 1:44 AM EDT [facility] Anion Gap 14.5 5.0 - 15.0 mmol/L 01/24/2025 1:44 AM EDT [facility] eGFR 68.3 >60.0 mL/min/1.7 3 01/24/2025 1:44 AM EDT [facility] Blood Venipuncture / Unknown 01/24/2025 1:00 AM EDT 01/24/2025 1:16 AM EDT [facility] - 01/24/2025 1:44 AM EDT GFR Categories in Chronic Kidney Disease (CKD) GFR Category GFR (mL/min/1.73) Interpretation G1 90 or greater Normal or high (1) G2 60-89 Mild decrease (1) G3a 45-59 Mild to moderate decrease G3b 30-44 Moderate to severe decrease G4 15-29 Severe decrease G5 14 or less Kidney failure (1)In the absence of evidence of kidney disease, neither GFR category G1 or G2 fulfill the criteria for CKD. eGFR calculation 2020 CKD-EPI creatinine equation, which does not include race as a factor us Pam Kothari MD LAB BLOOD ORDERABLES Final Resul t [facility]
[address] [place] [address], * (ABNORMAL) CBC (No Diff) (01/24/2025 1:00 AM EDT) WBC 15.93(H) 3.40 - 10.80 10*3/mm3 01/24/2025 1:18 AM EDT [facility] RBC 5.44(H) 3.77 - 5.28 10*6/mm3 01/24/2025 1:18 AM EDT [facility] Hemoglobin 15.4 12.0 - 15.9 g/dL 01/24/2025 1:18 AM EDT [facility] Hematocrit 49.5(H) 34.0 - 46.6 % 01/24/2025 1:18 AM EDT [facility] MCV 91.0 79.0 - 97.0 fL 01/24/2025 1:18 AM EDT [facility] MCH 28.3 26.6 - 33.0 pg 01/24/2025 1:18 AM EDT [facility] MCHC 31.1(L) 31.5 - 35.7 g/dL 01/24/2025 1:18 AM EDT [facility] RDW 13.8 12.3 - 15.4 % 01/24/2025 1:18 AM EDT [facility] RDW-SD 46.3 37.0 - 54.0 fl 01/24/2025 1:18 AM EDT [facility] MPV 9.9 6.0 - 12.0 fL 01/24/2025 1:18 AM EDT [facility] Platelets 159 140 - 450 10*3/mm3 01/24/2025 1:18 AM EDT [facility] Blood Venipuncture / Unknown 01/24/2025 1:00 AM EDT 01/24/2025 1:16 AM EDT us Pam Kothari MD LAB BLOOD ORDERABLES Final Resul t [facility]
[address] [id number], * ECG 12 Lead Stroke Evaluation (01/23/2025 10:42 PM EDT) QT Interval 502 ms BH ECG QTC Interval 522 ms ECG 01/23/2025 10:4 2 PM EDT 01/24/2025 11:40 AM EDT Narrative ECG - 01/24/2025 11:40 AM EDT Test Reason : Stroke Evaluation Blood Pressure : */* mmHG Vent. Rate : 65 BPM Atrial Rate : 78 BPM P-R Int : * ms QRS Dur : 142 ms QT Int : 502 ms P-R-T Axes : * -58 135 degrees QTcB Int : 522 ms Ventricular-paced rhythm Abnormal ECG No previous ECGs available Confirmed by Jean-Paul Martinez ([id number]) on 01/24/2025 11:40:31 AM Referred By: Confirmed By: Jean-Paul Martinez Procedure Note Jean-Paul Martinez MD - 01/24/2025 Test Reason : Stroke Evaluation Blood Pressure : */* mmHG Vent. Rate : 65 BPM Atrial Rate : 78 BPM P-R Int : * ms QRS Dur : 142 ms QT Int : 502 ms P-R-T Axes : * -58 135 degrees QTcB Int : 522 ms Ventricular-paced rhythm Abnormal ECG No previous ECGs available Confirmed by Jean-Paul Martinez ([id number]) on 01/24/2025 11:40:31 AM Referred By: Confirmed By: Jean-Paul Martinez us Pam Kothari MD ECG ORDERABLES Final Result Performing Organization Address City/[facility] Co de Phone Number ECG * (ABNORMAL) POC Glucose Once (01/23/2025 9:48 PM EDT) [facility] Signature Glucose 150(H) 70 - 130 mg/dL 01/23/2025 9:50 PM EDT [facility] Comment:Serial Number: [id number] Blood 01/23/2025 9:48 PM EDT 01/23/2025 9:50 PM EDT us Pam Kothari MD POINT OF CARE TEST ORDERABLES Fi nal Result Performing Organization Address City/State/[facility] Co de Phone Number [facility]
[address] [id number], documented in this encounter Visit Diagnoses Diagnosis Aphasia- Primary Cognitive communication deficit Dysphagia, unspecified type H/O: CVA (cerebrovascular accident) H/O: CVA (cerebrovascular accident) Pacemaker Cardiac pacemaker in situ Primary hypertension Unspecified essential hypertension documented in this encounter Admitting Diagnoses Diagnosis Aphasia documented in this encounter Administered Medications Inactive Administered Medications - up to 3 most recent administrations Medication Order MAR Action Action Date Dose Rate Site aluminum-magnesium hydroxide-simethicone (MAALOX MAX) 400-400-40 MG/5ML suspension 15 mL 15 mL, Oral, Every 6 Hours PRN, Indigestion, Heartburn, Starting on 01/25/25 at 1248, Maximum 60 mL in 24 hours. amLODIPine (NORVASC) tablet 2.5 mg 2.5 mg, Oral, Daily, First dose on 01/24/25 at 1515, Hold for SBP less than 100, DBP less than 60. Caution: Look alike/sound alike drug alert. Avoid grapefruit juice. Given 01/27/2025 9:20 AM EDT 2.5 mg apixaban (ELIQUIS) tablet 5 mg 5 mg, Oral, Every 12 Hours Scheduled, First dose on 01/23/25 at 2230, Tablet may be crushed and suspended in 60 mL of water or D5W and immediately delivered via NG tube., Indications: Atrial FibrillationIndications:Atrial Fibrillation Given 01/25/2025 9:52 AM EDT 5 mg Given 01/24/2025 8:48 PM EDT 5 mg Given 01/24/2025 9:00 AM EDT 5 mg aspirin chewable tablet 81 mg 81 mg, Oral, Daily, First dose on 01/24/25 at 0900, If patient fails dysphagia, LA option MUST be given. Do not exceed 4 grams of aspirin in a 24 hr period. If given for pain, use the following pain scale: Mild Pain = Pain Score of 1-3, CPOT 1-2 Moderate Pain = Pain Score of 4-6, CPOT 3-4 Severe Pain = Pain Score of 7-10, CPOT 5-8 Given 01/27/2025 9:22 AM EDT 81 mg Given 01/26/2025 9:40 AM EDT 81 mg Given 01/25/2025 9:51 AM EDT 81 mg aspirin suppository 300 mg 300 mg, Rectal, Daily, First dose on 01/24/25 at 0900, If patient fails dysphagia, LA option MUST be given. Do not exceed 4 grams of aspirin in a 24 hr period. If given for pain, use the following pain scale: Mild Pain = Pain Score of 1-3, CPOT 1-2 Moderate Pain = Pain Score of 4-6, CPOT 3-4 Severe Pain = Pain Score of 7-10, CPOT 5-8 atorvastatin (LIPITOR) tablet 40 mg 40 mg, Oral, Nightly, First dose on 01/23/25 at 2230, Avoid grapefruit juice. Given 01/26/2025 9:17 PM EDT 40 mg Given 01/25/2025 9:01 PM EDT 40 mg Given 01/24/2025 8:48 PM EDT 40 mg baclofen (LIORESAL) tablet 5 mg 5 mg, Oral, 3 Times Daily, First dose on 01/24/25 at 1600, Take with food if GI upset occurs. Given 01/27/2025 9:20 AM EDT 5 mg Given 01/26/2025 9:16 PM EDT 5 mg Given 01/26/2025 4:17 PM EDT 5 mg DULoxetine (CYMBALTA) DR capsule 20 mg 20 mg, Oral, Daily, First dose on 01/24/25 at 1515, Do not crush or chew the capsules or tablets. The drug may not work as designed if the capsule or tablet is crushed or chewed. Swallow whole. Caution: Look alike/sound alike drug alert. Capsule may be opened and sprinkled on applesauce or apple juice. Do not crush or chew capsule. Given 01/25/2025 9:51 AM EDT 20 mg Given 01/24/2025 4:37 PM EDT 20 mg DULoxetine (CYMBALTA) DR capsule 30 mg 30 mg, Oral, Every 12 Hours Scheduled, First dose (after last modification) on 01/25/25 at 2100, Do not crush or chew the capsules or tablets. The drug may not work as designed if the capsule or tablet is crushed or chewed. Swallow whole. Caution: Look alike/sound alike drug alert. Capsule may be opened and sprinkled on applesauce or apple juice. Do not crush or chew capsule. Given 01/27/2025 9:20 AM EDT 30 mg Given 01/26/2025 9:16 PM EDT 30 mg Given 01/26/2025 9:40 AM EDT 30 mg escitalopram (LEXAPRO) tablet 10 mg 10 mg, Oral, Daily, First dose on Sat01/25/25 at 0900, Caution: Look alike/sound alike drug alert. Given 01/27/2025 9:20 AM EDT 10 mg Given 01/26/2025 9:40 AM EDT 10 mg Given 01/25/2025 9:52 AM EDT 10 mg gabapentin (NEURONTIN) capsule 100 mg 100 mg, Oral, 3 Times Daily, First dose on Sat01/24/25 at 1600, (MARY KATE) Given 01/25/2025 4:29 PM EDT 100 mg Given 01/25/2025 9:52 AM EDT 100 mg Given 01/24/2025 8:48 PM EDT 100 mg gabapentin (NEURONTIN) capsule 200 mg 200 mg, Oral, 3 Times Daily, First dose (after last modification) on Sat01/25/25 at 2100, (MARY KATE) Given 01/26/2025 9:40 AM EDT 200 mg Given 01/25/2025 9:01 PM EDT 200 mg gabapentin (NEURONTIN) capsule 400 mg 400 mg, Oral, 3 Times Daily, First dose (after last modification) on Sat01/26/25 at 1615, (MARY KATE) Given 01/27/2025 9:20 AM EDT 400 mg Given 01/26/2025 9:16 PM EDT 400 mg Given 01/26/2025 4:17 PM EDT 400 mg HYDROcodone-acetaminophen (NORCO) 5-325 MG per tablet 1 tablet 1 tablet, Oral, Every 6 Hours PRN, Moderate Pain, Starting on Sat01/24/25 at 1409, For 5 days, Based on patient request - if ordered for moderate or severe pain, provider allows for administration of a medication prescribed for a lower pain scale. [MARY KATE] Do not exceed 4 grams of acetaminophen in a 24 hr period. Max dose of 2gm for AST/ALT greater than 120 units/L If given for pain, use the following pain scale: Mild Pain = Pain Score of 1-3, CPOT 1-2 Moderate Pain = Pain Score of 4-6, CPOT 3-4 Severe Pain = Pain Score of 7-10, CPOT 5-8 Given 01/27/2025 9:20 AM EDT 1 tablet Given 01/27/2025 2:59 AM EDT 1 tablet Given 01/26/2025 9:16 PM EDT 1 tablet HYDROmorphone (DILAUDID) injection 0.25 mg 0.25 mg, Intravenous, Every 2 Hours PRN, Severe Pain, Starting on 01/24/25 at 0023, For 10 days, If given for pain, use the following pain scale: Mild Pain = Pain Score of 1-3, CPOT 1-2 Moderate Pain = Pain Score of 4-6, CPOT 3-4 Severe Pain = Pain Score of 7-10, CPOT 5-8 Given 01/24/2025 5:01 AM EDT 0.25 mg Given 01/24/2025 1:38 AM EDT 0.25 mg HYDROmorphone (DILAUDID) injection 0.5 mg 0.5 mg, Intravenous, Once, On 01/24/25 at 0945, For 1 dose, If given for pain, use the following pain scale: Mild Pain = Pain Score of 1-3, CPOT 1-2 Moderate Pain = Pain Score of 4-6, CPOT 3-4 Severe Pain = Pain Score of 7-10, CPOT 5-8 Given 01/24/2025 10:02 AM EDT 0.5 mg HYDROmorphone (DILAUDID) injection 0.5 mg 0.5 mg, Intravenous, Every 4 Hours PRN, Severe Pain, Starting on 01/24/25 at 1409, If given for pain, use the following pain scale: Mild Pain = Pain Score of 1-3, CPOT 1-2 Moderate Pain = Pain Score of 4-6, CPOT 3-4 Severe Pain = Pain Score of 7-10, CPOT 5-8 Given 01/25/2025 11:45 AM EDT 0.5 mg Given 01/25/2025 5:02 AM EDT 0.5 mg Given 01/24/2025 8:47 PM EDT 0.5 mg levothyroxine (SYNTHROID, LEVOTHROID) tablet 75 mcg 75 mcg, Oral, Every Woods Manager, First dose (after last modification) on Sat01/27/25 at 0600, Take on empty stomach. Given 01/27/2025 5:25 AM EDT 75 mcg levothyroxine (SYNTHROID, LEVOTHROID) tablet 88 mcg 88 mcg, Oral, Daily, First dose on 01/25/25 at 0900, Take on empty stomach. Given 01/26/2025 9:40 AM EDT 88 m cg Given 01/25/2025 9:52 AM EDT 88 mcg Lidocaine 4 % 1 patch 1 patch, Transdermal, Administer over 12 Hours, Every 24 Hours Scheduled, First dose on Sat01/24/25 at 0030, Apply to skin on lower back . Remove patch in 12 hours. Apply patch only once for up to 12 hours in 24 hour period. Based on patient request - if ordered for moderate or severe pain, provider allows for administration of a medication prescribed for a lower pain scale. If given for pain, use the following pain scale: Mild Pain = Pain Score of 1-3, CPOT 1-2 Moderate Pain = Pain Score of 4-6, CPOT 3-4 Severe Pain = Pain Score of 7-10, CPOT 5-8 Medication Applied 01/27/2025 9:19 AM EDT 1 patch Other Medication Applied 01/26/2025 9:40 AM EDT 1 patch Other Medication Applied 01/24/2025 12:41 AM EDT 1 patch Other metoprolol tartrate (LOPRESSOR) tablet 12.5 mg 12.5 mg, Oral, Every 12 Hours Scheduled, First dose on Sat01/24/25 at 2100, Hold for SBP less than 100, DBP less than 60, or heart rate less than 50. If a dose is held, please contact the provider. Given 01/27/2025 9:19 AM EDT 12.5 mg Given 01/26/2025 9:16 PM EDT 12.5 mg ondansetron ODT (ZOFRAN-ODT) disintegrating tablet 4 mg 4 mg, Translingual, Every 6 Hours PRN, Vomiting, Nausea, Starting on Sat01/24/25 at 0035, If multiple N/V medications ordered, use in the following order: Ondansetron, Prochlorperazine, Promethazine. Use PO unless patient refuses or patient unable to swallow. Place on tongue and allow to dissolve. Given 01/24/2025 12:41 AM EDT 4 mg pantoprazole (PROTONIX) EC tablet 40 mg 40 mg, Oral, Every Woods Manager, First dose on 01/25/25 at 0600, Swallow whole; do not crush, split, or chew. Given 01/27/2025 5:25 AM EDT 40 mg Given 01/25/2025 5:17 AM EDT 40 mg sodium chloride 0.9 % flush 10 mL 10 mL, Intravenous, Every 12 Hours Scheduled, First dose on Sat01/23/25 at 2230 Given 01/27/2025 9:22 AM EDT 10 mL Given 01/26/2025 9:17 PM EDT 10 mL Given 01/26/2025 9:41 AM EDT 10 mL sodium chloride 0.9 % flush 10 mL 10 mL, Intravenous, As Needed, Line Care, Starting on Sat01/23/25 at 2140 sodium chloride 0.9 % flush 10 mL 10 mL, Intravenous, Every 12 Hours Scheduled, First dose on Sat01/26/25 at 2100 Given 01/26/2025 9:17 PM EDT 10 mL sodium chloride 0.9 % flush 10 mL 10 mL, Intravenous, As Needed, Line Care, Starting on Sat01/26/25 at 2021 sodium chloride 0.9 % infusion 40 mL 40 mL, Intravenous, at 100 mL/hr, As Needed, Line Care, Starting on Sat01/23/25 at 2140, Following administration of an IV intermittent medication, flush line with 40mL NS at 100mL/hr. sodium chloride 0.9 % infusion 40 mL 40 mL, Intravenous, As Needed, Line Care, Starting on Sat01/26/25 at 2021, Following administration of an IV intermittent medication, flush line with 40mL NS at 100mL/hr. documented in this encounter Active and Recently Administered Medications Times are shown in EDT. Scheduled Medication Order 01/25/2025 01/26/2025 01/27/2025 amLODIPine (NORVASC) tablet 2.5 mg 2.5 mg, Oral, Daily, First dose on 01/24/25 at 1515, Hold for SBP less than 100, DBP less than 60. Caution: Look alike/sound alike drug alert. Avoid grapefruit juice. 0900 (Dose Auto Held) 0900 (Dose Auto Held)1519 (Unheld by provider - Provider: Shanika Olson PA-C) 0920 (Given - Provider: Harjit Pierre, RN) apixaban (ELIQUIS) tablet 5 mg 5 mg, Oral, Every 12 Hours Scheduled, First dose on 01/23/25 at 2230, Tablet may be crushed and suspended in 60 mL of water or D5W and immediately delivered via NG tube., Indications: Atrial Fibrillation 0952 (Given - Provider: Flora Brewster RN)1339 (Held by provider - Provider: Sarkis Manning MD - Reason: Hold For Procedure)2100 (Dose Auto Held - Provider: Sarkis Manning MD) 0900 (Dose Auto Held - Provider: Sarkis Manning MD)2100 (Dose Auto Held - Provider: Sarkis Manning MD) 0900 (Dose Auto Held - Provider: Sarkis Manning MD)1021 (Unheld by provider - Provider: Chioma Noble APRN) aspirin chewable tablet 81 mg(Linked Group 1) 81 mg, Oral, Daily, First dose on 01/24/25 at 0900, If patient fails dysphagia, LA option MUST be given. Do not exceed 4 grams of aspirin in a 24 hr period. If given for pain, use the following pain scale: Mild Pain = Pain Score of 1-3, CPOT 1-2 Moderate Pain = Pain Score of 4-6, CPOT 3-4 Severe Pain = Pain Score of 7-10, CPOT 5-8 0951 (Given - Provider: Flora Brewster RN) 0940 (Given - Provider: Harjit Pierre, RN) 0922 (Given - Provider: Harjit Pierre, RN) aspirin suppository 300 mg(Linked Group 1) 300 mg, Rectal, Daily, First dose on 01/24/25 at 0900, If patient fails dysphagia, LA option MUST be given. Do not exceed 4 grams of aspirin in a 24 hr period. If given for pain, use the following pain scale: Mild Pain = Pain Score of 1-3, CPOT 1-2 Moderate Pain = Pain Score of 4-6, CPOT 3-4 Severe Pain = Pain Score of 7-10, CPOT 5-8 0951 (Not Given: See Alt - Provider: Flora Brewster, JANIS) 0940 (Not Given: See Alt - Provider: Harjit Pierre RN) 0922 (Not Given: See Alt - Provider: Harjit Pierre RN) atorvastatin (LIPITOR) tablet 40 mg 40 mg, Oral, Nightly, First dose on Sat01/23/25 at 2230, Avoid grapefruit juice. 2100 (Given - Provider: Juan Ramon Matt, JANIS) 2116 (Given - Provider: Juan Ramon Matt, JANIS) baclofen (LIORESAL) tablet 5 mg 5 mg, Oral, 3 Times Daily, First dose on 01/24/25 at 1600, Take with food if GI upset occurs. 0951 (Given - Provider: Flora Brewster RN)162 (Given - Provider: Flora Brewster, JANIS)2100 (Given - Provider: Juan Ramon Matt, JANIS) 0940 (Given - Provider: Harjit Pierre RN)161 (Given - Provider: Harjit Pierre RN)2115 (Given - Provider: Juan Ramon Matt, JANIS) 0920 (Given - Provider: Harjit Pierre RN) ceFAZolin 2000 mg IVPB in 100 mL NS (MBP) 2,000 mg, Intravenous, Administer over 30 Minutes, Once, On Sat01/26/25 at 1600, For 1 dose, Caution: Look alike/sound alike drug alert, Indications: Surgical Prophylaxis 1807 (Not Given - Provider: Claire Monreal RN - Reason: Other - Comment: duplicate order) DULoxetine (CYMBALTA) DR capsule 20 mg (CANCELED) 20 mg, Oral, Daily, First dose on 01/24/25 at 1515, Do not crush or chew the capsules or tablets. The drug may not work as designed if the capsule or tablet is crushed or chewed. Swallow whole. Caution: Look alike/sound alike drug alert. Capsule may be opened and sprinkled on applesauce or apple juice. Do not crush or chew capsule. 0951 (Given - Provider: Flora Brewster RN) DULoxetine (CYMBALTA) DR capsule 30 mg 30 mg, Oral, Every 12 Hours Scheduled, First dose (after last modification) on Sat01/25/25 at 2100, Do not crush or chew the capsules or tablets. The drug may not work as designed if the capsule or tablet is crushed or chewed. Swallow whole. Caution: Look alike/sound alike drug alert. Capsule may be opened and sprinkled on applesauce or apple juice. Do not crush or chew capsule. 2100 (Given - Provider: Juan Ramon Matt RN) 0940 (Given - Provider: Harjit Pierre RN)2115 (Given - Provider: Juan Ramon Matt RN) 09 (Given - Provider: Harjit Pierre RN) escitalopram (LEXAPRO) tablet 10 mg 10 mg, Oral, Daily, First dose on Sat01/25/25 at 0900, Caution: Look alike/sound alike drug alert. 0952 (Given - Provider: Flora Brewster RN) 09 (Given - Provider: Harjit Pierre RN) 0920 (Given - Provider: Harjit Pierre RN) gabapentin (NEURONTIN) capsule 100 mg (CANCELED) 100 mg, Oral, 3 Times Daily, First dose on Sat01/24/25 at 1600, (MARY KATE) 0952 (Given - Provider: Flora Brewster RN)1629 (Given - Provider: Flora Brewster RN) gabapentin (NEURONTIN) capsule 200 mg (CANCELED) 200 mg, Oral, 3 Times Daily, First dose (after last modification) on Sat01/25/25 at 2100, (MARY KATE) 2100 (Given - Provider: Juan Ramon Matt RN) 0940 (Given - Provider: Harjit Pierre RN) gabapentin (NEURONTIN) capsule 400 mg 400 mg, Oral, 3 Times Daily, First dose (after last modification) on Sat01/26/25 at 1615, (MARY KATE) 161 (Given - Provider: Harjit Pierre RN)2115 (Given - Provider: Juan Ramon Matt RN) 0920 (Given - Provider: Harjit Pierre RN) levothyroxine (SYNTHROID, LEVOTHROID) tablet 75 mcg 75 mcg, Oral, Every Woods Manager, First dose (after last modification) on Sat01/27/25 at 0600, Take on empty stomach. 0525 (Given - Provider: Juan Ramon Matt RN) levothyroxine (SYNTHROID, LEVOTHROID) tablet 88 mcg (CANCELED) 88 mcg, Oral, Daily, First dose on Sat01/25/25 at 0900, Take on empty stomach. 0952 (Given - Provider: Flora Brewster, RN) 0940 (Given - Provider: Harjit Pierre, JANIS) Lidocaine 4 % 1 patch 1 patch, Transdermal, Administer over 12 Hours, Every 24 Hours Scheduled, First dose on Sat01/24/25 at 0030, Apply to skin on lower back . Remove patch in 12 hours. Apply patch only once for up to 12 hours in 24 hour period. Based on patient request - if ordered for moderate or severe pain, provider allows for administration of a medication prescribed for a lower pain scale. If given for pain, use the following pain scale: Mild Pain = Pain Score of 1-3, CPOT 1-2 Moderate Pain = Pain Score of 4-6, CPOT 3-4 Severe Pain = Pain Score of 7-10, CPOT 5-8 0952 (Canceled Entry - Provider: Flora Brewster RN) 0940 (Medication Applied - Provider: Harjit Pierre RN)2116 (Medication Removed - Provider: Juan Ramon Matt RN) 918 (Medication Applied - Provider: Harjit Pierre RN)2118 (Due: Medication Removed - Provider: Harjit Pierer RN) metoprolol tartrate (LOPRESSOR) tablet 12.5 mg 12.5 mg, Oral, Every 12 Hours Scheduled, First dose on Sat01/24/25 at 2100, Hold for SBP less than 100, DBP less than 60, or heart rate less than 50. If a dose is held, please contact the provider. 0900 (Dose Auto Held)2099 (Dose Auto Held) 899 (Dose Auto Held)151 (Unheld by provider - Provider: Shanika Olson PA-C)2115 (Given - Provider: Juan Ramon Matt RN) 918 (Given - Provider: Harjit Pierre, JANIS) pantoprazole (PROTONIX) EC tablet 40 mg 40 mg, Oral, Every Woods Manager, First dose on Sat01/25/25 at 0600, Swallow whole; do not crush, split, or chew. 0517 (Given - Provider: Oanh Torre RN) 0521 (Not Given - Provider: Juan Ramon Matt RN - Reason: NPO) 0525 (Given - Provider: Juan Ramon Matt RN) sodium chloride 0.9 % flush 10 mL 10 mL, Intravenous, Every 12 Hours Scheduled, First dose on Sat01/23/25 at 2230 0952 (Given - Provider: Flora Brewster, RN)2101 (Given - Provider: Juan Ramon Matt RN) 0941 (Given - Provider: Harjit Pierre RN)211 (Given - Provider: Juan Ramon Matt RN) 0922 (Given - Provider: Harjit Pierre RN) sodium chloride 0.9 % flush 10 mL 10 mL, Intravenous, Every 12 Hours Scheduled, First dose on Sat01/26/25 at 2100 2117 (Given - Provider: Juan Ramon Matt RN) 0900 (Canceled Entry - Provider: Harjit Pierre RN) PRN Medication Order 01/25/2025 01/26/2025 01/27/2025 albuterol (PROVENTIL) nebulizer solution 0.083% 2.5 mg/3mL 2.5 mg, Nebulization, Every 6 Hours PRN, Shortness of Air, Wheezing, Starting on Sat01/24/25 at 0024 aluminum-magnesium hydroxide-simethicone (MAALOX MAX) 400-400-40 MG/5ML suspension 15 mL 15 mL, Oral, Every 6 Hours PRN, Indigestion, Heartburn, Starting on 01/25/25 at 1248, Maximum 60 mL in 24 hours. ceFAZolin 1000 mg IVPB in 100 mL NS (MBP) (CANCELED) Administer over 30 Minutes, Code / Trauma / Sedation Continuous Med, Starting on Sat01/26/25 at 1827 1827 (New Bag - Provider: Sarkis Manning MD - Comment: pocket flush) ceFAZolin 2000 mg IVPB in 100 mL NS (MBP) (COMPLETED) Administer over 30 Minutes, Code / Trauma / Sedation Continuous Med, Starting on Sat01/26/25 at 1803 1803 (New Bag - Provider: Juan R Shaver RN) fentaNYL citrate (PF) (SUBLIMAZE) injection (CANCELED) Code / Trauma / Sedation Medication, Starting on Sat01/26/25 at 1803 1803 (Given - Provider: Juan R Shaver RN)180 (Given - Provider: Juan R Shaver RN)181 (Given - Provider: Juan R Shaver RN)182 (Given - Provider: Juan R Shaver RN) hydrALAZINE (APRESOLINE) injection (CANCELED) Code / Trauma / Sedation Medication, Starting on Sat01/26/25 at 1814 1814 (Given - Provider: Juan R Shaver RN) HYDROcodone-acetaminophen (NORCO) 5-325 MG per tablet 1 tablet 1 tablet, Oral, Every 6 Hours PRN, Moderate Pain, Starting on Sat01/24/25 at 1409, For 5 days, Based on patient request - if ordered for moderate or severe pain, provider allows for administration of a medication prescribed for a lower pain scale. [MARY KATE] Do not exceed 4 grams of acetaminophen in a 24 hr period. Max dose of 2gm for AST/ALT greater than 120 units/L If given for pain, use the following pain scale: Mild Pain = Pain Score of 1-3, CPOT 1-2 Moderate Pain = Pain Score of 4-6, CPOT 3-4 Severe Pain = Pain Score of 7-10, CPOT 5-8 2101 (Given - Provider: Juan Ramon Matt RN) 2116 (Given - Provider: Juan Ramon Matt RN) 0259 (Given - Provider: Juan Ramon Matt RN)0920 (Given - Provider: Harjit Pierre RN) HYDROmorphone (DILAUDID) injection 0.5 mg (CANCELED) 0.5 mg, Intravenous, Every 4 Hours PRN, Severe Pain, Starting on Sat01/24/25 at 1409, If given for pain, use the following pain scale: Mild Pain = Pain Score of 1-3, CPOT 1-2 Moderate Pain = Pain Score of 4-6, CPOT 3-4 Severe Pain = Pain Score of 7-10, CPOT 5-8 0502 (Given - Provider: Oanh Torre RN)1145 (Given - Provider: Flora Brewster RN) lidocaine 1% - EPINEPHrine [id number] (XYLOCAINE W/EPI) 1 %-1:[id number] injection (CANCELED) Code / Trauma / Sedation Medication, Starting on Sat01/26/25 at 1811 1811 (Given - Provider: Sarkis Manning MD - Comment: right) midazolam (VERSED) injection (CANCELED) Code / Trauma / Sedation Medication, Starting on Sat01/26/25 at 1803 1803 (Given - Provider: Juan R Shaver RN)1806 (Given - Provider: Juan R Shaver RN)1822 (Given - Provider: Juan R Shaver RN) ondansetron (ZOFRAN) injection (CANCELED) Code / Trauma / Sedation Medication, Starting on Sat01/26/25 at 1803 1803 (Given - Provider: Juan R Shaver RN) ondansetron ODT (ZOFRAN-ODT) disintegrating tablet 4 mg 4 mg, Translingual, Every 6 Hours PRN, Vomiting, Nausea, Starting on Sat01/24/25 at 0035, If multiple N/V medications ordered, use in the following order: Ondansetron, Prochlorperazine, Promethazine. Use PO unless patient refuses or patient unable to swallow. Place on tongue and allow to dissolve. sodium chloride 0.9 % flush 10 mL 10 mL, Intravenous, As Needed, Line Care, Starting on Sat01/23/25 at 2140 sodium chloride 0.9 % flush 10 mL 10 mL, Intravenous, As Needed, Line Care, Starting on Sat01/26/25 at 2021 sodium chloride 0.9 % infusion 40 mL 40 mL, Intravenous, at 100 mL/hr, As Needed, Line Care, Starting on Sat01/23/25 at 2140, Following administration of an IV intermittent medication, flush line with 40mL NS at 100mL/hr. sodium chloride 0.9 % infusion 40 mL 40 mL, Intravenous, As Needed, Line Care, Starting on Sat01/26/25 at 2021, Following administration of an IV intermittent medication, flush line with 40mL NS at 100mL/hr. Linked Groups Order Group 1: aspirin chewable tablet 81 mgJump to med 81 mg, Oral, Daily, First dose on Sat01/24/25 at 0900, If patient fails dysphagia, LA option MUST be given. Do not exceed 4 grams of aspirin in a 24 hr period. If given for pain, use the following pain scale: Mild Pain = Pain Score of 1-3, CPOT 1-2 Moderate Pain = Pain Score of 4-6, CPOT 3-4 Severe Pain = Pain Score of 7-10, CPOT 5-8 Or aspirin suppository 300 mgJump to med 300 mg, Rectal, Daily, First dose on 01/24/25 at 0900, If patient fails dysphagia, LA option MUST be given. Do not exceed 4 grams of aspirin in a 24 hr period. If given for pain, use the following pain scale: Mild Pain = Pain Score of 1-3, CPOT 1-2 Moderate Pain = Pain Score of 4-6, CPOT 3-4 Severe Pain = Pain Score of 7-10, CPOT 5-8 documented in this encounter Care Teams Sole Conditioner Relationship Specialty Start Date End Date Provider, [place] [address] PCP - General 10/21/23 02/02/25 documented as of this encounter
--- OUTSIDE RECORDS SUMMARY | 2025-01-26 13:10 | XMS_ITS | Encounter Summary ---
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 Name Role Phone Provider, No Known Primary Care Provider Unavail able Reason for Visit * Auth/Cert Specialty Diagnoses / Procedures Referred By Contac t Referred To Contact Diagnoses Other CVA Referral ID Status Reason Start Date Expiration Date Visits Re quested Visits Authorized [id number] 1 1 Encounter Details Date Type Department Care Team (Late st Contact Info) Description 01/26/2025 2:10 PM EDT - 01/26/2025 3:40 PM EDT Surgery [facility] EP [facility] [address] [place] [address] Sarkis Manning MD [address] [place] [address] PPM generator change bi-v [73201 (CPT ) +1 more] Social History Tobacco Use Types Packs/Day Years Used Date Smoking Tobacco: Former Cigarettes 0.5 4.8 S tarted: 2020 Smokeless Tobacco: Never Tobacco Cessation:Counseling Given: Not Answered Alcohol Use Standard Drinks/Week Comments Never 0 (1 standard drink = 0.6 oz pur e alcohol) [facility] Utilities Answer Date Recorded In the past 12 months has th e electric, gas, oil, or water company threatened [...] GED or equivalent Yes 01/25/2025 Preferred Language Somali 01/25/2025 Comments Unknown Sex and Gender Information Value Date Recorded Sex Assigned at Not on file Legal Sex Female 11:00 AM EDT Gender Identity Not on file Sexual Orientation Not on file documented as of this encounter Last Filed Vital Signs Vital Sign Reading Time Taken Comments Blood Pressure 153/99 01/26/2025 11:30 AM EDT Pulse 55 01/26/2025 11:30 AM EDT Temperature 37.1 C (98.7 F) 01/26/2025 11:30 AM EDT Respiratory Rate 18 01/26/2025 11:30 AM EDT Oxygen Saturation 96% 01/26/2025 11:30 AM EDT Inhaled Oxygen Concentration - - Weight 86 kg (189 lb 9.5 oz) 01/24/2025 10:12 AM EDT Height 167 cm (5' 5.75 ) 01/24/2025 10:12 AM EDT Body Mass Index 30.84 01/24/2025 10:12 AM EDT documented in this encounter Functional Status * Question Answer Date of Assessment Author 1. Wish to be (Past 1 Month) No 025 3:24 AM EDT Oanh Torre RN 2. Non-Specific Active Suici cha Thoughts (Past 1 Month) No 01/24/2025 3:24 AM EDT Ronit Torre, JANIS * Calculated C-SSRS Risk Score (Lifetime/Recent) Answer Date of Assessment Author No Risk Indicated 01/24/2025 3:24 AM EDT Oanh Amaya RN * [place] Suicide Severity Rating Scale (Screener/Recent Self-Report) Question Answer Date of Assessment Author 6. Suicidal Behavior (Lifetime) No 3:24 AM EDT Oanh Torre RN documented as of this encounter Discharge Summaries * Amberly Wallace RN - 01/27/2025 12:09 PM EDT Images from the original note were not included. Rimma Ridley (65 y.o. Female) Amberly [phone] Date of 1960 Social Security Number [id number] [address] [address] Adventism Unknown Marital Status Admission Date 01/23/2025 Admission Type Urgent Admitting Provider Pam Kothari MD Attending Provider Pam Kothari MD Department, Room/Bed [address], S322/1 Discharge Date Discharge Disposition Home or [...] Plan Fax Number Effective Dates [address] 11/10/2001 - None Entered [facility] [address] Subscriber Name Subscriber Date Member ID RIMMA RIDLEY 1960 [id number] Secondary Coverage Payor Plan Insurance Group Employer/Plan Group HU[employer] MEDICARE REPLACEMENT HU[employer] MEDICARE ADVANTAGE [facility] [id number] Payor Plan Address Payor Plan Phone Number Payor Plan Fax Number Effective Dates [address] [address] 10/12/2023 - 01/26/2025 [facility] [address] Subscriber Name Subscriber Date Member ID RIMMA RIDLEYANN 1960 [id number] Tertiary Coverage Payor Plan Insurance Group Employer/[place] Group [place] Payor Plan Address Payor Plan Phone Number Payor Plan Fax Number Effective Dates [address] 01/23/2025 - None Entered 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 Sarkis Manning MD Cardiac Engine Service Repairer [facility] 01/26/25 18:[address] Head Without Contrast [...] MD 01/24/2025 7:39 PM EDT Workstation ID: [id number] DxDesc CT Outside Head Result Date: 01/23/2025 [...] up to check your device. Carry your clinical specialist medical device ID card with you at all times. Please call our office at with any questions about the device or incision. CODE STATUS: Code Status and Medical Interventions: No CPR (Do Not Attempt to Resuscitate); Limited Support; No intubation (DNI); per prior Ordered at: 01/24/25 0759 Code Status (Patient has no pulse and [...] minutes on this discharge activity which included: makt-[id number] with the patient, reviewing the data in the system, coordination of the care with the nursing staff as well as consultants, documentation, and entering orders. 1029 * Shanika Olson PA-C - 01/27/2025 9:44 AM EDT Images from the original note were not included. [facility] Medicine Services DISCHARGE SUMMARY Patient Name: [...] (wheelchair bound) who presents from long-term care ([facility]) as transfer from [facility] for left upper extremity paralysis, aphasia/dysarthria, and [...] MCV 89.9 91.0 PROTIME -- 15.0 Lab 01/25/25182201/24/2572601/24/2599 SODIUM 136 -- 137 POTASSIUM 3.9 -- 4.4 CHLORIDE 99 -- 101 CO2 24.4 -- 21.5* ANION GAP 12.6 -- 14.5 BUN 17.4 -- 19.8 CREATININE 0.95 -- 0.94 EGFR 67.5 -- 68.3 GLUCOSE 109* -- 137* CALCIUM 8.8 -- 9.0 HEMOGLOBIN A1C -- 6.20* -- Lab 01/24/2599 TOTAL PROTEIN 7.1 ALBUMIN 3.9 GLOBULIN 3.2 [...] home later today. Sarkis Manning MD Cardiac Engine Service Repairer [facility] 01/26/25 18:[address] Head Without Contrast [...] MD 01/24/2025 7:39 PM EDT Workstation ID: [id number] DxDesc CT Outside Head Result Date: 01/23/2025 [...] up to check your device. Carry your clinical specialist medical device ID card with you at all times. [...] minutes on this discharge activity which included: ajih-sj-[id number] with the patient, reviewing the data in [...] this APC on this date * Amberly Wallace, RN - 01/26/2025 1:46 PM EDT Images from the original note were not included. Rimma Ridley (65 y.o. Female) Amberly CM [phone] Date of 1960 Social Security Number [id number] [place] [address] [place] [address] Adventism Unknown Marital Status Admission Date 01/23/2025 Admission Type Urgent Admitting Provider Pam Kothari MD Attending Provider Pam Kothari MD Department, Room/Bed [facility] 3F, S322/1 Discharge Date Discharge Disposition Discharge Destination [...] Plan Fax Number Effective Dates [address] 11/10/2001 - None Entered [facility] [address] Subscriber Name Subscriber Date Member ID RIMMA RIDLEY 1960 [id number] Secondary Coverage Payor Plan Insurance Group Employer/[place] Group [place] Payor Plan Address Payor Plan Phone Number Payor Plan Fax Number Effective Dates [address] 01/23/2025 - None Entered 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.) Home Phone Work Phone Mobile Phone Rosa MariafrantzTara (Sister) [phone] -- [phone] David Georges (Son) [phone] -- -- Current Facility-Administered Medications Medication Dose Route Frequency Provider Last Rate Last Admin albuterol (PROVENTIL) nebulizer solution 0.083% 2.5 mg/3mL 2.5 mg Nebulization Q6H PRN Pam Kothari MD aluminum-magnesium hydroxide-simethicone (MAALOX MAX) 400-400-40 MG/5ML suspension 15 mL 15 mL QessV8D PRN Pam Kothari MD [Held by provider] [...] Nightly Akash Tan DO 40 mg at 01/25/252100 baclofen (LIORESAL) tablet 5 mg 5 mg Oral TID Akash Tan DO 5 mg at 01/26/2540 ceFAZolin 2000 mg IVPB in 100 mL NS (MBP) 2,000 mg Intravenous Once Chioma Noble APRN DULoxetine (CYMBALTA) DR capsule 30 mg 30 mg Oral Q12H Pam Kothari MD 30 mg at 01/26/25 09 escitalopram (LEXAPRO) tablet 10 mg 10 mg Oral Daily Akash Tan DO 10 mg at 01/26/25 09 gabapentin (NEURONTIN) capsule 200 mg 200 mg Oral TID Pam Kothari MD 200 mg at 01/26/25 09 HYDROcodone-acetaminophen (NORCO) 5-325 MG per tablet 1 tablet 1 tablet Oral Q6H PRN Akash Tan DO 1 tablet at 01/25/252100 levothyroxine (SYNTHROID, LEVOTHROID) tablet 88 mcg 88 mcg Oral Daily Akash Tan DO 88 mcg at 01/26/25 09 Lidocaine 4 % 1 patch 1 patch Transdermal Q24H Pam Kothari MD 1 patch at 01/26/25939 [Held by provider] metoprolol tartrate (LOPRESSOR) tablet [...] 1422 Consult Orders 1. Inpatient Cardiology Consult [[id number]] ordered by Pam Kothari MD at 01/25/25 1254 Attestation signed by Sarkis Manning MD at 01/25/25 1722 I have reviewed this documentation and agree. [facility] ELECTROPHYSIOLOGY CARDIOLOGY CONSULTATION NOTE Rimma Ridley [id number] 1960 LOS: 2 days Patient Care Team: [...] female past medical history listed above presented [facility] with complaints of aphasia. Cardiology was consulted [...] MD 01/24/2025 7:39 PM EDT Workstation ID: [id number] DxDesc Lab Review Results from last 7 [...] portions of this note were dictated utilizing Mesuroon dictation. 1722 Physical Therapy Notes (most recent note) Carmella Joseph, PT at 01/24/25 1505 Version 1 of [...] needed for orientation;place THOUGHT SHE WAS IN SENIOR CARE IN [place]. -CD Row Name 01/24/25 1544 Safety Issues/Impairments [...] Type CD Carmella Joseph, PT Physical Therapist Mobility Row Name 01/24/25 1546 Bed Mobility Bed Mobility rolling left;rolling right;sidelying-sit;sit-supine -CD Rolling Left Ursa (Bed Mobility) maximum assist (25% patient effort);2 person assist -CD Rolling Right Ursa (Bed Mobility) maximum assist (25% patient effort);2 person assist -CD Sit-Supine Ursa (Bed Mobility) dependent (less than 25% patient effort);2 person assist -CD Sidelying-Sit Ursa (Bed Mobility) maximum assist (25% patient effort);2 person assist -CD Comment, (Bed Mobility) BED MOBILITY ELICITS L HIP/LOWBACK PAIN. PT ABLE TO ASSIST WITH ROLLING VIABED RAILS WITH CUES. -CD Row Name 01/24/25 1019 Transfers Comment, (Transfers) DEFERRED. PT GIVING INCONSISTENT INFORMATION RE: TRANSFERS AT [facility]CF. INITALLY STATED STAFF USED A LIFT SYSTEM THEN SAID SHE PIVOTED WITH ASSIST OF 2. PT UNABLE TO MAINTAIN STATIC SITTING BALANCE AT EOB. -CD Row Name 01/24/25 0074 Gait/Stairs (Locomotion) Ursa Level (Gait) other (see comments) -CD Patient was able to Ambulate no, other medical factors prevent ambulation -CD Reason Patient was unable to Ambulate Non-Ambulatory at Baseline PER CHART IS W/C BOUND SINCE CVA. -CD User Story (r) = Recorded By, (t) = Taken By, (c) = Cosigned By Initials Name Provider Type Carmella Lawton PT Physical Therapist Obj/Interventions Row Name 01/24/25 8700 Range of Motion Comprehensive General Range of Motion lower extremity range of motion deficits identified -CD Comment, General Range of Motion L LE PROM LIMITED APPROX 50%. PAIN ELICITED AT L HIP. UNABLE TO FULLY EXTEND L KNEE. R LE WFL;'S -CD Row Name 01/24/25 155 Strength Comprehensive (MMT) Comment, General Manual Muscle Testing (MMT) Assessment L LE GROSSLY 0/5. R LE GROSSLY 3/5. ABLE TOPERFORM BRIEF SLR ON R. -CD Row Name 01/24/25 1559 Motor Skills Motor Skills coordination;functional endurance;muscle tone -CD Coordination gross motor deficit;left;lower extremity;severe impairment -CD Functional Endurance O2 SATS STABLE ON RA. -CD Muscle Tone left;lower extremity(s);hypertonia -CD Row Name 01/24/25 1555 Balance Balance Interventions sitting;supported;static;dynamic;weight shifting activity -CD Comment, Balance PT DEMONSTRATED HEAVY POSTERIOR AND L LEAN, SITTING EOB. UNABLE TO MAINTAIN MIDLINE ORIENTATION. C/O L HIP PAIN. WORKED ON ANTERIOR ROCKING AND MIDLINE ORIENTATION. -CD Row Name 01/24/25 1555 Sensory Assessment (Somatosensory) Sensory Assessment (Somatosensory) left LE -CD Left LE Sensory Assessment light touch awareness;impaired -CD User Story (r) = Recorded By, (t) = Taken By, (c) = Cosigned By Initials Name Provider Type CD Carmella Joseph, PT Physical Therapist Goals/Plan Row Name 01/24/25 1600 Bed Mobility Goal 1 (PT) Activity/Assistive Device (Bed Mobility Goal 1, PT) sit to supine/supine to sit -CD Ursa Level/Cues Needed (Bed Mobility Goal 1, PT) moderate assist (50-74% patient effort) -CD Time Frame (Bed Mobility Goal 1, PT) short term goal (STG);1 week -CD Row Name 01/24/25 1609 Transfer Goal 1 (PT) Activity/Assistive Device (Transfer Goal 1, PT) ruh-ti-telig/lxvsv-rp-bga -CD Ursa Level/Cues Needed (Transfer Goal 1, PT) maximum assist (25-49% patient effort) -CD Time Frame (Transfer Goal 1, PT) iron pellet tester goal (LTG);2 weeks -CD Row Name 01/24/25 1606 Therapy Assessment/Plan (PT) Planned Therapy Interventions (PT) balance training;bed mobility training;transfer training;postural re-education;ROM (range of motion);strengthening -CD User Story (r) = Recorded By, (t) = Taken By, (c) = Cosigned By Initials Name Provider Type CD Carmella Joseph PT Physical Therapist Clinical Impression Row Name 01/24/25 1556 Pain Pretreatment Pain Rating 10/10 -CD Posttreatment Pain Rating 9/10 -CD Pain Location hip;back -CD Pain Side/Orientation left -CD Pain Management Interventions exercise or physical activity utilized;positioning techniques utilized;movement retraining implemented -CD Response to Pain Interventions activity participation with decreased pain -CD Row Name 01/24/25 1556 Plan of Care Review Plan of Care [...] OF 2. NEED TO CONFIRM PLOF AT [facility]. RECOMMEND LIFT SYSTEM FOR UP TO CHAIR NEXT SESSION. CONSIDER D/C P.T. IF DETERMINED PT IS DEPENDENT VIA LIFT SYSTEM AT FACILITY. -CD Row Name 01/24/25 1556 Therapy Assessment/Plan (PT) Patient/Family Therapy Goals Statement (PT) DID NOT STATE. -CD Rehab Potential (PT) limited -CD Criteria for Skilled Interventions Met (PT) yes;skilled treatment is necessary;other (see comments)TBD FURTHER. -CD Therapy Frequency (PT) daily -CD Row Name 01/24/25 1556 Vital Signs Pre Systolic BP Rehab 148 [...] Type CD Carmella Joseph PT Physical Therapist Outcome Measures Row Name 01/24/25 1604 How much help from another person do [...] 8 -CD Row Name 01/24/25 1604 Modified Mora Scale Modified Beverley Scale 5 - Severe disability. Bedridden, incontinent, and requiring constant nursingcare and attention. -CD Row Name 01/24/25 1604 Functional Assessment Outcome Measure Options Modified Mora -CD User Story (r) = Recorded By, (t) = Taken By, (c) = Cosigned By Initials Name Provider Type CD Carmella Joseph PT Physical Therapist Physical Therapy Education Title: PT OT ACCOUNTING ANALYST Therapies (In Progress) Topic: Physical Therapy (Done) Point: Mobility training (Done) Learning Progress Summary Patient Acceptance, E, VU,NR by at 01/24/2025 1604 Comment: BENEFITS OF OOB ACTIVITY, SAFETY WITH MOBILITY, PROGRESSION OF POC, D/C PLANNING, Point: Home exercise program (Done) Learning Progress Summary Patient Acceptance, E, VU,NR by at 01/24/2025 1604 Comment: BENEFITS OF OOB ACTIVITY, SAFETY WITH MOBILITY, PROGRESSION OF POC, D/C PLANNING, Point: Body mechanics (Done) Learning Progress Summary Patient Acceptance, E, VU,NR by at 01/24/2025 1604 Comment: BENEFITS OF OOB ACTIVITY, SAFETY WITH MOBILITY, PROGRESSION OF POC, D/C PLANNING, Point: Precautions (Done) Learning Progress Summary Patient Acceptance, E, VU,NR by at 01/24/2025 1604 Comment: BENEFITS OF OOB [...] OF 2. NEED TO CONFIRM PLOF AT [facility]. RECOMMEND LIFT SYSTEM FOR UP TO [...] Minutes- PT 11 minute(s) -CD Timed Charges 99995 - PT Therapeutic Activity Minutes 11 -CD Untimed Charges PT Eval/Re-eval Minutes 60 -CD Total Minutes Timed Charges Total Minutes 11 -CD Untimed Charges Total Minutes 60 -CD Total Minutes 71 -CD User Story (r) = Recorded By, (t) = Taken By, (c) = Cosigned By Initials Name Provider Type CD Carmella Joseph PT Physical Therapist Therapy Charges for Today Code Description Service Date Service Provider Modifiers Qty 95353476119 PT THERAPEUTIC ACT EA 15 MIN 01/24/2025 Carmella Joseph, PT GP 1 [id number] HC PT EVAL MOD COMPLEXITY 4 01/24/2025 Carmella Joseph, PT GP 1 PT G-Codes Outcome Measure Options: Modified Beverley AM-PAC 6 Clicks Score (PT): 8 Modified Mora Scale: 5 - Severe disability. Bedridden, incontinent, and requiring constant nursing care and attention. PT Discharge Summary Anticipated Discharge Disposition (PT): extended care facility Carmella Joseph, PT 01/24/2025 1608 Occupational Therapy Notes (most recent note) Talia Delgado, OT at 01/25/25 1011 Acute Care - Occupational Therapy Discharge [facility] Patient Name: Rimma Ridley : 1960 Today's [...] evaluation/summary - Mode of Treatment occupational therapy -LC Row Name 01/25/25 1123 General Information Patient Profile Reviewed yes -LC Prior Level of Function max assist:;bed mobility;w/c or scooter;transfer;min assist:;feeding;grooming Pt. reports she uses a lift at baseline to W/C -LC Existing Precautions/Restrictions fall;other (see comments) L sided weakness, L LE contractures, Blind L eye -LC Barriers to Rehab medically complex;previous functional deficit;cognitive status;contractures -LC Row Name 01/25/25 1123 Living Environment Current Living Arrangements extended care facility - People in Home facility resident -LC Row Name 01/25/25 1123 Home Main Entrance Number of Stairs, Main Entrance none -LC Row Name 01/25/25 1123 Stairs Within Home, Primary Number of Stairs, Within Home, Primary none -LC Row Name 01/25/25 1123 Cognition Orientation Status [...] Mobility rolling left;rolling right;scooting/bridging;supine-sit;sit-supine - Rolling Left Ursa (Bed Mobility) verbal cues;moderate assist (50% patient effort);2 person assist - Rolling Right Ursa (Bed Mobility) moderate assist (50% patient effort);2 person assist;verbal cues -LC Scooting/Bridging Ursa (Bed Mobility) maximum assist (25% patient effort);2 person assist;verbal cues - Supine-Sit Ursa (Bed Mobility) verbal cues;maximum assist (25% patient [...] - Row Name 01/25/25 1131 Grooming Assessment/Training Ursa Level (Grooming) wash face, hands;minimum assist (75% patient effort) - Position (Grooming) edge of bed sitting - Row Name 01/25/25 1131 Lower Body Dressing Assessment/Training Ursa Level (Lower Body Dressing) don;socks;dependent (less than [...] R UE 3/5, L UE grossly 2/5 - Row Name 01/25/25 1133 Motor Skills Motor Skills functional endurance - Functional Endurance Impaired activity tolerance - Row Name 01/25/25 1133 Balance Balance Assessment sitting [...] Cosigned By Initials Name Provider Type Talia Wang, JAVIER Occupational Therapist Goals/Plan No documentation. Clinical Impression [...] Review/Discharge Plan (OT) Anticipated Discharge Disposition (OT) [facility] - Row Name 01/25/25 1139 Vital Signs Pre Systolic BP Rehab 166 -LC Pre Treatment Diastolic BP 104 -LC Post Systolic BP Rehab 157 -LC Post Treatment Diastolic BP 101 -LC Pre Patient Position Supine - Post Patient Position Supine - Row Name [...] taking off regular lower body clothing? 1 -LC Bathing (including washing, rinsing, and drying) 1 [...] Therapist Occupational Therapy Education Title: PT OT ACCOUNTING ANALYST Therapies (In Progress) Topic: Occupational Therapy (In Progress) Point: ADL training (In Progress) Learning Progress Summary Patient Acceptance, E, NR by at 01/25/2025 1011 Point: Precautions (In Progress) Learning Progress Summary Patient Acceptance, E, NR by at 01/25/2025 1011 Point: Body mechanics (In Progress) Learning Progress Summary Patient Acceptance, E, NR by at 01/25/2025 1011 User Story Initials Effective Dates Name Provider Type [facility] 10/26/20 - Talia Delgado OT Occupational Therapist [...] Description Service Date Service Provider Modifiers Qty [id number] HC-OT EVAL LOW COMPLEXITY 5 01/25/2025 Talia Delgado OT 1 [id number] OT THER SUPP EA 15 MIN 01/25/2025 Talia Delgado OT GO 3 OT Discharge Summary Anticipated Discharge Disposition (OT): extended care facility Reason for Discharge: At baseline function Discharge Destination: Extended care facility - LTC Taila Delgado OT 01/25/2025 1144 * Talia Delgado, OT - 01/25/2025 10:11 AM EDT Images from the original note were not included. Acute Care - Occupational Therapy Discharge [facility] Patient Name: Rimma Ridley : 1960 Today's [...] evaluation/summary - Mode of Treatment occupational therapy -LC Row Name 01/25/25 112 General Information Patient Profile Reviewed yes -LC Prior Level of Function max assist:;bed mobility;w/c or scooter;transfer;min assist:;feeding;grooming Pt. reports she uses a lift at baseline to W/C -LC Existing Precautions/Restrictions fall;other (see comments) L sided weakness, L LE contractures, Blind L eye - Barriers to Rehab medically complex;previous functional deficit;cognitive status;contractures -LC Row Name 01/25/25 112 Living Environment Current Living Arrangements extended care facility - People in Home facility resident -LC Row Name 01/25/25 1123 Home Main Entrance Number of Stairs, Main Entrance none -LC Row Name 01/25/25 1123 Stairs Within Home, Primary Number of Stairs, Within Home, Primary none -LC Row Name 01/25/25 112 Cognition Orientation Status (Cognition) oriented to;person;time;other (see comments);place;verbal cues/prompts needed for orientation Pt. able to state correct year, did not know the current month. Aware she is in hospital, did not know which. -LC Row Name 01/25/25 1123 Safety Issues/Impairments Affecting [...] Mobility rolling left;rolling right;scooting/bridging;supine-sit;sit-supine - Rolling Left Ursa (Bed Mobility) verbal cues;moderate assist (50% patient effort);2 person assist - Rolling Right Ursa (Bed Mobility) moderate assist (50% patient effort);2 person assist;verbal cues - Scooting/Bridging Ursa (Bed Mobility) maximum assist (25% patient effort);2 person assist;verbal cues - Supine-Sit Ursa (Bed Mobility) verbal cues;maximum assist (25% patient [...] - Row Name 01/25/25 1131 Grooming Assessment/Training Ursa Level (Grooming) wash face, hands;minimum assist (75% patient effort) - Position (Grooming) edge of bed sitting - Row Name 01/25/25 1131 Lower Body Dressing Assessment/Training Ursa Level (Lower Body Dressing) don;socks;dependent (less than [...] R UE 3/5, L UE grossly 2/5 - Row Name 01/25/25 1133 Motor Skills Motor Skills functional endurance - Functional Endurance Impaired activity tolerance -[facility] Name 01/25/25 1133 Balance Balance Assessment sitting [...] Review/Discharge Plan (OT) Anticipated Discharge Disposition (OT) extended care facility - Row Name 01/25/25 1139 Vital Signs [...] taking off regular lower body clothing? 1 -LC Bathing (including washing, rinsing, and drying) 1 -LC Toileting (which includes using toilet bed howe or urinal) 1 - Putting on and taking off regular upper body clothing 2 -LC Taking care of personal grooming (such as [...] Therapist Occupational Therapy Education Title: PT OT ACCOUNTING ANALYST Therapies (In Progress) Topic: Occupational Therapy (In [...] Initials Effective Dates Name Provider Type Discipline 10/26/20 - Talia Delgado OT Occupational Therapist [...] Time Calculation- OT OT Start Time 1011 - OT Received On 01/25/25 - Untimed Charges OT Eval/Re-eval Minutes 61 -LC Total Minutes Untimed Charges Total Minutes 61 -LC Total Minutes 61 -LC User Story (r) = Recorded By, (t) = Taken By, (c) = Cosigned By Initials Name Provider Type Talia Delgado OT Occupational Therapist Therapy Charges for Today Code Description Service Date Service Provider Modifiers Qty [id number] HC-OT EVAL LOW COMPLEXITY 5 01/25/2025 Talia Delgado OT 1 [phone] OT THER SUPP EA 15 MIN 01/25/2025 [...] up to check your device. Carry your clinical specialist medical device ID card with you at all times. [...] 5 apixaban (ELIQUIS) 5 MG tablet tabletIndications:At rial Fibrillation - requiring full anticoagulation Take 1 [...] of this encounter Progress Notes * Chioma Noble, JOSE - 01/27/2025 7:33 AM EDT [facility] PROGRESS NOTE Rimma Ridley [id number] 1960 LOS: 4 days . Date of Admission: 01/23/2025 Date of Service: 01/27/25 Primary Care Physician: Provider, No Known Chief [...] portions of this note were dictated utilizing Mesuroon dictation. Cosigned by Sarkis Manning MD at 01/27/2025 6:55 PM EDT Associated attestation - Sarkis Manning MD - 01/27/2025 6:55 PM EDT I have reviewed this documentation and agree. * Shanika Olson PA-C - 01/26/2025 3:08 PM EDT Images from the original note were not included. [facility] Medicine Services PROGRESS NOTE Patient Name: [...] and appropriate Results Reviewed: LAB RESULTS: Lab 01/25/25182201/24/2599 WBC 12.07* 15.93* HEMOGLOBIN 14.3 15.4 HEMATOCRIT 44.6 49.5* PLATELETS 150 159 MCV 89.9 91.0 PROTIME -- 15.0 Lab 01/25/25182201/24/2572601/24/2599 SODIUM 136 -- 137 POTASSIUM 3.9 -- 4.4 CHLORIDE 99 -- 101 CO2 24.4 -- 21.5* ANION GAP 12.6 -- 14.5 BUN 17.4 -- 19.8 CREATININE 0.95 -- 0.94 EGFR 67.5 -- 68.3 GLUCOSE 109* -- 137* CALCIUM 8.8 -- 9.0 HEMOGLOBIN A1C -- 6.20* -- Lab 01/24/2599 TOTAL PROTEIN 7.1 ALBUMIN 3.9 GLOBULIN 3.2 [...] MD 01/24/2025 7:39 PM EDT Workstation ID: [id number] DxDesc Results for orders placed during the [...] (wheelchair bound) who presents from long-term care ([facility]) as transfer from [facility] for left upper extremity paralysis, aphasia/dysarthria, and [...] touch to left lower extremity. Coordination Right: Vofmfm-wr-dbhf normal.Left: Pluzmc-lv-upww abnormality: No dysmetria out of proportion to [...] MD 01/24/2025 7:39 PM EDT Workstation ID: [id number] DxDesc Results for orders placed during the [...] - Continue aspirin 81 mg daily - PT/OT/ACCOUNTING ANALYST continued evaluation and recommending extended-care facility at [...] from the original note were not included. [facility] Medicine Services PROGRESS NOTE Patient Name: [...] No rashes Results Reviewed: LAB RESULTS: Lab 01/24/2599 WBC 15.93* HEMOGLOBIN 15.4 HEMATOCRIT 49.5* PLATELETS 159 MCV 91.0 PROTIME 15.0 Lab 01/24/2572601/24/2599 SODIUM -- 137 POTASSIUM -- 4.4 CHLORIDE -- 101 CO2 -- 21.5* ANION GAP -- 14.5 BUN -- 19.8 CREATININE -- 0.94 EGFR -- 68.3 GLUCOSE -- 137* CALCIUM -- 9.0 HEMOGLOBIN A1C 6.20* -- Lab 01/24/2599 TOTAL PROTEIN 7.1 ALBUMIN 3.9 GLOBULIN 3.2 [...] MD 01/24/2025 7:39 PM EDT Workstation ID: [id number] DxDesc CT Outside Head Result Date: 01/23/2025 [...] (wheelchair bound) who presents from long-term care ([facility]) as transfer from [facility] for left upper extremity paralysis, aphasia/dysarthria, and facial droop. Weakness resolved on arrival here, favored to be TIA v FND. Unable to obtain MRI 2/2 patient's pacemaker on back-up battery. Consulted cardiology for generator change while inpatient given this Pacemaker battery near depleted Complete heart block s/p MDT BiV pacemaker -hold mara, NPO @ 12 for generator change tmrw w Dr Manning LUSom weakness + aphasia/dysarthria, resolved on arrival. Suspected [...] intubation (DNI); per prior Ordered at: 01/24/25 3097 Code Status (Patient has no pulse and [...] touch to left lower extremity. Coordination Right: Mkycjl-qd-hsea normal.Left: Oxkfwy-dp-pgcm abnormality: No dysmetria out of proportion to [...] MD 01/24/2025 7:39 PM EDT Workstation ID: [id number] Desc Results for orders placed during the hospital [...] - Continue aspirin 81 mg daily - PT/OT/ACCOUNTING ANALYST continued evaluation and recommending extended-care facility at [...] and agree. Jhonny Pradhan MD Vascular Neurologist [facility] * Jhonny Pradhan MD - 01/24/2025 9:59 [...] bed. She reports that she lives in [place] and does not know why she is in [place]. No other acute complains at this time [...] light touch throughout Coordination: no ataxia with xjtapk-ff-ldwx testing ReFlex exam gait deferred Results Review: [...] was notified and patient was brought to [facility] ED. NIHSS was deemed as a 12 for the ED physician.Patient will be transferred to [facility] from [facility] for higher level care and further stroke [...] infarct okay to resume anticoagulation - Continue MEDICAL OFFICE REP aspirin 81 mg daily - Continue MEDICAL OFFICE REP atorvastatin 81 mg nightly - Okay to carefully resume home antihypertensive medications, avoiding hypotension -PT/OT/ACCOUNTING ANALYST Patient education for discharge: call 911 or present to emergency department with any stroke symptom, including unilateral face, arm, or leg weakness, numbness, or paresthesias, unilateral facial droop, speech deficits, dizziness with nausea, vomiting, nystagmus, and incoordination, visual deficits, or severe onset headache. Stroke will continue to follow. Please call for any further questions or concerns Jhonny Pradhan MD Vascular Neurologist [facility] * Akash Tan DO - 01/24/2025 8:50 AM EDT Images from the original note were not included. 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[facility]) to [facility] foreval of expressive aphasia, dysarthria, and facial droop and was transferred for stroke/neuro eval The following problems are new to me today Assessment/Plan Expressive aphasia w/ dysarthria and facial droop, improved Hx stroke w/ residual LT UE+LE weakness -ASA, statin, eliquis -PT/OT/ACCOUNTING ANALYST -syx significantly improved -MRI-pending (needs cards clearance of device) -TTE pending -stroke neuro to follow HTN - permissive HTN Afib - eliquis Chronic CHF w/ recovered EF - s/p ICD+PPM Chronic debility - WC bound, resides at LTC Chronic back pain Tobacco use Expected Discharge Location and Transportation: back to [facility] when cleared by neuro and CM VTE [...] from the original note were not included. [facility] Medicine Services HISTORY AND PHYSICAL Patient [...] bound) who presents from long- term care ([facility]) as transfer from [facility] for left upper extremity paralysis, aphasia/dysarthria, and facial droop. Patient reports waking up this morning with issues with her speech. She reports this was noticeableissue she was having. Still feels she is working hard to express herself. She can tell me her name and the date, but reports she is in [place] even with repeat prompting. Reports wheelchair bound [...] (wheelchair bound) who presents from long-term care ([facility]) as transfer from [facility] for left upper extremity paralysis, aphasia/dysarthria,and facial [...] *Pharmacy consult for home med rec from [facility]. Currently only have list from OSH ED [...] this encounter Consult Notes * Chioma Noble, GEOSCIENCE LABORATORY TECHNICIAN - 01/25/2025 2:22 PM EDTAssociated Order(s): IP CONSULT TO CARDIOLOGY [facility] ELECTROPHYSIOLOGY CARDIOLOGY CONSULTATION NOTE Rimma Ridley [id number] 1960 LOS: 2 days Patient Care Team: [...] female past medical history listed above presented [facility] with complaints of aphasia. Cardiology was consulted [...] MD 01/24/2025 7:39 PM EDT Workstation ID: [id number] DxDesc Lab Review Results from last 7 [...] 8:31 AM EDTAssociated Order(s): IP CONSULT TO IMPLEMENT MECHANIC Chart review for maintenance craftsman consult. At the time of this review [...] from the original note were not included. [facility] Cardiology Consultation H&P Patient: Rimma Ridley 1960 @[email or web address]@ @[email or web address]@ [id number] [facility] [address] PCP: Provider, No Known Treatment Team: Attending Provider: Akash Tan DO Consulting Physician: Maycol Vargas MD Admitting Provider: Akash Tan DO 01/23/2025 DATE OF CONSULTATION: 01/24/2025 09:35 EDT IDENTIFICATION: A 65 y.o. female from [facility] REASON FOR CONSULTATION: HEfPef PROBLEM LIST: CHF 2017 OSH MDT BI V ICD(Dr Coulter) 2019 OSH report of resolved LVEF 05/04 [facility] OSH nonobst AFIB 2014 OSH LA [...] rec consult, , Not Applicable, Continuous PRN, Pam Kothari MD ondansetron ODT (ZOFRAN-ODT) disintegrating tablet 4 mg, 4 mg, Translingual, Q6H PRN, Pam Kohtari MD, 4 mg at 01/24/25 0041 sodium chloride 0.9 % flush 10 mL, 10 mL, Intravenous, Q12H, Claudia Aponte APRN sodium chloride 0.9 % flush 10 mL, 10 mL, Intravenous, PRN, Claudia Aponte APRN sodium chloride 0.9 % infusion 40 mL, 40 mL, Intravenous, PRN, Claudia Aponte APRN pharmacy consult - [facility], History of Present Illness Rimma Ridley is a 65 y.o. year old female with a past medical history significant for HefPef/ chronic afib. Transferred to [facility] due to neurologic change. Pt states she [...] 3 days) 01/21 0701/22 0701/22 0701/23 0701/23 0701 01/24 0701/24 0701/25 0700 Urine 500 Total Output 500 Net -500 [...] Procedure Component Value Units Date/Time Lipid Panel [[id number]] Collected: 01/24/25726 Specimen: Blood Updated: 01/24/25899 Total [...] using the NIH LDL-C calculation. Hemoglobin A1c [[id number]] Collected: 01/24/25726 Specimen: Blood Updated: 01/24/25 0831 POC Glucose Q6H [[id number]] (Abnormal) Collected: 01/24/25613 Specimen: Blood Updated: 01/24/2516 Glucose 137 mg/dL Comment: Serial Number: [id number]: [id number] Protime-INR [[id number]] (Normal) Collected: 01/24/2599 Specimen: Blood Updated: 01/24/25 0157 Protime 15.0 Seconds INR 1.11 Comprehensive Metabolic Panel [[id number]] (Abnormal) Collected: 01/24/2599 Specimen: Blood Updated: 01/24/25 [...] race as a factor CBC (No Diff) [[id number]] (Abnormal) Collected: 01/24/25 010 Specimen: Blood Updated: 01/24/25 011 WBC 15.93 10*3/mm3 RBC 5.44 10*6/mm3 Hemoglobin 15.4 g/dL Hematocrit 49.5 % MCV 91.0 fL MCH 28.3 pg MCHC 31.1 g/dL RDW 13.8 % RDW-SD 46.3 fl MPV 9.9 fL Platelets 159 10*3/mm3 POC Glucose Once [[id number]] (Abnormal) Collected: 01/23/252147 Specimen: Blood Updated: 01/23/252149 Glucose 150 mg/dL Comment: Serial Number: [id number]: [id number] ECG/EMG Results (last 24 hours) Procedure Component Value Units Date/Time ECG 12 Lead Stroke Evaluation [[id number]] Collected: 01/23/252241 Updated: 01/23/252242 QT Interval 502 [...] Vargas MD 09:35 EDT 01/24/2025 * Anil Flaherty, JOSE - 01/23/2025 9:40 PM EDT Stroke Consult Note Patient Name: Rimma Ridley Age: 65 y.o. Sex: female : 1960 Primary Care Physician: Provider, No Known Referring Physician: OS ER physician TIME STROKE TEAM CALLED: 1630 EST ARRIVAL TO [facility] 2145 EST TIME PATIENT SEEN: 2150 EST [...] was notified and patient was brought to [facility] ED. NIHSS was deemed as a 12 for the ED physician. Patient will be transferred to [facility] from [facility] for higher level care and further stroke [...] by mouth Every 12 (Twelve) Hours. 10/25/23 Bryan Kaitlin Nohemy II, DO omeprazole (priLOSEC) 20 MG capsule Take 1 capsule by mouth Daily. Provider, MD Benny BP: ()/() Arterial Line BP: ()/() Neurological [...] sodium chloride Functional Status Prior to Current Stroke/Mora Score: MODIFIED BEVERLEY SCALE (to be assessed [...] gravity 7. Limb Ataxia: 0-->Absent 8. Sensory: 1-->Jtvw-hi-xyajjiys sensory loss, patient feels pinprick is less sharp or is dull on the affected side, or there is a loss of superficial pain with pinprick, but patient is aware of being touched 9. Best Language: 1-->Qort-dz-vljjiyec aphasia, some obvious loss of fluency or facility of comprehension, without significant limitation on ideas expressed or form of expression. Reduction of speech and/or comprehension, however, makes conversation. . . (see row details) 10. Dysarthria: 1-->Onbg-dv-peyjglbk dysarthria, patient slurs at least some words [...] 01/24/2025 ANIONGAP 14.5 01/24/2025 EGFR 68.3 01/24/2025 OS CTA head Impression: There are multiple areas [...] There is no evidence of intracranial hemorrhage. OS CTA neck Impression: Extensive collateral vascular distribution [...] moderate left upper extremity weakness. Today at [id number] staff at her SNF reported that she had a flexure response in her left upper extremity followedby complete left upper extremity paralysis, aphasia, dysarthria, and facial droop. EMS was notifiedand patient was brought to [facility] ED. NIHSS was deemed as a 12 for the ED physician. Patient will be transferred to [facility] from [facility] for higher level care and further stroke workup. Patient reports she woke up with presenting symptoms at 8 AM this morning. Patient is not a candidate for IV thrombolytic therapy due to consistent Eliquis use. Patient is not a candidatefor endovascular therapy due to no LVO noted on OSH CT scans. Antiplatelet MEDICAL OFFICE REP: Aspirin Anticoagulant MEDICAL OFFICE REP: Eliquis LFD, left-sided weakness Differentials include TIA, [...] Blood pressure goals, SBP less than 220 volunteer recruitment coordinator to see if appropriate PT/OT/ACCOUNTING ANALYST eval and treat Case management to follow Plan of care discussed with hospital team, patient and primary RN. Stroke neurology will continue to follow. Thank you for this consult. Call with any questions or concerns. Anil Flaherty APRN January 23, 2025 21:43 EDT documented in this encounter Nursing Notes * Harjit Pierre, RN - 01/27/2025 2:40 PM EDT Report called to Brenda at [facility] at 1150. PIV in R wrist removed, [...] To d/c today back to her facility, [facility]. Problem: Adult Inpatient Plan of Care Goal: Plan of Care Review Outcome: Adequate for Care Transition Goal: Patient-Specific Goal (Individualized) Outcome: Adequate for Care Transition Goal: Absence of Hospital-Acquired Illness or Injury Outcome: Adequate for Care Transition Intervention: Identify and Manage Fall Risk Recent Flowsheet Documentation Taken 01/27/2025 08 by Harjit Pierre RN Safety Promotion/Fall Prevention: activity supervised assistive device/personal items within reach clutter free environment maintained fall prevention program maintained lighting adjusted nonskid shoes/slippers when out of bed room organization consistent safety round/check completed toileting scheduled Intervention: Prevent Skin Injury Recent Flowsheet Documentation Taken 01/27/2025 08 by Harjit Pierre RN Body Position: position maintained heels elevated side-lying right upper extremity elevated Skin Protection: incontinence pads utilized silicone border foam - heel silicone border foam - sacrum/coccyx Intervention: Prevent and Manage VTE (Venous Thromboembolism) Risk Recent Flowsheet Documentation Taken 01/27/2025 08 by Harjit Pierre RN VTE Prevention/Management: bilateral SCDs (sequential compression devices) off Intervention: Prevent Infection Recent Flowsheet Documentation Taken 01/27/2025 08 by Harjit Pierre RN Infection Prevention: single patient room provided Goal: Optimal Comfort and Wellbeing Outcome: Adequate for Care Transition Intervention: Monitor Pain and Promote Comfort Recent Flowsheet Documentation Taken 01/27/2025 08 by Harjit Pierre RN Pain Management Interventions: [...] Optimize Skin Protection Recent Flowsheet Documentation Taken 01/27/2025 08 by Harjit Pierre RN Activity Management: activity [...] Manage Contributors Recent Flowsheet Documentation Taken 01/27/2025 09 by Harjit Pierre RN Medication Review/Management: medications reviewed Intervention: Promote Injury-Free Environment Recent Flowsheet Documentation Taken 01/27/2025 08 by Harjit Pierre RN Safety Promotion/Fall Prevention: [...] Taken 01/26/2025 1300 by Harjit Pierre RN Body Position: turned right foot of [...] Interventions: (Scheduled baclofen and gabapentin given per JUL.) pillow support provided position adjusted other (see [...] toileting scheduled Goal Outcome Evaluation: * Consuelo Martin MS CCC-ACCOUNTING ANALYST - 01/26/2025 1:48 PM EDT Goal Outcome Evaluation: Plan of Care Reviewed With: patient Progress: no change Anticipated Discharge Disposition (ACCOUNTING ANALYST): residential facility Treatment Assessment (ACCOUNTING ANALYST): continued, mild-moderate, cognitive-linguistic disorder (01/26/25 1300) Plan for Continued Treatment (ACCOUNTING ANALYST): continue treatment per plan of care (01/26/25 1300) * Talia Delgado, OT - 01/25/2025 10:11 AM EDT Goal Outcome Evaluation: Plan of Care Reviewed With: patient Progress: no change Outcome Evaluation: Pt. presents at baseline with ADLs and functional mobility. No further skilled OT services warranted at this time. Recommend return to LTC at discharge. Anticipated Discharge Disposition (OT): extended care facility * Carmella Joseph PT - 01/24/2025 3:05 PM EDT Goal [...] extended care facility * Suzanne Castaneda MS CCC-ACCOUNTING ANALYST - 01/24/2025 1:59 PM EDT Goal Outcome Evaluation: Plan of Care Reviewed With: patient Anticipated Discharge Disposition (ACCOUNTING ANALYST): residential facility ACCOUNTING ANALYST Diagnosis: mild, cognitive-linguistic disorder (01/24/25 1030) ACCOUNTING ANALYST Swallowing Diagnosis: mild, oral dysphagia, R/O pharyngeal dysphagia, other (see comments) (no suspected pharyngeal dysphagia) (01/24/25 1030) documented in this encounter Miscellaneous Notes * Case Management/Social Work - Amberly Wallace, RN - 01/26/2025 2:57 PM EDT Case Management Discharge Note Final Note: Pt to discharge back to [facility] 01/27/2025. Nurse to call report to [phone] askfor pts nurse. Discharge summary to be faxed to [phone]. Nurse to notify CM at [phone] when pt isready EMS dispatch. PCS on chartlet. No one at bedside for EMS DNR. Spoke to son to notivy of pending discharge and IMM EXPLAINED Selected Continued Care - Admitted Since 01/23/2025 Destination Coordination complete. Service Provider Services Address Phone Fax Patient Preferred [facility] [place] [id number] -- Durable Medical Equipment No services [...] the patient. Transportation Services Transportation: Ambulance Ambulance: [facility] Ambulance Status: Accepted Final Discharge Disposition Code: 04 - [facility] facility * Case Management/Social Work - Amberly Wallace [...] follow Final Discharge Disposition Code 04 - [facility] [place] Discharge Codes No documentation. Expected Discharge Date and Time Expected Discharge Date Expected Discharge Time Jan 27, 2025 Amberly Wallace RN * Therapy Treatment Note - Consuelo Martin MS [facility]-ACCOUNTING ANALYST - 01/26/2025 1:50 PM EDT Acute Care [...] history. History reviewed. No pertinent surgical history. ACCOUNTING ANALYST Recommendation and Plan Recommended discharge disposition is based on the functional assessment performed by PT/OT/Speech therapy (as applicable) and may not reflect the medical necessity determined by your provider or services covered by an individual patient's insurance plan or patient resource. ACCOUNTING ANALYST Diagnosis: mild, cognitive-linguistic disorder (01/26/25 1300) S[facility] Criteria for Skilled Therapy Interventions Met: yes (01/26/251299) Anticipated Discharge Disposition (ACCOUNTING ANALYST): residential facility (01/26/25 1300) Therapy Frequency (ACCOUNTING ANALYST SLC): 5 days per week (01/26/25 1300) Predicted Duration Therapy Intervention (Days): 2 weeks (01/26/251299) Daily Summary of Progress (ACCOUNTING ANALYST): progress toward functional goals as expected (01/26/25 1300) Treatment Assessment (ACCOUNTING ANALYST): continued, mild-moderate, cognitive-linguistic disorder (01/26/251299) Plan for Continued Treatment (ACCOUNTING ANALYST): continue treatment per plan of care (01/26/251299) Progress: no change (01/26/25 1348) ACCOUNTING ANALYST EVALUATION (Last 72 Hours) ACCOUNTING ANALYST SLC Evaluation Row Name 01/26/25 1300 01/24/25 [...] Pertinent History Of Current Problem See previous ACCOUNTING ANALYST note -SH Admitted from SNF with LLE paralysisand mod LUE weakness, facial droop. Hx chronic R hemisphere CVAs - Precautions/Limitations, Vision -- WFL;for purposes of eval -CH Precautions/Limitations, Hearing -- WFL;for purposes of eval -CH Prior Level of Function-Communication -- unknown - [...] Additional Documentation Pain Scale: FACES Pre/Post-Treatment (Group) -SH Pain Scale: FACES Pre/Post-Treatment (Group) -CH Pain Scale: FACES Pre/Post-Treatment Pain: FACES Scale, Pretreatment 4-->hurts little more - 2-->hurts little bit -CH Posttreatment Pain Rating 4-->hurts little more -SH 2-->hurts little bit - Pre/Posttreatment Pain Comment repositioned. -SH repositioned - Comprehension Assessment/Intervention Comprehension Assessment/Intervention -- Auditory Comprehension - Auditory Comprehension Assessment/Intervention Auditory Comprehension (Communication) -- WFL - Able to Identify Objects/Pictures (Communication) -- familiar objects;WNL - Answers Questions (Communication) -- yes/no;wh questions;personal;simple;WFL;complex;abstract;mild impairment - Able to Follow Commands (Communication) -- 2-step;[facility] - Narrative Discourse -- conversational level;[facility] - Successful Auditory Strategies (Communication) -- repetition - Expression Assessment/Intervention Expression Assessment/Intervention -- verbal expression - Verbal Expression Assessment/Intervention Verbal Expression -- mild impairment - Repetition -- phrases;[facility] - Phrase Completion -- unpredictable;[facility] - Responsive Naming -- simple;[facility] - Confrontational Naming -- low frequency;[facility] - Sentence Formulation -- complex;[facility] - Conversational Discourse/Fluency -- WFL - Oral Motor Structure and Function [...] Voice Assessment/Intervention Quality and Resonance (Voice) -- WNL - Cognitive Assessment Intervention- ACCOUNTING ANALYST Cognitive Function (Cognition) -- mild impairment - Orientation Status (Cognition) -- awareness of basic personal information;person;WFL;place;time;situation;mild impairment - Memory (Cognitive) -- simple;immediate;long-term;WFL;short-term;delayed;mild impairment - Attention (Cognitive) -- selective;sustained;attention to detail;mild impairment -CH Thought Organization (Cognitive) -- concrete divergent;abstract divergent;concrete convergent;abstract convergent;mental manipulation;mild impairment -CH Reasoning (Cognitive) -- simple;deductive;WFL - Problem Solving (Cognitive) -- simple;temporal;mild impairment -CH Functional Math (Cognitive) -- simple;word problems;mild impairment -CH Pragmatics (Communication) -- WFL - ACCOUNTING ANALYST Evaluation Clinical Impressions ACCOUNTING ANALYST Diagnosis mild;cognitive-linguistic disorder - mild;cognitive-linguistic disorder - Rehab Potential/Prognosis good -SH good - [facility] Criteria for Skilled Therapy Interventions Met yes -SH yes - Functional Impact functional impact in social situations;need frequent supervision;difficulty in expressing complex messages;difficulty completing home management task - functional impact in socialsituations;need frequent supervision;difficulty in expressing complex messages;difficulty completing home management task - ACCOUNTING ANALYST Treatment Clinical Impressions Treatment Assessment (ACCOUNTING ANALYST) continued;mild-moderate;cognitive-linguistic disorder - -- Daily Summary of Progress (ACCOUNTING ANALYST) progress toward functional goals as expected - -- Plan for Continued Treatment ([facility] [facility] continue treatment per plan of care - -- Care Plan Review care plan/treatment goals reviewed;patient/other agree to care plan - -- Recommendations Therapy Frequency ([facility]) 5 days per week - 5 days per week - Predicted Duration Therapy Intervention (Days) 2 weeks - 2 weeks - Anticipated Discharge Disposition (ACCOUNTING ANALYST) residential facility - residential facility - User Story (r) = Recorded By, (t) = Taken By, (c) = Cosigned By Initials Name Effective Dates Suzanne Castaneda MS [facility]-ACCOUNTING ANALYST 06/01/24 - Consuelo Martin MS [facility]-ACCOUNTING ANALYST 12/25/24 - EDUCATION The patient has been educated in the following areas: Cognitive Impairment Communication Impairment. ACCOUNTING ANALYST GOALS Row Name 01/26/25 1300 01/24/25 1030 (LTG) Patient will demonstrate functional swallow for Diet Texture (Demonstrate functional swallow) -- soft to chew (chopped) textures -CH Liquid viscosity (Demonstrate functional swallow) -- thin liquids - Ursa (Demonstrate functional swallow) -- independently (over 90% accuracy) -CH Time Frame (Demonstrate functional swallow) -- 2 weeks - (STG) Patient will tolerate trials of Consistencies Trialed (Tolerate trials) -- mechanical ground textures;thin liquids - Desired Outcome (Tolerate trials) -- without signs/symptoms of aspiration;with adequate oral prep/transit/clearance - Ursa (Tolerate trials) -- with minimal cues (75-90% accuracy) - Time Frame (Tolerate trials) -- 1 week - Patient will demonstrate functional cognitive-linguistic skills for return to discharge environment Ursa with minimal cues - with minimal cues - Time frame 2 weeks - 2 weeks - Follow Directions Goal 2 ([facility]) Improve Ability to Follow Directions Goal 1 (ACCOUNTING ANALYST) 2 step commands;3 step commands;80%;with minimal cues (75-90%) - 2 step commands;3 step commands;80%;with minimal cues (75-90%) - Time Frame (Follow Directions Goal 1, ACCOUNTING ANALYST) 1 week - 1 week - Progress (Ability to Follow Directions Goal 1, ACCOUNTING ANALYST) with minimal cues (75- 90%);60% - -- Progress/Outcomes (Follow Directions Goal 1, [facility]) continuing progress toward goal - -- Attention Goal 1 ([facility]) Improve Attention by Goal 1 (ACCOUNTING ANALYST) complete sustained attention task;80%;with minimal cues (75-90%) - complete sustained attention task;80%;with minimal cues (75-90%) - Time Frame (Attention Goal 1, ACCOUNTING ANALYST) 1 week - 1 week - Progress (Attention Goal 1, ACCOUNTING ANALYST) 60%;with minimal cues (75-90%) - -- Progress/Outcomes (Attention Goal 1, ACCOUNTING ANALYST) continuing progress toward goal - -- Orientation Goal 1 ([facility]) Improve Orientation Through Goal 1 ([facility]) demonstrating orientation to day;demonstrating orientationto month;demonstrating orientation to year;demonstrating orientation to place;demonstrating orientation to disease/impairment;90%;with minimal cues (75-90%) - demonstrating orientation to day;demonstrating orientation to month;demonstrating orientation to year;demonstrating orientation to place;demonstrating orientation to disease/impairment;90%;with minimal cues (75-90%) - Time Frame (Orientation Goal 1, ACCOUNTING ANALYST) 1 week - 1 week - Progress (Orientation Goal 1, ACCOUNTING ANALYST) with moderate cues (50-74%);50% - -- Progress/Outcomes (Orientation Goal 1, ACCOUNTING ANALYST) goal ongoing;continuing progress toward goal - -- Memory Skills Goal 1 (ACCOUNTING ANALYST) Improve Memory Skills Through Goal 1 ([facility]) recalling related word lists with an imposed delay;listen to a paragraph and answer questions;80%;with minimal cues (75-90%) - recalling related word lists with an imposed delay;listen to a paragraph and answer questions;80%;with minimal cues (75-90%) - Time Frame (Memory Skills Goal 1, [facility]) 1 week -SH 1 week -CH Progress (Memory Skills Goal 1, ACCOUNTING ANALYST) 70%;with minimal cues (75-90%) - -- Progress/Outcomes (Memory Skills Goal 1, ACCOUNTING ANALYST) continuing progress toward goal - SH -- Organizational Skills Goal 1 ([facility]) Improve Thought Organization Through Goal 1 ([facility]) completing a divergent naming task;naming similarities and differences;90%;with minimal cues (75-90%) - completing a divergent naming task;naming similarities and differences;90%;with minimal cues (75-90%) - Time Frame (Thought Organization Skills Goal 1, [facility]) 1 week -SH 1 week - Progress/Outcomes (Thought Organization Skills Goal 1, [facility]) goal ongoing - -- Functional Math Skills Goal 1 ([facility]) Improve Functional Math Skills Through Goal 1 ([facility]) complete simple math problems;complete word problems involving time;complete word problems involving money;90%;with minimal cues (75-90%) - complete simple math problems;complete word problems involving time;complete word problems involving money;90%;with minimal cues (75-90%) - Time Frame (Functional Math Skills Goal 1, [facility]) 1 week - 1 week - Progress/Outcomes (Functional Math Skills Goal 1, [facility]) goal ongoing - -- User Story (r) = Recorded By, (t) = Taken By, (c) = Cosigned By Initials Name Provider Type Suzanne Castaneda, [facility]-ACCOUNTING ANALYST Speech and Language Pathologist Consuelo Martin, [facility]ACCOUNTING ANALY[facility] Speech and Language Pathologist Time Calculation: Time Calculation- ACCOUNTING ANALYST Row Name 01/26/25 1349 Time Calculation- ACCOUNTING ANALYST ACCOUNTING ANALYST Start Time 1300 -SH ACCOUNTING ANALYST Received On 01/26/25 - Untimed Charges 08923-IR Treatment/ST Modification Prosth Aug Alter 50 -SH Total Minutes Untimed Charges Total Minutes 50 -SH Total Minutes 50 -SH User Story (r) = Recorded By, (t) = Taken By, (c) = Cosigned By Initials Name Provider Type SH Consuelo Martin MS CCC-ACCOUNTING ANALYST Speech and Language Pathologist Therapy Charges for Today Code Description Service Date Service Provider Modifiers Qty [id number] ST TREATMENT SPEECH 3 01/26/2025 Consuelo Martin MS CCC-ACCOUNTING ANALYST GN 1 MS CHILO Gambino 01/26/2025 * Case Management/Social Work - Amberly Wallace RN - 01/25/2025 12:18 PM EDT Images from the original note were not included. Discharge Planning Assessment [facility] Patient Name: Rimma Ridley Today's Date: 01/25/2025 [...] yes Plan Comments Spoke to administration at [facility] where pt resides. Pt able to return when medically ready. She requires a lift to [facility] chair at facility. [facility] Pt will require EMS transport at discharge. CM will cont to follow. Final Discharge Disposition Code 04 - intermediate care facility Continued Care and Services - Admitted Since 01/23/2025 Destination Service Provider Request Status Services Address Phone Fax Patient Preferred [facility] Accepted -- [place] [address] [phone] -- Demographic Summary Row Name 01/25/25 1212 General Information Admission Type inpatient Arrived From long-term care Referral Source admission list Reason for Consult decision-making Preferred Language Somali Functional Status Row Name 01/25/25 1212 Functional [...] needed for orientation;place THOUGHT SHE WAS IN [facility] [place]. -CD Row Name 01/24/25 1544 Safety Issues/Impairments [...] PT Physical Therapist Mobility Row Name 01/24/25 0643 Bed Mobility Bed Mobility rolling left;rolling right;sidelying-sit;sit-supine -CD Rolling Left Ursa (Bed Mobility) maximum assist (25% patient effort);2 person assist -CD Rolling Right Ursa (Bed Mobility) maximum assist (25% patient effort);2 person assist -CD Sit-Supine Ursa (Bed Mobility) dependent (less than 25% patient effort);2 person assist -CD Sidelying-Sit Ursa (Bed Mobility) maximum assist (25% patient effort);2 person assist -CD Comment, (Bed Mobility) BED MOBILITY ELICITS L HIP/LOWBACK PAIN. PT ABLE TO ASSIST WITH ROLLING VIABED RAILS WITH CUES. -CD Row Name 01/24/25 8846 Transfers Comment, (Transfers) DEFERRED. PT GIVING INCONSISTENT INFORMATION RE: TRANSFERS AT ECF. INITALLY STATED STAFF USED A LIFT SYSTEM THEN SAID SHE PIVOTED WITH ASSIST OF 2. PT UNABLE TO MAINTAIN STATIC SITTING BALANCE AT EOB. -CD Row Name 01/24/25 4996 Gait/Stairs (Locomotion) Ursa Level (Gait) other (see comments) -CD Patient was able to Ambulate no, other medical factors prevent ambulation -CD Reason Patient was unable to Ambulate Non-Ambulatory at Baseline PER CHART IS W/C BOUND SINCE CVA. -CD User Story (r) = Recorded By, (t) = Taken By, (c) = Cosigned By Initials Name Provider Type Carmella Lawton PT Physical Therapist Obj/Interventions Row Name 01/24/25 3184 Range of Motion Comprehensive General Range of Motion lower extremity range of motion deficits identified -CD Comment, General Range of Motion L LE PROM LIMITED APPROX 50%. PAIN ELICITED AT L HIP. UNABLE TO FULLY EXTEND L KNEE. R LE WFL;'S -CD Row Name 01/24/25 1557 Strength Comprehensive (MMT) Comment, General Manual Muscle Testing (MMT) Assessment L LE GROSSLY 0/5. R LE GROSSLY 3/5. ABLE TOPERFORM BRIEF SLR ON R. -CD Row Name 01/24/25 1550 Motor Skills Motor Skills coordination;functional endurance;muscle tone -CD Coordination gross motor deficit;left;lower extremity;severe impairment -CD Functional Endurance O2 SATS STABLE ON RA. -CD Muscle Tone left;lower extremity(s);hypertonia -CD Row Name 01/24/25 1551 Balance Balance Interventions sitting;supported;static;dynamic;weight shifting activity -CD Comment, Balance PT DEMONSTRATED HEAVY POSTERIOR AND L LEAN, SITTING EOB. UNABLE TO MAINTAIN MIDLINE ORIENTATION. C/O L HIP PAIN. WORKED ON ANTERIOR ROCKING AND MIDLINE ORIENTATION. -CD Row Name 01/24/25 139 Sensory Assessment (Somatosensory) Sensory Assessment (Somatosensory) left [...] PT) sit to supine/supine to sit -CD Ursa Level/Cues Needed (Bed Mobility Goal 1, PT) moderate assist (50-74% patient effort) -CD Time Frame (Bed Mobility Goal 1, PT) short term goal (STG);1 week -CD Row Name 01/24/25 1600 Transfer Goal 1 (PT) Activity/Assistive Device (Transfer Goal 1, PT) [id number] -CD Ursa Level/Cues Needed (Transfer Goal 1, PT) maximum assist (25-49% patient effort) -CD Time Frame (Transfer Goal 1, PT) alf goal (LTG);2 weeks -CD Row Name 01/24/25 1607 Therapy Assessment/Plan (PT) Planned Therapy Interventions (PT) balance training;bed mobility training;transfer training;postural re-education;ROM (range of motion);strengthening -CD User Story (r) = Recorded By, (t) = Taken By, (c) = Cosigned By Initials Name Provider Type CD Carmella Joseph, PT Physical Therapist Clinical Impression Row Name 01/24/25 1556 Pain Pretreatment Pain Rating 10/10 -CD Posttreatment Pain Rating 9/10 -CD Pain Location hip;back -CD Pain Side/Orientation left -CD Pain Management Interventions exercise or physical activity utilized;positioning techniques utilized;movement retraining implemented -CD Response to Pain Interventions activity participation with decreased pain -CD Row Name 01/24/25 1556 Plan of Care Review Plan of Care [...] OF 2. NEED TO CONFIRM PLOF AT [facility]. RECOMMEND LIFT SYSTEM FOR UP TO CHAIR NEXT SESSION. CONSIDER D/C P.T. IF DETERMINED PT IS DEPENDENT VIA LIFT SYSTEM AT FACILITY. -CD Row Name 01/24/25 7630 Therapy Assessment/Plan (PT) Patient/Family Therapy Goals Statement (PT) DID NOT STATE. -CD Rehab Potential (PT) limited -CD Criteria for Skilled Interventions Met (PT) yes;skilled treatment is necessary;other (see comments)TBD FURTHER. -CD Therapy Frequency (PT) daily -CD Row Name 01/24/25 1556 Vital Signs Pre Systolic BP Rehab 148 [...] Physical Therapist Outcome Measures Row Name 01/24/25 5900 How much help from another person do [...] 8 -CD Row Name 01/24/25 1604 Modified Mora Scale Modified Beverley Scale 5 - Severe disability. Bedridden, incontinent, and requiring constant nursingcare and attention. -CD Row Name 01/24/25 1604 Functional Assessment Outcome Measure Options Modified Beverley - User Story (r) = Recorded By, (t) = Taken By, (c) = Cosigned By Initials Name Provider Type CD Carmella Joseph PT Physical Therapist Physical Therapy Education Title: PT OT ACCOUNTING ANALYST Therapies (In Progress) Topic: Physical Therapy (Done) [...] OF 2. NEED TO CONFIRM PLOF AT [facility]. RECOMMEND LIFT SYSTEM FOR UP TO [...] Minutes- PT 11 minute(s) -CD Timed Charges 77718 - PT Therapeutic Activity Minutes 11 -CD [...] Description Service Date Service Provider Modifiers Qty [id number] HC PT THERAPEUTIC ACT EA 15 MIN 01/24/2025 Carmella Joseph, PT GP 1 [id number] HC PT EVAL MOD COMPLEXITY 4 01/24/2025 Carmella Joseph, PT GP 1 PT G-Codes Outcome Measure Options: Modified Mora AM-PAC 6 Clicks Score (PT): 8 Modified Mora Scale: 5 - Severe disability. Bedridden, incontinent, and requiring constant nursing care and attention. PT Discharge Summary Anticipated Discharge Disposition (PT): extended care facility Carmella Joseph, PT 01/24/2025 * Therapy Evaluation - Suzanne Castaneda MS [facility]-ACCOUNTING ANALYST - 01/24/2025 1:57 PM EDT Images from the original note were not included. Acute Care - Speech Language Pathology Swallow Initial Evaluation [facility] Clinical Swallow Evaluation Patient Name: Rimma Ridley : 1960 Today's Date: 01/24/2025 Admit Date: 01/23/2025 Visit Dx: ICD-10-CM ICD-9-CM 1. Cognitive communication deficit R41.841 799.52 2. Dysphagia, unspecified type R13.10 787.20 Patient Active Problem List Diagnosis Fibromyalgia Pacemaker Primary hypertension Tobacco use Ischemic cardiomyopathy Aphasia H/O: CVA (cerebrovascular accident) History reviewed. No pertinent past medical history. History reviewed. No pertinent surgical history. ACCOUNTING ANALYST Recommendation and Plan Recommended discharge disposition is based on the functional assessment performed by PT/OT/Speech therapy (as applicable) and may not reflect the medical necessity determined by your provider or services covered by an individual patient's insurance plan or patient resource. ACCOUNTING ANALYST Swallowing Diagnosis: mild, oral dysphagia, R/O pharyngeal dysphagia, other (see comments) (no suspected pharyngeal dysphagia) (01/24/251029) ACCOUNTING ANALYST Diet Recommendation: mechanical ground textures, thin liquids (01/24/251029) Recommended Precautions and Strategies: small bites of food and sips of liquid, general aspiration precautions (01/24/251029) ACCOUNTING ANALYST Rec. for Method of Medication Administration: meds whole, with thin liquids, with puree, as tolerated (01/24/251029) Monitor for Signs of Aspiration: yes, notify ACCOUNTING ANALYST if any concerns (01/24/251029) Recommended Diagnostics: other (see comments) (diet tolerance) (01/24/251029) Swallow Criteria for Skilled Therapeutic Interventions Met: demonstrates skilled criteria () Anticipated Discharge Disposition (ACCOUNTING ANALYST): residential facility (01/24/251029) Rehab Potential/Prognosis, Swallowing: good, to achieve stated therapy goals (01/24/251029) Therapy Frequency (Swallow): PRN, 5 days per week (01/24/251029) Predicted Duration Therapy Intervention (Days): 2 weeks (01/24/251029) Oral Care Recommendations: Oral Care BID/PRN, Toothbrush (01/24/251029) SWALLOW EVALUATION (Last 72 Hours) ACCOUNTING ANALYST Adult Swallow Evaluation Row Name 01/24/251029 General Information Current Method of Nutrition NPO -CH Prior Level of Function-Communication unknown;other (see comments) [...] During Eating upright 90 degree;upright in bed -CH Utensils Used spoon;cup;straw -CH Consistencies Trialed ice chips;thin liquids;pureed;regular textures -CH Pre SpO2 (%) 94 -CH Post SpO2 (%) 95 -CH Clinical Swallow Eval Oral Prep Phase impaired -CH Oral Transit WFL -CH Oral Residue WFL -CH Pharyngeal Phase no overt signs/symptoms of pharyngeal impairment -CH Esophageal Phase unremarkable -CH Oral Prep Concerns Oral Prep Concerns prolonged mastication;other (see comments) d/t missing dentures (left at [facility]) - Prolonged Mastication regular consistencies -CH Swallowing Quality of Life Assessment Education and counseling provided Signs of aspiration;Risks of aspiration;Safest diet options;Oral care recommendations and rationale;Aspiration precautions - ACCOUNTING ANALYST Evaluation Clinical Impression ACCOUNTING ANALYST Swallowing Diagnosis mild;oral dysphagia;R/O pharyngeal dysphagia;other (see comments) no suspected pharyngeal dysphagia -CH Functional Impact risk of aspiration/pneumonia - Rehab Potential/Prognosis, Swallowing good, to achieve stated therapy goals - Swallow Criteria for Skilled Therapeutic Interventions Met demonstrates skilled criteria -CH Recommendations Therapy Frequency (Swallow) PRN;5 days per week - ACCOUNTING ANALYST Diet Recommendation mechanical ground textures;thin liquids - Recommended Diagnostics other (see comments) diet tolerance - Recommended Precautions and Strategies small bites of food and sips of liquid;general aspiration precautions - Oral Care Recommendations Oral Care BID/PRN;Toothbrush - ACCOUNTING ANALYST Rec. for Method of Medication Administration meds whole;with thin liquids;with puree;as tolerated - Monitor for Signs of Aspiration yes;notify ACCOUNTING ANALYST if any concerns - User Story (r) = Recorded By, (t) = Taken By, (c) = Cosigned By Initials Name Effective Dates Suzanne Castaneda MS [facility]-ACCOUNTING ANALYST 06/01/24 - EDUCATION The patient has been educated in the following areas: Dysphagia (Swallowing Impairment) Oral Care/Hydration Modified Diet Instruction. ACCOUNTING ANALYST GOALS Row Name 01/24/25 1030 (LTG) Patient will demonstrate functional swallow for Diet Texture (Demonstrate functional swallow) soft to chew (chopped) textures - Liquid viscosity (Demonstrate functional swallow) thin liquids - Ursa (Demonstrate functional swallow) independently (over 90% accuracy) - Time Frame (Demonstrate functional swallow) 2 weeks - (STG) Patient will tolerate trials of Consistencies Trialed (Tolerate trials) mechanical ground textures;thin liquids - Desired Outcome (Tolerate trials) without signs/symptoms of aspiration;with adequate oral prep/transit/clearance - Ursa (Tolerate trials) with minimal cues (75-90% accuracy) - Time Frame (Tolerate trials) 1 week - Patient will demonstrate functional cognitive-linguistic skills for return to discharge environment Ursa with minimal cues - Time frame 2 weeks -CH Follow Directions Goal 2 (ACCOUNTING ANALYST) Improve Ability to Follow Directions Goal 1 (ACCOUNTING ANALYST) 2 step commands;3 step commands;80%;with minimal cues (75-90%) - Time Frame (Follow Directions Goal 1, ACCOUNTING ANALYST) 1 week -CH Attention Goal 1 (ACCOUNTING ANALYST) Improve Attention by Goal 1 (ACCOUNTING ANALYST) complete sustained attention task;80%;with minimal cues (75-90%) - Time Frame (Attention Goal 1, ACCOUNTING ANALYST) 1 week -CH Orientation Goal 1 (ACCOUNTING ANALYST) Improve Orientation Through Goal 1 (ACCOUNTING ANALYST) demonstrating orientation to day;demonstrating orientationto month;demonstrating orientation to year;demonstrating orientation to place;demonstrating orientation to disease/impairment;90%;with minimal cues (75-90%) - Time Frame (Orientation Goal 1, ACCOUNTING ANALYST) 1 week -CH Memory Skills Goal 1 (ACCOUNTING ANALYST) Improve Memory Skills Through Goal 1 (ACCOUNTING ANALYST) recalling related word lists with an imposed delay;listen to a paragraph and answer questions;80%;with minimal cues (75-90%) - Time Frame (Memory Skills Goal 1, ACCOUNTING ANALYST) 1 week -CH Organizational Skills Goal 1 (ACCOUNTING ANALYST) Improve Thought Organization Through Goal 1 (ACCOUNTING ANALYST) completing a divergent naming task;naming similarities and differences;90%;with minimal cues (75-90%) - Time Frame (Thought Organization Skills Goal 1, ACCOUNTING ANALYST) 1 week - Functional Math Skills Goal 1 (ACCOUNTING ANALYST) Improve Functional Math Skills Through Goal 1 (ACCOUNTING ANALYST) complete simple math problems;complete word problems involving time;complete word problems involving money;90%;with minimal cues (75-90%) - Time Frame (Functional Math Skills Goal 1, ACCOUNTING ANALYST) 1 week - User Story (r) = Recorded By, (t) = Taken By, (c) = Cosigned By Initials Name Provider Type Suzanne Pena MS CCC-ACCOUNTING ANALYST Speech and Language Pathologist Time Calculation: Time Calculation- ACCOUNTING ANALYST Row Name 01/24/25 1357 Time Calculation- ACCOUNTING ANALYST ACCOUNTING ANALYST Start Time 1030 -CH ACCOUNTING ANALYST Received On 01/24/25 - Untimed Charges ACCOUNTING ANALYST Eval/Re-eval ST Eval Speech and Production w/ Language - 18745;ST Eval Oral Pharyng Swallow - 70587 -CH 32583-GD Eval Speech and Production w/ Language Minutes 38 -CH [id number]-KJ Eval Oral Pharyng Swallow Minutes 41 -CH Total Minutes Untimed Charges Total Minutes 79 -CH Total Minutes 79 -CH User Story (r) = Recorded By, (t) = Taken By, (c) = Cosigned By Initials Name Provider Type Suzanne Pena MS CCC-ACCOUNTING ANALYST Speech and Language Pathologist Therapy Charges for Today Code Description Service Date Service Provider Modifiers Qty [id number] ST EVAL ORAL PHARYNG SWALLOW 3 01/24/2025 Suzanne Castaneda MS CCC-ACCOUNTING ANALYST GN [id number] EVAL SPEECH AND PROD W LANG 3 01/24/2025 Suzanne Castaneda MS CCC-ACCOUNTING ANALYST GN 1 Suzanne Castaneda MS CCC-NARESH 01/24/2025 and [facility] Care - Speech Language Pathology Initial Evaluation [facility] Cognitive-Communication Evaluation Patient Name: Rimma Ridley : 1960 Today's Date: 01/24/2025 Admit Date: 01/23/2025 Visit Dx: ICD-10-CM ICD-9-CM 1. Cognitive communication deficit R41.841 799.52 2. Dysphagia, unspecified type R13.10 787.20 Patient Active Problem List Diagnosis Fibromyalgia Pacemaker Primary hypertension Tobacco use Ischemic cardiomyopathy Aphasia H/O: CVA (cerebrovascular accident) History reviewed. No pertinent past medical history. History reviewed. No pertinent surgical history. ACCOUNTING ANALYST Recommendation and Plan Recommended discharge disposition is based on the functional assessment performed by PT/OT/Speech therapy (as applicable) and may not reflect the medical necessity determined by your provider or services covered by an individual patient's insurance plan or patient resource. ACCOUNTING ANALYST Diagnosis: mild, cognitive-linguistic disorder (01/24/251029) Monitor for Signs of Aspiration: yes, notify ACCOUNTING ANALYST if any concerns (01/24/251029) Swallow Criteria for Skilled Therapeutic Interventions Met: demonstrates skilled criteria () [facility] Criteria for Skilled Therapy Interventions Met: yes (01/24/251029) Anticipated Discharge Disposition (ACCOUNTING ANALYST): residential facility (01/24/251029) Therapy Frequency (Swallow): PRN, 5 days per week (01/24/251029) Therapy Frequency (ACCOUNTING ANALYST SLC): 5 days per week (01/24/251029) Predicted Duration Therapy Intervention (Days): 2 weeks (01/24/251029) Oral Care Recommendations: Oral Care BID/PRN, Toothbrush (01/24/251029) ACCOUNTING ANALYST EVALUATION (Last 72 Hours) ACCOUNTING ANALYST SLC Evaluation Row Name 01/24/251029 Communication Assessment/Intervention Document Type evaluation -CH Subjective Information no complaints -CH Patient Observations alert;cooperative;agree to therapy -CH Patient/Family/Caregiver Comments/Observations none present -CH Patient Effort [...] eval -CH Prior Level of Function-Communication unknown -CH Plans/Goals Discussed with patient;agreed upon - Barriers [...] - Answers Questions (Communication) yes/no;wh questions;personal;simple;WFL;complex;abstract;mild impairment - Able to Follow Commands (Communication) 2-step;WFL - Narrative Discourse conversational level;WFL - Successful Auditory Strategies (Communication) repetition - Expression Assessment/Intervention Expression Assessment/Intervention verbal expression - Verbal Expression Assessment/Intervention Verbal Expression mild impairment - Repetition phrases;WFL - Phrase Completion unpredictable;WFL - Responsive Naming simple;WFL - Confrontational Naming low frequency;WFL - Sentence Formulation complex;WFL -CH Conversational Discourse/Fluency WFL - Oral Motor Structure and Function Oral Motor Structure and Function mild impairment - Dentition Assessment edentulous, dentures not available - [...] Resonance (Voice) WNL - Cognitive Assessment Intervention- ACCOUNTING ANALYST Cognitive Function (Cognition) mild impairment -CH Orientation Status (Cognition) awareness of basic personal information;person;WFL;place;time;situation;mild impairment -CH Memory (Cognitive) simple;immediate;long-term;WFL;short-term;delayed;mild impairment -CH Attention (Cognitive) selective;sustained;attention to detail;mild impairment -CH Thought Organization (Cognitive) concrete divergent;abstract divergent;concrete convergent;abstractconvergent;mental manipulation;mild impairment -CH Reasoning (Cognitive) simple;deductive;WFL - Problem Solving (Cognitive) simple;temporal;mild impairment - Functional Math (Cognitive) simple;word problems;mild impairment - Pragmatics (Communication) WFL - ACCOUNTING ANALYST Evaluation Clinical Impressions ACCOUNTING ANALYST Diagnosis mild;cognitive-linguistic disorder - Rehab Potential/Prognosis good -CH SLC Criteria for Skilled Therapy Interventions Met yes -CH Functional Impact functional impact in social situations;need frequent supervision;difficulty in expressing complex messages;difficulty completing home management task - Recommendations Therapy Frequency (ACCOUNTING ANALYST SLC) 5 days per week -CH Predicted Duration Therapy Intervention (Days) 2 weeks -CH Anticipated Discharge Disposition (ACCOUNTING ANALYST) residential facility - User Story (r) = Recorded By, (t) = Taken By, (c) = Cosigned By Initials Name Effective Dates CH Suzanne Castaneda MS CCC-ACCOUNTING ANALYST 06/01/24 - EDUCATION The patient has been educated in the following areas: Cognitive Impairment Communication Impairment. ACCOUNTING ANALYST GOALS Row Name 01/24/25 1030 (LTG) Patient will demonstrate functional swallow for Diet Texture (Demonstrate functional swallow) soft to chew (chopped) textures - Liquid viscosity (Demonstrate functional swallow) thin liquids - Ursa (Demonstrate functional swallow) independently (over 90% accuracy) -CH Time Frame (Demonstrate functional swallow) 2 weeks - (STG) Patient will tolerate trials of Consistencies Trialed (Tolerate trials) mechanical ground textures;thin liquids - Desired Outcome (Tolerate trials) without signs/symptoms of aspiration;with adequate oral prep/transit/clearance -CH Ursa (Tolerate trials) with minimal cues (75-90% accuracy) - Time Frame (Tolerate trials) 1 week -CH Patient will demonstrate functional cognitive-linguistic skills for return to discharge environment Ursa with minimal cues - Time frame 2 weeks -CH Follow Directions Goal 2 (ACCOUNTING ANALYST) Improve Ability to Follow Directions Goal 1 (ACCOUNTING ANALYST) 2 step commands;3 step commands;80%;with minimal cues (75-90%) -CH Time Frame (Follow Directions Goal 1, ACCOUNTING ANALYST) 1 week -CH Attention Goal 1 (ACCOUNTING ANALYST) Improve Attention by Goal 1 (ACCOUNTING ANALYST) complete sustained attention task;80%;with minimal cues (75-90%) -CH Time Frame (Attention Goal 1, ACCOUNTING ANALYST) 1 week -CH Orientation Goal 1 (ACCOUNTING ANALYST) Improve Orientation Through Goal 1 (ACCOUNTING ANALYST) demonstrating orientation to day;demonstrating orientationto month;demonstrating orientation to year;demonstrating orientation to place;demonstrating orientation to disease/impairment;90%;with minimal cues (75-90%) -CH Time Frame (Orientation Goal 1, ACCOUNTING ANALYST) 1 week -CH Memory Skills Goal 1 (ACCOUNTING ANALYST) Improve Memory Skills Through Goal 1 (ACCOUNTING ANALYST) recalling related word lists with an imposed delay;listen to a paragraph and answer questions;80%;with minimal cues (75-90%) -CH Time Frame (Memory Skills Goal 1, ACCOUNTING ANALYST) 1 week -CH Organizational Skills Goal 1 (ACCOUNTING ANALYST) Improve Thought Organization Through Goal 1 (ACCOUNTING ANALYST) completing a divergent naming task;naming similarities and differences;90%;with minimal cues (75-90%) -CH Time Frame (Thought Organization Skills Goal 1, ACCOUNTING ANALYST) 1 week -CH Functional Math Skills Goal 1 (ACCOUNTING ANALYST) Improve Functional Math Skills Through Goal 1 (ACCOUNTING ANALYST) complete simple math problems;complete word problems involving time;complete word problems involving money;90%;with minimal cues (75-90%) -CH Time Frame (Functional Math Skills Goal 1, ACCOUNTING ANALYST) 1 week - User Story (r) = Recorded By, (t) = Taken By, (c) = Cosigned By Initials Name Provider Type Suzanne Pena MS CCC-ACCOUNTING ANALYST Speech and Language Pathologist Time Calculation: Time Calculation- ACCOUNTING ANALYST Row Name 01/24/25 1357 Time Calculation- ACCOUNTING ANALYST ACCOUNTING ANALYST Start Time 1030 -CH ACCOUNTING ANALYST Received On 01/24/25 - Untimed Charges ACCOUNTING ANALYST Eval/Re-eval ST Eval Speech and Production w/ Language - 88028;ST Eval Oral Pharyng Swallow - 78909 -CH 90785-SZ Eval Speech and Production w/ Language Minutes 38 -CH 90458-IS Eval Oral Pharyng Swallow Minutes 41 -CH Total Minutes Untimed Charges Total Minutes 79 -CH Total Minutes 79 -CH User Story (r) = Recorded By, (t) = Taken By, (c) = Cosigned By Initials Name Provider Type Suzanne Pena MS CCC-ACCOUNTING ANALYST Speech and Language Pathologist Therapy Charges for Today Code Description Service Date Service Provider Modifiers Qty [id number] ST EVAL ORAL PHARYNG SWALLOW 3 01/24/2025 Suzanne Castaneda MS CCC-ACCOUNTING ANALYST GN [id number] EVAL SPEECH AND PROD W LANG 3 01/24/2025 Suzanne Castaneda, CCC-ACCOUNTING ANALYST GN 1 Suzanne Castaneda MS CCC-ACCOUNTING ANALYST 01/24/2025 documented in this encounter Plan of Treatment Upcoming Encounters Date Type Department Care Team (Late st Contact Info) Description 04/16/2025 1:30 PM EST Office Visit [facility] [address] [facility] [address] [place] [address] Joan Vick APRN [address] [facility] [address] [place] [address] 05/20/2025 9:45 AM EST Office Visit [facility] CARDI[facility] [address] [facility] [address] [place] [id number] Sarkis Manning MD [address] [facility] [address] [place], [place] [id number] Scheduled Orders Name Type Priority Associated Diagnoses [...] home later today. Sarkis Manning MD Cardiac Engine Service Repairer [facility] 01/26/25 18:37 EDT Procedure Narrative Date of Procedure: 01/26/25 WEIGHT TESTER/COMMERCIAL LOAN COORDINATOR: Sarkis Manning MD PROCEDURE(S) PERFORMED: 1. Removal [...] - 10.80 10*3/mm3 01/25/2025 6:51 PM EDT [facility] RBC 4.96 3.77 - 5.28 10*6/mm3 01/25/2025 6:51 PM EDT [facility] Hemoglobin 14.3 12.0 - 15.9 g/dL 01/25/2025 6:51 PM EDT [facility] Hematocrit 44.6 34.0 - 46.6 % 01/25/2025 6:51 PM EDT [facility] MCV 89.9 79.0 - 97.0 fL 01/25/2025 6:51 PM EDT [facility] MCH 28.8 26.6 - 33.0 pg 01/25/2025 6:51 PM EDT [facility] MCHC 32.1 31.5 - 35.7 g/dL 01/25/2025 6:51 PM EDT [facility] RDW 13.7 12.3 - 15.4 % 01/25/2025 6:51 PM EDT [facility] RDW-SD 45.1 37.0 - 54.0 fl 01/25/2025 6:51 PM EDT [facility] MPV 10.2 6.0 - 12.0 fL 01/25/2025 6:51 PM EDT [facility] Platelets 150 140 - 450 10*3/mm3 01/25/2025 6:51 PM EDT [facility] Blood Venipuncture / Unknown 01/25/2025 6:23 PM EDT 01/25/2025 6:48 PM EDT Akash Tan DO LAB BLOOD ORDERABLES Romana l Result [facility]
[address] [place] [address], * (ABNORMAL) Basic Metabolic Panel (01/25/2025 6:23 PM EDT) Glucose 109(H) 65 - 99 mg/dL 01/25/2025 7:21 PM EDT [facility] BUN 17.4 8.0 - 23.0 mg/dL 01/25/2025 7:21 PM EDT [facility] Creatinine 0.95 0.57 - 1.00 mg/dL 01/25/2025 7:21 PM EDT [facility] Sodium 136 136 - 145 mmol/L 01/25/2025 7:21 PM EDT [facility] Potassium 3.9 3.5 - 5.2 mmol/L 01/25/2025 7:21 PM EDT [facility] Chloride 99 98 - 107 mmol/L 01/25/2025 7:21 PM EDT [facility] CO2 24.4 22.0 - 29.0 mmol/L 01/25/2025 7:21 PM EDT [facility] Calcium 8.8 8.6 - 10.5 mg/dL 01/25/2025 7:21 PM EDT [facility] BUN/Creatinine Ratio 18.3 7.0 - 25.0 01/25/2025 7:21 PM EDT [facility] Anion Gap 12.6 5.0 - 15.0 mmol/L 01/25/2025 7:21 PM EDT [facility] eGFR 67.5 >60.0 mL/min/1.7 3 01/25/2025 7:21 PM EDT [facility] Blood Venipuncture / Unknown 01/25/2025 6:23 PM EDT 01/25/2025 6:48 PM EDT Narrative [facility] - 01/25/2025 7:21 PM EDT GFR [...] not include race as a factor Akash Langmarcos Tan DO LAB BLOOD ORDERABLES Romana l Result [facility]
[address] [place] [address], * ECG 12 Lead Chest Pain (01/25/2025 [...] Referred By: PONCHO Confirmed By: Sarkis Manning us Pam Kothari MD ECG ORDERABLES Final Result ECG * CT Head Without Contrast (01/24/2025 6:26 PM EDT) Anatomical Region Laterality Modality Head N/A Computed Tomogra phy 01/24/2025 7:37 PM EDT Impressions 01/24/2025 7:39 PM EDT Impression: No significant interval change. Electronically Signed: Hugo Finnegan MD 01/24/2025 7:39 PM EDT Workstation ID: [id number] DxDesc Narrative 01/24/2025 7:[address] [...] MD 01/24/2025 7:39 PM EDT Workstation ID: [id number] DxDesc Jhonny Pradhan MD IMG CT ORDERABLES Final R esult * (ABNORMAL) POC Glucose Once (01/24/2025 12:41 PM EDT) [facility] Glucose 138(H) 70 - 130 mg/dL 01/24/2025 12:43 PM EDT [facility] Comment:Serial Number: [id number]: [id number] Blood 01/24/2025 12:4 1 PM EDT 01/24/2025 12:43 PM EDT Akash Tan DO POINT OF CARE TEST ORDERA BLES Final Result [facility]
[address] [place] [address], * ECHO COMPLETE W/ DOPPLER AND COLOR FLOW (01/24/2025 10:13 AM EDT) [facility] EF(MOD-bp) 62.6 % LVIDd 4.4 cm LVIDs [...] % EF(MOD-sp4) 62.9 % MV E max paola 106.0 cm/sec MV A max paola 36.2 cm/sec MV dec time 0.14 sec MV E/A 2.9 IVRT 109.0 ms LA ESV Index (BP) 48.5 ml/m2 Med Peak E' Paola 9.7 cm/sec Lat Peak E' Paola 11.1 cm/sec TR max paola 334.3 cm/sec Avg E/e' ratio 10.19 SV(LVOT) 46.0 ml RV Base 4.4 cm RV Mid 3.4 cm RV Length 6.7 cm TAPSE (>1.6) 1.94 cm RV S' 8.4 cm/sec LA dimension (2D) 5.2 cm LV V1 max 76.3 cm/sec LV V1 max PG 2.38 mmHg LV V1 mean PG 1.50 mmHg LV V1 VTI 14.7 cm Ao pk paola 123.0 cm/sec Ao max PG 6.1 mmHg [...] had negative bubble study performed on 10/22/2023 Claudia Sims Fadi GEOSCIENCE LABORATORY TECHNICIAN CV ECHO ORDERABLES Final Result * Lipid Panel (01/24/2025 7:27 AM EDT) Total Cholesterol 138 0 - 200 mg/dL 01/24/2025 9:00 AM EDT [facility] Triglycerides 69 0 - 150 mg/dL 01/24/2025 9:00 AM EDT [facility] HDL Cholesterol 43 40 - 60 mg/dL 01/24/2025 9:00 AM EDT [facility] LDL Cholesterol 81 0 - 100 mg/dL 01/24/2025 9:00 AM EDT [facility] VLDL Cholesterol 14 5 - 40 mg/dL 01/24/2025 9:00 AM EDT [facility] LDL/HDL Ratio 1.89 01/24/2025 9:00 AM T [facility] Blood Venipuncture / Unknown 01/24/2025 7:27 AM EDT 01/24/2025 8:31 AM EDT Narrative [facility] - 01/24/2025 9:00 AM EDT Cholesterol [...] using the NIH LDL-C calculation. Claudia Aponte APRN LAB BLOOD ORDERABLE S Final Result [facility]
[address] [place] [address], * (ABNORMAL) Hemoglobin A1c (01/24/2025 7:27 AM EDT) Hemoglobin A1C 6.20(H) 4.80 - 5.60 % 01/24/2025 10:22 AM EDT [facility] Blood Venipuncture / Unknown 01/24/2025 7:27 AM EDT 01/24/2025 8:31 AM EDT Narrative [facility] - 01/24/2025 10:22 AM EDT Hemoglobin A1C Ranges: Increased Risk for Diabetes 5.7% to 6.4% Diabetes >= 6.5% Diabetic Goal < 7.0% Claudia Aponte GEOSCIENCE LABORATORY TECHNICIAN LAB BLOOD ORDERABLE S Final Result Performing Organization Address City/[facility]/ZIP Co de Phone Number [facility]
[address] [place] [address], * (ABNORMAL) POC Glucose Q6H (01/24/2025 6:14 AM EDT) Glucose 137(H) 70 - 130 mg/dL 01/24/2025 6:16 AM EDT [facility] Comment:Serial Number: [id number]: [id number] Blood 01/24/2025 6:14 AM EDT 01/24/2025 6:16 AM EDT Aksah Tan DO POINT OF CARE TEST ORDERA BLES Final Result [facility]
[address] [place] [address], * Protime-INR (01/24/2025 1:00 AM EDT) Protime 15.0 12.2 - 15.3 Seconds 01/24/2025 1:57 AM EDT [facility] INR 1.11 0.89 - 1.12 01/24/2025 1:57 AM EDT [facility] Blood Venipuncture / Unknown 01/24/2025 1:00 AM EDT 01/24/2025 1:16 AM EDT Pam Kothari MD LAB BLOOD ORDERABLES Final Resul t [facility]
[address] [place] [address], * (ABNORMAL) Comprehensive Metabolic Panel (01/24/2025 1:00 AM EDT) Glucose 137(H) 65 - 99 mg/dL 01/24/2025 1:44 AM EDT [facility] BUN 19.8 8.0 - 23.0 mg/dL 01/24/2025 1:44 AM EDT [facility] Creatinine 0.94 0.57 - 1.00 mg/dL 01/24/2025 1:44 AM EDT [facility] Sodium 137 136 - 145 mmol/L 01/24/2025 1:44 AM EDT [facility] Potassium 4.4 3.5 - 5.2 mmol/L 01/24/2025 1:44 AM EDT [facility] Comment:Specimen hemolyzed. Result may be falsely elevated. Chloride 101 98 - 107 mmol/L 01/24/2025 1:44 AM EDT [facility] CO2 21.5(L) 22.0 - 29.0 mmol/L 01/24/2025 1:44 AM EDT [facility] Calcium 9.0 8.6 - 10.5 mg/dL 01/24/2025 1:44 AM EDT [facility] Total Protein 7.1 6.0 - 8.5 g/dL 01/24/2025 1:44 AM EDT [facility] Albumin 3.9 3.5 - 5.2 g/dL 01/24/2025 1:44 AM EDT [facility] ALT (SGPT) 20 1 - 33 U/L 01/24/2025 1:44 AM EDT [facility] AST (SGOT) 31 1 - 32 U/L 01/24/2025 1:44 AM EDT [facility] Alkaline Phosphatase 116 39 - 117 U/L 01/24/2025 1:44 AM EDT [facility] Total Bilirubin 0.5 0.0 - 1.2 mg/dL 01/24/2025 1:44 AM EDT [facility] Globulin 3.2 gm/dL 01/24/2025 1:44 AM EDT [facility] Comment:Calculated Result A/G Ratio 1.2 g/dL 01/24/2025 1:44 AM EDT [facility] BUN/Creatinine Ratio 21.1 7.0 - 25.0 01/24/2025 1:44 AM EDT [facility] Anion Gap 14.5 5.0 - 15.0 mmol/L 01/24/2025 1:44 AM EDT [facility] eGFR 68.3 >60.0 mL/min/1.7 3 01/24/2025 1:44 AM EDT [facility] Blood Venipuncture / Unknown 01/24/2025 1:00 AM EDT 01/24/2025 1:16 AM EDT [facility] - 01/24/2025 1:44 AM EDT GFR [...] MD LAB BLOOD ORDERABLES Final Resul t [facility]
[address] [place] [address], * (ABNORMAL) CBC (No Diff) (01/24/2025 1:00 AM EDT) WBC 15.93(H) 3.40 - 10.80 10*3/mm3 01/24/2025 1:18 AM EDT [facility] RBC 5.44(H) 3.77 - 5.28 10*6/mm3 01/24/2025 1:18 AM EDT [facility] Hemoglobin 15.4 12.0 - 15.9 g/dL 01/24/2025 1:18 AM EDT [facility] Hematocrit 49.5(H) 34.0 - 46.6 % 01/24/2025 1:18 AM EDT [facility] MCV 91.0 79.0 - 97.0 fL 01/24/2025 1:18 AM EDT [facility] MCH 28.3 26.6 - 33.0 pg 01/24/2025 1:18 AM EDT [facility] MCHC 31.1(L) 31.5 - 35.7 g/dL 01/24/2025 1:18 AM EDT [facility] RDW 13.8 12.3 - 15.4 % 01/24/2025 1:18 AM EDT [facility] RDW-SD 46.3 37.0 - 54.0 fl 01/24/2025 1:18 AM EDT [facility] MPV 9.9 6.0 - 12.0 fL 01/24/2025 1:18 AM EDT [facility] Platelets 159 140 - 450 10*3/mm3 01/24/2025 1:18 AM EDT [facility] Blood Venipuncture / Unknown 01/24/2025 1:00 AM EDT 01/24/2025 1:16 AM EDT us Pam Kothari MD LAB BLOOD ORDERABLES Final Resul t [facility]
[address] [id number], * ECG 12 Lead Stroke Evaluation (01/23/2025 10:42 PM EDT) QT Interval 502 ms ECG QTC Interval 522 ms ECG 01/23/2025 [...] Pam Kothari MD ECG ORDERABLES Final Result ECG * (ABNORMAL) POC Glucose Once (01/23/2025 9:48 PM EDT) Glucose 150(H) 70 - 130 mg/dL 01/23/2025 9:50 PM EDT [facility] Comment:Serial Number: [id number]: [id number] Blood 01/23/2025 9:48 PM EDT 01/23/2025 9:50 PM EDT Pam Kothari MD POINT OF CARE TEST ORDERABLES Fi nal Result [facility]
[address] [place] [address], documented in this encounter Visit Diagnoses Not on filedocumented in this encounter Admitting Diagnoses Diagnosis Aphasia [...] 01/24/25 at 0900, If patient fails dysphagia, TX option MUST be given. Do not exceed [...] 300 mg, Rectal, Daily, First dose on Sat01/24/25 at 0900, If patient fails dysphagia, TX option MUST be given. Do not exceed [...] Daily, First dose on Sat01/24/25 at 1600, Take with food if GI upset occurs. Given 01/27/2025 9:20 AM EDT 5 mg Given 01/26/2025 9:16 PM EDT 5 mg Given 01/26/2025 4:17 PM EDT 5 mg ceFAZolin 1000 mg IVPB in 100 mL NS (MBP) Administer over 30 Minutes, Code / Trauma / Sedation Continuous Med, Starting on Sat01/26/25 at 1827 New Bag 01/26/2025 6:27 PM EDT 2,000 mg ceFAZolin 2000 mg IVPB in 100 mL NS (MBP) Administer over 30 Minutes, Code / Trauma / Sedation Continuous Med, Starting on Sat01/26/25 at 1803 New Bag 01/26/2025 6:03 PM EDT 2,000 mg DULoxetine (CYMBALTA) DR capsule 30 mg [...] Given 01/25/2025 9:52 AM EDT 10 mg fentaNYL citrate (PF) (SUBLIMAZE) injection Code / Trauma / Sedation Medication, Starting on Sat01/26/25 at 1803 Given 01/26/2025 6:21 PM EDT 50 mcg Given 01/26/2025 6:15 PM EDT 50 mcg Given 01/26/2025 6:06 PM EDT 50 mcg gabapentin (NEURONTIN) capsule 400 mg 400 mg, Oral, 3 Times Daily, First dose (after last modification) on Sat01/26/25 at 1615, (MARY KATE) Given 01/27/2025 9:20 AM EDT 400 mg Given 01/26/2025 9:16 PM EDT 400 mg Given 01/26/2025 4:17 PM EDT 400 mg hydrALAZINE (APRESOLINE) injection Code / Trauma / Sedation Medication, Starting on Sat01/26/25 at 1814 Given 01/26/2025 6:14 PM EDT 5 mg HYDROcodone-acetaminophen (NORCO) 5-325 MG per tablet [...] Given 01/26/2025 9:16 PM EDT 1 tablet levothyroxine (SYNTHROID, LEVOTHROID) tablet 75 mcg 75 mcg, Oral, Every Java Application Engineer, First dose (after last modification) on Sat01/27/25 at 0600, Take on empty stomach. Given 01/27/2025 5:25 AM EDT 75 mcg lidocaine 1% - EPINEPHrine 1:[id number] (XYLOCAINE W/EPI) 1 %-1:548398 injection Code / Trauma / Sedation Medication, Starting on Sat01/26/25 at 1811 Given 01/26/2025 6:11 PM EDT 10 mL Chest Lidocaine 4 % 1 patch 1 patch, [...] Given 01/26/2025 9:16 PM EDT 12.5 mg midazolam (VERSED) injection Code / Trauma / Sedation Medication, Starting on Sat01/26/25 at 1803 Given 01/26/2025 6:22 PM EDT 1 mg Given 01/26/2025 6:06 PM EDT 1 mg Given 01/26/2025 6:03 PM EDT 1 mg ondansetron (ZOFRAN) injection Code / Trauma / Sedation Medication, Starting on Sat01/26/25 at 1803 Given 01/26/2025 6:03 PM EDT 4 mg ondansetron ODT (ZOFRAN-ODT) disintegrating tablet 4 [...] tablet 40 mg 40 mg, Oral, Every Java Application Engineer, First dose on 01/25/25 at 0600, Swallow [...] mL/hr, As Needed, Line Care, Starting on 01/23/25 at 2140, Following administration of an IV intermittent medication, flush line with 40mL NS at 100mL/hr. sodium chloride 0.9 % infusion 40 mL 40 mL, Intravenous, As Needed, Line Care, Starting on 01/26/25 at 2021, Following administration of an IV [...] Olson PA-C) 0920 (Given - Provider: Harjit Pierre RN) apixaban (ELIQUIS) tablet 5 mg 5 [...] 01/24/25 at 0900, If patient fails dysphagia, TX option MUST be given. Do not exceed [...] Brewster RN) 0940 (Given - Provider: Harjit Pierre RN) 0922 (Given - Provider: Harjit Pierre RN) aspirin suppository 300 mg(Linked Group 1) 300 mg, Rectal, Daily, First dose on 01/24/25 at 0900, If patient fails dysphagia, TX option MUST be given. Do not exceed 4 grams of aspirin in a 24 hr period. If given for pain, use the following pain scale: Mild Pain = Pain Score of 1-3, CPOT 1-2 Moderate Pain = Pain Score of 4-6, CPOT 3-4 Severe Pain = Pain Score of 7-10, CPOT 5-8 0951 (Not Given: See Alt - Provider: Flora Brewster RN) 0940 (Not Given: See Alt - Provider: Harjit Pierre RN) 0922 (Not Given: See Alt - Provider: Harjit Pierre RN) atorvastatin (LIPITOR) tablet 40 mg 40 mg, Oral, Nightly, First dose on 01/23/25 at 2230, Avoid grapefruit juice. 2100 (Given - Provider: Juan Ramon Matt RN) 2116 (Given - Provider: Juan Ramon Matt RN) baclofen (LIORESAL) tablet 5 mg 5 mg, Oral, 3 Times Daily, First dose on 01/24/25 at 1600, Take with food if GI upset occurs. 0951 (Given - Provider: Flora Brewster RN)162 (Given - Provider: Flora Brewster RN)2100 (Given - Provider: Juan Ramon Matt RN) 0940 (Given - Provider: Harjit Pierre RN)161 [...] 20 mg, Oral, Daily, First dose on Sat01/24/25 at 1515, Do not crush or chew [...] Matt RN) 0920 (Given - Provider: Harjit Pierre, RN) escitalopram (LEXAPRO) tablet 10 mg 10 mg, Oral, Daily, First dose on Sat01/25/25 at 0900, Caution: Look alike/sound alike drug alert. 0952 (Given - Provider: Flora Brewster RN) 0940 (Given - Provider: Harjit Pierre RN) 0920 [...] modification) on Sat01/25/25 at 2100, (MARY KATE) 2101 (Given - Provider: Juan Ramon Matt RN) 0940 (Given - Provider: Harjit Pierre RN) gabapentin (NEURONTIN) capsule 400 mg 400 mg, Oral, 3 Times Daily, First dose (after last modification) on Sat01/26/25 at 1615, (MARY KATE) 161 (Given - Provider: Harjit Pierre RN)2115 (Given - Provider: Juan Ramon Matt RN) 09 (Given - Provider: Harjit Pierre RN) levothyroxine (SYNTHROID, LEVOTHROID) tablet 75 mcg 75 mcg, Oral, Every Java Application Engineer, First dose (after last modification) on Sat01/27/25 at 0600, Take on empty stomach. 0525 (Given - Provider: Juan Ramon Matt RN) levothyroxine (SYNTHROID, LEVOTHROID) tablet 88 mcg (CANCELED) 88 mcg, Oral, Daily, First dose on Sat01/25/25 at 0900, Take on empty stomach. 0952 (Given - Provider: Flora Brewster RN) 0940 (Given - Provider: Harjit Pierre RN) Lidocaine 4 % 1 patch 1 patch, [...] Removed - Provider: Juan Ramon Matt RN) 0919 (Medication Applied - Provider: Harjit Pierre RN)2118 (Due: Medication Removed - Provider: Harjit Pierre RN) metoprolol tartrate (LOPRESSOR) tablet 12.5 mg 12.5 mg, Oral, Every 12 Hours Scheduled, First dose on Sat01/24/25 at 2100, Hold for SBP less than 100, DBP less than 60, or heart rate less than 50. If a dose is held, please contact the provider. 0900 (Dose Auto Held)2100 (Dose Auto Held) 0900 (Dose Auto Held)1519 (Unheld by provider - Provider: Shanika Olson PA-C)2115 (Given - Provider: Juan Ramon Matt, RN) 918 (Given - Provider: Harjit Pierre, RN) pantoprazole (PROTONIX) EC tablet 40 mg 40 mg, Oral, Every Java Application Engineer, First dose on Sat01/25/25 at 0600, Swallow [...] at 2230 0952 (Given - Provider: Flora Brewster RN)2100 (Given - Provider: Juan Ramon Matt RN) 0941 (Given - Provider: Harjit Pierre, RN)2116 (Given - Provider: Juan Ramon Matt RN) 09 (Given - Provider: Harjit Pierre, RN) sodium chloride 0.9 % flush 10 mL 10 mL, Intravenous, Every 12 Hours Scheduled, First dose on Sat01/26/25 at 2100 211 (Given - Provider: Juan Ramon Matt RN) 0900 (Canceled Entry - Provider: Harjit Pierre, RN) PRN Medication Order 01/25/2025 01/26/2025 01/27/2025 albuterol (PROVENTIL) nebulizer solution 0.083% 2.5 mg/3mL 2.5 mg, Nebulization, Every 6 Hours PRN, Shortness of Air, Wheezing, Starting on 01/24/25 at 0024 aluminum-magnesium hydroxide-simethicone (MAALOX MAX) 400-400-40 MG/5ML suspension 15 mL 15 mL, Oral, Every 6 Hours PRN, Indigestion, Heartburn, Starting on Sat01/25/25 at 1248, Maximum 60 mL in 24 [...] RN)1806 (Given - Provider: Juan R Shaver RN)1815 (Given - Provider: Juan R Shaver RN)182 [...] (Given - Provider: Juan Ramon Matt RN) 2115 (Given - Provider: Juan Ramon Matt RN) 025 (Given - Provider: Juan Ramon Matt RN)0920 [...] CPOT 5-8 0502 (Given - Provider: Oanh Torre, JANIS)1145 (Given - Provider: Flora Brewster RN) lidocaine 1% - EPINEPHrine 1:598160 (XYLOCAINE W/EPI) 1 %-1:947645 injection (CANCELED) Code / Trauma / Sedation [...] Intravenous, As Needed, Line Care, Starting on 01/23/25 at 2140 sodium chloride 0.9 % flush 10 mL 10 mL, Intravenous, As Needed, Line Care, Starting on Sat01/26/25 at 2022 sodium chloride 0.9 % infusion 40 mL 40 mL, Intravenous, at 100 mL/hr, As Needed, Line Care, Starting on 01/23/25 at 2140, Following administration of an IV intermittent medication, flush line with 40mL NS at 100mL/hr. sodium chloride 0.9 % infusion 40 mL 40 mL, Intravenous, As Needed, Line Care, Starting on 01/26/25 at 2021, Following administration of an IV intermittent medication, flush line with 40mL NS at 100mL/hr. Linked Groups Order Group 1: aspirin chewable tablet 81 mgJump to med 81 mg, Oral, Daily, First dose on 01/24/25 at 0900, If patient fails dysphagia, TX option MUST be given. Do not exceed [...] 01/24/25 at 0900, If patient fails dysphagia, TX option MUST be given. Do not exceed 4 grams of aspirin in a 24 hr period. If given for pain, use the following pain scale: Mild Pain = Pain Score of 1-3, CPOT 1-2 Moderate Pain = Pain Score of 4-6, CPOT 3-4 Severe Pain = Pain Score of 7-10, CPOT 5-8 documented in this encounter Care Teams Wood Tile Installer Relationship Specialty Start Date End Date Provider, [place] [address] PCP - General 10/21/23 02/02/25 documented as of this encounter
--- OUTSIDE RECORDS SUMMARY | 2025-02-03 09:00 | XMS_ITS | Encounter Summary ---
[facility] Organization [facility] Address [address] [place] [address] Care Team Providers Care Welder Name Role Phone Janak Ramirez MD Primary Care Provider [phone]- [phone] Reason for Visit * Reason Comments Wound Check Encounter Details Date Type Department Care Team (Latest Contact Info) Description 02/03/2025 10:00 AM EDT Office Visit [facility] CARDIOLOGY [address] [place] [address] [address] [place] [address] Pacemaker (Primary Dx); H/O: CVA (cerebrovascular accident) Social History Tobacco Use Types Packs/Day Years Used Date Smoking Tobacco: Former Cigarettes 0.5 4.8 S tarted: 2020 Smokeless Tobacco: Never Alcohol Use Standard Drinks/Week Comments Never 0 (1 standard drink = 0.6 oz pur e alcohol) [facility] Utilities Answer Date Recorded In the past 12 months has [employer], gas, oil, or water [employer] threatened to shut off services in your [...] GED or equivalent Yes 01/25/2025 Preferred Language Grenadian 01/25/2025 Comments Unknown Sex and Gender Information Value Date Recorded Sex Assigned at Not on file Legal Sex Female 11:00 AM EDT Gender Identity Not on file Sexual Orientation Not on file documented as of this encounter Progress Notes * Lali Avendaño MA - 02/03/2025 10:00 AM EDT 02/03/2025 Marissa Nixhetal Ridley, : 1960 Fever: No Temperature if indicated: Wound Location: Right Infraclavicular Dressing Removed: Removed by MA/RN Old Dressing Appearance: Clean, dry Wound Appearance: Redness [] Drainage [] Culture obtained [] Color: Clear Consistency: Amount: none Gloves used, wound cleansed with sterile 4x4 and peroxide [x] MD notified [] MD orders: Antibiotic started [] If checked, type Other: Appointment for follow-up scheduled for 3 months post procedure [x] Future Appointments Date Time Provider Department Center 04/16/2025 1:30 PM Joan Vick APRN [facility] 05/20/2025 9:45 AM Sarkis Contreras MD [facility] Lali Avendaño MA, 02/03/25 Signature: Completed By/Date: documented in this encounter Plan of Treatment Upcoming Encounters Date Type Department Care Team (Late st Contact Info) Description 04/16/2025 1:30 PM EST Office Visit [facility] NEUROLOGY [address] [facility] [address] [place] [address] Joan Vick APRN [address] [facility] [address] [place] [id number] 05/20/2025 9:45 AM EST Office Visit [facility] CARDI[facility]Y [address] [place] [address] [address] [place] [phone] Sarkis Contreras MD [facility] [address] [place] [address] documented as of this encounter Visit Diagnoses Diagnosis Pacemaker- Primary Cardiac pacemaker in situ H/O: CVA (cerebrovascular accident) documented in this encounter Care Teams Welder Relationship Specialty Start Date End Date Janak Ramirez MD [address] [place] [address] PCP - General Family Medicine 02/03/25 documented as of this encounter
--- NOTE | 2025-03-17 11:47 | XR_ITS ---
FINAL REPORT TECHNIQUE: Left foot 2 views CLINICAL HISTORY: heel pain since stroke 1 month ago COMPARISON: None FINDINGS: LEFT FOOT: 2 views of the left foot were obtained. Osteopenia is present, which somewhat limits overall exam quality. There is no acute fracture or dislocation. Mild multijoint degenerative change is present. A plantar calcaneal spur is noted. There is no soft tissue abnormality. IMPRESSION: Osteopenia and mild multijoint degenerative change without acute osseous abnormality. Reviewed, Interpreted and Dictated by Jeannette Soto MD Transcribed by Guerita Bradshaw Authenticated and [facility]
--- OUTSIDE RECORDS SUMMARY | 2025-03-17 12:13 | XMS_ITS | Encounter Summary ---
Author Organization [facility] Address [address] [place] [address] Care Team Providers Care Director Hedis Name Role Phone Janak Ramirez MD Primary Care Provider [phone]- [phone] Encounter Details Date Type Department Care Team (Latest Contact Info) Description 02/03/2025 Travel Social History Tobacco Use Types Packs/Day Years Used Date Smoking Tobacco: Former Cigarettes 0.5 4.8 S tarted: 2020 Smokeless Tobacco: Never Alcohol Use Standard Drinks/Week Comments Never 0 (1 standard drink = 0.6 oz pur e alcohol) [facility] Utilities Answer Date Recorded In the past 12 months has [employer], gas, oil, or water company threatened [...] GED or equivalent Yes 01/25/2025 Preferred Language Bhutanese 01/25/2025 Comments Unknown Sex and Gender Information Value Date Recorded Sex Assigned at Not on file Legal Sex Female 11:00 AM EDT Gender Identity Not on file Sexual Orientation Not on file documented as of this encounter Plan of Treatment Upcoming Encounters Date Type Department Care Team (Late st Contact Info) Description 04/16/2025 1:30 PM EST Office Visit [facility] NEUROLOGY [address] [facility] [address] [place] [address] Joan Vick, JOSE 1720 [facility] [address] [address] 05/20/2025 9:45 AM EST Office Visit [facility] CARDIOLOGY [address] [facility] [address] [place] [phone] Sarkis Contreras MD [address] [facility] [address] [place] [address] documented as of this encounter Visit Diagnoses Not on filedocumented in this encounter Care Teams Director Hedis Relationship Specialty Start Date End Date Janak Ramirez MD [address] [place] [id number] PCP - General Family Medicine 02/03/25 documented as of this encounter
--- OUTSIDE RECORDS SUMMARY | 2025-03-17 12:14 | XMS_ITS | Encounter Summary ---
[facility] Address [address] [place] [address] Care Team Providers Care Youtuber Name Role Phone Provider, No Known Primary Care Provider Unavail able Reason for Visit * Reason Onset Date Comments Remote cardiac monitoring 01/27/2025 Pacema ker monitoring Encounter Details Date Type Department Care Team (Late st Contact Info) Description 01/27/2025 Telephone [facility] CARDIOLOGY [address] [facility] [address] [place] [address] Sarkis Contreras MD 1720 [facility] [address] [place] [phone] Remote cardiac monitoring (Pacemaker monitoring) Social History Tobacco Use Types Packs/Day Years Used Date Smoking Tobacco: Former Cigarettes 0.5 4.8 S tarted: 2020 Smokeless Tobacco: Never Alcohol Use Standard Drinks/Week Comments Never 0 (1 standard drink = 0.6 oz pur e alcohol) [facility] Utilities Answer Date Recorded In the past 12 months has [employer], gas, oil, or water [employer] threatened to shut off services in your [...] GED or equivalent Yes 01/25/2025 Preferred Language Egyptian 01/25/2025 Comments Unknown Sex and Gender Information Value Date Recorded Sex Assigned at Not on file Legal Sex Female 11:00 AM EDT Gender Identity Not on file Sexual Orientation Not on file documented as of this encounter Miscellaneous Notes * Telephone Encounter - Anna Be RN - 01/27/2025 3:53 PM EDT We've located the facility where she'll be discharged. * Telephone Encounter - Anna Be RN - 01/27/2025 1:14 PM EDT I apologize for the confusing message. Where will the pt be placed when she is discharged? We want the correct address to send the home monitor for her new pacemaker. * Telephone Encounter - Anna Be RN - 01/27/2025 11:30 AM EDT Pt is s/p Medtronic bi-ventricular pacemaker generator change. Please advise where pt will reside upon discharge so that a Medtronic transmitter can be sent to the facility. The pt was previously lost to cardiology follow up & [facility] cardiology will be assuming remote monitoring of the pt's pacemaker. documented in this encounter Plan of Treatment Upcoming Encounters Date Type Department Care Team (Late st Contact Info) Description 04/16/2025 1:30 PM EST Office Visit [facility] NEUROLOGY [address] [facility] [address] [place] [address] Joan Vick APRN 1720 [facility] [address] [address] 05/20/2025 9:45 AM EST Office Visit [facility] CARDIOLOGY [address] [address] Sarkis Contreras MD [address] [place] [address] documented as of this encounter Visit Diagnoses Not on filedocumented in this encounter Care Teams Youtuber Relationship Specialty Start Date End Date Provider, [place] [address] PCP - General 10/21/23 02/02/25 documented as of this encounter
--- OUTSIDE RECORDS SUMMARY | 2025-03-17 12:14 | XMS_ITS | Encounter Summary ---
[facility] [address] [place] [address] Care Team Providers Care Music Typographer Name Role Phone Provider, No Known Primary Care Provider Unavail able Reason for Visit * Reason Onset Date Comments MRI Compatibility 01/25/2025 NOT MRI Compat ible - Device at End of Service Encounter Details Date Type Department Care Team (Late st Contact Info) Description 01/25/2025 Documentation [facility] CARDIOLOGY [address] [facility] [address] [place] [address] Akash Tan DO [address] [facility] [address] [place] [address] MRI Compatibility (NOT MRI Compatible - Device at End of Service) Social History Tobacco Use Types Packs/Day Years Used Date Smoking Tobacco: Former Cigarettes 0.5 4.8 S tarted: 2020 Smokeless Tobacco: Never Alcohol Use Standard Drinks/Week Comments Never 0 (1 standard drink = 0.6 oz pur e alcohol) [facility] Utilities Answer Date Recorded In the past 12 months has [employer], gas, oil, or water company threatened [...] GED or equivalent Yes 01/25/2025 Preferred Language [place] Citizen 01/25/2025 Comments Unknown Sex and Gender Information Value Date Recorded Sex Assigned at Not on file Legal Sex Female 11:00 AM EDT Gender Identity Not on file Sexual Orientation Not on file documented as of this encounter Progress Notes * Mary Walters - 01/25/2025 11:23 AM EDT Patient's Pacemaker is at end of service. Not MRI Compatible. documented in this encounter Plan of Treatment Upcoming Encounters Date Type Department Care Team (Late st Contact Info) Description 04/16/2025 1:30 PM EST Office Visit [facility] NEUROLOGY [address] [facility] [address] [place] [address] Joan Vick APRN 1720 [facility] [address] [address] 05/20/2025 9:45 AM EST Office Visit [facility] CARDIOLOGY [address] [facility] [address] [place] [phone] Sarkis Contreras MD 1720 [facility] [address] [place] [phone] documented as of this encounter Visit Diagnoses Not on filedocumented in this encounter Care Teams Music Typographer Relationship Specialty Start Date End Date Provider, No Known [place] [id number] PCP - General 10/21/23 02/02/25 documented as of this encounter
--- OUTSIDE RECORDS SUMMARY | 2025-03-17 12:14 | XMS_ITS | Clinical Summary ---
Author Organization [facility] Address [address] [place] [address] Phone Care Team Providers Care Gathering Worker Name Role Phone Lyudmila Castro MD Primary Care Physician [phone] Conditions or Problems Problem Name Problem Code Onset Date Status Entry Date Provider Comment Standard Description Annotate Atrial Fibrillatio n I48.91 (ICD-10-CM) 05/26 Active 05/28 Bri Hunt APRN Unspecified atrial fibrillation Tobacco abuse 08528364 (SNOMED CT) 08/13 Active 05/28 Bri Hunt APRN Tobacco dependence syndrome GERD (gastroesop hageal reflux disease) 973290674 (SNOMED CT) 09/17 Active 05/28 Bri Hunt APRN Gastroesophage al reflux disease Hyperlipide rosalia 31398748 (SNOMED CT) 09/05 Active Bri Hunt APRN Hyperlipidemia Insomnia 630112761 (SNOMED CT) Active 05/27 Bri Hunt APRN Insomnia Fibromyalgi a 24818349 (SNOMED CT) 01/01 Active Bri Hunt APRN Fibromyositis Obstructive sleep apnea 50330286 (SNOMED CT) 01/08 Active 05/28 Bri Hunt APRN Obstructive sleep apnea syndrome Leukemia, in remission 77307945 (SNOMED CT) 05/31 Active 05/28 Bri Hunt APRN Leukemia in remission Thrombocyto penia 889944480 (SNOMED CT) 11/25 Active 05/28 Bri Hunt ROTOR CASTING MACHINE OPERATOR Thrombocytopen ic disorder Patent foramen ovale 045868994 (SNOMED CT) 11/27 Active 05/28 Bri Hunt ROTOR CASTING MACHINE OPERATOR Patent foramen ovale Panic disorder without agoraphobia 73621562 (SNOMED CT) 12/16 Active 05/28 Bri Hunt ROTOR CASTING MACHINE OPERATOR Panic disorder without agoraphobia Recurrent right pleural effusion 93751266 (SNOMED CT) 01/03 Active 05/28 Bri Hunt ROTOR CASTING MACHINE OPERATOR Pleural effusion Biventricul ar cardiac pacemaker present [id number] 105 (SNOMED CT) 01/07 Active 05/28 Bri Hunt ROTOR CASTING MACHINE OPERATOR Biventricular cardiac pacemaker present Hypothyroid ism 93270358 (SNOMED CT) 01/22 Active 05/27 Bri Hunt ROTOR CASTING MACHINE OPERATOR Hypothyroidism Complete heart block 75009619 (SNOMED CT) 01/10 Active 05/28 Bri Hunt ROTOR CASTING MACHINE OPERATOR Complete atrioventricul ar block Dilated cardiomyopa thy 332559578 (SNOMED CT) 01/10 Active 05/28 Bri Hunt ROTOR CASTING MACHINE OPERATOR Dilated cardiomyopathy CAD (coronary artery disease) 43448503 (SNOMED CT) 01/14 Active 05/28 Bri Hunt ROTOR CASTING MACHINE OPERATOR Coronary arterioscleros is Systolic heart failure, acute on chronic 704404050 (SNOMED CT) 10/14 Active 05/28 Bri Hunt ROTOR CASTING MACHINE OPERATOR Acute on chronic systolic heart failure Chronic obstructive pulmonary disease 123800068 (SNOMED CT) Active 05/28 Bri Hunt ROTOR CASTING MACHINE OPERATOR Severe chronic obstructive pulmonary disease Left acute thrombosis of subclavian vein 518284413 (SNOMED CT) 08/18 Active 05/28 Bri Hunt ROTOR CASTING MACHINE OPERATOR Thrombosis of subclavian vein Hypertensiv e urgency 065977019 (SNOMED CT) 08/18 Active 05/28 Bri Hunt ROTOR CASTING MACHINE OPERATOR Hypertensive urgency Permanent atrial fibrillatio n 719620437 (SNOMED CT) 09/18 Active 05/28 Bri Hunt APRN Permanent atrial fibrillation Chronic back pain 273836854 (SNOMED CT) 09/19 Active 05/28 Bri Hunt ROTOR CASTING MACHINE OPERATOR Chronic back pain Tricuspid regurgitati on, severe 610442600 (SNOMED CT) 09/20 Active 05/28 Bri Hunt ROTOR CASTING MACHINE OPERATOR Tricuspid valve regurgitation LV dysfunction 620394840 (SNOMED CT) 09/19 Active 05/28 Bri Hunt ROTOR CASTING MACHINE OPERATOR Left ventricular cardiac dysfunction History of ACUTE MYELOID LEUKEMIA IN REMISSION 14117324 (SNOMED CT) 05/18 Inactive 05/18 Bri Hunt APRN Acute myeloid leukemia in remission Problem excluded fro m report: DEPRESSION 48362023 (SNOMED CT) Resolved Bri Hunt APRN Depressive disorder GERD 587952737 (SNOMED CT) Resolved Bri Hunt APRN Gastroesophage al reflux disease ALLERGY, ENVIRONMENT AL 102010512 (SNOMED CT) Resolved Bri Hunt APRN Environmental allergy ASTHMA 239234900 (SNOMED CT) Resolved Bri Hunt ROTOR CASTING MACHINE OPERATOR Asthma KNEE PAIN LEFT 14290850 (SNOMED CT) Resolved Bri Hunt APRN Knee pain Hypothyroid ism 67764152 (SNOMED CT) 05/26 Inactive 05/27 Bri Hunt ROTOR CASTING MACHINE OPERATOR Hypothyroidism Insomnia 428202854 (SNOMED CT) 05/26 Inactive 05/27 Bri Hunt ROTOR CASTING MACHINE OPERATOR Insomnia Body mass index (BMI) 25.0-25.9; adult Z68.25 (ICD-10-CM) 05/26 Active 05/26 Bri Hunt APRN Body mass index [BMI] 25.0-25.9, adult Body mass index (BMI) 26.0-26.9; adult Z68.26 (ICD-10-CM) 05/19 Correction 05/19 Bri Hunt APRN Body mass index [BMI] 26.0-26.9, adult Preoperativ e examination 885333064 (SNOMED CT) 05/26 Inactive 05/26 Bri Hunt APRN Special examination - general Body mass index (BMI) 26.0-26.9; adult Z68.26 (ICD-10-CM) 05/19 Removed 05/19 Bri Hunt APRN Body mass index [BMI] 26.0-26.9, adult BRONCHITIS ACUTE 06967985 (SNOMED CT) 06/26 Inactive 06/26 Lyudmila Castro MD Acute bronchitis BRUISE 271355377 (SNOMED CT) Resolved Lyudmila Castro MD Contusion BRUISE 558513875 (SNOMED CT) Removed Lyudmila Castro MD Contusion KNEE PAIN LEFT 18298060 (SNOMED CT) Removed Lyudmila Castro MD Knee pain HYPERTENSIO N 90738163 (SNOMED CT) Active Lyudmila Castro MD Hypertensive disorder BRONCHITIS ACUTE 41075652 (SNOMED CT) 05/19 Resolved 05/19 Lyudmila Castro MD Acute bronchitis EDEMA 972699503 (SNOMED CT) Resolved Lyudmila Castro MD Edema History of ACUTE MYELOID LEUKEMIA IN REMISSION 24904143 (SNOMED CT) 05/18 Removed 05/18 Yumiko Gaston MD Acute myeloid leukemia in remission BRONCHITIS ACUTE 68079068 (SNOMED CT) 05/19 Removed 05/19 Yumiko Gaston MD Acute bronchitis ASTHMA 759154782 (SNOMED CT) Removed Kimberley Block RMA Asthma DYSLIPIDEMI A 251356583 (SNOMED CT) Inactive Kimberley Block RMA Dyslipidemia EDEMA 653333965 (SNOMED CT) Removed Kimberley Block RMA Edema ALLERGY, ENVIRONMENT AL 491992515 (SNOMED CT) Removed Kimberley Block RMA Environmental allergy GERD 413384049 (SNOMED CT) Removed Kimberley Block RMA Gastroesophage al reflux disease FIBROMYALGI A 52649008 (SNOMED CT) Inactive Kimberley Block RMA Fibromyositis DEPRESSION 37412551 (SNOMED CT) Removed Kimberley Block RMA Depressive disorder Medications Medication Instructions Start Date Stop Date Generic Name [facility] Provider ATORVASTATIN CALCIUM 40 MG TABS TAKE 1 TABLET BY MOUTH AT BEDTIME ATORVASTATIN CALCIUM [id number] Bri Hunt APRN CARVEDILOL 12.5 MG TABS TAKE 1 TABLET BY MOUTH 2 TIMES A DAY CARVEDILOL 76277697183 Bri Hunt APRN ELIQUIS 5 MG TABS TAKE 1 TABLET BY MOUTH TWICE A DAY APIXABAN 22908249080 Bri Hunt APRN ASPIR-LOW 81 MG ORAL TABLET DELAYED RELEASE TAKE 1 TABLET BY MOUTH 1 TIME A DAY ASPIRIN 61653660190 Bri Hunt APRN MELOXICAM 15 MG TABS TAKE 1 TABLET BY MOUTH ONCE A DAY MELOXICAM 38700281876 Bri Hunt APRN SPIRONOLACTONE 25 MG TABS TAKE 1 TABLET BY MOUTH 1 TIME A DAY SPIRONOLACTONE 42142665431 Bri Hunt APRN TRAMADOL HCL 50 MG TABS TAKE EVERY 8 HOURS NEEDED TRAMADOL HCL 09686916972 Bri Hunt APRN LEVOTHYROXINE SODIUM 50 MCG TABS TAKE 1 TABLET BY MOUTH ONCE A DAY LEVOTHYROXINE SODIUM 52327984043 Bri Hunt APRN ADVAIR DISKUS 250-50 MCG/DOSE INHALATION AEROSOL POWDER BREATH ACTIVATED 1 INH BID 05/26 FLUTICASONE-SALM ETEROL 08336834439 Bri Hunt APRN FUROSEMIDE 40 MG TABS TAKE 1 TABLET BY MOUTH 1 TIME A DAY FUROSEMIDE 24827428179 Bri Hunt ROTOR CASTING MACHINE OPERATOR CYMBALTA 60 MG ORAL CAPSULE DELAYED RELEASE PARTICLES 1 PO BID 05/26 DULOXETINE HCL 40400586197 Bri Gilbert GARCIA PROVENTIL HFA AEROSOL SOLUTION 2 PUFFS Q4H PRN 05/26 ALBUTEROL SULFATE AERS 17945078916 Bri Gilbert GARCIA PRILOSEC 20 MG ORAL CAPSULE DELAYED RELEASE 2 PO QD 05/26 OMEPRAZOLE 36307402527 Bri Gilbert GARCIA ZITHROMAX 250 MG TABS 2po day1 1pox4d 05/26 AZITHROMYCIN 35375548626 Bri Gilbert GARCIA TRAZODONE HCL 100 MG TABS TAKE 2 TABLET BY MOUTH EVERY NIGHT AT BEDTIME 05/26 TRAZODONE HCL 90978920445 Bri Gilbert GARCIA LORATADINE 10 MG TABS TAKE 1 TABLET BY MOUTH 1 TIME A DAY 05/26 LORATADINE 27527585584 Bri Gilbert GARCIA MELATONIN 3 MG TABS TAKE 1-3 TABLETS EACH NIGHT AT BEDTIME NEEDED FOR SLEEP MELATONIN 19557461841 Bri Guerrerosalma GARCIA MUCINEX D 60-600 MG [id number] 1po bib 05/26 PSEUDOEPHEDRINE- GUAIFENESIN 51685967397 Bri Guerrerosalma GARCIA MUCINEX 600 MG [id number] TAKE 1 TABLET BY MOUTH 2 TIMES A DAY 05/26 GUAIFENESIN 91927973943 Bri Gilbert GARCIA BENGAY COLD THERAPY 5 % EXTERNAL GEL APPLY TOPICALLY TO KNEE BID 05/26 MENTHOL (TOPICAL ANALGESIC) 73933464149 Bri Gilbert GARCIA LISINOPRIL 20 MG TABS TAKE 1 TABLET BY MOUTH 1 TIME A DAY LISINOPRIL 12267320723 Bri Hunt APRN POTASSIUM CHLORIDE ER 10 MEQ CR-TABS TAKE 1 BY MOUTH ONCE EVERY DAY 05/26 POTASSIUM CHLORIDE 22313435251 Bri Hunt APRN PERMETHRIN LICE TREATMENT 1 % EXTERNAL LOTION APPLY TO SCALP AND RINSE AFTER 8-12 MINUTES. COMB OUT NITS. REPEAT IN 1 WEEK NEEDED. PERMETHRIN 59172910477 Pamella Miranda MD AZITHROMYCIN 500 MG TABS take 1 tablet by mouth daily for 5 days 07/01 AZITHROMYCIN 86732676326 Lyudmila Castro MD POTASSIUM CHLORIDE ER 10 MEQ CR-TABS TAKE 1 BY MOUTH ONCE EVERY DAY POTASSIUM CHLORIDE 94857196751 Lyudmila Castro MD LISINOPRIL 10 MG TABS TAKE 1 TABLET BY MOUTH 1 TIME A DAY LISINOPRIL 63126879022 Lyudmila Castro MD BENGAY COLD THERAPY 5 % EXTERNAL GEL APPLY TOPICALLY TO KNEE BID MENTHOL (TOPICAL ANALGESIC) 59189419414 Lyudmila Castro MD MUCINEX 600 MG [id number] TAKE 1 TABLET BY MOUTH 2 TIMES A DAY GUAIFENESIN 96785522160 Yumiko Gaston MD LORATADINE 10 MG TABS TAKE 1 TABLET BY MOUTH 1 TIME A DAY LORATADINE 74384938577 Yumiko Gaston MD LYRICA 75 MG CAPS TAKE 1 CAPSULE 3 TIMES A DAY 05/18 PREGABALIN 67943822735 Yumiko Gaston MD TRAZODONE HCL 100 MG TABS TAKE 2 TABLET BY MOUTH EVERY NIGHT AT BEDTIME TRAZODONE HCL 56139853967 Lyudmila Castro MD TRAZODONE HCL 100 MG TABS 1 PO QHS 05/18 TRAZODONE HCL 84865708787 Yumiko Gaston MD CYMBALTA 60 MG ORAL CAPSULE DELAYED RELEASE PARTICLES 1 PO BID DULOXETINE HCL 77176144289 Yumiko Gaston MD LASIX 80 MG TABS 1po qdPRN FUROSEMIDE 91518857321 Yumiko Gaston MD ADVAIR DISKUS 250-50 MCG/DOSE INHALATION AEROSOL POWDER BREATH ACTIVATED 1 INH BID FLUTICASONE-SALM ETEROL 52241350782 Yumiko Gaston MD PRILOSEC 20 MG ORAL CAPSULE DELAYED RELEASE 2 PO QD OMEPRAZOLE 97110524824 Lyudmila Castro MD LYRICA 75 MG CAPS TAKE 1 CAPSULE 3 TIMES A DAY PREGABALIN 97184311596 Yumiko Gaston MD PRILOSEC 20 MG ORAL CAPSULE DELAYED RELEASE 2 PO QD OMEPRAZOLE 13270935175 Yumiko Gaston MD ZOCOR TABLET 05/19 SIMVASTATIN TABS 45523208744 Yumiko Gaston MD LASIX 80 MG TABS 1po qd FUROSEMIDE 94393588904 Yumiko Gaston MD MUCINEX D 60-600 MG [id number] 1po bib PSEUDOEPHEDRINE- GUAIFENESIN 42913355890 Yumiko Gaston MD ZITHROMAX 250 MG TABS 2po day1 1pox4d AZITHROMYCIN 25187167230 Yumiko Gaston MD PRILOSEC 20 MG ORAL CAPSULE DELAYED RELEASE 1 PO QD OMEPRAZOLE 04864316988 Yumiko Gaston MD ZOCOR TABLET SIMVASTATIN TABS 59098740766 Kimberley Block RMA PROVENTIL HFA AEROSOL SOLUTION 2 PUFFS Q4H PRN ALBUTEROL SULFATE AERS 95451627542 Yumiko Gaston MD ADVAIR DISKUS 250-50 MCG/DOSE INHALATION AEROSOL POWDER BREATH ACTIVATED 1 INH BID FLUTICASONE-SALM ETEROL 86513192728 Kimberley Block RMA LASIX 80 MG TABS TID FUROSEMIDE 75792877114 Kimberley Block RMA CYMBALTA 60 MG ORAL CAPSULE DELAYED RELEASE PARTICLES 1 PO BID DULOXETINE HCL 29857256295 Yumiko Gaston MD TRAZODONE HCL 100 MG TABS 1 PO QHS TRAZODONE HCL 75215172107 Yumiko Gaston MD LYRICA 75 MG CAPS 1 PO TID PREGABALIN 11758631087 Kimberley Rarrieck RMA Medications Administered No information available. Allergies, Adverse Reactions, Alerts Allergy Name Reaction Description Start Date Severity Statu s Provider DILAUDID ITCHING Mild Active Bri marsh ROTOR CASTING MACHINE OPERATOR METHODONE Critical Active Kimberley Andresrieck RMA MORPHINE Critical Active Kimberley Andresrieck RMA SULFA Critical Active Kimberley Rarrieck RMA Results Date Name Value Unit Range [...] in Blood ABS NEUTROPH 3625 CELLS/UL 10*3/uL 4513-7131 N Neutrophils [#/volume] in Blood PLATELETK/UL 151 [...] Type Date Detail Referral Pain Management Referral [facility], [address] [place], [address] Referral Hematology Oncol ogy Referral Oncology [facility]ology [facility], [address], [place], [address] Pending order CBC with diff Pending order BMP Pending order Protime INR Pending order CBC with diff (O utside Lab) Pending order CMP (Outside Lab ) Pending order TSH reflex to fr ee T-4 (Outside Lab) Procedures Code Procedure Name Date Entry Date [facility] 6399 T1 CBC with diff [facility] 65929 T1 CMP [facility] 496 T1 HGBA1c [facility] 89722 T1 Lipid Panel [facility] 58143 T1 TSH reflex to free T4 202 05/13/13 CPT-3077F Most recent systolic blood pressure >=140 mm Hg CPT-3079F Most recent diastoli c blood pressure 80-89 mm Hg [id number] Medication Reconciliation CPT-3077F Most recent systolic blood pressure >=140 mm Hg CPT-3078F Most recent diastoli c blood pressure <80 mm Hg [id number] Medication Reconciliation 6399 [facility] Test # CBC with diff 6 39082 [facility] Test # BMP 6 8847 [facility] Test # Protime INR HEM ON CARE Hematology Oncology Referral Oncology [facility] Refe rral [facility] CPT-53692 CBC with diff (Outside Lab) CPT-88313 CMP (Outside Lab) CPT-88072 TSH reflex to free T-4 (Outside Lab) [...]
--- OUTSIDE RECORDS SUMMARY | 2025-03-17 12:14 | XMS_ITS | Clinical Summary ---
Author Organization [facility] yste Address [address] [place] [address] Care Team Providers Care Imaging Clerk Name Role Phone Janak Ramirez MD Primary Care Provider [phone] Allergies Active Allergy Reactions Criticality Noted Date Comments Methadone Itching 10/21/2023 Morphine Itching 10/21/2023 Sulfa Antibiotics Itching,Rash Low 10/21/2023 Medications DULoxetine (CYMBALTA) 30 MG capsule Take 1 capsule by mouth 2 (Two) Times a Day. Active aspirin 81 MG chewable tablet Chew 1 tablet Daily. 10/26/19 24 Active atorvastatin (LIPITOR) 80 MG tablet Take 1 tablet by mouth Every Night. 10/25/19 24 Active metoprolol tartrate (LOPRESSOR) 25 MG tablet Take 0.5 tablets by mouth Every 12 (Twelve) Hours. 10/25/19 24 Active ferrous sulfate 325 (65 FE) MG tablet Take 1 tablet by mouth Daily With Breakfast. Active escitalopram (LEXAPRO) 10 MG tablet Take 1 tablet by mouth Every Morning. Active Baclofen (LIORESAL) 5 MG tablet Take 1 tablet by mouth 3 (Three) Times a Day. Active ondansetron (ZOFRAN) 4 MG tablet Take 1 tablet by mouth Every 6 (Six) Hours As Needed for Nausea or Vomiting. Active acetaminophen (TYLENOL) 500 MG tablet Take 1 tablet by mouth Every 4 (Four) Hours As Needed for Mild Pain, Headache, Fever or Moderate Pain. 01/28/20 25 Active apixaban (ELIQUIS) 5 MG tablet tabletIndications:A trial Fibrillation - requiring full anticoagulation Take 1 tablet by mouth Every 12 (Twelve) Hours. Indications: Atrial Fibrillation 01/28/20 Active gabapentin (NEURONTIN) 400 MG capsuleIndications: H/O: CVA (cerebrovascular accident) Take 1 capsule by mouth 3 (Three) Times a Day. 9 capsule 01/28/20 Active amLODIPine (NORVASC) 5 MG tablet Take 0.5 tablets by mouth Daily. 01/28/20 Active levothyroxine (SYNTHROID, LEVOTHROID) 75 MCG tablet Take 1 tablet by mouth Daily. 01/28/20 Active omeprazole (priLOSEC) 20 MG capsule Take 1 capsule by mouth Every Morning Before Breakfast. 01/28/20 Active Active Problems Problem Noted Date Diagnosed Date Aphasia 01/23/2025 H/O: CVA (cerebrovascular accident) 01/23/2025 Fibromyalgia 10/21/2023 Pacemaker 10/21/2023 Primary hypertension 10/21/2023 Tobacco use 10/21/2023 Ischemic cardiomyopathy 10/21/2023 Resolved Problems Problem Noted Date Diagnosed Date Resolved Date Stroke 10/22/2023 10/25/2023 Left-sided weakness 10/21/2023 10/25/19 Encounters Date Type Department Care Team Description 02/03/2025 10:00 AM EDT Office Visit [facility] [address] [address] Pacemaker (Primary Dx); H/O: CVA (cerebrovascular accident) 02/03/2025 Travel 01/27/2025 Telephone [facility] [address] [address] Sarkis Contreras MD Remote cardiac monitoring (Pacemaker monitoring) 01/26/2025 2:10 PM EDT - 01/26/2025 3:40 PM EDT Surgery [facility] [address] [place] [address] Sarkis Contreras MD PPM generator change bi-v [60913 (CPT ) +1 more] 01/25/2025 Documentation [facility] [address] [facility] [address] [place] [address] kAash Tan, DO MRI Compatibility (NOT MRI Compatible - Device at End of Service) 01/24/2025 Travel 01/23/2025 9:40 PM EDT - 01/27/2025 2:45 PM EDT Hospital Encounter [facility] 3F [address] [place] [address] Pam Kothari MD Shields, Daniel Alan, DO Cognitive communication deficit (Primary Dx); Dysphagia, unspecified type; H/O: CVA (cerebrovascular accident) Discharge Disposition: Senior Living Facility (DC - External) from Last 3 Months Social History Tobacco Use Types Packs/Day Years Used Date Smoking Tobacco: Former Cigarettes 0.5 4.8 S tarted: 2020 Smokeless Tobacco: Never Tobacco Cessation:Counseling Given: Not Answered Alcohol Use Standard Drinks/Week Comments Never 0 (1 standard drink = 0.6 oz pur e alcohol) [facility] [employer] Answer Date Recorded In the past 12 months has e [employer], gas, oil, or water [employer] threatened to shut off services in your [...] GED or equivalent Yes 01/25/2025 Preferred Language Libyan 01/25/2025 Comments Unknown Sex and Gender Information [...] Mass Index 30.84 01/24/2025 10:12 AM EDT Plan of Treatment Upcoming Encounters Date Type Department Care Team (Late st Contact Info) Description 04/16/2025 1:30 PM EST Office Visit [facility] [address] [facility] [address] [place] [address] Joan Vick APRN [address] [facility] [address] [place] [address] 05/20/2025 9:45 AM EST Office Visit [facility] [address] [facility] [address] [place] [phone] Sarkis Contreras MD [address] [facility] [address] [place], [place] [id number] Health Maintenance Due Date Last Done Comments Annual Gynecologic Pelvic an d Breast Exam 1962 PAP SMEAR 1983 MAMMOGRAM 2002 COLOGUARD 2007 COLON CANCER SCREENING 5 YEA R SIGMOIDOSCOPY 2007 COLONOSCOPY 2007 [address] CANCER SCREENING 2007 CT COLONOGRAPHY 2007 FECAL OCCULT BLOOD TEST 2007 FIT Testing (1 year) 2007 ZOSTER VACCINE (1 of 2) 01/14/2012 TDAP/TD VACCINES (3 - Td or Tdap) 08/27/202208/27/2 013, 01/02/2010 ANNUAL WELLNESS VISIT 11/21/2023 11/20/2022 INFLUENZA VACCINE 12/11/2024 04/11/2023, , 01/15/2018, Additional history exists Pneumococcal Vaccine 50+ (3 of 3 - PCV20 or PCV21) 12/05/2026 12/05/2021, 01/04/2017, 02/24/2014, Additional history exists HEPATITIS C SCREENING Completed 10/14/2023 , 10/12/2023, 10/12/2023, Additional history exists Medical Devices Implanted Type Area On Line Csr Device Identifier Shelf Expiration Date Model / Serial / Lot Gen Pm Percepta Mri Quad Crtp - [id number] - [id number] Implanted:Qty: 1 on 01/26/2025 by Sarkis Contreras MD at [facility] Pacemaker Right: Chest [employer] 04/25/2026 [id number] / [id number] / Procedures Procedure Name Priority Date/Time Associated Diagnosis Comments REMOTE DEVICE CHECK 02/17/2025 3 :17 PM EDT EP STUDY Routine 01/26/2025 6:37 PM EDT CBC (NO DIFF) Routine 01/25/2025 6:23 PM EDT BASIC METABOLIC PANEL Routine 01/25/2025 6:23 PM EDT ECG 12-LEAD Routine 01/25/2025 12:[address] HEAD WO CONTRAST Routine 01/24/2025 6 :26 PM EDT POCT GLUCOSE FINGERSTICK Routine 01/24/2025 12:41 PM EDT ECHO COMPLETE W/ DOPPLER AND COLOR FLOW Routine 01/24/2025 10:13 AM EDT LIPID PANEL Routine 01/24/2025 7:27 AM EDT HEMOGLOBIN A1C Routine 01/24/2025 7:27 AM EDT POCT GLUCOSE FINGERSTICK Routine 01/24/2025 6:14 AM EDT PROTIME-INR STAT 01/24/2025 1:00 AM EDT COMPREHENSIVE METABOLIC PANEL STAT 01/24/2025 1:00 AM EDT CBC (NO DIFF) STAT 01/24/2025 1:00 AM EDT ECG 12-LEAD Routine 01/23/2025 10:42 PM EDT POCT GLUCOSE FINGERSTICK Routine 01/23/2025 9:[address] OUTSIDE HEAD Routine 01/23/2025 7:[address] OUTSIDE HEAD Routine 01/23/2025 7:04 PM EDT from Last 3 Months Results * Remote Device Check (02/17/2025 3:17 PM EDT) Date Time Interrogation Session [id number] [facility] Type Interrogation Session Remote [facility] Implantable Pulse Generator On Line Csr Medtronic [facility] Implantable Pulse Generator Type AGRICULTURE MANAGER-P [facility] Implantable Pulse Generator Model Percepta Quad AGRICULTURE MANAGER-P [id number] [facility] Implantable Pulse Generator Serial Number [id number] [facility] Implantable Pulse Generator Implant Date 20250126 [facility] Battery Remaining Longevity 117.0 mo [facility] Battery Voltage 3.210 [facility] Battery PAYER SPECIALIST Trigger 2.595 [facility] Battery Status OK [facility] Gary Statistic RA Percent Paced 0.00 [facility] Lead Channel RA Sensing Intrinsic Amplitude 0.500 [facility] Lead Channel RA Impedance Value 418 [facility] Lead Channel RV Sensing Intrinsic Amplitude 14.125 [facility] Lead Channel Setting RV Sensing Sensitivity 1.20 [facility] Lead Channel RV Impedance Value 513 [facility] Lead Channel RV Pacing Threshold Amplitude 0.750 [facility] Lead Channel RV Pacing Threshold Pulse Width 0.4 [facility] Lead Channel RV Measurements Date and Time [id number] [facility] Lead Channel Setting RV Pacing Amplitude 1.500 [facility] Lead Channel Setting RV Pacing Pulse Width 0.4 [facility] Lead Channel LV Impedance Value 741 [facility] Lead Channel Setting LV Pacing Amplitude 3.000 [facility] Lead Channel Setting LV Pacing Pulse Width 0.8 [facility] Gary Setting Mode (NBG Code) VVI [facility] Ventricular chambers paced during AGRICULTURE MANAGER pacing. BiV [facility] Gary Setting Lower Rate Limit 55 [facility] AGRICULTURE MANAGER LV-RV Delay 0 [facility] Lead Channel Setting RA Sensing Polarity Bipolar [facility] Lead Channel Setting RV Sensing Polarity Bipolar [facility] Lead Channel Setting RV Pacing Polarity Bipolar [facility] Lead Channel Setting LV Pacing Polarity Bipolar [facility] Lead Channel RV Pacing Threshold Polarity Bipolar [facility] Zone Setting Type Category VT [facility] IDC RATE 1 150 [facility] Zone Setting Status ENABLED [facility] Zone ID 6 [facility] 02/17/2025 3:17 PM EDT us Sarkis Contreras MD CV IMPLANTABLE CARDIAC DEVICE Fi nal Result [facility] * PPM GENERATOR CHANGE BI-V (01/26/2025 6:37 PM EDT) Anatomical Region Laterality Modality X-Ray Angiograph y Narrative 01/26/2025 6:50 PM EDT FINAL IMPRESSIONS: Successful Bi-Ventricular Permanent Pacemaker generator removal. Successful insertion of a new Bi-Ventricular Permanent Pacemaker generator. RECOMMENDATION(S): The patient will be monitored on telemetry. If stable, the patient will be discharged home later today. Sarkis Contreras MD Cardiac Nurse Charge Rn [facility] 01/26/25 18:37 EDT Procedure Narrative Date of Procedure: 01/26/25 PARTS COUNTER SALES PERSON/POT FEEDER: Sarkis Contreras MD PROCEDURE(S) PERFORMED: 1. Removal of a [...] was administered at 1803 and continued through 183. DESCRIPTION(S) OF THE PROCEDURE: The patient was [...] minute with prolonged A-V delay. us Sarkis Contreras MD CV ELECTROPHYSIOLOGY ORDERABLES Final Result * (ABNORMAL) CBC (No Diff) (01/25/2025 6:23 PM EDT) Only the most recent of2 resultswithin the time period is included. WBC 12.07(H) 3.40 - 10.80 10*3/mm3 01/25/2025 6:51 PM EDT [facility] RBC 4.96 3.77 - 5.28 10*6/mm3 01/25/2025 6:51 PM EDT [facility] Hemoglobin 14.3 12.0 - 15.9 g/dL 01/25/2025 6:51 PM EDT [facility] Hematocrit 44.6 34.0 - 46.6 % 01/25/2025 6:51 PM EDT [facility] MCV 89.9 79.0 - 97.0 fL 01/25/2025 6:51 PM EDT [facility] MCH 28.8 26.6 - 33.0 pg 01/25/2025 6:51 PM EDT [facility] MCHC 32.1 31.5 - 35.7 g/dL 01/25/2025 6:51 PM EDT [facility] RDW 13.7 12.3 - 15.4 % 01/25/2025 6:51 PM EDT [facility] RDW-SD 45.1 37.0 - 54.0 fl 01/25/2025 6:51 PM EDT [facility] MPV 10.2 6.0 - 12.0 fL 01/25/2025 6:51 PM EDT [facility] Platelets 150 140 - 450 10*3/mm3 01/25/2025 6:51 PM EDT [facility] Blood Venipuncture / Unknown 01/25/2025 6:23 PM EDT 01/25/2025 6:48 PM EDT us Akash Tan DO LAB BLOOD ORDERABLES Romana schaeffer Result [facility]
[address] [place] [address], * (ABNORMAL) Basic Metabolic Panel (01/25/2025 6:23 PM EDT) [facility] Glucose 109(H) 65 - 99 mg/dL 01/25/2025 7:21 PM T [facility] BUN 17.4 8.0 - 23.0 mg/dL 01/25/2025 7:21 PM T [facility] Creatinine 0.95 0.57 - 1.00 mg/dL 01/25/2025 7:21 PM EDT [facility] Sodium 136 136 - 145 mmol/L 01/25/2025 7:21 PM T [facility] Potassium 3.9 3.5 - 5.2 mmol/L 01/25/2025 7:21 PM EDT [facility] Chloride 99 98 - 107 mmol/L 01/25/2025 7:21 PM [facility] CO2 24.4 22.0 - 29.0 mmol/L 01/25/2025 7:21 PM EDT [facility] Calcium 8.8 8.6 - 10.5 mg/dL 01/25/2025 7:21 PM T [facility] BUN/Creatinine Ratio 18.3 7.0 - 25.0 01/25/2025 7:21 PM T [facility] Anion Gap 12.6 5.0 - 15.0 mmol/L 01/25/2025 7:21 PM [facility] eGFR 67.5 >60.0 mL/min/1.7 3 01/25/2025 7:21 PM T [facility] Blood Venipuncture / Unknown 01/25/2025 6:23 PM EDT 01/25/2025 6:48 PM EDT [facility] - 01/25/2025 7:21 PM EDT GFR [...] DO LAB BLOOD ORDERABLES Romana schaeffer Result [facility]
[address] [place] [address], * ECG 12 Lead Chest Pain (01/25/2025 12:57 PM EDT) Only the most recent of2 resultswithin the time period is included. QT Interval 510 ms ECG QTC Interval [...] decreased by 7 bpm Confirmed by Sarkis Contreras ([id number]) on 01/25/2025 3:51:07 PM Referred By: PONCHO Confirmed By: Sarkis Contreras Procedure Note Sarkis Contreras MD - 01/25/2025 Test Reason : Chest [...] decreased by 7 bpm Confirmed by Sarkis Contreras ([id number]) on 01/25/2025 3:51:07 PM Referred By: PONCHO Confirmed By: Sarkis Contreras us Pam Kothari MD ECG ORDERABLES Final Result BH ECG * CT Head Without Contrast (01/24/2025 6:26 PM EDT) Anatomical Region Laterality Modality Head N/A Computed Tomogra phy 01/24/2025 7:37 PM EDT Impressions 01/24/2025 7:39 PM EDT Impression: No significant interval change. Electronically Signed: Hugo Finnegan MD 01/24/2025 7:39 PM EDT Workstation ID: [id number] DxDesc Narrative 01/24/2025 7:[address] [...] MD 01/24/2025 7:39 PM EDT Workstation ID: [id number] DxDesc Jhonny Pradhan MD IMG CT ORDERABLES Final R esult * (ABNORMAL) POC Glucose Once (01/24/2025 12:41 PM EDT) Only the most recent of3 resultswithin the time period is included. Pathologist [facility] Glucose 138(H) 70 - 130 mg/dL 01/24/2025 12:43 PM EDT [facility] Comment:Serial Number: [id number]: [id number] Blood 01/24/2025 12:4 1 PM EDT 01/24/2025 12:43 PM EDT Akash Tan DO POINT OF CARE TEST ORDERA BLES Final Result [facility]
[address] [place] [address], * ECHO COMPLETE W/ DOPPLER AND COLOR FLOW (01/24/2025 10:13 AM EDT) Pathologist [facility] EF(MOD-bp) 62.6 % LVIDd 4.4 cm [...] negative bubble study performed on 10/22/2023 Claudia Aponte APRN CV ECHO ORDERABLES Final Result * (ABNORMAL) Hemoglobin A1c (01/24/2025 7:27 AM EDT) Hemoglobin A1C 6.20(H) 4.80 - 5.60 % 01/24/2025 10:22 AM EDT [facility] Blood Venipuncture / Unknown 01/24/2025 7:27 AM EDT 01/24/2025 8:31 AM EDT [facility] - 01/24/2025 10:22 AM EDT Hemoglobin A1C Ranges: Increased Risk for Diabetes 5.7% to 6.4% Diabetes >= 6.5% Diabetic Goal < 7.0% Claudia Sims Fadi FIELD SERVICER LAB BLOOD ORDERABLE S Final Result [facility]
[address] [place] [address], * Lipid Panel (01/24/2025 7:27 AM EDT) Total Cholesterol 138 0 - 200 mg/dL 01/24/2025 9:00 AM EDT [facility] Triglycerides 69 0 - 150 mg/dL 01/24/2025 9:00 AM EDT [facility] HDL Cholesterol 43 40 - 60 mg/dL 01/24/2025 9:00 AM EDT [facility] LDL Cholesterol 81 0 - 100 mg/dL 01/24/2025 9:00 AM EDT [facility] VLDL Cholesterol 14 5 - 40 mg/dL 01/24/2025 9:00 AM EDT [facility] LDL/HDL Ratio 1.89 01/24/2025 9:00 AM EDT [facility] Blood Venipuncture / Unknown 01/24/2025 7:27 AM EDT 01/24/2025 8:31 AM EDT [facility] - 01/24/2025 9:00 AM EDT Cholesterol [...] APRN LAB BLOOD ORDERABLE S Final Result Performing Organization Address [facility] Co de Phone Number [facility]
[address] [place] [address], * Protime-INR (01/24/2025 1:00 AM EDT) Protime 15.0 12.2 - 15.3 Seconds 01/24/2025 1:57 AM EDT [facility] INR 1.11 0.89 - 1.12 01/24/2025 1:57 AM EDT [facility] Blood Venipuncture / Unknown 01/24/2025 1:00 AM EDT 01/24/2025 1:16 AM EDT Pam Kothari MD LAB BLOOD ORDERABLES Final Resul t Performing Organization Address [facility] Co de Phone Number [facility]
[address] [place] [address], * (ABNORMAL) Comprehensive Metabolic Panel (01/24/2025 1:00 AM EDT) Glucose 137(H) 65 - 99 mg/dL 01/24/2025 1:44 AM EDT [facility] BUN 19.8 8.0 - 23.0 mg/dL 01/24/2025 1:44 AM EDT [facility] Creatinine 0.94 0.57 - 1.00 mg/dL 01/24/2025 1:44 AM [facility] Sodium 137 136 - 145 mmol/L 01/24/2025 1:44 AM [facility] Potassium 4.4 3.5 - 5.2 mmol/L 01/24/2025 1:44 AM [facility] Comment:Specimen hemolyzed. Result may be falsely elevated. Chloride 101 98 - 107 mmol/L 01/24/2025 1:44 AM [facility] CO2 21.5(L) 22.0 - 29.0 mmol/L 01/24/2025 1:44 AM [facility] Calcium 9.0 8.6 - 10.5 mg/dL 01/24/2025 1:44 AM [facility] Total Protein 7.1 6.0 - 8.5 g/dL 01/24/2025 1:44 AM [facility] Albumin 3.9 3.5 - 5.2 g/dL 01/24/2025 1:44 AM [facility] ALT (SGPT) 20 1 - 33 U/L 01/24/2025 1:44 AM [facility] AST (SGOT) 31 1 - 32 U/L 01/24/2025 1:44 AM [facility] Alkaline Phosphatase 116 39 - 117 U/L 01/24/2025 1:44 AM [facility] Total Bilirubin 0.5 0.0 - 1.2 mg/dL 01/24/2025 1:44 AM [facility] Globulin 3.2 gm/dL 01/24/2025 1:44 AM [facility] Comment:Calculated Result A/G Ratio 1.2 g/dL 01/24/2025 1:44 AM [facility] BUN/Creatinine Ratio 21.1 7.0 - 25.0 01/24/2025 1:44 AM [facility] Anion Gap 14.5 5.0 - 15.0 mmol/L 01/24/2025 1:44 AM [facility] eGFR 68.3 >60.0 mL/min/1.7 3 01/24/2025 1:44 AM EDT [facility] Blood Venipuncture / Unknown 01/24/2025 1:00 AM EDT 01/24/2025 1:16 AM EDT Narrative [facility] - 01/24/2025 1:44 AM EDT GFR [...] does not include race as a factor Pam Kothari MD LAB BLOOD ORDERABLES Final Resul t [facility]
[address] [place] [address], * CT Outside Head (01/23/2025 7:04 PM EDT) Only the most recent of2 resultswithin the time period is included. Narrative SYSTEMGENERATED, DOCUMENTATION - 01/23/2025 7:04 PM EDT This procedure was auto-finalized with no dictation required. us [employer] Outside Films IMG CT ORDERABLES Final Re sult from Last 3 Months Insurance MEDICARE A & B [place]ICAID [place] Advance Directives * No CPR (Do Not Attempt to Resuscitate) (Latest Code Status on File) Date Activated Date Inactivated Comments 01/24/2025 7:53 AM 01/27/2025 5:08 PM Question Answer Comments Code Status (Patient has no pulse and is not breathing): No CPR (Do Not Attempt to Resuscitate) Medical Interventions (Patie nt has pulse or is breathing): Limited Support Medical Intervention Limits: No intubation (DNI) Comments: per prior * No CPR (Do Not Attempt to Resuscitate) Date Activated Date Inactivated Comments 10/21/2023 3:04 PM 10/25/2023 4:43 PM Question Answer Comments Code Status (Patient has no pulse and is not breathing): No CPR (Do Not Attempt to Resuscitate) Medical Interventions (Patie nt has pulse or is breathing): Limited Support Medical Intervention Limits: No intubation (DNI) Level Of Support Discussed With: Patient Care Teams Imaging Clerk Relationship Specialty Start Date End Date Janak Ramirez MD [address] [place] [address] PCP - General Family Medicine 02/03/25
--- OUTSIDE RECORDS SUMMARY | 2025-03-17 12:15 | XMS_ITS | Encounter Summary ---
Author Organization [facility] Address [address] [place] [address] Care Team Providers Care Hotel Superintendent Name Role Phone Provider, No Known Primary Care Provider Unavail able Encounter Details Date Type Department Care Team (Latest Contact Info) Description 01/24/2025 Travel Social History Tobacco Use Types Packs/Day Years Used Date Smoking Tobacco: Former Cigarettes 0.5 4.8 S tarted: 2020 Smokeless Tobacco: Never Alcohol Use Standard Drinks/Week Comments Never 0 (1 standard drink = 0.6 oz pur e alcohol) [facility] Utilities Answer Date Recorded In the past 12 months has coRank electric, gas, oil, or water company threatened [...] GED or equivalent Yes 01/25/2025 Preferred Language Kazakh 01/25/2025 Comments Unknown Sex and Gender Information Value Date Recorded Sex Assigned at Not on file Legal Sex Female 11:00 AM EDT Gender Identity Not on file Sexual Orientation Not on file documented as of this encounter Functional Status * Question Answer Date of Assessment Author 1. Wish to be (Past 1 Month) No 025 3:24 AM EDT Oanh Torre, RN 2. Non-Specific Active Suici cha Thoughts (Past 1 Month) No 01/24/2025 3:24 AM EDT Ronit Torre, RN * Calculated C-SSRS Risk Score (Lifetime/Recent) Answer Date of Assessment Author No Risk Indicated 01/24/2025 3:24 AM EDT Oanh Amaya RN * [place] Suicide Severity Rating Scale (Screener/Recent Self-Report) Question Answer Date of Assessment Author 6. Suicidal Behavior (Lifetime) No 3:24 AM EDT Oanh Torre, RN documented as of this encounter Plan of Treatment Upcoming Encounters Date Type Department Care Team (Late st Contact Info) Description 04/16/2025 1:30 PM EST Office Visit [facility] [address] [facility] [address] [place] [address] Joan Vick APRN [address] [facility] [address] [address] 05/20/2025 9:45 AM EST Office Visit [facility] [address] [facility] [address] [place] [id number] Sarkis Contreras MD [address] [facility] [address] [place] [address] documented as of this encounter Visit Diagnoses Not on filedocumented in this encounter Care Teams Hotel Superintendent Relationship Specialty Start Date End Date Provider, [place] [address] PCP - General 10/21/23 02/02/25 documented as of this encounter
== END 2025-03-17 23:59 | disposition home or self-care (01) ==
LOC: RAD 11:45
PROVIDERS: PCP Family Medicine; Visit Provider Nurse Practitioner
DX: M19.072 Primary osteoarthritis, left ankle and foot (principal); M85.872 Other specified disorders of bone density and structure, left ankle and foot; M77.32 Calcaneal spur, left foot
CPT/HCPCS: 73620